=== PATIENT | female | born 1945 | race Asian ===

== ENCOUNTER 2020-05-22 17:13 | Inpatient (IN) | payer MEDICARE, MEDICAID ==
[~2020-05-22] VITALS: Ht 154.9 cm; Wt 59.0 kg
[~2020-05-22 17:13] MED LIST: NKM; PRILOSEC20 MG PO; TYLENOL #31 TAB PO
[2020-05-22] MEDS ORDERED: cefTRIAXone 1 GM in NS 55 ML IV ONE (17:30)
[2020-05-22] MEDS ORDERED: dexAMETHasone 10mg/ml Inj IV ONE (17:30)
[2020-05-22] MEDS ORDERED: Azithromycin 500 MG in NS 275 ML IVPB ONE (17:30)
--- NOTE | 2020-05-22 17:37 | Emergency Room Report ---
History of Present Illness General Chief Complaint: Dyspnea/Respdistress Source: Patient Present Illness HPI 75-year-old Georgian female recently tested positive for COVID-19 yesterday presents with chief complaint of shortness of breath. According to EMS, pulse oxygen saturation was 80% on room air. She was discharged yesterday in stable condition. Initially complaint of abdominal pain without respiratory symptoms. History is limited secondary to patient's clinical status. The patient's symptoms were gradual onset, severity was moderate, duration since 3 days. Quality: Generally weak, short of breath Past medical history: Denies Past surgical history: Denies Smoking: Denies Alcohol use: Denies Drug use: Denies Review of systems: CONST: No fevers or chills, No night sweats PULMONARY: Positive productive cough, positive shortness of breath CARDIAC: No chest pain, No palpitations GI: No vomiting, No diarrhea , No melena_or_BRBPR : No dysuria, No hematuria, No discharge NEURO: No new_focal_weakness_or_numbness, No confusion, No vision changes 14 point Review of Systems is otherwise negative except per HPI Physical Exam: GENERAL: Awake_alert_ nontoxic, mild distress Spo2 88% on RA -abnormal EYES: Extraocular muscles are intact. Conjunctivae clear. Lids without swelling ENT: External nose and ear normal_in_appearance. Oropharynx clear. Head_atraumatic, dry_oral_mucosa NECK: No JVD. No meningismus. No thyromegaly. Supple. Trachea midline RESP: Increased respiratory effort. Tachypneic. Symmetric rise. No stridor. Coarse breath sounds bilaterally CARDIAC: Tachycardic and regular rhytm. No_significant pedal edema. ABDOMEN: Soft. Nondistended. Nontender_No_rebound_or_guarding. MSK: Normal muscle tone, without rigidity. Extremities without asymmetric deformity or swelling. SKIN: Warm and dry. No visible cyanosis or pallor NEUROLOGIC: Alert, oriented x3. Motor_and_sensation_grossly_intact. No truncal ataxia. Gait_normal Psych: Normal mood and affect, normal judgment and insight - COORDINATION OF CARE Case was discussed with: Patient , Patient's Physician Any labs and imaging that were ordered were interpreted as part of the medical decision making: Medical Decision Making/Plan: Differential includes pneumonia, bronchitis, CHF, pulmonary edema, pulmonary embolism, pleural effusion among others. Patient is hypoxic on arrival. She was placed on nonrebreather with resolution of her hypoxia. ABG is pending. Likely additional hypoxemia. Symptoms are not likely to be pulmonary embolism, patient no significant PE risk factors, and has more likely alternate cause of symptoms. Covid was positive yesterday. CXR shows multifocal pneumonia, likely COVID-19. Seems to be consistent with pneumonia, rather than CHF. Labs show troponin negative x1. Dimer is within normal limits. Doubt massive or submassive PE. EKG shows ectopy, however there minimal ST depressions in the lateral leads V4 through V6. No acute STEMI. Presentation not consistent with ischemia / ACS. Based on the patients PSI/PORT score, has high enough mortality risk that inpatient admission for IV antibiotics and clinical observation is most appropriate. Patient given Ceftriaxone / Azithromycin and Decadron. I spoke with Dr. Sousa, and reviewed the patients presentation, workup, results, and treatment. They will admit the patient for further care and evaluation, and assume care of the patient at this time. - CRITICAL CARE TIME - I spent 60minutes of critical care time. This time excludes any separately billable procedures. Organ systems at risk include: Pulmonary / respiratory Treatments/Evaluations: Emergent and rapid respiratory assessment and management with continuous monitoring. Advanced airway equipment at the ready, while the patient's respiratory symptoms were stabilized. Given the patients presentation with pneumonia with hypoxic respiratory failure, there existed the potential for imminent deterioration in the patient's condition due to respiratory compromise. Organ systems at risk for failure without immediate intervention include pulmonary / respiratory. This time was spent reviewing the patients records, reviewing vital signs, reassessing the patients clinical status, discussing the case and care with staff and consultants, and performing high-complexity medical decision making. I considered the possibility of Bipap vs intubation , but at this time the patient is protecting their airway and maintaining their saturation on supplemental oxygen so will defer intubation at this time, although they will be closely monitored for any further deterioration. Allergies: Coded Allergies: No Known Allergies (Unverified , 04/02/12) COVID-19 Screening Contact w/high risk pt: No Experienced COVID-19 symptoms?: No COVID-19 Testing performed CAFETERIA CASHIER: No Patient History Now: No Physical Exam Vital Signs Date Time Temp Pulse Resp B/P (MAP) Pulse Ox O2 Delivery O2 Flow Rate FiO2 05/22/20 17:20 99.0 78 18 136/67 (90) 88 Room Air Sp02 EP Interpretation: reviewed, abnormal Medical Decision Making Diagnostic Impression: Primary Impression: COVID-19 Additional Impressions: Hypoxia Pneumonia Abnormal EKG Thrombocytopenia EKG Diagnostic Results Troponin ordered: Yes When was troponin ordered?: May 22, 2020 JASSON Funez 12-lead EKG (interpreted by me) Time: 190 Indication: Rhythm analysis Tracing visualized and Interpreted by me. Rhythm: Normal sinus rhythm Rate: 65 bpm QTc: 455 Morphology: No_significant_ST_elevations_or_depressions, No STEMI Impression: Ectopy. ST depressions in the lateral leads versus artifact Chest X-Ray Diagnostic Results Chest X-Ray Diagnostic Results : JASSON Funez Chest X-Ray: Views: [ 1 ] view(s) Indication: Cough Findings: Normal heart size. Mediastinum normal. Impression: Multiple groundglass opacity. Multifocal pneumonia The X-ray(s) were independently viewed and interpreted contemporaneously Electronically signed by Regina calero DO Reevaluation Time: 19:34 Last Vital Signs Date Time Temp Pulse Resp B/P (MAP) Pulse Ox O2 Delivery O2 Flow Rate FiO2 05/22/20 17:20 99.0 78 18 136/67 (90) 88 Room Air Status: improved Disposition: ADMITTED INPATIENT Admit Decision Time: 17:36 Condition: Stable Regina Doll D.O. May 22, 2020 17:36
[2020-05-22 18:22] LABS: BASOPHILS % (AUTO) 0.6 % (0.0-2.0); HEMATOCRIT 37.7 % (37.0-47.0); HEMOGLOBIN 13.7 G/DL (12.0-16.0); LYMPHOCYTES % (AUTO) 14.3 % (20.0-45.0); MEAN CORPUSCULAR VOLUME 90 FL (80-99); MONOCYTES % (AUTO) 6.5 % (1.0-10.0); NEUTROPHILS % (AUTO) 78.7 % (45.0-75.0); PLATELET COUNT 136 K/UL (150-450); RED BLOOD COUNT 4.18 M/UL (4.20-5.40); WHITE BLOOD COUNT 8.1 K/UL (4.8-10.8)
[2020-05-22 18:26] LABS: INR 0.9 (0.9-1.1)
--- NOTE | 2020-05-22 18:30 | Diagnostic Imaging Report ---
EXAM: XR Chest, 1 View CLINICAL HISTORY: COUGH TECHNIQUE: Frontal view of the chest. COMPARISON: No relevant prior studies available. Findings/impression: Diffuse bilateral airspace consolidations are identified, correlate for multifocal pneumonia including viral etiologies such as Covid 19 infection given the current climate. Unfolding of the thoracic aortic arch. The heart is normal in size. No pleural effusions or clinically significant pneumothorax. Degenerative osteophytes are noted in the thoracic spine.
--- NOTE | 2020-05-22 18:30 | NUR ---
ED Nurse Note:pt. came from home with SOB, she is covid positive, pt. is A/ox4, ambulatory, placed on monitor worker and isolation, blood and cultures sent to labs, given IV meds and fluids
[2020-05-22 18:35] LABS: ANION GAP 8 mmol/L (5-15); BLOOD UREA NITROGEN 13 mg/dL (7-18); CALCIUM 8.5 MG/DL (8.5-10.1); CARBON DIOXIDE 25 MMOL/L (21-32); CHLORIDE 106 MMOL/L (98-107); CREATININE 0.7 MG/DL (0.55-1.30); POTASSIUM 3.5 MMOL/L (3.5-5.1); SODIUM 139 MMOL/L (136-145)
[2020-05-22 18:49] LABS: ALANINE AMINOTRANSFERASE 44 U/L (12-78); ALBUMIN 3.5 G/DL (3.4-5.0); ALBUMIN/GLOBULIN RATIO 0.9 (1.0-2.7); ALKALINE PHOSPHATASE 55 U/L (46-116); ASPARTATE AMINO TRANSFERASE 57 U/L (15-37); BILIRUBIN,TOTAL 0.4 MG/DL (0.2-1.0); CREATINE KINASE 250 U/L (26-308); FERRITIN 1014 NG/ML (8-388); LACTATE DEHYDROGENASE 324 U/L (81-234); PHOSPHORUS 2.3 MG/DL (2.5-4.9)
--- NOTE | 2020-05-22 19:11 | NUR ---
ED Nurse Note: Report received from GENEVIEVE HERNANDEZ
[2020-05-22 19:25] VITALS: BP 136/67
[2020-05-22 19:39] LABS: APPEARANCE,URINE CLEAR; BILIRUBIN, URINE NEGATIVE (NEGATIVE); COLOR,URINE PALE YELLOW; GLUCOSE, URINE (UA) NEGATIVE (NEGATIVE); KETONES,URINE NEGATIVE (NEGATIVE); LEUKOCYTE ESTERASE ,URINE NEGATIVE (NEGATIVE); NITRITE,URINE NEGATIVE (NEGATIVE); PH,URINE 7 (4.5-8.0); PROTEIN,URINE NEGATIVE (NEGATIVE); UROBILINOGEN,URINE NORMAL MG/DL (0.0-1.0)
--- NOTE | 2020-05-22 20:00 | NUR ---
ED Nurse Note: Pt tested for covid + from previous visit 05/21/20. ERMD aware.
--- NOTE | 2020-05-22 20:50 | NUR ---
ED Nurse Note: Patient awake and alert on bed. Assisted to use bedside commode. No c/o SOB/ as of the moment
[2020-05-22 22:10] VITALS: BP 131/84
[2020-05-23] VITALS (8 sets, daily range): BP systolic 106–138; BP diastolic 53–80
--- NOTE | 2020-05-23 00:15 | NUR ---
ED Nurse Note: Pt asleep on bed. Needs attended. VSS as documented
--- NOTE | 2020-05-23 05:52 | NUR ---
ED Nurse Note: Pt awake on bed, no s/sx of SOB/ noted Admit labs sent
--- NOTE | 2020-05-23 07:10 | NUR ---
HAND-OFF: Report given to BECKY HERNANDEZ.
--- NOTE | 2020-05-23 07:11 | NUR ---
ED Nurse Note: Received report from Michele HERNANDEZ. Pt AAOx4, verbally responsive. On 4L nc, tolerating well. [place] provided for comfort. Denies CP/ SOB. Will cont to monitor.
--- NOTE | 2020-05-23 10:00 | NUR ---
ED Nurse Note: Ivonne Andrade NP at bedside.
--- NOTE | 2020-05-23 10:48 | History and Physical ---
History of Present Illness General Date patient seen: May 23, 2020 Time patient seen: 09:30 Reason for Hospitalization: Dyspnea/Respdistress COVID Present Illness HPI 75 years old female with unknown PMH, presented to emergency department with shortness of breath. Patient was tested positive for COVID-19 day prior to presentation. According to paramedics pulse oximetry was 80% on room air. Patient's hospitalized in this hospital with COVID pneumonia as well. Patient reported gradual onset of symptoms for the last 3 days. Currently she complained of h shortness of breath and headache. Patient mainly Japanese speaking, and difficult to obtain information. Patient initially was placed on nonrebreather mask. ABG was stable. Patient weaned down to oxygen 4 L via nasal cannula. Influenza screen test was negative. Chest X-ray revealed diffuse bilateral airspace consolidation likely multifocal pneumonia. Rapid COVID-19 was positive the day before. LDH 324 , CRP 3.6. ferritin 1014. Troponin negative. D-dimer stable. EKG revealed ectopy with minimal ST depression in lateral leads V4 through V6 , no acute STEMI. Stable chemistry. No leukocytosis, stable HH, PLT count 136. In ED patient received antibiotic and steroid , and currently waiting for a bed. Allergies: Coded Allergies: No Known Allergies (Unverified , 04/02/12) COVID-19 Screening Contact w/high risk pt: No Experienced COVID-19 symptoms?: No Coronavirus symptoms experienc: Shortness of Breath Medication History Scheduled Acetaminophen/Codeine 300MG/30MG* (Tylenol #3*), 1 TAB PO Q4H No Known Medications* (NKM - No Known Medications*), 0 ., (Reported) Omeprazole (Prilosec), 20 MG PO DAILY Patient History Healthcare decision maker Resuscitation status Full code Advanced Directive on File Review of Systems ROS Narrative unable to obtain, due to language barrier Physical Exam General Appearance: WD/WN, other - mild resp distress , Japanese speaking female, awake and alert, responsive Lines, tubes and drains: peripheral HEENT: normocephalic, atraumatic, anicteric, mucous membranes moist, other - O2 via NC Neck: non-tender, supple Respiratory/Chest: chest wall non-tender, no accessory muscle use, other - few isolated rhonchi, decreased air intake Cardiovascular/Chest: normal peripheral pulses, normal rate Abdomen: normal bowel sounds, non tender, soft Extremities: normal range of motion, non-tender, normal inspection, no calf tenderness, no edema Skin Exam: normal pigmentation, warm/dry, no diaphoresis 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: 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 normal, no motor/sensory deficits, alert, oriented x 3, responsive Musculoskeletal: normal muscle bulk Last 24 Hour Vital Signs Date Time Temp Pulse Resp B/P (MAP) Pulse Ox O2 Delivery O2 Flow Rate FiO2 05/23/20 07:11 98.7 61 19 129/54 96 Nasal Cannula 4.0 05/23/20 05:57 99.0 60 20 133/80 96 Nasal Cannula 4.0 05/23/20 01:06 99.0 62 20 121/76 98 Nasal Cannula 4.0 05/22/20 22:10 99.0 80 20 131/84 97 Nasal Cannula 4.0 05/22/20 19:25 99.0 72 18 136/67 98 Nasal Cannula 4.0 05/22/20 19:24 72 18 Room Air 05/22/20 17:20 99.0 78 18 136/67 (90) 88 Room Air Laboratory Tests Test 05/22/20 17:30 05/22/20 18:00 05/22/20 19:00 Arterial Blood pH 7.443 (7.350-7.450) Arterial Blood Partial Pressure CO2 30.9 mmHg (35.0-45.0) L Arterial Blood Partial Pressure O2 114.2 mmHg (75.0-100.0) H Arterial Blood HCO3 20.7 mmol/L (22.0-26.0) L Arterial Blood Oxygen Saturation 97.6 % (95-100) Arterial Blood Base Excess -2.4 (-2-2) L Darinel Test Positive White Blood Count 8.1 K/UL (4.8-10.8) Red Blood Count 4.18 M/UL (4.20-5.40) L Hemoglobin 13.7 G/DL (12.0-16.0) Hematocrit 37.7 % (37.0-47.0) Mean Corpuscular Volume 90 FL (80-99) Mean Corpuscular Hemoglobin 32.7 PG (27.0-31.0) H Mean Corpuscular Hemoglobin Concent 36.3 G/DL (32.0-36.0) H Red Cell Distribution Width 12.0 % (11.6-14.8) Platelet Count 136 K/UL (150-450) L Mean Platelet Volume 6.1 FL (6.5-10.1) L Neutrophils (%) (Auto) 78.7 % (45.0-75.0) H Lymphocytes (%) (Auto) 14.3 % (20.0-45.0) L Monocytes (%) (Auto) 6.5 % (1.0-10.0) Eosinophils (%) (Auto) 0.0 % (0.0-3.0) Basophils (%) (Auto) 0.6 % (0.0-2.0) Prothrombin Time 9.8 SEC (9.30-11.50) Prothromb Time International Ratio 0.9 (0.9-1.1) Activated Partial Thromboplast Time 29 SEC (23-33) D-Dimer 0.48 mg/L FEU (0.00-0.49) Sodium Level 139 MMOL/L (136-145) Potassium Level 3.5 MMOL/L (3.5-5.1) Chloride Level 106 MMOL/L (98-107) Carbon Dioxide Level 25 MMOL/L (21-32) Anion Gap 8 mmol/L (5-15) Blood Urea Nitrogen 13 mg/dL (7-18) Creatinine 0.7 MG/DL (0.55-1.30) Estimat Glomerular Filtration Rate > 60 mL/min (>60) Glucose Level 140 MG/DL (74-106) H Lactic Acid Level 1.30 mmol/L (0.4-2.0) Calcium Level 8.5 MG/DL (8.5-10.1) Phosphorus Level 2.3 MG/DL (2.5-4.9) L Magnesium Level 1.9 MG/DL (1.8-2.4) Ferritin 1014 NG/ML (8-388) H Total Bilirubin 0.4 MG/DL (0.2-1.0) Aspartate Amino Transf (AST/SGOT) 57 U/L (15-37) H Alanine Aminotransferase (ALT/SGPT) 44 U/L (12-78) Alkaline Phosphatase 55 U/L (46-116) Lactate Dehydrogenase 324 U/L (81-234) H Total Creatine Kinase 250 U/L (26-308) Troponin I 0.011 ng/mL (0.000-0.056) C-Reactive Protein, Quantitative 3.6 mg/dL (0.00-0.90) H Pro-B-Type Natriuretic Peptide 342 pg/mL (0-125) H Total Protein 7.3 G/DL (6.4-8.2) Albumin 3.5 G/DL (3.4-5.0) Globulin 3.8 g/dL Albumin/Globulin Ratio 0.9 (1.0-2.7) L Lipase 227 U/L (73-393) Urine Color Pale yellow Urine Appearance Clear Urine pH 7 (4.5-8.0) Urine Specific [place] 1.005 (1.005-1.035) Urine Protein Negative (NEGATIVE) Urine Glucose (UA) Negative (NEGATIVE) Urine Ketones Negative (NEGATIVE) Urine Blood Negative (NEGATIVE) Urine Nitrite Negative (NEGATIVE) Urine Bilirubin Negative (NEGATIVE) Urine Urobilinogen Normal MG/DL (0.0-1.0) Urine Leukocyte Esterase Negative (NEGATIVE) Microbiology Date/Time Source Procedure Growth Status 05/22/20 18:00 Nasal Nares - Final Complete 05/22/20 18:00 Nasal Nares - Final Complete Height (Feet): 5 Height (Inches): 3.00 Weight (Pounds): 130 Assessment/Plan Assessment/Plan: ASSESSMENT Acute hypoxemic resp failure due to COVID PNA COVID 19 PNA Thrombocytopenia Abnormal ECG PLAN OF CARE tele O2 titrate to keep sat > 92% Albuterol MDI start Decadron Remdesivvir per ID ( only he can order), consult pending- Dr Muñoz- called empiric abx , plan a short course, further recs a sepr ID a/c with Lovenox PPX, doubt PE, D dimer stable fup with CXR fup with inflammatory markers monitor PLT counts cardio eval -Dr Doss re abnormal ECG, troponin stable supportive care case discussed and evaluated by supervising physician Ivonne Andrade NP May 23, 2020 10:48
[2020-05-23] MEDS: Enoxaparin 40mg Inj SUBQ SCH (11:56)
--- NOTE | 2020-05-23 12:51 | NUR ---
ED Nurse Note: Lunch tray provided. Aspiration precaution is observed. Safety and comfort provided. Call light within reach.
--- NOTE | 2020-05-23 14:21 | Cardiac Electrophysiology PN ---
Subjective Subjective [id number] Objective Last 24 Hour Vital Signs Date Time Temp Pulse Resp B/P (MAP) Pulse Ox O2 Delivery O2 Flow Rate FiO2 05/23/20 07:11 98.7 61 19 129/54 96 Nasal Cannula 4.0 05/23/20 05:57 99.0 60 20 133/80 96 Nasal Cannula 4.0 05/23/20 01:06 99.0 62 20 121/76 98 Nasal Cannula 4.0 05/22/20 22:10 99.0 80 20 131/84 97 Nasal Cannula 4.0 05/22/20 19:25 99.0 72 18 136/67 98 Nasal Cannula 4.0 05/22/20 19:24 72 18 Room Air 05/22/20 17:20 99.0 78 18 136/67 (90) 88 Room Air Laboratory Tests Test 05/22/20 17:30 05/22/20 18:00 05/22/20 19:00 Arterial Blood pH 7.443 (7.350-7.450) Arterial Blood Partial Pressure CO2 30.9 mmHg (35.0-45.0) L Arterial Blood Partial Pressure O2 114.2 mmHg (75.0-100.0) H Arterial Blood HCO3 20.7 mmol/L (22.0-26.0) L Arterial Blood Oxygen Saturation 97.6 % (95-100) Arterial Blood Base Excess -2.4 (-2-2) L Darinel Test Positive White Blood Count 8.1 K/UL (4.8-10.8) Red Blood Count 4.18 M/UL (4.20-5.40) L Hemoglobin 13.7 G/DL (12.0-16.0) Hematocrit 37.7 % (37.0-47.0) Mean Corpuscular Volume 90 FL (80-99) Mean Corpuscular Hemoglobin 32.7 PG (27.0-31.0) H Mean Corpuscular Hemoglobin Concent 36.3 G/DL (32.0-36.0) H Red Cell Distribution Width 12.0 % (11.6-14.8) Platelet Count 136 K/UL (150-450) L Mean Platelet Volume 6.1 FL (6.5-10.1) L Neutrophils (%) (Auto) 78.7 % (45.0-75.0) H Lymphocytes (%) (Auto) 14.3 % (20.0-45.0) L Monocytes (%) (Auto) 6.5 % (1.0-10.0) Eosinophils (%) (Auto) 0.0 % (0.0-3.0) Basophils (%) (Auto) 0.6 % (0.0-2.0) Prothrombin Time 9.8 SEC (9.30-11.50) Prothromb Time International Ratio 0.9 (0.9-1.1) Activated Partial Thromboplast Time 29 SEC (23-33) D-Dimer 0.48 mg/L FEU (0.00-0.49) Sodium Level 139 MMOL/L (136-145) Potassium Level 3.5 MMOL/L (3.5-5.1) Chloride Level 106 MMOL/L (98-107) Carbon Dioxide Level 25 MMOL/L (21-32) Anion Gap 8 mmol/L (5-15) Blood Urea Nitrogen 13 mg/dL (7-18) Creatinine 0.7 MG/DL (0.55-1.30) Estimat Glomerular Filtration Rate > 60 mL/min (>60) Glucose Level 140 MG/DL (74-106) H Lactic Acid Level 1.30 mmol/L (0.4-2.0) Calcium Level 8.5 MG/DL (8.5-10.1) Phosphorus Level 2.3 MG/DL (2.5-4.9) L Magnesium Level 1.9 MG/DL (1.8-2.4) Ferritin 1014 NG/ML (8-388) H Total Bilirubin 0.4 MG/DL (0.2-1.0) Aspartate Amino Transf (AST/SGOT) 57 U/L (15-37) H Alanine Aminotransferase (ALT/SGPT) 44 U/L (12-78) Alkaline Phosphatase 55 U/L (46-116) Lactate Dehydrogenase 324 U/L (81-234) H Total Creatine Kinase 250 U/L (26-308) Troponin I 0.011 ng/mL (0.000-0.056) C-Reactive Protein, Quantitative 3.6 mg/dL (0.00-0.90) H Pro-B-Type Natriuretic Peptide 342 pg/mL (0-125) H Total Protein 7.3 G/DL (6.4-8.2) Albumin 3.5 G/DL (3.4-5.0) Globulin 3.8 g/dL Albumin/Globulin Ratio 0.9 (1.0-2.7) L Lipase 227 U/L (73-393) Urine Color Pale yellow Urine Appearance Clear Urine pH 7 (4.5-8.0) Urine Specific [place] 1.005 (1.005-1.035) Urine Protein Negative (NEGATIVE) Urine Glucose (UA) Negative (NEGATIVE) Urine Ketones Negative (NEGATIVE) Urine Blood Negative (NEGATIVE) Urine Nitrite Negative (NEGATIVE) Urine Bilirubin Negative (NEGATIVE) Urine Urobilinogen Normal MG/DL (0.0-1.0) Urine Leukocyte Esterase Negative (NEGATIVE) Microbiology Date/Time Source Procedure Growth Status 05/22/20 18:00 Nasal Nares - Final Complete 05/22/20 18:00 Nasal Nares - Final Complete Jordi Albarado MD May 23, 2020 14:21
--- NOTE | 2020-05-23 14:45 | NUR ---
ED Nurse Note: 2decho at bedside.
--- NOTE | 2020-05-23 15:15 | Consultation ---
DATE OF CONSULTATION: 05/23/2020 CARDIOLOGY CONSULTATION CONSULTING PHYSICIAN: Jordi Albarado MD REFERRING PHYSICIAN: Beka Mcdaniels MD REASON FOR CONSULTATION: Abnormal electrocardiogram and shortness of breath. HISTORY OF PRESENT ILLNESS: Patient is a 75-year-old lady with unknown past medical history, who was brought to the emergency for increasing shortness of breath. Patient was tested positive for COVID-19 prior to presentation. Oxygen saturation was 80% on room air according to paramedics. Apparently, patient's was also hospitalized with COVID pneumonia. Patient is mainly Georgian speaking. Her EKG was abnormal suggestive of lateral ST depression in the leads V4 through V6, but no ST elevation. Patient also was bradycardiac with heart rate in the 50s. REVIEW OF SYSTEMS: Negative. PAST MEDICAL HISTORY: As mentioned above. FAMILY HISTORY: Noncontributory. SOCIAL HISTORY: Lives at home with the who recently had COVID. PHYSICAL EXAMINATION: VITAL SIGNS: Show blood pressure 129/54, pulse is 52, respirations 18. HEAD AND NECK: Shows no JVD. LUNGS: Coarse rhonchi. CARDIOVASCULAR: Shows regular S1 and S2 with no gallop. Bradycardic. ABDOMEN: Soft. EXTREMITIES: No pitting edema. LABORATORY AND DIAGNOSTIC DATA: Labs show no white count of 8.1, hemoglobin 13.7, hematocrit 37.7, platelet count 136. Sodium 139, potassium 3.5, BUN of 30, creatinine 0.7, glucose of 140. Her first troponin is negative. ASSESSMENT AND PLAN: 1. Shortness of breath due to COVID pneumonia. We will completely rule out LA protocol. Repeat the EKG in view of inferolateral ST depression and get an echocardiogram for further evaluation. Her BNP was only 342. 2. COVID pneumonia, on dexamethasone, ceftriaxone, and azithromycin. Thank you very much for allowing me to participate in the care of this patient. Please do not hesitate to contact me for any questions regarding my evaluation. Jordi Albarado M.D. DR: SISI JOB#: [id number] CC:
--- NOTE | 2020-05-23 16:45 | NUR ---
ED Nurse Note: report given to Radha HERNANDEZ of telemetry unit.
--- NOTE | 2020-05-23 17:17 | NUR ---
TRANSFER TO FLOOR: Patient transferred to Telemetry via symone, accompanied b y 2 RNs. Pt AAOx4, verbally responsive. On 4L nc tolerating well. IV oline on right AC 20g patent and intact. No skin issues. Ambulatory. All belongings sent with the patient.
--- NOTE | 2020-05-23 17:42 | Infectious Diseases Prog Note ---
Assessment/Plan Assessment/Plan Full consult dictated: A) 1) covid-19 infection with pna, ? CAP 2) hypoxia 3) pmh noted P) 1) ceftriaxone, azithromycin 2) dexamethasone and remdesivir 3) monitor hypoxia 4) thank you Subjective Allergies: Coded Allergies: No Known Allergies (Unverified , 04/02/12) Objective Last 24 Hour Vital Signs Date Time Temp Pulse Resp B/P (MAP) Pulse Ox O2 Delivery O2 Flow Rate FiO2 05/23/20 17:17 98.7 68 19 122/76 98 Nasal Cannula 4.0 05/23/20 16:23 98.7 71 18 106/56 100 Nasal Cannula 4.0 05/23/20 14:14 98.7 68 19 128/74 100 Nasal Cannula 4.0 05/23/20 12:15 98.7 72 16 124/53 99 Nasal Cannula 4.0 05/23/20 10:05 98.7 74 16 138/67 98 Nasal Cannula 4.0 05/23/20 07:11 98.7 61 19 129/54 96 Nasal Cannula 4.0 05/23/20 05:57 99.0 60 20 133/80 96 Nasal Cannula 4.0 05/23/20 01:06 99.0 62 20 121/76 98 Nasal Cannula 4.0 05/22/20 22:10 99.0 80 20 131/84 97 Nasal Cannula 4.0 05/22/20 19:25 99.0 72 18 136/67 98 Nasal Cannula 4.0 05/22/20 19:24 72 18 Room Air Height (Feet): 5 Height (Inches): 3.00 Weight (Pounds): 130 Microbiology Date/Time Source Procedure Growth Status 05/22/20 18:00 Nasal Nares - Final Complete 05/22/20 18:00 Nasal Nares - Final Complete Laboratory Tests Test 05/22/20 17:30 05/22/20 18:00 05/22/20 19:00 Arterial Blood pH 7.443 (7.350-7.450) Arterial Blood Partial Pressure CO2 30.9 mmHg (35.0-45.0) L Arterial Blood Partial Pressure O2 114.2 mmHg (75.0-100.0) H Arterial Blood HCO3 20.7 mmol/L (22.0-26.0) L Arterial Blood Oxygen Saturation 97.6 % (95-100) Arterial Blood Base Excess -2.4 (-2-2) L Darinel Test Positive White Blood Count 8.1 K/UL (4.8-10.8) Red Blood Count 4.18 M/UL (4.20-5.40) L Hemoglobin 13.7 G/DL (12.0-16.0) Hematocrit 37.7 % (37.0-47.0) Mean Corpuscular Volume 90 FL (80-99) Mean Corpuscular Hemoglobin 32.7 PG (27.0-31.0) H Mean Corpuscular Hemoglobin Concent 36.3 G/DL (32.0-36.0) H Red Cell Distribution Width 12.0 % (11.6-14.8) Platelet Count 136 K/UL (150-450) L Mean Platelet Volume 6.1 FL (6.5-10.1) L Neutrophils (%) (Auto) 78.7 % (45.0-75.0) H Lymphocytes (%) (Auto) 14.3 % (20.0-45.0) L Monocytes (%) (Auto) 6.5 % (1.0-10.0) Eosinophils (%) (Auto) 0.0 % (0.0-3.0) Basophils (%) (Auto) 0.6 % (0.0-2.0) Prothrombin Time 9.8 SEC (9.30-11.50) Prothromb Time International Ratio 0.9 (0.9-1.1) Activated Partial Thromboplast Time 29 SEC (23-33) D-Dimer 0.48 mg/L FEU (0.00-0.49) Sodium Level 139 MMOL/L (136-145) Potassium Level 3.5 MMOL/L (3.5-5.1) Chloride Level 106 MMOL/L (98-107) Carbon Dioxide Level 25 MMOL/L (21-32) Anion Gap 8 mmol/L (5-15) Blood Urea Nitrogen 13 mg/dL (7-18) Creatinine 0.7 MG/DL (0.55-1.30) Estimat Glomerular Filtration Rate > 60 mL/min (>60) Glucose Level 140 MG/DL (74-106) H Lactic Acid Level 1.30 mmol/L (0.4-2.0) Calcium Level 8.5 MG/DL (8.5-10.1) Phosphorus Level 2.3 MG/DL (2.5-4.9) L Magnesium Level 1.9 MG/DL (1.8-2.4) Ferritin 1014 NG/ML (8-388) H Total Bilirubin 0.4 MG/DL (0.2-1.0) Aspartate Amino Transf (AST/SGOT) 57 U/L (15-37) H Alanine Aminotransferase (ALT/SGPT) 44 U/L (12-78) Alkaline Phosphatase 55 U/L (46-116) Lactate Dehydrogenase 324 U/L (81-234) H Total Creatine Kinase 250 U/L (26-308) Troponin I 0.011 ng/mL (0.000-0.056) C-Reactive Protein, Quantitative 3.6 mg/dL (0.00-0.90) H Pro-B-Type Natriuretic Peptide 342 pg/mL (0-125) H Total Protein 7.3 G/DL (6.4-8.2) Albumin 3.5 G/DL (3.4-5.0) Globulin 3.8 g/dL Albumin/Globulin Ratio 0.9 (1.0-2.7) L Lipase 227 U/L (73-393) Urine Color Pale yellow Urine Appearance Clear Urine pH 7 (4.5-8.0) Urine Specific [place] 1.005 (1.005-1.035) Urine Protein Negative (NEGATIVE) Urine Glucose (UA) Negative (NEGATIVE) Urine Ketones Negative (NEGATIVE) Urine Blood Negative (NEGATIVE) Urine Nitrite Negative (NEGATIVE) Urine Bilirubin Negative (NEGATIVE) Urine Urobilinogen Normal MG/DL (0.0-1.0) Urine Leukocyte Esterase Negative (NEGATIVE) Current Medications Medications (Trade) Dose Ordered Sig/Elieser Route PRN Reason Start Time Stop Time Status Last Admin Dose Admin Acetaminophen (Tylenol) 650 mg Q4H PRN ORAL Temp >100.5 05/23/20 10:30 06/22/20 10:29 Albuterol Sulfate (Proventil MDI) 2 puff Q4H PRN INH Shortness of Breath 05/23/20 10:30 08/21/20 10:29 Azithromycin 500 mg/Sodium Chloride 275 ml @ 275 mls/hr Q24H IV 05/23/20 17:00 05/28/20 16:59 Ceftriaxone Sodium 1 gm/ Sodium Chloride 55 ml @ 110 mls/hr Q24H IVPB 05/23/20 17:00 05/30/20 16:59 Dexamethasone Sodium Phosphate (Decadron 4mg/ml vial) 6 mg DAILY IVP 05/23/20 10:30 06/01/20 09:01 05/23/20 10:54 Dextrose (Dextrose 50%) 25 ml Q30M PRN IV Hypoglycemia 05/23/20 10:30 08/21/20 10:29 Dextrose (Dextrose 50%) 50 ml Q30M PRN IV Hypoglycemia 05/23/20 10:30 08/21/20 10:29 Docusate Sodium (Colace) 100 mg EVERY 12 HOURS ORAL 05/23/20 21:00 06/22/20 20:59 Enoxaparin Sodium (Lovenox) 40 mg Q24H SUBQ 05/23/20 12:00 08/21/20 11:59 05/23/20 11:56 Famotidine (Pepcid) 40 mg DAILY ORAL 05/24/20 09:00 08/22/20 08:59 Afshan Muñoz MD May 23, 2020 17:42
--- NOTE | 2020-05-23 18:00 | NUR ---
NURSE NOTES: Received pt via gurjossy from ER transport team. Pt is A/O x 3 and Turkmen speaking only. Went through inventory and counted money that pt had in wallet. Pt is on 10L with a simple face mask with the saturation of 90%. No SOB or acute distress noted. No pain noted. Bed in lowest position with side rails x 2 and locked. Educated regarding call light usage when needed. Will continue plan of care.
[2020-05-23] MEDS: cefTRIAXone 1 GM in NS 55 ML IVPB SCH (18:52)
[2020-05-23] MEDS: Azithromycin 500 MG in NS 275 ML IV SCH (18:53)
--- NOTE | 2020-05-23 19:17 | NUR ---
NURSE NOTES: Received patient from DAVID Garcia. Patient awake, alert, and oriented. Able to communicate needs. On 10L simple mask, saturating at 92-93%, encouraged to perform deep breathing exercises. IV site on RAC#20, running iv atbx at this time. No complaints of pain or discomfort, not in acute distress. Bed in lowest position, brakes engaged and bed alarm on. Bed rails raised x2. Belongings within reach. Call light placed within reach. Will continue to monitor.
--- NOTE | 2020-05-23 19:17 | NUR ---
NURSE HAND-OFF REPORT: Important Events on Shift: New Admit COVID + Patient Status: Stable Diet: Regular Pending Orders: Pending Results/Labs: Pending MD notification: Latest Vital Signs: Temperature 98.7 , Pulse 68 , B/P 122 /76 , Respiratory Rate 19 , O2 SAT 98 , Nasal Cannula, O2 Flow Rate 4.0 . Vital Sign Comment: EKG Rhythm: Sinus Rhythm Rhythm change?: MD Notified?: - MD Response: Latest Bustamante Fall Score: Fall Risk: Safety Measures: Call light , Bed Alarm , Side Rails , Bed position . Fall Precautions: Report given to Janny.
--- NOTE | 2020-05-23 19:45 | Consultation ---
DATE OF CONSULTATION: 05/23/2020 INFECTIOUS DISEASE CONSULTATION CONSULTING PHYSICIAN: Afshan Muñoz MD. ATTENDING PHYSICIAN: Elvis Sousa MD. REFERRING PHYSICIAN: Elvis Sousa MD. REASON FOR CONSULTATION: COVID-19 infection, hypoxia, pneumonia. CHIEF COMPLAINT: The patient's chief complaint coming in the hospital is COVID-19 infection, pneumonia, and hypoxia. HISTORY OF PRESENT ILLNESS: This is a 75-year-old female who comes to [facility] as she tested positive outside the hospital for COVID infection. The patient was hypoxic, now is requiring 4 L. Her saturation on admission was 88%. The patient has pneumonia on chest x-ray. Infectious Disease consultation is requested. The patient was started on dexamethasone and remdesivir. Discussed with pharmacy. The patient is also on Rocephin and azithromycin for possible community-acquired pneumonia. The patient is in COVID isolation. REVIEW OF SYSTEMS: CONSTITUTIONAL: The patient has no fever or chills. CARDIAC: No chest pain. PULMONARY: She has shortness of breath and hypoxia. She has a cough. GASTROINTESTINAL: No nausea, vomiting, or diarrhea. GENITOURINARY: No dysuria or frequency. SKIN: No rash. PAST MEDICAL HISTORY: Past medical history is negative. No diabetes or hypertension mentioned. No history of heart disease or cancer. She does have thrombocytopenia. ALLERGIES: She has no known drug allergies. No antibiotic allergies. SOCIAL HISTORY: Negative for smoking, alcohol, or drug abuse. FAMILY HISTORY: Noncontributory. MEDICATIONS: Upon reviewing MAR, she is on following medications. She is on famotidine, docusate, azithromycin, Rocephin, dexamethasone, remdesivir, and p.r.n. medications. Outside medications noted and reconciliated. PHYSICAL EXAMINATION: VITAL SIGNS: Temperature is 98.7, pulse rate 68, respiratory rate 19, blood pressure 122/76. Saturation 98% on 4 liters. GENERAL: Alert, responsive, in no distress. She has some shortness of breath. HEAD AND NECK: Oral exam, no thrush. Eye exam, no icterus. Normocephalic. Neck is supple. No JVD. HEART: Regular. No gallop or murmur. LUNGS: Few bilateral rhonchi and rales. ABDOMEN: Soft. Positive bowel sounds. Nontender. SKIN: No rash. MUSCULOSKELETAL: No effusions. Legs are without cellulitis. PERIPHERAL VASCULAR: No cyanosis. GENITOURINARY: No Santiago. LINE SITES: Without phlebitis. NEUROLOGIC: Intact. Nonfocal. Seems alert and oriented. LABORATORY DATA: White count 8.1, hemoglobin 13.7. Creatinine 0.7. CRP 3.6. UA, negative. IMAGING STUDIES: Chest x-ray shows diffuse airspace consolidations bilaterally. It is noted and reviewed. Outside COVID testing was positive by molecular testing, but it was positive. Influenza testing here at [facility] was negative. ASSESSMENT AND PLAN: 1. The patient has COVID-19 infection with pneumonia and hypoxia. The patient could have community-acquired pneumonia. At this time, we will continue dexamethasone and remdesivir for COVID treatment. We will also continue Rocephin and azithromycin for community-acquired pneumonia treatment. Monitor hypoxia, laboratories, and chest x-ray. Continue COVID isolation. 2. No other significant past medical history. 3. Rule out NH per Cardiology. 4. No known allergies. 5. Social history is negative. 6. Family history is noncontributory. 7. MAR is noted. 8. Case was discussed with RN. 9. Continue treatment per primary consultants. 10. Orders were noted and entered. Afshan Muñoz M.D. DR: SANJAY JOB#: [id number] CC:
[2020-05-23] MEDS ORDERED: Loading Dose:Remdesivir 200mg/NS 210ml IV SCH ×2 (20:00)
--- NOTE | 2020-05-23 21:24 | NUR ---
NURSE NOTES: Colace fell on the floor. Medication wasted on pyxis.
[2020-05-23] MEDS: Docusate 100mg cap ORAL SCH (21:25)
[2020-05-24] VITALS: BP 136/71
--- NOTE | 2020-05-24 02:28 | NUR ---
NURSE NOTES: Pt desaturating on 10L simple face mask. Called RT; patient now on 15L nonrebreather mask; saturating at 94%
[2020-05-24 04:00] VITALS: BP 138/68
[2020-05-24 04:40] LABS: BASOPHILS % (AUTO) 0.4 % (0.0-2.0); HEMATOCRIT 35.5 % (37.0-47.0); HEMOGLOBIN 12.8 G/DL (12.0-16.0); LYMPHOCYTES % (AUTO) 13.2 % (20.0-45.0); MEAN CORPUSCULAR VOLUME 91 FL (80-99); MONOCYTES % (AUTO) 8.3 % (1.0-10.0); NEUTROPHILS % (AUTO) 78.1 % (45.0-75.0); PLATELET COUNT 169 K/UL (150-450); RED CELL DISTRIBUTION WIDTH 11.7 % (11.6-14.8); WHITE BLOOD COUNT 8.5 K/UL (4.8-10.8)
[2020-05-24 05:24] LABS: ALANINE AMINOTRANSFERASE 49 U/L (12-78); ALBUMIN 2.8 G/DL (3.4-5.0); ALBUMIN/GLOBULIN RATIO 0.7 (1.0-2.7); ALKALINE PHOSPHATASE 51 U/L (46-116); ANION GAP 5 mmol/L (5-15); ASPARTATE AMINO TRANSFERASE 60 U/L (15-37); BILIRUBIN,TOTAL 0.3 MG/DL (0.2-1.0); BLOOD UREA NITROGEN 13 mg/dL (7-18); CALCIUM 8.2 MG/DL (8.5-10.1); CARBON DIOXIDE 28 MMOL/L (21-32); CHLORIDE 104 MMOL/L (98-107); CHOLESTEROL 142 MG/DL (< 200); CREATININE 0.6 MG/DL (0.55-1.30); HDL CHOLESTEROL 54 MG/DL (40-60); POTASSIUM 3.8 MMOL/L (3.5-5.1); SODIUM 137 MMOL/L (136-145); TRIGLYCERIDES 113 MG/DL (30-150)
--- NOTE | 2020-05-24 07:15 | NUR ---
NURSE HAND-OFF REPORT: Important Events on Shift:[Patient on 15L nonrebreather, saturating 97-99%.] Patient Status: [Full code] Diet: [Regular] Pending Orders: [] Pending Results/Labs:[] Pending MD notification:[] Latest Vital Signs: Temperature 98.5 , Pulse 59 , B/P 138 /68 , Respiratory Rate 17 , O2 SAT 99 , Nasal Cannula, O2 Flow Rate 10.0 . Vital Sign Comment: [] EKG Rhythm: Sinus Rhythm Rhythm change?: N MD Notified?: - MD Response: Latest Bustamante Fall Score: 30 Fall Risk: Medium Risk Safety Measures: Call light Within Reach, Bed Alarm Zone 1, Side Rails Side Rails x2, Bed position Low and Locked. Fall Precautions: Yellow Socks Yellow Gown Door Sign Patient Fall Education Report given to [DAVID Sears].
--- NOTE | 2020-05-24 07:32 | NUR ---
NURSE NOTES: Received patient from DAVID Burns. Pt is stable and AOx4. On 15 LPM NRB saturating 98% spo2, unlabored and even breathing, encouraged to perform deep breathing exercises. no s/s or complaint of distress at this time. Pt complaining of dryness and pain at chest because of oxygen. Attempted to titrate O2, Pt unable to tolerate lower setting of O2. O2 remains on 15LPM NRB. Contacted [employer] liliam regarding medication. IV site on RAC 20. bed low and locked, call light in reach and bed alarm on, side rails x2. Belongings within reach. Set up breakfast on bedside table, Pt eating independently.
[2020-05-24 08:00] VITALS: BP 134/60
[2020-05-24] MEDS: Docusate 100mg cap ORAL SCH ×2 (09:06→21:01)
[2020-05-24] MEDS: guaiFENesin /DM 10ml syrup ORAL PRN ×2 (09:06→17:17)
--- NOTE | 2020-05-24 09:55 | NUR ---
NURSE NOTES: Contacted IJEOMA Andrade regarding Pt pain. pt has head pain. Pt moaning and complaining of pain. Requesting orders at this time, awaiting call back. Addendum: 05/24/20 at 1059 by Renu Brooks RN RN awaiting call back, pt is stable but still complaiing of pain, requesting to see POST ANESTHESIA NURSE/MD regarding pain Addendum: 05/24/20 at 1119 by Renu Brooks RN RN order acknowledged and carried out
[2020-05-24] MEDS ORDERED: Tubing IV Secondary IV ONE (10:24)
[2020-05-24] MEDS: Enoxaparin 40mg Inj SUBQ SCH (11:36)
[2020-05-24 12:00] VITALS: BP 135/60
--- NOTE | 2020-05-24 12:07 | Cardiac Electrophysiology PN ---
Assessment/Plan Assessment/Plan 1. Shortness of breath due to COVID pneumonia. Ruled out for PA EKG in view of inferolateral ST depression Echocardiogram EF 65% Her BNP was only 342. 2. Sinus nnamdi off any TAVARES affecting agent. Likely due to Covid 3. COVID pneumonia, on dexamethasone, ceftriaxone, and azithromycin. On 15 liter NRB FM Subjective Subjective On 15 liter NRB FM. In sinus nnamdi in 50s in Covid isolation Objective Last 24 Hour Vital Signs Date Time Temp Pulse Resp B/P (MAP) Pulse Ox O2 Delivery O2 Flow Rate FiO2 05/24/20 09:00 Non-Rebreather 15.0 05/24/20 08:00 98.1 62 22 134/60 (84) 97 05/24/20 08:00 63 05/24/20 04:00 60 05/24/20 04:00 98.5 59 17 138/68 (91) 99 05/24/20 00:00 98.3 60 18 136/71 (92) 94 05/24/20 00:00 58 05/23/20 21:00 Simple Mask 10.0 05/23/20 20:00 54 05/23/20 20:00 97.8 61 22 113/61 (78) 93 05/23/20 18:53 Simple Mask 10.0 05/23/20 17:17 98.7 68 19 122/76 98 Nasal Cannula 4.0 05/23/20 16:23 98.7 71 18 106/56 100 Nasal Cannula 4.0 05/23/20 14:14 98.7 68 19 128/74 100 Nasal Cannula 4.0 05/23/20 12:15 98.7 72 16 124/53 99 Nasal Cannula 4.0 Laboratory Tests Test 05/24/20 04:00 05/24/20 04:56 White Blood Count 8.5 K/UL (4.8-10.8) Red Blood Count 3.90 M/UL (4.20-5.40) L Hemoglobin 12.8 G/DL (12.0-16.0) Hematocrit 35.5 % (37.0-47.0) L Mean Corpuscular Volume 91 FL (80-99) Mean Corpuscular Hemoglobin 32.9 PG (27.0-31.0) H Mean Corpuscular Hemoglobin Concent 36.2 G/DL (32.0-36.0) H Red Cell Distribution Width 11.7 % (11.6-14.8) Platelet Count 169 K/UL (150-450) Mean Platelet Volume 6.5 FL (6.5-10.1) Neutrophils (%) (Auto) 78.1 % (45.0-75.0) H Lymphocytes (%) (Auto) 13.2 % (20.0-45.0) L Monocytes (%) (Auto) 8.3 % (1.0-10.0) Eosinophils (%) (Auto) 0.0 % (0.0-3.0) Basophils (%) (Auto) 0.4 % (0.0-2.0) Sodium Level 137 MMOL/L (136-145) Potassium Level 3.8 MMOL/L (3.5-5.1) Chloride Level 104 MMOL/L (98-107) Carbon Dioxide Level 28 MMOL/L (21-32) Anion Gap 5 mmol/L (5-15) Blood Urea Nitrogen 13 mg/dL (7-18) Creatinine 0.6 MG/DL (0.55-1.30) Estimat Glomerular Filtration Rate > 60 mL/min (>60) Glucose Level 112 MG/DL (74-106) H Calcium Level 8.2 MG/DL (8.5-10.1) L Total Bilirubin 0.3 MG/DL (0.2-1.0) Direct Bilirubin < 0.1 MG/DL (0.0-0.3) Aspartate Amino Transf (AST/SGOT) 60 U/L (15-37) H Alanine Aminotransferase (ALT/SGPT) 49 U/L (12-78) Alkaline Phosphatase 51 U/L (46-116) Troponin I 0.010 ng/mL (0.000-0.056) C-Reactive Protein, Quantitative 5.1 mg/dL (0.00-0.90) H Total Protein 6.7 G/DL (6.4-8.2) Albumin 2.8 G/DL (3.4-5.0) L Globulin 3.9 g/dL Albumin/Globulin Ratio 0.7 (1.0-2.7) L Triglycerides Level 113 MG/DL (30-150) Cholesterol Level 142 MG/DL (< 200) LDL Cholesterol 69 mg/dL (<100) HDL Cholesterol 54 MG/DL (40-60) Cholesterol/HDL Ratio 2.6 (3.3-4.4) L Thyroid Stimulating Hormone (TSH) 0.641 uiU/mL (0.358-3.740) Free Thyroxine Pending Microbiology Date/Time Source Procedure Growth Status 05/22/20 19:00 Straight Cath Urine Culture - Preliminary NO GROWTH Resulted 05/22/20 18:00 Nasal Nares - Final Complete 05/22/20 18:00 Nasal Nares - Final Complete 05/22/20 18:00 Blood Blood Culture - Preliminary NO GROWTH AFTER 24 HOURS Resulted 05/22/20 17:50 Blood Blood Culture - Preliminary NO GROWTH AFTER 24 HOURS Resulted Objective HEAD AND NECK: Shows no JVD. LUNGS: Coarse rhonchi. CARDIOVASCULAR: Shows regular S1 and S2 with no gallop. Bradycardic. ABDOMEN: Soft. EXTREMITIES: No pitting edema. Jordi Albarado MD May 24, 2020 12:07
--- NOTE | 2020-05-24 15:32 | NUR ---
CASE MANAGEMENT:REVIEW 75 YR OLD FEMALE FROM HOME TO ER CC: SOB 88% ON RA SI: COVID PNEUMONIA 99.0 78 18 106/56 88% ON RA GLUCOSE+140 IS: PLACED ON 4L/NC 1L NS BOLUS IV AZITHROMYCIN IV ROCEPHIN URINE CX BLOOD CX CXR : TO TELEMETRY UNIT DCP: FROM HOME
[2020-05-24 16:00] VITALS: BP 129/57
[2020-05-24] MEDS: cefTRIAXone 1 GM in NS 55 ML IVPB SCH (16:26)
--- NOTE | 2020-05-24 16:49 | Pulmonology Progress Note ---
Subjective Allergies: Coded Allergies: No Known Allergies (Unverified , 04/02/12) Subjective on tele on 100% NRM complains of dry cough and points to chest remains afebrile, no leukocytosis earlier headache, resolved with Tylenol Objective Last 24 Hour Vital Signs Date Time Temp Pulse Resp B/P (MAP) Pulse Ox O2 Delivery O2 Flow Rate FiO2 05/24/20 16:00 98.1 62 22 129/57 (81) 97 05/24/20 12:00 65 05/24/20 12:00 97.5 58 20 135/60 (85) 97 05/24/20 11:59 98.1 05/24/20 09:00 Non-Rebreather 15.0 05/24/20 08:00 98.1 62 22 134/60 (84) 97 05/24/20 08:00 63 05/24/20 04:00 60 05/24/20 04:00 98.5 59 17 138/68 (91) 99 05/24/20 00:00 98.3 60 18 136/71 (92) 94 05/24/20 00:00 58 05/23/20 21:00 Simple Mask 10.0 05/23/20 20:00 54 05/23/20 20:00 97.8 61 22 113/61 (78) 93 05/23/20 18:53 Simple Mask 10.0 05/23/20 17:17 98.7 68 19 122/76 98 Nasal Cannula 4.0 Objective General Appearance: WD/WN, other - mild resp distress , Swedish speaking female, awake and alert, responsive Lines, tubes and drains: peripheral HEENT: normocephalic, atraumatic, anicteric, mucous membranes moist, O2 via NRM Neck: non-tender, supple Respiratory/Chest: chest wall non-tender, no accessory muscle use, other - few isolated rhonchi, decreased air intake Cardiovascular/Chest: normal peripheral pulses, normal rate Abdomen: normal bowel sounds, non tender, soft Extremities: normal range of motion, non-tender, normal inspection, no calf tenderness, no edema Skin Exam: normal pigmentation, warm/dry, no diaphoresis 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, no motor/sensory deficits, alert, oriented x 3, responsive Musculoskeletal: normal muscle bulk Microbiology Date/Time Source Procedure Growth Status 05/22/20 19:00 Straight Cath Urine Culture - Preliminary NO GROWTH Resulted 05/22/20 18:00 Nasal Nares - Final Complete 05/22/20 18:00 Nasal Nares - Final Complete 05/22/20 18:00 Blood Blood Culture - Preliminary NO GROWTH AFTER 24 HOURS Resulted 05/22/20 17:50 Blood Blood Culture - Preliminary NO GROWTH AFTER 24 HOURS Resulted Laboratory Tests 05/24/20 04:00: White Blood Count 8.5, Red Blood Count 3.90L, Hemoglobin 12.8, Hematocrit 35.5L, Mean Corpuscular Volume 91, Mean Corpuscular Hemoglobin 32.9H, Mean Corpuscular Hemoglobin Concent 36.2H, Red Cell Distribution Width 11.7, Platelet Count 169, Mean Platelet Volume 6.5, Neutrophils (%) (Auto) 78.1H, Lymphocytes (%) (Auto) 13.2L, Monocytes (%) (Auto) 8.3, Eosinophils (%) (Auto) 0.0, Basophils (%) (Auto) 0.4 05/24/20 04:56: Sodium Level 137, Potassium Level 3.8, Chloride Level 104, Carbon Dioxide Level 28, Anion Gap 5, Blood Urea Nitrogen 13, Creatinine 0.6, Estimat Glomerular Filtration Rate > 60, Glucose Level 112H, Calcium Level 8.2L, Total Bilirubin 0.3, Direct Bilirubin < 0.1, Aspartate Amino Transf (AST/SGOT) 60H, Alanine Aminotransferase (ALT/SGPT) 49, Alkaline Phosphatase 51, Troponin I 0.010, C- Reactive Protein, Quantitative 5.1H, Total Protein 6.7, Albumin 2.8L, Globulin 3.9, Albumin/Globulin Ratio 0.7L, Triglycerides Level 113, Cholesterol Level 142, LDL Cholesterol 69, HDL Cholesterol 54, Cholesterol/HDL Ratio 2.6L, Thyroid Stimulating Hormone (TSH) 0.641, Free Thyroxine [Pending] Current Medications Medications (Trade) Dose Ordered Sig/Elieser Route PRN Reason Start Time Stop Time Status Last Admin Dose Admin Acetaminophen (Tylenol) 650 mg Q4H PRN ORAL Temp >100.5 05/23/20 10:30 06/22/20 10:29 Acetaminophen (Tylenol) 650 mg Q4H PRN ORAL pain 05/24/20 11:30 06/23/20 11:29 05/24/20 11:30 Albuterol Sulfate (Proventil MDI) 2 puff Q4H PRN INH Shortness of Breath 05/23/20 10:30 08/21/20 10:29 Azithromycin 500 mg/Sodium Chloride 275 ml @ 275 mls/hr Q24H IV 05/23/20 17:00 05/28/20 16:59 05/23/20 18:53 Ceftriaxone Sodium 1 gm/ Sodium Chloride 55 ml @ 110 mls/hr Q24H IVPB 05/23/20 17:00 05/30/20 16:59 05/24/20 16:26 Dexamethasone Sodium Phosphate (Decadron 4mg/ml vial) 6 mg DAILY IVP 05/23/20 10:30 06/01/20 09:01 05/24/20 09:05 Dextrose (Dextrose 50%) 25 ml Q30M PRN IV Hypoglycemia 05/23/20 10:30 08/21/20 10:29 Dextrose (Dextrose 50%) 50 ml Q30M PRN IV Hypoglycemia 05/23/20 10:30 08/21/20 10:29 Docusate Sodium (Colace) 100 mg EVERY 12 HOURS ORAL 05/23/20 21:00 06/22/20 20:59 05/24/20 09:06 Enoxaparin Sodium (Lovenox) 40 mg Q24H SUBQ 05/23/20 12:00 08/21/20 11:59 05/24/20 11:36 Famotidine (Pepcid) 40 mg DAILY ORAL 05/24/20 09:00 08/22/20 08:59 05/24/20 09:05 Guaifenesin/ Dextromethorphan (Robitussin DM Syrup) 10 ml Q4H PRN ORAL For Cough 05/24/20 08:00 08/22/20 07:59 05/24/20 09:06 Remdesivir 100 mg/ Sodium Chloride 250 ml @ 250 mls/hr Q24H IV 05/24/20 20:00 05/27/20 20:59 Assessment/Plan Assessment/Plan ASSESSMENT Acute hypoxemic resp failure due to COVID PNA COVID 19 PNA Thrombocytopenia-resolved Abnormal ECG Headache Pulmonary HTN PLAN OF CARE tele O2 titrate to keep sat > 92% Albuterol MDI prn on Decadron and Remdesivivr Day 2 ( monitor LFT and renal paramerts, AST 60) encourage prone positiion ID eval appreciated empiric abx , BCX 05/22 NGTD UCX 05/22 NGT influenza screen NGT a/c with Lovenox PPX, doubt PE, D dimer stable fup with CXR fup with inflammatory markers , CRP 5.1 today a/tussive prn Tylenol prn for RIOJAS monitor PLT counts-normalized cardio eval -appreciated ECHO with pEF 65%, no WMA, mild to moderate MR, moderate pulmonary hypertension supportive care case discussed and evaluated by supervising physician Ivonne Andrade NP May 24, 2020 16:49
[2020-05-24] MEDS: Azithromycin 500 MG in NS 275 ML IV SCH (17:18)
--- NOTE | 2020-05-24 18:17 | NUR ---
NURSE HAND-OFF REPORT: Important Events on Shift: complaining of dryness and pain in chest// headache, neck and muscle ache// tylenol and cough medicine PRN // soft stool x 2 Patient Status: fc, stable Diet: regular diet Pending Orders: Pending Results/Labs: Pending MD notification: Latest Vital Signs: Temperature 98.1 , Pulse 66 , B/P 129 /57 , Respiratory Rate 22 , O2 SAT 97 , Nasal Cannula, O2 Flow Rate 15.0 . Vital Sign Comment: EKG Rhythm: Sinus Rhythm Rhythm change?: N MD Notified?: - MD Response: Latest Bustamante Fall Score: 30 Fall Risk: Medium Risk Safety Measures: Call light Within Reach, Bed Alarm Zone 1, Side Rails Side Rails x2, Bed position Low and Locked. Fall Precautions: Yellow Socks Yellow Gown Door Sign Patient Fall Education Report to be given. Addendum: 05/24/20 at 1923 by Reun Brooks RN RN Plan of care and report endorsed to DAVID Amin. Pt is stable.
--- NOTE | 2020-05-24 19:10 | NUR ---
NURSE NOTES: RECEIVED REPORT FORM DAVID ALAMO. PT IN BED, AWAKE, ALERT/ORIENTED X4, ABLE TO MAKE NEEDS KNOWN. CONTINUE O2 VIA NON-REBREATHER AT 15L/MIN SATING AT 97%. 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 NO C/O PAIN AT THIS TIME. BED IN LOW POSITION & LOCKED. SIDE RAILS UP X2. CALL LIGHT WITH IN REACH. BED ALARM ON. CONTINUE PLAN OF CARE.
[2020-05-24 20:00] VITALS: BP 146/70
[2020-05-24] MEDS: Maintenance Dose:Remdesivir 100mg/NS 230ml x 4 Doses IV SCH ×2 (21:01)
[2020-05-25] VITALS: BP 142/65
[2020-05-25 04:00] VITALS: BP 145/70
--- NOTE | 2020-05-25 07:19 | NUR ---
NURSE HAND-OFF REPORT: Important Events on Shift:[N/A] Patient Status: [STABLE] Diet: [REG] Pending Orders: [] Pending Results/Labs:[] Pending MD notification:[] Latest Vital Signs: Temperature 98.9 , Pulse 57 , B/P 145 /70 , Respiratory Rate 22 , O2 SAT 93 , Nasal Cannula, O2 Flow Rate 15.0 . Vital Sign Comment: [] EKG Rhythm: Sinus Bradycardia Rhythm change?: N MD Notified?: N - MD Response: Latest Bustamante Fall Score: 30 Fall Risk: Medium Risk Safety Measures: Call light Within Reach, Bed Alarm Zone 1, Side Rails Side Rails x2, Bed position Low and Locked. Fall Precautions: Yellow Socks Yellow Gown Door Sign Patient Fall Education Report given to [DAVID SWEET].
--- NOTE | 2020-05-25 07:25 | NUR ---
NURSE NOTES: Received patient from DAVID Amin. Pt is stable and AOx4. On 15 LPM NRB saturating 97% spo2, unlabored and even breathing, encouraged to perform deep breathing exercises. no s/s or complaint of distress at this time. Pt complaining of dryness and pain at chest because of oxygen. IV site on RAC 20. bed low and locked, call light in reach and bed alarm on, side rails x2. Belongings within reach.
[2020-05-25 07:40] LABS: BASOPHILS % (AUTO) 0.3 % (0.0-2.0); HEMATOCRIT 39.7 % (37.0-47.0); HEMOGLOBIN 13.8 G/DL (12.0-16.0); LYMPHOCYTES % (AUTO) 15.2 % (20.0-45.0); MEAN CORPUSCULAR VOLUME 94 FL (80-99); MONOCYTES % (AUTO) 7.4 % (1.0-10.0); NEUTROPHILS % (AUTO) 77.2 % (45.0-75.0); PLATELET COUNT 213 K/UL (150-450); RED BLOOD COUNT 4.24 M/UL (4.20-5.40); RED CELL DISTRIBUTION WIDTH 12.4 % (11.6-14.8); WHITE BLOOD COUNT 9.9 K/UL (4.8-10.8)
[2020-05-25] MEDS: guaiFENesin /DM 10ml syrup ORAL PRN ×3 (07:54→23:59)
[2020-05-25] MEDS: Docusate 100mg cap ORAL SCH ×2 (07:57→20:49)
[2020-05-25 08:00] VITALS: BP 140/64
[2020-05-25 08:26] LABS: ALANINE AMINOTRANSFERASE 73 U/L (12-78); ALBUMIN 2.6 G/DL (3.4-5.0); ALBUMIN/GLOBULIN RATIO 0.6 (1.0-2.7); ALKALINE PHOSPHATASE 74 U/L (46-116); ANION GAP 5 mmol/L (5-15); ASPARTATE AMINO TRANSFERASE 69 U/L (15-37); BILIRUBIN,DIRECT 0.2 MG/DL (0.0-0.3); BILIRUBIN,TOTAL 0.5 MG/DL (0.2-1.0); BLOOD UREA NITROGEN 18 mg/dL (7-18); CALCIUM 8.2 MG/DL (8.5-10.1); CARBON DIOXIDE 29 MMOL/L (21-32); CHLORIDE 104 MMOL/L (98-107); CREATININE 0.6 MG/DL (0.55-1.30); POTASSIUM 3.8 MMOL/L (3.5-5.1); SODIUM 138 MMOL/L (136-145)
--- NOTE | 2020-05-25 10:45 | NUR ---
NURSE NOTES: Pt was spo2 85*-88%, called RT to see Pt and notified IJEOMA ricketts. Ordered ABG and CXR, order acknowledged and carried out. Pt now on 92*-94% spo2, even respirations, 20RR. Addendum: 05/25/20 at 1134 by Renu Brooks RN RN When sleeping, Pt 89-90% spo2, unlavbored and even respirations, 19RR . IJEOMA Ricketts aware. pt is stable.
--- NOTE | 2020-05-25 10:51 | NUR ---
CASE MANAGEMENT:REVIEW 05/25/20 SI: COVID PNEUMONIA 96.7 61 19 140/64 96% ON 15L SIMPLE MASK IS: IV REMDESIVIR Q24 (/) IV DECADRON QD IV AZITHROMYCIN Q24 IV ROCEPHIN Q24 LOVENOX SQ Q24 : TELEMETRY STATUS DCP: FROM HOME
--- NOTE | 2020-05-25 11:08 | Pulmonology Progress Note ---
Subjective Allergies: Coded Allergies: No Known Allergies (Unverified , 04/02/12) Subjective on tele on 100% NRM at times desaturated below 90% complains of dry cough remains afebrile, no leukocytosis Objective Last 24 Hour Vital Signs Date Time Temp Pulse Resp B/P (MAP) Pulse Ox O2 Delivery O2 Flow Rate FiO2 05/25/20 09:00 Simple Mask 15.0 05/25/20 08:25 96.7 05/25/20 08:00 96.7 60 19 140/64 (89) 96 05/25/20 08:00 61 05/25/20 04:00 53 05/25/20 04:00 98.9 57 22 145/70 (95) 93 05/25/20 00:16 98.5 05/25/20 00:00 98.9 58 22 142/65 (90) 96 05/25/20 00:00 58 05/24/20 21:00 Simple Mask 15.0 05/24/20 20:00 57 05/24/20 20:00 98.5 60 22 146/70 (95) 94 05/24/20 17:52 98.1 05/24/20 16:00 98.1 62 22 129/57 (81) 97 05/24/20 16:00 66 05/24/20 12:00 65 05/24/20 12:00 97.5 58 20 135/60 (85) 97 05/24/20 11:59 98.1 Intake and Output 05/24/20 05/25/20 19:00 07:00 Intake Total 800 ml 250 ml Balance 800 ml 250 ml Intake Oral 800 ml 250 ml # Voids 3 2 # Bowel Movements 2 Objective General Appearance: WD/WN, other - mild resp distress , Spanish speaking female, awake and alert, responsive Lines, tubes and drains: peripheral HEENT: normocephalic, atraumatic, anicteric, mucous membranes moist, O2 via NRM Neck: non-tender, supple Respiratory/Chest: chest wall non-tender, no accessory muscle use, few isolated rhonchi, decreased air intake Cardiovascular/Chest: normal peripheral pulses, normal rate Abdomen: normal bowel sounds, non tender, soft Extremities: normal range of motion, non-tender, normal inspection, no calf tenderness, no edema Skin Exam: normal pigmentation, warm/dry, no diaphoresis 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, no motor/sensory deficits, alert, oriented x 3, responsive Musculoskeletal: normal muscle bulk Microbiology Date/Time Source Procedure Growth Status 05/22/20 19:00 Straight Cath Urine Culture - Preliminary NO GROWTH Resulted 05/22/20 18:00 Nasal Nares - Final Complete 05/22/20 18:00 Nasal Nares - Final Complete 05/22/20 18:00 Blood Blood Culture - Preliminary NO GROWTH AFTER 48 HOURS Resulted 05/22/20 17:50 Blood Blood Culture - Preliminary NO GROWTH AFTER 48 HOURS Resulted Laboratory Tests 05/25/20 05:50: White Blood Count 9.9, Red Blood Count 4.24, Hemoglobin 13.8, Hematocrit 39.7, Mean Corpuscular Volume 94, Mean Corpuscular Hemoglobin 32.5H, Mean Corpuscular Hemoglobin Concent 34.7, Red Cell Distribution Width 12.4, Platelet Count 213, Mean Platelet Volume 7.1, Neutrophils (%) (Auto) 77.2H, Lymphocytes (%) (Auto) 15.2L, Monocytes (%) (Auto) 7.4, Eosinophils (%) (Auto) 0.0, Basophils (%) (Auto) 0.3, Sodium Level 138, Potassium Level 3.8, Chloride Level 104, Carbon Dioxide Level 29, Anion Gap 5, Blood Urea Nitrogen 18, Creatinine 0.6, Estimat Glomerular Filtration Rate > 60, Glucose Level 90, Calcium Level 8.2L, Total Bilirubin 0.5, Direct Bilirubin 0.2, Aspartate Amino Transf (AST/SGOT) 69H, Alanine Aminotransferase (ALT/SGPT) 73, Alkaline Phosphatase 74, C-Reactive Protein, Quantitative 6.2H, Total Protein 6.6, Albumin 2.6L, Globulin 4.0, Albumin/Globulin Ratio 0.6L 05/25/20 10:43: Arterial Blood pH 7.457H, Arterial Blood Partial Pressure CO2 36.5, Arterial Blood Partial Pressure O2 58.5L, Arterial Blood HCO3 25.2, Arterial Blood Oxygen Saturation 92.0L, Arterial Blood Base Excess 1.6, Darinel Test Positive Current Medications Medications (Trade) Dose Ordered Sig/Elieser Route PRN Reason Start Time Stop Time Status Last Admin Dose Admin Acetaminophen (Tylenol) 650 mg Q4H PRN ORAL Temp >100.5 05/23/20 10:30 06/22/20 10:29 Acetaminophen (Tylenol) 650 mg Q4H PRN ORAL pain 05/24/20 11:30 06/23/20 11:29 05/25/20 07:55 Albuterol Sulfate (Proventil MDI) 2 puff Q4H PRN INH Shortness of Breath 05/23/20 10:30 08/21/20 10:29 Azithromycin 500 mg/Sodium Chloride 275 ml @ 275 mls/hr Q24H IV 05/23/20 17:00 05/28/20 16:59 05/24/20 17:18 Ceftriaxone Sodium 1 gm/ Sodium Chloride 55 ml @ 110 mls/hr Q24H IVPB 05/23/20 17:00 05/30/20 16:59 05/24/20 16:26 Dexamethasone Sodium Phosphate (Decadron 4mg/ml vial) 6 mg DAILY IVP 05/23/20 10:30 06/01/20 09:01 05/25/20 07:57 Dextrose (Dextrose 50%) 25 ml Q30M PRN IV Hypoglycemia 05/23/20 10:30 08/21/20 10:29 Dextrose (Dextrose 50%) 50 ml Q30M PRN IV Hypoglycemia 05/23/20 10:30 08/21/20 10:29 Docusate Sodium (Colace) 100 mg EVERY 12 HOURS ORAL 05/23/20 21:00 06/22/20 20:59 05/24/20 21:01 Enoxaparin Sodium (Lovenox) 40 mg Q24H SUBQ 05/23/20 12:00 08/21/20 11:59 05/24/20 11:36 Famotidine (Pepcid) 40 mg DAILY ORAL 05/24/20 09:00 08/22/20 08:59 05/25/20 07:57 Guaifenesin/ Dextromethorphan (Robitussin DM Syrup) 10 ml Q4H PRN ORAL For Cough 05/24/20 08:00 08/22/20 07:59 05/25/20 07:54 Remdesivir 100 mg/ Sodium Chloride 250 ml @ 250 mls/hr Q24H IV 05/24/20 20:00 05/27/20 20:59 05/24/20 21:01 Assessment/Plan Assessment/Plan ASSESSMENT Acute hypoxemic resp failure due to COVID PNA COVID 19 PNA Thrombocytopenia-resolved Abnormal ECG Headache Pulmonary HTN PLAN OF CARE tele O2 titrate to keep sat > 92% Albuterol MDI prn on Decadron and Remdesivivr Day 3 ( monitor LFT and renal paramerts, AST 60) encourage prone position O2 sat drops below 90% intermittently ABG ordered - stable on NRM CXR today ID follows empiric abx , BCX 05/22 NGTD UCX 05/22 NGT influenza screen NGT a/c with Lovenox PPX, doubt PE, D dimer stable fup with CXR fup with inflammatory markers , CRP 6.2 today a/tussive prn Tylenol prn for RIOJAS monitor PLT counts-normalized cardio eval -appreciated ECHO with pEF 65%, no WMA, mild to moderate MR, moderate pulmonary hypertension supportive care case discussed and evaluated by supervising physician Ivonne Andrade NP May 25, 2020 11:08
[2020-05-25 12:00] VITALS: BP 145/59
--- NOTE | 2020-05-25 12:27 | NUR ---
RADIOLOGY DEPT., CHEST X-RAY DONE.-P.DYE
[2020-05-25] MEDS: Enoxaparin 40mg Inj SUBQ SCH (12:31)
--- NOTE | 2020-05-25 14:06 | Diagnostic Imaging Report ---
Indication: Shortness of breath Technique: One view of the chest Comparison: 05/22/2020 Findings: Interim worsening of bilateral infiltrates, with consolidation now seen throughout the right lung, and increasing consolidation on the left primarily in the perihilar region. The heart is borderline enlarged. There is suggestion of small bilateral pleural effusions, not evident previously. Impression: Worsening bilateral infiltrates, right greater than left.
--- NOTE | 2020-05-25 14:55 | NUR ---
NURSE NOTES: Pt on 15L NRB 90% unlabored, even breathing. SOB on E. Pt educated to deep breathe exercise and reposition high fowlers. SpO2 92% at this time now.
--- NOTE | 2020-05-25 15:06 | Cardiac Electrophysiology PN ---
Assessment/Plan Assessment/Plan 1. Shortness of breath due to COVID pneumonia. Ruled out for CT EKG in view of inferolateral ST depression Echo EF 65% Her BNP was only 342. 2. Sinus nnamdi off any TAVARES affecting agent. Likely due to Covid 3. COVID pneumonia, on dexamethasone, ceftriaxone, and azithromycin. On 15 liter NRB FM Subjective Subjective On 15 liter NRB FM. In sinus nnamdi in 50s in Covid isolation. On Abx Objective Last 24 Hour Vital Signs Date Time Temp Pulse Resp B/P (MAP) Pulse Ox O2 Delivery O2 Flow Rate FiO2 05/25/20 12:00 98.1 70 21 145/59 (87) 96 05/25/20 12:00 68 05/25/20 09:00 Simple Mask 15.0 05/25/20 08:25 96.7 05/25/20 08:00 96.7 60 19 140/64 (89) 96 05/25/20 08:00 61 05/25/20 04:00 53 05/25/20 04:00 98.9 57 22 145/70 (95) 93 05/25/20 00:16 98.5 05/25/20 00:00 98.9 58 22 142/65 (90) 96 05/25/20 00:00 58 05/24/20 21:00 Simple Mask 15.0 05/24/20 20:00 57 05/24/20 20:00 98.5 60 22 146/70 (95) 94 05/24/20 17:52 98.1 05/24/20 16:00 98.1 62 22 129/57 (81) 97 05/24/20 16:00 66 Intake and Output 05/24/20 05/25/20 18:59 06:59 Intake Total 800 ml 250 ml Balance 800 ml 250 ml Intake Oral 800 ml 250 ml # Voids 3 2 # Bowel Movements 2 Laboratory Tests Test 05/25/20 05:50 05/25/20 10:43 White Blood Count 9.9 K/UL (4.8-10.8) Red Blood Count 4.24 M/UL (4.20-5.40) Hemoglobin 13.8 G/DL (12.0-16.0) Hematocrit 39.7 % (37.0-47.0) Mean Corpuscular Volume 94 FL (80-99) Mean Corpuscular Hemoglobin 32.5 PG (27.0-31.0) H Mean Corpuscular Hemoglobin Concent 34.7 G/DL (32.0-36.0) Red Cell Distribution Width 12.4 % (11.6-14.8) Platelet Count 213 K/UL (150-450) Mean Platelet Volume 7.1 FL (6.5-10.1) Neutrophils (%) (Auto) 77.2 % (45.0-75.0) H Lymphocytes (%) (Auto) 15.2 % (20.0-45.0) L Monocytes (%) (Auto) 7.4 % (1.0-10.0) Eosinophils (%) (Auto) 0.0 % (0.0-3.0) Basophils (%) (Auto) 0.3 % (0.0-2.0) Sodium Level 138 MMOL/L (136-145) Potassium Level 3.8 MMOL/L (3.5-5.1) Chloride Level 104 MMOL/L (98-107) Carbon Dioxide Level 29 MMOL/L (21-32) Anion Gap 5 mmol/L (5-15) Blood Urea Nitrogen 18 mg/dL (7-18) Creatinine 0.6 MG/DL (0.55-1.30) Estimat Glomerular Filtration Rate > 60 mL/min (>60) Glucose Level 90 MG/DL (74-106) Calcium Level 8.2 MG/DL (8.5-10.1) L Total Bilirubin 0.5 MG/DL (0.2-1.0) Direct Bilirubin 0.2 MG/DL (0.0-0.3) Aspartate Amino Transf (AST/SGOT) 69 U/L (15-37) H Alanine Aminotransferase (ALT/SGPT) 73 U/L (12-78) Alkaline Phosphatase 74 U/L (46-116) C-Reactive Protein, Quantitative 6.2 mg/dL (0.00-0.90) H Total Protein 6.6 G/DL (6.4-8.2) Albumin 2.6 G/DL (3.4-5.0) L Globulin 4.0 g/dL Albumin/Globulin Ratio 0.6 (1.0-2.7) L Arterial Blood pH 7.457 (7.350-7.450) Arterial Blood Partial Pressure CO2 36.5 mmHg (35.0-45.0) Arterial Blood Partial Pressure O2 58.5 mmHg (75.0-100.0) L Arterial Blood HCO3 25.2 mmol/L (22.0-26.0) Arterial Blood Oxygen Saturation 92.0 % (95-100) L Arterial Blood Base Excess 1.6 (-2-2) Darinel Test Positive Microbiology Date/Time Source Procedure Growth Status 05/22/20 19:00 Straight Cath Urine Culture - Preliminary NO GROWTH Resulted 05/22/20 18:00 Nasal Nares - Final Complete 05/22/20 18:00 Nasal Nares - Final Complete 05/22/20 18:00 Blood Blood Culture - Preliminary NO GROWTH AFTER 48 HOURS Resulted 05/22/20 17:50 Blood Blood Culture - Preliminary NO GROWTH AFTER 48 HOURS Resulted Objective HEAD AND NECK: No JVD. LUNGS: Coarse rhonchi. CARDIOVASCULAR: Regular S1 and S2 with no gallop. Bradycardic. ABDOMEN: Soft. EXTREMITIES: No pitting edema. Jordi Albarado MD May 25, 2020 15:06
[2020-05-25 16:00] VITALS: BP 150/85
[2020-05-25] MEDS: cefTRIAXone 1 GM in NS 55 ML IVPB SCH (16:32)
[2020-05-25] MEDS: Azithromycin 500 MG in NS 275 ML IV SCH (17:25)
--- NOTE | 2020-05-25 17:30 | NUR ---
NURSE NOTES: Pt is doing better vs previously. On 15 LPM NRB, Pt unlabored and even breathing, 19RR, saturating 94-97%. pt educated to sit high fowlers and practice deep breathing. pt is in bed comfortable, no pain at this time, no coughing. pt family delivered meal this afternoon, ate 50%, refusing dinner at this time.
--- NOTE | 2020-05-25 18:01 | NUR ---
NURSE HAND-OFF REPORT: Important Events on Shift: episode of desaturation this morning 87-90%, complaining of body ache and chest dryness/pain, md/psychiatric np aware// stat abg and cxr done Patient Status: fc, stable Diet: regular, Pt family brought ubereats today Pending Orders: Pending Results/Labs: Pending MD notification: Latest Vital Signs: Temperature 97.9 , Pulse 60 , B/P 150 /85 , Respiratory Rate 19 , O2 SAT 96 , Nasal Cannula, O2 Flow Rate 15.0 . Vital Sign Comment: EKG Rhythm: Sinus Rhythm Rhythm change?: N MD Notified?: N - MD Response: Latest Bustamante Fall Score: 30 Fall Risk: Medium Risk Safety Measures: Call light Within Reach, Bed Alarm Zone 1, Side Rails Side Rails x2, Bed position Low and Locked. Fall Precautions: Yellow Socks Yellow Gown Door Sign Patient Fall Education Report to be given. Addendum: 05/25/20 at 1908 by Renu Brooks RN RN Plan of care and report update endorsed to DAVID Amin. Pt is stable.
--- NOTE | 2020-05-25 19:20 | NUR ---
NURSE NOTES: RECEIVED REPORT FORM DAVID ALAMO. PT IN BED, AWAKE, ALERT/ORIENTED X4, ABLE TO MAKE NEEDS KNOWN. CONTINUE O2 VIA NON-REBREATHER AT 15L/MIN SATING AT 93%. MEDICAL DIR IN PLACE. NO C/O PAIN AT THIS TIME. BED IN LOW POSITION & LOCKED. SIDE RAILS UP X2. CALL LIGHT WITH IN REACH. BED ALARM ON. CONTINUE PLAN OF CARE.
--- NOTE | 2020-05-25 19:29 | Infectious Diseases Prog Note ---
Assessment/Plan Assessment/Plan ASSESSMENT AND PLAN: 1. covid-19 infection with pna, hypoxia, ? CAP - dexamethasone and remdesivir - ceftriaxone and azithromycin - monitor hypoxia and labs and chest x-ray - on NR 2. No other significant past medical history. 3. Rule out ME per Cardiology. 4. No known allergies. 5. Social history is negative. 6. Family history is noncontributory. 7. MAR is noted. 8. Case was discussed with RN. 9. Continue treatment per primary consultants. 10. Orders were noted and entered. Subjective Constitutional: Reports: other - sob, no NR; Denies: fever HEENT: Reports: congestion Respiratory: Reports: shortness of breath Cardiovascular: Denies: chest pain Gastrointestinal/Abdominal: Denies: nausea, vomiting, diarrhea Genitourinary: Denies: dysuria, hematuria Neurologic: Denies: headache Psychiatric: Denies: depression Skin: Denies: rash Hematologic: Denies: bleeding Musculoskeletal: Denies: pain Allergies: Coded Allergies: No Known Allergies (Unverified , 04/02/12) Objective Last 24 Hour Vital Signs Date Time Temp Pulse Resp B/P (MAP) Pulse Ox O2 Delivery O2 Flow Rate FiO2 05/25/20 17:02 97.9 05/25/20 16:00 60 05/25/20 16:00 97.9 66 19 150/85 (106) 96 05/25/20 12:00 98.1 70 21 145/59 (87) 96 05/25/20 12:00 68 05/25/20 09:00 Simple Mask 15.0 05/25/20 08:25 96.7 05/25/20 08:00 96.7 60 19 140/64 (89) 96 05/25/20 08:00 61 05/25/20 04:00 53 05/25/20 04:00 98.9 57 22 145/70 (95) 93 05/25/20 00:16 98.5 05/25/20 00:00 98.9 58 22 142/65 (90) 96 05/25/20 00:00 58 05/24/20 21:00 Simple Mask 15.0 05/24/20 20:00 57 05/24/20 20:00 98.5 60 22 146/70 (95) 94 Height (Feet): 5 Height (Inches): 1.00 Weight (Pounds): 130 General Appearance: other - sob, no NR HEENT: normocephalic, atraumatic, anicteric Respiratory/Chest: crackles/rales, rhonchi - bilaterally Cardiovascular: normal rate, regular rhythm, no gallop/murmur Abdomen: normal bowel sounds, soft, non tender, no organomegaly, non distended Genitourinary: other - no salas Extremities: no cyanosis Skin: no rash 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 The heart is borderline enlarged. There is suggestion of small bilateral pleural effusions, not evident previously. Impression: Worsening bilateral infiltrates, right greater than left. Microbiology Date/Time Source Procedure Growth Status 05/22/20 19:00 Straight Cath Urine Culture - Preliminary NO GROWTH Resulted 05/22/20 18:00 Nasal Nares - Final Complete 05/22/20 18:00 Nasal Nares - Final Complete 05/22/20 18:00 Blood Blood Culture - Preliminary NO GROWTH AFTER 48 HOURS Resulted Laboratory Tests Test 05/25/20 05:50 05/25/20 10:43 White Blood Count 9.9 K/UL (4.8-10.8) Red Blood Count 4.24 M/UL (4.20-5.40) Hemoglobin 13.8 G/DL (12.0-16.0) Hematocrit 39.7 % (37.0-47.0) Mean Corpuscular Volume 94 FL (80-99) Mean Corpuscular Hemoglobin 32.5 PG (27.0-31.0) H Mean Corpuscular Hemoglobin Concent 34.7 G/DL (32.0-36.0) Red Cell Distribution Width 12.4 % (11.6-14.8) Platelet Count 213 K/UL (150-450) Mean Platelet Volume 7.1 FL (6.5-10.1) Neutrophils (%) (Auto) 77.2 % (45.0-75.0) H Lymphocytes (%) (Auto) 15.2 % (20.0-45.0) L Monocytes (%) (Auto) 7.4 % (1.0-10.0) Eosinophils (%) (Auto) 0.0 % (0.0-3.0) Basophils (%) (Auto) 0.3 % (0.0-2.0) Sodium Level 138 MMOL/L (136-145) Potassium Level 3.8 MMOL/L (3.5-5.1) Chloride Level 104 MMOL/L (98-107) Carbon Dioxide Level 29 MMOL/L (21-32) Anion Gap 5 mmol/L (5-15) Blood Urea Nitrogen 18 mg/dL (7-18) Creatinine 0.6 MG/DL (0.55-1.30) Estimat Glomerular Filtration Rate > 60 mL/min (>60) Glucose Level 90 MG/DL (74-106) Calcium Level 8.2 MG/DL (8.5-10.1) L Total Bilirubin 0.5 MG/DL (0.2-1.0) Direct Bilirubin 0.2 MG/DL (0.0-0.3) Aspartate Amino Transf (AST/SGOT) 69 U/L (15-37) H Alanine Aminotransferase (ALT/SGPT) 73 U/L (12-78) Alkaline Phosphatase 74 U/L (46-116) C-Reactive Protein, Quantitative 6.2 mg/dL (0.00-0.90) H Total Protein 6.6 G/DL (6.4-8.2) Albumin 2.6 G/DL (3.4-5.0) L Globulin 4.0 g/dL Albumin/Globulin Ratio 0.6 (1.0-2.7) L Arterial Blood pH 7.457 (7.350-7.450) Arterial Blood Partial Pressure CO2 36.5 mmHg (35.0-45.0) Arterial Blood Partial Pressure O2 58.5 mmHg (75.0-100.0) L Arterial Blood HCO3 25.2 mmol/L (22.0-26.0) Arterial Blood Oxygen Saturation 92.0 % (95-100) L Arterial Blood Base Excess 1.6 (-2-2) Darinel Test Positive Current Medications Medications (Trade) Dose Ordered Sig/Elieser Route PRN Reason Start Time Stop Time Status Last Admin Dose Admin Acetaminophen (Tylenol) 650 mg Q4H PRN ORAL Temp >100.5 05/23/20 10:30 06/22/20 10:29 Acetaminophen (Tylenol) 650 mg Q4H PRN ORAL pain 05/24/20 11:30 06/23/20 11:29 05/25/20 16:32 Albuterol Sulfate (Proventil MDI) 2 puff Q4H PRN INH Shortness of Breath 05/23/20 10:30 08/21/20 10:29 Azithromycin 500 mg/Sodium Chloride 275 ml @ 275 mls/hr Q24H IV 05/23/20 17:00 05/28/20 16:59 05/25/20 17:25 Ceftriaxone Sodium 1 gm/ Sodium Chloride 55 ml @ 110 mls/hr Q24H IVPB 05/23/20 17:00 05/30/20 16:59 05/25/20 16:32 Dexamethasone Sodium Phosphate (Decadron 4mg/ml vial) 6 mg DAILY IVP 05/23/20 10:30 06/01/20 09:01 05/25/20 07:57 Dextrose (Dextrose 50%) 25 ml Q30M PRN IV Hypoglycemia 05/23/20 10:30 08/21/20 10:29 Dextrose (Dextrose 50%) 50 ml Q30M PRN IV Hypoglycemia 05/23/20 10:30 08/21/20 10:29 Docusate Sodium (Colace) 100 mg EVERY 12 HOURS ORAL 05/23/20 21:00 06/22/20 20:59 05/24/20 21:01 Enoxaparin Sodium (Lovenox) 40 mg Q24H SUBQ 05/23/20 12:00 08/21/20 11:59 05/25/20 12:31 Famotidine (Pepcid) 40 mg DAILY ORAL 05/24/20 09:00 08/22/20 08:59 05/25/20 07:57 Guaifenesin/ Dextromethorphan (Robitussin DM Syrup) 10 ml Q4H PRN ORAL For Cough 05/24/20 08:00 08/22/20 07:59 05/25/20 16:32 Remdesivir 100 mg/ Sodium Chloride 250 ml @ 250 mls/hr Q24H IV 05/24/20 20:00 05/27/20 20:59 05/24/20 21:01 Afshan Muñoz MD May 25, 2020 19:29
[2020-05-25 20:00] VITALS: BP 135/75
[2020-05-25] MEDS: Maintenance Dose:Remdesivir 100mg/NS 230ml x 4 Doses IV SCH ×2 (20:49)
[2020-05-26] VITALS: BP 142/70
[2020-05-26 04:00] VITALS: BP 147/70
[2020-05-26 06:14] LABS: BASOPHILS % (AUTO) 0.2 % (0.0-2.0); HEMATOCRIT 41.5 % (37.0-47.0); HEMOGLOBIN 14.1 G/DL (12.0-16.0); LYMPHOCYTES % (AUTO) 9.7 % (20.0-45.0); MEAN CORPUSCULAR VOLUME 97 FL (80-99); MONOCYTES % (AUTO) 5.2 % (1.0-10.0); NEUTROPHILS % (AUTO) 84.9 % (45.0-75.0); PLATELET COUNT 253 K/UL (150-450); RED BLOOD COUNT 4.27 M/UL (4.20-5.40); RED CELL DISTRIBUTION WIDTH 12.1 % (11.6-14.8); WHITE BLOOD COUNT 15.3 K/UL (4.8-10.8)
[2020-05-26 06:52] LABS: ALANINE AMINOTRANSFERASE 51 U/L (12-78); ALBUMIN 2.7 G/DL (3.4-5.0); ALBUMIN/GLOBULIN RATIO 0.7 (1.0-2.7); ALKALINE PHOSPHATASE 77 U/L (46-116); ANION GAP 7 mmol/L (5-15); ASPARTATE AMINO TRANSFERASE 46 U/L (15-37); BILIRUBIN,DIRECT 0.3 MG/DL (0.0-0.3); BILIRUBIN,TOTAL 0.5 MG/DL (0.2-1.0); BLOOD UREA NITROGEN 18 mg/dL (7-18); CALCIUM 8.2 MG/DL (8.5-10.1); CARBON DIOXIDE 28 MMOL/L (21-32); CHLORIDE 105 MMOL/L (98-107); CREATININE 0.6 MG/DL (0.55-1.30); POTASSIUM 3.5 MMOL/L (3.5-5.1); SODIUM 140 MMOL/L (136-145)
--- NOTE | 2020-05-26 07:23 | NUR ---
NURSE HAND-OFF REPORT: Important Events on Shift:[n/a] Patient Status: [stable full code] Diet: [reg] Pending Orders: [] Pending Results/Labs:[] Pending MD notification:[] Latest Vital Signs: Temperature 97.9 , Pulse 62 , B/P 147 /70 , Respiratory Rate 22 , O2 SAT 93 , Nasal Cannula, O2 Flow Rate 15.0 . Vital Sign Comment: [] EKG Rhythm: Sinus Rhythm Rhythm change?: Y MD Notified?: N - MD Response: Latest Bustamante Fall Score: 30 Fall Risk: Medium Risk Safety Measures: Call light Within Reach, Bed Alarm Zone 1, Side Rails Side Rails x2, Bed position Low and Locked. Fall Precautions: Yellow Socks Yellow Gown Door Sign Patient Fall Education Report given to [DAVID THOMPSON].
--- NOTE | 2020-05-26 07:30 | NUR ---
NURSE NOTES: Received patient in bed. Awake, A/O x3. On nonrebreather. Patient denies pain. Side rails up x2, bed low and locked, call light within reach with return demonstration.
[2020-05-26 08:00] VITALS: BP 146/70
[2020-05-26] MEDS: guaiFENesin /DM 10ml syrup ORAL PRN ×4 (08:05→20:11)
[2020-05-26] MEDS: Docusate 100mg cap ORAL SCH ×2 (08:05→20:11)
--- NOTE | 2020-05-26 08:57 | NUR ---
NURSE NOTES: ABG order obtained from Raymond RAPHAEL.
[2020-05-26] MEDS: Albuterol 90mcg Inhaler 8gm INH PRN ×3 (09:29→17:54)
--- NOTE | 2020-05-26 09:59 | Pulmonology Progress Note ---
Subjective Constitutional: Reports: other - sob, no NR; Denies: fever Gastrointestinal/Abdominal: Denies: nausea, vomiting, diarrhea Psychiatric: Denies: depression Skin: Denies: rash Musculoskeletal: Denies: pain Allergies: Coded Allergies: No Known Allergies (Unverified , 04/02/12) Subjective on tele on 100% NRM at times desaturated below 90% anxious remains afebrile, leukocytosis today Objective Last 24 Hour Vital Signs Date Time Temp Pulse Resp B/P (MAP) Pulse Ox O2 Delivery O2 Flow Rate FiO2 05/26/20 09:00 Non-Rebreather 15.0 05/26/20 08:00 97.9 24 146/70 (95) 90 05/26/20 04:00 97.9 22 147/70 (95) 93 05/26/20 04:00 62 05/26/20 00:00 98.0 22 142/70 (94) 94 05/26/20 00:00 49 05/25/20 21:00 Simple Mask 15.0 05/25/20 20:00 98.3 22 135/75 (95) 93 05/25/20 20:00 58 05/25/20 17:02 97.9 05/25/20 16:00 60 05/25/20 16:00 97.9 66 19 150/85 (106) 96 05/25/20 12:00 98.1 70 21 145/59 (87) 96 05/25/20 12:00 68 Intake and Output 05/25/20 05/26/20 19:00 07:00 Intake Total 1000 ml 450 ml Balance 1000 ml 450 ml Intake Oral 1000 ml 450 ml # Voids 3 2 # Bowel Movements 1 Objective General Appearance: WD/WN, mild resp distress , Urdu speaking female, awake and alert, responsive Lines, tubes and drains: peripheral HEENT: normocephalic, atraumatic, anicteric, mucous membranes moist, O2 via NRM Neck: non-tender, supple Respiratory/Chest: chest wall non-tender, no accessory muscle use, few isolated rhonchi, decreased air intake Cardiovascular/Chest: normal peripheral pulses, normal rate Abdomen: normal bowel sounds, non tender, soft Extremities: normal range of motion, non-tender, normal inspection, no calf tenderness, no edema Skin Exam: normal pigmentation, warm/dry, no diaphoresis 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, no motor/sensory deficits, alert, oriented x 3, responsive Musculoskeletal: normal muscle bulk Laboratory Tests 05/25/20 10:43: Arterial Blood pH 7.457H, Arterial Blood Partial Pressure CO2 36.5, Arterial Blood Partial Pressure O2 58.5L, Arterial Blood HCO3 25.2, Arterial Blood Oxygen Saturation 92.0L, Arterial Blood Base Excess 1.6, Darinel Test Positive 05/26/20 04:30: White Blood Count 15.3#H, Red Blood Count 4.27, Hemoglobin 14.1, Hematocrit 41.5, Mean Corpuscular Volume 97, Mean Corpuscular Hemoglobin 33.1H, Mean Corpuscular Hemoglobin Concent 34.0, Red Cell Distribution Width 12.1, Platelet Count 253, Mean Platelet Volume 5.7L, Neutrophils (%) (Auto) 84.9H, Lymphocytes (%) (Auto) 9.7L, Monocytes (%) (Auto) 5.2, Eosinophils (%) (Auto) 0.0, Basophils (%) (Auto) 0.2, Sodium Level 140, Potassium Level 3.5, Chloride Level 105, Carbon Dioxide Level 28, Anion Gap 7, Blood Urea Nitrogen 18, Creatinine 0.6, Estimat Glomerular Filtration Rate > 60, Glucose Level 105, Calcium Level 8.2L, Total Bilirubin 0.5, Direct Bilirubin 0.3, Aspartate Amino Transf (AST/SGOT) 46H , Alanine Aminotransferase (ALT/SGPT) 51, Alkaline Phosphatase 77, C-Reactive Pr otein, Quantitative 6.5H, Total Protein 6.7, Albumin 2.7L, Globulin 4.0, Albumin/Globulin Ratio 0.7L 05/26/20 08:57: Arterial Blood pH 7.498H, Arterial Blood Partial Pressure CO2 31.4L, Arterial Blood Partial Pressure O2 50.2L, Arterial Blood HCO3 23.8, Arterial Blood Oxygen Saturation 87.5*L, Arterial Blood Base Excess 1.5, Darinel Test Positive Current Medications Medications (Trade) Dose Ordered Sig/Elieser Route PRN Reason Start Time Stop Time Status Last Admin Dose Admin Acetaminophen (Tylenol) 650 mg Q4H PRN ORAL Temp >100.5 05/23/20 10:30 06/22/20 10:29 Acetaminophen (Tylenol) 650 mg Q4H PRN ORAL pain 05/24/20 11:30 06/23/20 11:29 05/26/20 08:05 Albuterol Sulfate (Proventil MDI) 2 puff Q4H PRN INH Shortness of Breath 05/23/20 10:30 08/21/20 10:29 05/26/20 09:29 Azithromycin 500 mg/Sodium Chloride 275 ml @ 275 mls/hr Q24H IV 05/23/20 17:00 05/28/20 16:59 05/25/20 17:25 Ceftriaxone Sodium 1 gm/ Sodium Chloride 55 ml @ 110 mls/hr Q24H IVPB 05/23/20 17:00 05/30/20 16:59 05/25/20 16:32 Dexamethasone Sodium Phosphate (Decadron 4mg/ml vial) 6 mg DAILY IVP 05/23/20 10:30 06/01/20 09:01 05/26/20 08:04 Dextrose (Dextrose 50%) 25 ml Q30M PRN IV Hypoglycemia 05/23/20 10:30 08/21/20 10:29 Dextrose (Dextrose 50%) 50 ml Q30M PRN IV Hypoglycemia 05/23/20 10:30 08/21/20 10:29 Docusate Sodium (Colace) 100 mg EVERY 12 HOURS ORAL 05/23/20 21:00 06/22/20 20:59 05/26/20 08:05 Enoxaparin Sodium (Lovenox) 40 mg Q24H SUBQ 05/23/20 12:00 08/21/20 11:59 05/25/20 12:31 Famotidine (Pepcid) 40 mg DAILY ORAL 05/24/20 09:00 08/22/20 08:59 05/26/20 08:04 Guaifenesin/ Dextromethorphan (Robitussin DM Syrup) 10 ml Q4H PRN ORAL For Cough 05/24/20 08:00 08/22/20 07:59 05/26/20 08:05 Remdesivir 100 mg/ Sodium Chloride 250 ml @ 250 mls/hr Q24H IV 05/24/20 20:00 05/27/20 20:59 05/25/20 20:49 Assessment/Plan Assessment/Plan ASSESSMENT Acute hypoxemic resp failure due to COVID PNA COVID 19 PNA Thrombocytopenia-resolved Abnormal ECG Headache Pulmonary HTN PLAN OF CARE tele O2 titrate to keep sat > 92% Albuterol MDI prn on Decadron and Remdesivivr Day 4 ( monitor LFT and renal paramerts, ) encourage prone position O2 sat drops below 90% intermittently ABG on NRM with hypoxia will add HFO2 - no further HFO2 at the hospital, monitor closely low threshold for intubation CXR 05/25 worsening BL infiltrates abx as per ID BCX 05/22 NGTD UCX 05/22 NGT influenza screen NGT a/c with Lovenox PPX, doubt PE, D dimer stable fup with inflammatory markers , CRP 6.5 today a/tussive prn monitor PLT counts-normalized cardio eval -appreciated ECHO with pEF 65%, no WMA, mild to moderate MR, moderate pulmonary hypertension supportive care case discussed and evaluated by supervising physician Ivonne Andrade NP May 26, 2020 09:59
--- NOTE | 2020-05-26 10:22 | NUR ---
NURSE NOTES: RN spoke to RT Adi for HFO2 NC new order, no HFO2 available at this time d/t all are in use.
--- NOTE | 2020-05-26 10:50 | NUR ---
CASE MANAGEMENT:REVIEW 05/26/20 SI: COVID PNEUMONIA 97.9 24 146/70 90% ON 15L SIMPLE MASK WBC+15.3 PH+7.49 PCO2-31.4 PO2-50.2 O2 SAT-87.5 IS: IV REMDESIVIR Q24 (/) IV DECADRON QD IV AZITHROMYCIN Q24 IV ROCEPHIN Q24 LOVENOX SQ Q24 : TELEMETRY STATUS DCP: FROM HOME
[2020-05-26] MEDS: Enoxaparin 40mg Inj SUBQ SCH (11:20)
[2020-05-26 12:00] VITALS: BP 144/76
[2020-05-26 16:00] VITALS: BP 142/64
[2020-05-26] MEDS: cefTRIAXone 1 GM in NS 55 ML IVPB SCH (16:30)
[2020-05-26] MEDS: Azithromycin 500 MG in NS 275 ML IV SCH (17:24)
--- NOTE | 2020-05-26 19:10 | NUR ---
NURSE HAND-OFF REPORT: Important Events on Shift:[ABG, proventil] Patient Status: [FULL CODE/stable] Diet: [regular] Pending Orders: [] Pending Results/Labs:[] Pending MD notification:[] Latest Vital Signs: Temperature 97.8 , Pulse 64 , B/P 142 /64 , Respiratory Rate 24 , O2 SAT 91 , Nasal Cannula, O2 Flow Rate 15.0 . Vital Sign Comment: [] EKG Rhythm: Sinus Rhythm Rhythm change?: N MD Notified?: N - MD Response: Latest Bustamante Fall Score: 30 Fall Risk: Medium Risk Safety Measures: Call light Within Reach, Bed Alarm Zone 1, Side Rails Side Rails x2, Bed position Low and Locked. Fall Precautions: Yellow Socks Yellow Gown Door Sign Patient Fall Education Report given to [Todd HERNANDEZ].
--- NOTE | 2020-05-26 19:27 | NUR ---
NURSE NOTES: Received patient from DAVID Marcelo. Pt is stable and AOx4. On 15 LPM NRB saturating 95% spo2, unlabored and even breathing. Called RT to set up high flow O2 for Pt, HEPA filter on. Pt assisted to bedside commode at this time, urine x1 Pt assisted back to bed, SOB on E noted, 91%spo2. no s/s or complaint of distress at this time. IV site on RAC 20 running azithromycin, asymptomatic and intact. bed low and locked, call light in reach and bed alarm on, side rails x2. Belongings within reach. Addendum: 05/26/20 at 2020 by Renu Brooks RN RN azithromycin not completed running, secondary was clamped. zaithromycin running, remdesivir to be run after
--- NOTE | 2020-05-26 19:47 | Cardiac Electrophysiology PN ---
Assessment/Plan Assessment/Plan 1. Shortness of breath due to COVID pneumonia. Ruled out for MO EKG in view of inferolateral ST depression Echo EF 65% Her BNP was only 342. 2. Sinus nnamdi off any TAVARES affecting agent. Likely due to Covid 3. COVID pneumonia, on dexamethasone, ceftriaxone, and azithromycin. On 15 liter NRB FM but needs high flow oxygen Subjective Subjective On 15 liter NRB FM. Being transferred for high flow oxygen. In sinus nnamdi in 50s in Covid isolation. On Abx Objective Last 24 Hour Vital Signs Date Time Temp Pulse Resp B/P (MAP) Pulse Ox O2 Delivery O2 Flow Rate FiO2 05/26/20 16:00 64 05/26/20 16:00 97.8 24 142/64 (90) 91 05/26/20 12:00 59 05/26/20 12:00 97.5 22 144/76 (98) 92 05/26/20 09:00 Non-Rebreather 15.0 05/26/20 08:00 97.9 24 146/70 (95) 90 05/26/20 08:00 66 05/26/20 04:00 97.9 22 147/70 (95) 93 05/26/20 04:00 62 05/26/20 00:00 98.0 22 142/70 (94) 94 05/26/20 00:00 49 05/25/20 21:00 Simple Mask 15.0 05/25/20 20:00 98.3 22 135/75 (95) 93 05/25/20 20:00 58 Intake and Output 05/25/20 05/26/20 19:00 07:00 Intake Total 1000 ml 450 ml Balance 1000 ml 450 ml Intake Oral 1000 ml 450 ml # Voids 3 2 # Bowel Movements 1 Laboratory Tests Test 05/26/20 04:30 05/26/20 08:57 White Blood Count 15.3 K/UL (4.8-10.8) #H Red Blood Count 4.27 M/UL (4.20-5.40) Hemoglobin 14.1 G/DL (12.0-16.0) Hematocrit 41.5 % (37.0-47.0) Mean Corpuscular Volume 97 FL (80-99) Mean Corpuscular Hemoglobin 33.1 PG (27.0-31.0) H Mean Corpuscular Hemoglobin Concent 34.0 G/DL (32.0-36.0) Red Cell Distribution Width 12.1 % (11.6-14.8) Platelet Count 253 K/UL (150-450) Mean Platelet Volume 5.7 FL (6.5-10.1) L Neutrophils (%) (Auto) 84.9 % (45.0-75.0) H Lymphocytes (%) (Auto) 9.7 % (20.0-45.0) L Monocytes (%) (Auto) 5.2 % (1.0-10.0) Eosinophils (%) (Auto) 0.0 % (0.0-3.0) Basophils (%) (Auto) 0.2 % (0.0-2.0) Sodium Level 140 MMOL/L (136-145) Potassium Level 3.5 MMOL/L (3.5-5.1) Chloride Level 105 MMOL/L (98-107) Carbon Dioxide Level 28 MMOL/L (21-32) Anion Gap 7 mmol/L (5-15) Blood Urea Nitrogen 18 mg/dL (7-18) Creatinine 0.6 MG/DL (0.55-1.30) Estimat Glomerular Filtration Rate > 60 mL/min (>60) Glucose Level 105 MG/DL (74-106) Calcium Level 8.2 MG/DL (8.5-10.1) L Total Bilirubin 0.5 MG/DL (0.2-1.0) Direct Bilirubin 0.3 MG/DL (0.0-0.3) Aspartate Amino Transf (AST/SGOT) 46 U/L (15-37) H Alanine Aminotransferase (ALT/SGPT) 51 U/L (12-78) Alkaline Phosphatase 77 U/L (46-116) C-Reactive Protein, Quantitative 6.5 mg/dL (0.00-0.90) H Total Protein 6.7 G/DL (6.4-8.2) Albumin 2.7 G/DL (3.4-5.0) L Globulin 4.0 g/dL Albumin/Globulin Ratio 0.7 (1.0-2.7) L Arterial Blood pH 7.498 (7.350-7.450) Arterial Blood Partial Pressure CO2 31.4 mmHg (35.0-45.0) L Arterial Blood Partial Pressure O2 50.2 mmHg (75.0-100.0) L Arterial Blood HCO3 23.8 mmol/L (22.0-26.0) Arterial Blood Oxygen Saturation 87.5 % (95-100) *L Arterial Blood Base Excess 1.5 (-2-2) Darinel Test Positive Objective HEAD AND NECK: No JVD. LUNGS: Coarse rhonchi. CARDIOVASCULAR: Regular S1 and S2 with no gallop. Bradycardic. ABDOMEN: Soft. EXTREMITIES: No pitting edema. Jordi Albarado MD May 26, 2020 19:47
[2020-05-26 20:00] VITALS: BP 147/69
[2020-05-26] MEDS: Maintenance Dose:Remdesivir 100mg/NS 230ml x 4 Doses IV SCH ×4 (20:00→20:14)
--- NOTE | 2020-05-26 20:25 | NUR ---
NURSE NOTES: Pt on high flow NC and NRB at this time 90% spo2, complaining she feels she cant breathe. RT is bedside. Contacted IJEOMA Andrade regarding Pt condition. awaiting page back. Addendum: 05/26/20 at 2049 by Renu Brooks RN RN 94% spo2 at this time Addendum: 05/26/20 at 2129 by Renu Brooks RN RN Raymond said "Ok" for Pt to be on NRB and high flow O2. Pt 95% spo2 at this time.
--- NOTE | 2020-05-26 22:42 | NUR ---
NURSE NOTES: Went in to check on Pt. Pt kept pointing to the ceiling and making an "X" motion with arms. Pt states she is in alot of body pain, tylenol given prior. Called Pt family, daughter Tanika for insight of this and to assess Pt baseline. per daughter, Pt has been doing this prior, saying to family she 'wants to '. Notified FOREIGN BROADCAST SPECIALIST liliam at this time for orders or interventions. Awaiting call back. Offered Pt hydration, reorientation, assurance, pt education provided. Pt nodding at this time. bed safety measures engaged. Pt call light in reach, verbalized understanding of use.
[2020-05-27] VITALS (23 sets, daily range): BP systolic 99–170; BP diastolic 46–92
[2020-05-27] MEDS ORDERED: LORazepam 0.5mg tab ORAL SCH (01:00)
[2020-05-27] MEDS: Albuterol 90mcg Inhaler 8gm INH PRN (01:09)
--- NOTE | 2020-05-27 02:15 | NUR ---
NURSE NOTES: Pt spo2 77-86%. called RT to adjust Pt O2.
[2020-05-27] MEDS: guaiFENesin /DM 10ml syrup ORAL PRN (04:35)
[2020-05-27 05:10] LABS: ALANINE AMINOTRANSFERASE 40 U/L (12-78); ALBUMIN 2.5 G/DL (3.4-5.0); ALBUMIN/GLOBULIN RATIO 0.6 (1.0-2.7); ALKALINE PHOSPHATASE 74 U/L (46-116); ASPARTATE AMINO TRANSFERASE 42 U/L (15-37); BILIRUBIN,DIRECT 0.2 MG/DL (0.0-0.3); BILIRUBIN,TOTAL 0.7 MG/DL (0.2-1.0); BLOOD UREA NITROGEN 20 mg/dL (7-18); CALCIUM 8.3 MG/DL (8.5-10.1); CARBON DIOXIDE 27 MMOL/L (21-32); CREATININE 0.6 MG/DL (0.55-1.30)
[2020-05-27 05:27] LABS: CHLORIDE 105 MMOL/L (98-107); POTASSIUM 3.6 MMOL/L (3.5-5.1); SODIUM 139 MMOL/L (136-145)
--- NOTE | 2020-05-27 06:02 | NUR ---
NURSE HAND-OFF REPORT: Important Events on Shift: desaturating mid 70s to mid 80s on and off-- PROJECT GEOPHYSICIST Raymond aware, awaiting call back// on high flow NC and NRB 15 LPM// Patient Status: fc, stable Diet: regula ridet Pending Orders: Pending Results/Labs: Pending MD notification: low o2 saturation episodes Latest Vital Signs: Temperature 96.6 , Pulse 73 , B/P 102 /55 , Respiratory Rate 18 , O2 SAT 95 , Nasal Cannula, O2 Flow Rate 55.0 . Vital Sign Comment: EKG Rhythm: Sinus Rhythm Rhythm change?: N MD Notified?: N - MD Response: Latest Bustamante Fall Score: 30 Fall Risk: Medium Risk Safety Measures: Call light Within Reach, Bed Alarm Zone 1, Side Rails Side Rails x2, Bed position Low and Locked. Fall Precautions: Yellow Socks Yellow Gown Door Sign Patient Fall Education Report to be given. Addendum: 05/27/20 at 0736 by Renu Brooks RN RN PT PLAN OF CARE ENDORSED TO DAVID JESUS. PT SPO2 MID 80S TO LOW 90S, FLUCTUATING. NOTIFIED IJEOMA PINEDA AWAITING CALL BACK.
[2020-05-27 07:12] LABS: HEMOGLOBIN 13.5 G/DL (12.0-16.0); MEAN CORPUSCULAR VOLUME 98 FL (80-99); PLATELET COUNT 261 K/UL (150-450); RED BLOOD COUNT 4.09 M/UL (4.20-5.40); RED CELL DISTRIBUTION WIDTH 11.9 % (11.6-14.8); WHITE BLOOD COUNT 16.6 K/UL (4.8-10.8)
--- NOTE | 2020-05-27 07:40 | NUR ---
NURSE NOTES: Notified Dr. Sousa for orders, left a voicemail regarding fluctuating spO2. Awaiting callback.
--- NOTE | 2020-05-27 08:02 | NUR ---
NURSE NOTES: Notified Ivonne Andrade regarding low spO2, awaiting callback.
[2020-05-27] MEDS: Docusate 100mg cap ORAL SCH ×2 (08:23→21:00)
--- NOTE | 2020-05-27 08:30 | NUR ---
NURSE NOTES: Ivonne Andrade came by in person and stated Bipap would not help and if further decline occurs, patient may need to be intubated. She is aware of respiratory status, ABGs, spO2 now 92-94%, respirations 22, alert and oriented to baseline. Will continue to actively monitor.
--- NOTE | 2020-05-27 10:25 | Diagnostic Imaging Report ---
EXAM: XR Chest, 1 View CLINICAL HISTORY: INFECT TECHNIQUE: Frontal view of the chest. COMPARISON: Chest rated a May 22, 2020. FINDINGS/IMPRESSION: Bilateral airspace consolidations, consistent with multifocal infiltrate. These are worsening when compared to just Renografin May 22, 2020. Follow-up chest radiograph recommended. Small bilateral pleural effusions, slightly worsening. No pneumothorax. Cardiomegaly. Calcified aorta.
--- NOTE | 2020-05-27 10:47 | Pulmonology Progress Note ---
Subjective Constitutional: Reports: other - sob, no NR; Denies: fever Gastrointestinal/Abdominal: Denies: nausea, vomiting, diarrhea Psychiatric: Denies: depression Skin: Denies: rash Musculoskeletal: Denies: pain Allergies: Coded Allergies: No Known Allergies (Unverified , 04/02/12) Subjective on tele on 100% NRM and high flow O2, sat 90-91 % while sleeping fels bellow 90 remains afebrile, but with leukocytosis CRP more than double over a day CXR 05/27 with worsening infiltrates Objective Last 24 Hour Vital Signs Date Time Temp Pulse Resp B/P (MAP) Pulse Ox O2 Delivery O2 Flow Rate FiO2 05/27/20 08:40 21 94 05/27/20 08:10 20 90 05/27/20 08:00 71 05/27/20 08:00 97.5 75 30 120/46 (70) 90 05/27/20 07:30 20 88 05/27/20 05:05 96.6 05/27/20 04:00 97.5 46 18 102/55 (71) 95 05/27/20 04:00 73 05/27/20 03:19 86 High Flow 55.0 99 05/27/20 01:40 67 18 135/54 94 05/27/20 01:10 67 18 135/54 94 05/27/20 00:00 59 05/27/20 00:00 96.6 67 18 135/54 (81) 94 05/26/20 23:11 92 High Flow 55.0 98 05/26/20 21:00 Non-Rebreather 15.0 05/26/20 20:10 97.8 05/26/20 20:00 98.1 65 20 147/69 (95) 91 05/26/20 20:00 60 05/26/20 20:00 91 High Flow 55.0 98 05/26/20 16:00 64 05/26/20 16:00 97.8 24 142/64 (90) 91 05/26/20 12:00 59 05/26/20 12:00 97.5 22 144/76 (98) 92 Intake and Output 05/26/20 05/27/20 19:00 07:00 Intake Total 400 ml 600 ml Balance 400 ml 600 ml Intake Oral 400 ml 600 ml # Voids 1 1 Objective General Appearance: WD/WN, mild resp distress , Croatian speaking female, awake and alert, responsive Lines, tubes and drains: peripheral HEENT: normocephalic, atraumatic, anicteric, mucous membranes moist, O2 via NRM + HFO2 Neck: non-tender, supple Respiratory/Chest: chest wall non-tender, no accessory muscle use, few isolated rhonchi, decreased air intake Cardiovascular/Chest: normal peripheral pulses, normal rate Abdomen: normal bowel sounds, non tender, soft Extremities: normal range of motion, non-tender, normal inspection, no calf tenderness, no edema Skin Exam: normal pigmentation, warm/dry, no diaphoresis Neurologic: line assigner II-XII grossly normal, no motor/sensory deficits, alert, oriented x 3, responsive Musculoskeletal: normal muscle bulk Laboratory Tests 05/27/20 04:00: Sodium Level 139, Potassium Level 3.6, Chloride Level 105, Carbon Dioxide Level 27, Blood Urea Nitrogen 20H, Creatinine 0.6, Estimat Glomerular Filtration Rate > 60, Glucose Level 116H, Calcium Level 8.3L, Total Bilirubin 0.7, Direct Bilirubin 0.2, Aspartate Amino Transf (AST/SGOT) 42H, Alanine Aminotransferase (ALT/SGPT) 40, Alkaline Phosphatase 74, C-Reactive Protein, Quantitative 16.2H, Total Protein 6.4, Albumin 2.5L, Globulin 3.9, Albumin/Globulin Ratio 0.6L 05/27/20 05:59: White Blood Count 16.6H, Red Blood Count 4.09L, Hemoglobin 13.5, Hematocrit 40.0, Mean Corpuscular Volume 98, Mean Corpuscular Hemoglobin 33.0H, Mean Corpuscular Hemoglobin Concent 33.7, Red Cell Distribution Width 11.9, Platelet Count 261, Mean Platelet Volume 6.1L, Neutrophils (%) (Auto) , Lymphocytes (%) (Auto) , Monocytes (%) (Auto) , Eosinophils (%) (Auto) , Basophils (%) (Auto) , Neutrophils % (Manual) [Pending], Lymphocytes % (Manual) [Pending], Platelet Estimate [Pending], Platelet Morphology [Pending] Current Medications Medications (Trade) Dose Ordered Sig/Elieser Route PRN Reason Start Time Stop Time Status Last Admin Dose Admin Acetaminophen (Tylenol) 650 mg Q4H PRN ORAL Temp >100.5 05/23/20 10:30 06/22/20 10:29 05/26/20 12:15 Acetaminophen (Tylenol) 650 mg Q4H PRN ORAL pain 05/24/20 11:30 06/23/20 11:29 05/27/20 04:35 Albuterol Sulfate (Proventil MDI) 2 puff Q4H PRN INH Shortness of Breath 05/23/20 10:30 08/21/20 10:29 05/27/20 01:09 Azithromycin 500 mg/Sodium Chloride 275 ml @ 275 mls/hr Q24H IV 05/23/20 17:00 05/28/20 16:59 05/26/20 17:24 Ceftriaxone Sodium 1 gm/ Sodium Chloride 55 ml @ 110 mls/hr Q24H IVPB 05/23/20 17:00 05/30/20 16:59 05/26/20 16:30 Dexamethasone Sodium Phosphate (Decadron 4mg/ml vial) 6 mg DAILY IVP 05/23/20 10:30 06/01/20 09:01 05/27/20 08:24 Dextrose (Dextrose 50%) 25 ml Q30M PRN IV Hypoglycemia 05/23/20 10:30 08/21/20 10:29 Dextrose (Dextrose 50%) 50 ml Q30M PRN IV Hypoglycemia 05/23/20 10:30 08/21/20 10:29 Docusate Sodium (Colace) 100 mg EVERY 12 HOURS ORAL 05/23/20 21:00 06/22/20 20:59 05/27/20 08:23 Enoxaparin Sodium (Lovenox) 40 mg Q24H SUBQ 05/23/20 12:00 08/21/20 11:59 05/26/20 11:20 Famotidine (Pepcid) 40 mg DAILY ORAL 05/24/20 09:00 08/22/20 08:59 05/27/20 08:23 Guaifenesin/ Dextromethorphan (Robitussin DM Syrup) 10 ml Q4H PRN ORAL For Cough 05/24/20 08:00 08/22/20 07:59 05/27/20 04:35 Remdesivir 100 mg/ Sodium Chloride 250 ml @ 250 mls/hr Q24H IV 05/24/20 20:00 05/27/20 20:59 05/26/20 20:00 Assessment/Plan Assessment/Plan ASSESSMENT Acute hypoxemic resp failure due to COVID PNA COVID 19 PNA Thrombocytopenia-resolved Abnormal ECG Headache Pulmonary HTN PLAN OF CARE tele O2 titrate to keep sat > 92% Albuterol MDI prn on Decadron and Remdesivivr Day 5 ( monitor LFT and renal paramerts, ) encourage prone position now on NRM and HFO2, sat 90-91%, at night felt below 90% monitor resp status closely low threshold for intubation CXR 05/27 worsening BL infiltrates CRP more than double over one day 6.5-> 16.2 fup with inflammatory markers a/tussive prn abx as per ID BCX 05/22 NGTD UCX 05/22 NGT influenza screen NGT a/c with Lovenox PPX, doubt PE, D dimer stable monitor PLT counts-normalized cardio eval -appreciated ECHO with pEF 65%, no WMA, mild to moderate MR, moderate pulmonary hypertension supportive care case discussed and evaluated by supervising physician Ivonne Andrade NP May 27, 2020 10:47 Beka Mcdaniels MD May 27, 2020 21:51
--- NOTE | 2020-05-27 11:57 | NUR ---
CASE MANAGEMENT:REVIEW 05/27/2020 SI: COVID PNEUMONIA T 97.5 HR 75 RR 30 B/P 120/46 SATS 90% ON 55L/HIGH FLOW FIO2 99 LABS: WBC 16.6 BUN 20 GLU 116 CA 8.3 AST 42 IS: IV REMDESIVIR Q24 (4/5) IV DECADRON QD IV AZITHROMYCIN Q24 IV ROCEPHIN Q24 LOVENOX SQ Q24 : TELEMETRY STATUS DCP: FROM HOME
[2020-05-27] MEDS: Enoxaparin 40mg Inj SUBQ SCH (12:56)
--- NOTE | 2020-05-27 13:25 | NUR ---
TRANSFER TO FLOOR: Patient transferred to ICU, [address], per Dr. Mcdaniels. Report given to DAVID Fortune. Belongings and medications given to DAVID Fortune. Family and or S/O informed of transfer.
--- NOTE | 2020-05-27 14:00 | NUR ---
NURSE NOTES: Received report from DAVID Luciano. The patient is on the bed but severely anxious, tachypnec, restless, and difficulty breathing. The patient is AOx4, mainly Kyrgyz speaking, and communication made by verbal communication. SR w/ HR of 80s on the cardiac nurse specialist. The patient is on HFNC 60L FiO2 100% in addition to 15L non-rebreather. The patient is on regular diet. No skin issue noted. The patient has R hand 22G and R AC 20G that got infiltrated. New IV inserted on R FA 20G that is intact and patent. Per DAVID Luciano, the patient got transferred to ICU for possible intubation. The patient's bed in the lowest position, call light in reach, and fall and aspiration precaution reinforced. PIV site intact and patent. Will follow up the lab and order. Will closely monitor the patient. Will continue plan of care.
--- NOTE | 2020-05-27 14:10 | NUR ---
NURSE NOTES: Dr. Mcdaniels at the bedside assessed the patient. Notified abnormal lab, ABG, and the patient's condition. Dr. Mcdaniels ordered intubation to be done. Dr. Mcdainels contacted ERMD (Dr. Vernon). Called ERMD for Dr. Mcdaniels's order of intubation. Will closely monitor the patient. Will continue plan of care.
[2020-05-27] MEDS ORDERED: Norepinephrine Premix 4mg/NS 250mL IV SCH (14:45)
--- NOTE | 2020-05-27 15:08 | Cardiac Electrophysiology PN ---
Assessment/Plan Assessment/Plan 1. Shortness of breath due to COVID pneumonia. Ruled out for NE EKG in view of inferolateral ST depression Echo EF 65% Her BNP was only 342.Transferred to ICU. Duy will need intubation 2. Sinus nnamdi off any TAVARES affecting agent. Likely due to Covid 3. COVID pneumonia, on dexamethasone, ceftriaxone, and azithromycin. On 15 liter NRB FMand high flow oxygen Subjective Subjective Transferred to ICU for high flow oxygen.May need intubATION In sinus nnamdi in 50s in Covid isolation. On Abx Objective Last 24 Hour Vital Signs Date Time Temp Pulse Resp B/P (MAP) Pulse Ox O2 Delivery O2 Flow Rate FiO2 05/27/20 12:00 97.6 78 22 122/46 (71) 92 05/27/20 12:00 71 05/27/20 09:00 Non-Rebreather 15.0 05/27/20 08:40 21 94 05/27/20 08:10 20 90 05/27/20 08:00 71 05/27/20 08:00 97.5 75 30 120/46 (70) 90 05/27/20 07:30 20 88 05/27/20 05:05 96.6 05/27/20 04:00 97.5 46 18 102/55 (71) 95 05/27/20 04:00 73 05/27/20 03:19 86 High Flow 55.0 99 05/27/20 01:40 67 18 135/54 94 05/27/20 01:10 67 18 135/54 94 05/27/20 00:00 59 05/27/20 00:00 96.6 67 18 135/54 (81) 94 05/26/20 23:11 92 High Flow 55.0 98 05/26/20 21:00 Non-Rebreather 15.0 05/26/20 20:10 97.8 05/26/20 20:00 98.1 65 20 147/69 (95) 91 05/26/20 20:00 60 05/26/20 20:00 91 High Flow 55.0 98 05/26/20 16:00 64 05/26/20 16:00 97.8 24 142/64 (90) 91 Intake and Output 05/26/20 05/27/20 19:00 07:00 Intake Total 400 ml 600 ml Balance 400 ml 600 ml Intake Oral 400 ml 600 ml # Voids 1 1 Laboratory Tests Test 05/27/20 04:00 05/27/20 05:59 05/27/20 12:36 Sodium Level 139 MMOL/L (136-145) Potassium Level 3.6 MMOL/L (3.5-5.1) Chloride Level 105 MMOL/L (98-107) Carbon Dioxide Level 27 MMOL/L (21-32) Blood Urea Nitrogen 20 mg/dL (7-18) H Creatinine 0.6 MG/DL (0.55-1.30) Estimat Glomerular Filtration Rate > 60 mL/min (>60) Glucose Level 116 MG/DL (74-106) H Calcium Level 8.3 MG/DL (8.5-10.1) L Total Bilirubin 0.7 MG/DL (0.2-1.0) Direct Bilirubin 0.2 MG/DL (0.0-0.3) Aspartate Amino Transf (AST/SGOT) 42 U/L (15-37) H Alanine Aminotransferase (ALT/SGPT) 40 U/L (12-78) Alkaline Phosphatase 74 U/L (46-116) C-Reactive Protein, Quantitative 16.2 mg/dL (0.00-0.90) H Total Protein 6.4 G/DL (6.4-8.2) Albumin 2.5 G/DL (3.4-5.0) L Globulin 3.9 g/dL Albumin/Globulin Ratio 0.6 (1.0-2.7) L White Blood Count 16.6 K/UL (4.8-10.8) H Red Blood Count 4.09 M/UL (4.20-5.40) L Hemoglobin 13.5 G/DL (12.0-16.0) Hematocrit 40.0 % (37.0-47.0) Mean Corpuscular Volume 98 FL (80-99) Mean Corpuscular Hemoglobin 33.0 PG (27.0-31.0) H Mean Corpuscular Hemoglobin Concent 33.7 G/DL (32.0-36.0) Red Cell Distribution Width 11.9 % (11.6-14.8) Platelet Count 261 K/UL (150-450) Mean Platelet Volume 6.1 FL (6.5-10.1) L Neutrophils (%) (Auto) % (45.0-75.0) Lymphocytes (%) (Auto) % (20.0-45.0) Monocytes (%) (Auto) % (1.0-10.0) Eosinophils (%) (Auto) % (0.0-3.0) Basophils (%) (Auto) % (0.0-2.0) Differential Total Cells Counted 100 Neutrophils % (Manual) 96 % (45-75) H Lymphocytes % (Manual) 3 % (20-45) L Monocytes % (Manual) 1 % (1-10) Eosinophils % (Manual) 0 % (0-3) Basophils % (Manual) 0 % (0-2) Band Neutrophils 0 % (0-8) Platelet Estimate Adequate Platelet Morphology Normal Red Blood Cell Morphology Normal Arterial Blood pH 7.466 (7.350-7.450) Arterial Blood Partial Pressure CO2 33.9 mmHg (35.0-45.0) L Arterial Blood Partial Pressure O2 50.5 mmHg (75.0-100.0) L Arterial Blood HCO3 23.9 mmol/L (22.0-26.0) Arterial Blood Oxygen Saturation 87.4 % (95-100) *L Arterial Blood Base Excess 0.7 (-2-2) Darinel Test Positive Objective HEAD AND NECK: No JVD.ON HIGH FLOW OXYGEN LUNGS: Coarse rhonchi. CARDIOVASCULAR: Regular S1 and S2 with no gallop. Bradycardic. ABDOMEN: Soft. EXTREMITIES: No pitting edema. Jordi Albarado MD May 27, 2020 15:08
--- NOTE | 2020-05-27 16:00 | NUR ---
NURSE NOTES: Intubation done by ERMD (Dr. Vernon) in a safe manner. Vent setting as follows: AC 20 TV 450 FiO2 100%, and PEEP 10. Intubation got delayed due to 2 CB @ telemetry floor. Will continue plan of care.
--- NOTE | 2020-05-27 16:00 | NUR ---
RESPIRATORY NOTE: PT BROUGHT IN TO ICU AND RECEIVED ON HIGH FLOW WITH LOW SATURATION OF MID 80'S. INTUBATION WAS ORDERED BY . PT WAS PLACED ON AC/VC 20, 450, 100%, +10. PT IS CURRENTLY SEDATED AND BILATERAL SOFT RESTRAINS ARE IN PLACE. ALARMS ARE ON AND AUDIBLE. WILL CONTINUE TO CLOSELY MONITOR.
--- NOTE | 2020-05-27 16:40 | NUR ---
NURSE NOTES: Dr. Mcdaniels ordered followings: CXR for ETT and OGT placement, OGT, Santiago, and bilateral soft wrist restraints. Will carry out the order as soon as possible. Will continue plan of care.
--- NOTE | 2020-05-27 17:21 | Infectious Diseases Prog Note ---
Assessment/Plan Assessment/Plan ASSESSMENT AND PLAN: 1. covid-19 infection with pna, hypoxia, ? CAP respiratory failure, on vent - dexamethasone and remdesivir - ceftriaxone and azithromycin - monitor labs and chest x-ray 2. No other significant past medical history. 3. Rule out [facility] per Cardiology. 4. No known allergies. 5. Social history is negative. 6. Family history is noncontributory. 7. MAR is noted. 8. Case was discussed with RN. 9. Continue treatment per primary consultants. 10. Orders were noted and entered. Subjective Constitutional: Reports: fatigue, other - on vent, in icu, no pressors; Denies: fever HEENT: Reports: congestion Respiratory: Reports: shortness of breath Cardiovascular: Denies: chest pain Gastrointestinal/Abdominal: Denies: nausea, diarrhea Genitourinary: Reports: other - + salas Neurologic: Denies: headache Psychiatric: Denies: depression Skin: Denies: rash Hematologic: Denies: bleeding Musculoskeletal: Denies: pain Allergies: Coded Allergies: No Known Allergies (Unverified , 04/02/12) Objective Last 24 Hour Vital Signs Date Time Temp Pulse Resp B/P (MAP) Pulse Ox O2 Delivery O2 Flow Rate FiO2 05/27/20 12:00 97.6 78 22 122/46 (71) 92 05/27/20 12:00 71 05/27/20 09:00 Non-Rebreather 15.0 05/27/20 08:40 21 94 05/27/20 08:10 20 90 05/27/20 08:00 71 05/27/20 08:00 97.5 75 30 120/46 (70) 90 05/27/20 07:30 20 88 05/27/20 05:05 96.6 05/27/20 04:00 97.5 46 18 102/55 (71) 95 05/27/20 04:00 73 05/27/20 03:19 86 High Flow 55.0 99 05/27/20 01:40 67 18 135/54 94 05/27/20 01:10 67 18 135/54 94 05/27/20 00:00 59 05/27/20 00:00 96.6 67 18 135/54 (81) 94 05/26/20 23:11 92 High Flow 55.0 98 05/26/20 21:00 Non-Rebreather 15.0 05/26/20 20:10 97.8 05/26/20 20:00 98.1 65 20 147/69 (95) 91 05/26/20 20:00 60 05/26/20 20:00 91 High Flow 55.0 98 Height (Feet): 5 Height (Inches): 1.00 Weight (Pounds): 130 General Appearance: no acute distress HEENT: normocephalic, atraumatic, no JVD, other - intubated Respiratory/Chest: crackles/rales, rhonchi - bilaterally Cardiovascular: normal rate, regular rhythm, no gallop/murmur Abdomen: normal bowel sounds, soft, non tender, no organomegaly, non distended Genitourinary: other - + salas Extremities: no cyanosis Skin: no rash Neurologic/Psychiatric: 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 The heart is borderline enlarged. There is suggestion of small bilateral pleural effusions, not evident previously. Impression: Worsening bilateral infiltrates, right greater than left. Chest x-ray - 05/27/20: FINDINGS/IMPRESSION: Bilateral airspace consolidations, consistent with multifocal infiltrate. These are worsening when compared to just Renografin May 22, 2020. Follow-up chest radiograph recommended. Small bilateral pleural effusions, slightly worsening. No pneumothorax. Cardiomegaly. Calcified aorta. Microbiology Date/Time Source Procedure Growth Status 05/22/20 19:00 Straight Cath Urine Culture - Final NO GROWTH AFTER 48 HOURS Complete 05/22/20 18:00 Nasal Nares - Final Complete 05/22/20 18:00 Nasal Nares - Final Complete 05/22/20 18:00 Blood Blood Culture - Preliminary NO GROWTH AFTER 4 DAYS Resulted Laboratory Tests Test 05/27/20 04:00 05/27/20 05:59 05/27/20 12:36 Sodium Level 139 MMOL/L (136-145) Potassium Level 3.6 MMOL/L (3.5-5.1) Chloride Level 105 MMOL/L (98-107) Carbon Dioxide Level 27 MMOL/L (21-32) Blood Urea Nitrogen 20 mg/dL (7-18) H Creatinine 0.6 MG/DL (0.55-1.30) Estimat Glomerular Filtration Rate > 60 mL/min (>60) Glucose Level 116 MG/DL (74-106) H Calcium Level 8.3 MG/DL (8.5-10.1) L Total Bilirubin 0.7 MG/DL (0.2-1.0) Direct Bilirubin 0.2 MG/DL (0.0-0.3) Aspartate Amino Transf (AST/SGOT) 42 U/L (15-37) H Alanine Aminotransferase (ALT/SGPT) 40 U/L (12-78) Alkaline Phosphatase 74 U/L (46-116) C-Reactive Protein, Quantitative 16.2 mg/dL (0.00-0.90) H Total Protein 6.4 G/DL (6.4-8.2) Albumin 2.5 G/DL (3.4-5.0) L Globulin 3.9 g/dL Albumin/Globulin Ratio 0.6 (1.0-2.7) L White Blood Count 16.6 K/UL (4.8-10.8) H Red Blood Count 4.09 M/UL (4.20-5.40) L Hemoglobin 13.5 G/DL (12.0-16.0) Hematocrit 40.0 % (37.0-47.0) Mean Corpuscular Volume 98 FL (80-99) Mean Corpuscular Hemoglobin 33.0 PG (27.0-31.0) H Mean Corpuscular Hemoglobin Concent 33.7 G/DL (32.0-36.0) Red Cell Distribution Width 11.9 % (11.6-14.8) Platelet Count 261 K/UL (150-450) Mean Platelet Volume 6.1 FL (6.5-10.1) L Neutrophils (%) (Auto) % (45.0-75.0) Lymphocytes (%) (Auto) % (20.0-45.0) Monocytes (%) (Auto) % (1.0-10.0) Eosinophils (%) (Auto) % (0.0-3.0) Basophils (%) (Auto) % (0.0-2.0) Differential Total Cells Counted 100 Neutrophils % (Manual) 96 % (45-75) H Lymphocytes % (Manual) 3 % (20-45) L Monocytes % (Manual) 1 % (1-10) Eosinophils % (Manual) 0 % (0-3) Basophils % (Manual) 0 % (0-2) Band Neutrophils 0 % (0-8) Platelet Estimate Adequate Platelet Morphology Normal Red Blood Cell Morphology Normal Arterial Blood pH 7.466 (7.350-7.450) Arterial Blood Partial Pressure CO2 33.9 mmHg (35.0-45.0) L Arterial Blood Partial Pressure O2 50.5 mmHg (75.0-100.0) L Arterial Blood HCO3 23.9 mmol/L (22.0-26.0) Arterial Blood Oxygen Saturation 87.4 % (95-100) *L Arterial Blood Base Excess 0.7 (-2-2) Darinel Test Positive Current Medications Medications (Trade) Dose Ordered Sig/Elieser Route PRN Reason Start Time Stop Time Status Last Admin Dose Admin Acetaminophen (Tylenol) 650 mg Q4H PRN ORAL Temp >100.5 05/23/20 10:30 06/22/20 10:29 05/26/20 12:15 Acetaminophen (Tylenol) 650 mg Q4H PRN ORAL pain 05/24/20 11:30 06/23/20 11:29 05/27/20 04:35 Albuterol Sulfate (Proventil MDI) 2 puff Q4H PRN INH Shortness of Breath 05/23/20 10:30 08/21/20 10:29 05/27/20 01:09 Azithromycin 500 mg/Sodium Chloride 275 ml @ 275 mls/hr Q24H IV 05/23/20 17:00 05/28/20 16:59 05/26/20 17:24 Ceftriaxone Sodium 1 gm/ Sodium Chloride 55 ml @ 110 mls/hr Q24H IVPB 05/23/20 17:00 05/30/20 16:59 05/26/20 16:30 Chlorhexidine Gluconate (Emma-Hex 2%) 1 applic QHS TOPIC 05/27/20 21:00 08/25/20 20:59 UNV Dexamethasone Sodium Phosphate (Decadron 4mg/ml vial) 6 mg DAILY IVP 05/23/20 10:30 06/01/20 09:01 05/27/20 08:24 Dextrose (Dextrose 50%) 25 ml Q30M PRN IV Hypoglycemia 05/23/20 10:30 08/21/20 10:29 Dextrose (Dextrose 50%) 50 ml Q30M PRN IV Hypoglycemia 05/23/20 10:30 08/21/20 10:29 Docusate Sodium (Colace) 100 mg EVERY 12 HOURS ORAL 05/23/20 21:00 06/22/20 20:59 05/27/20 08:23 Enoxaparin Sodium (Lovenox) 40 mg Q24H SUBQ 05/23/20 12:00 08/21/20 11:59 05/27/20 12:56 Famotidine (Pepcid) 40 mg DAILY ORAL 05/24/20 09:00 08/22/20 08:59 05/27/20 08:23 Guaifenesin/ Dextromethorphan (Robitussin DM Syrup) 10 ml Q4H PRN ORAL For Cough 05/24/20 08:00 08/22/20 07:59 05/27/20 04:35 Norepinephrine Bitartrate 250 ml @ 0 mls/hr Q24H IV 05/27/20 14:45 05/30/20 14:40 Remdesivir 100 mg/ Sodium Chloride 250 ml @ 250 mls/hr Q24H IV 05/24/20 20:00 05/27/20 20:59 05/26/20 20:00 Afshan Muñoz MD May 27, 2020 17:21
[2020-05-27] MEDS: cefTRIAXone 1 GM in NS 55 ML IVPB SCH (17:27)
--- NOTE | 2020-05-27 17:30 | NUR ---
NURSE NOTES: Bed bath given to the patient. The patient tolerated well. Will closely monitor the patient. Will continue plan of care.
[2020-05-27] MEDS: Azithromycin 500 MG in NS 275 ML IV SCH (17:31)
--- NOTE | 2020-05-27 17:56 | Diagnostic Imaging Report ---
EXAM: XR Chest, 1 View CLINICAL HISTORY: Follow-up bilateral airspace consolidation TECHNIQUE: Frontal view of the chest. COMPARISON: Chest x-ray 05/27/2020 at 9:50 AM. FINDINGS: Lungs: Patchy and confluent opacities throughout both lungs, not significantly changed compared to the radiograph performed same day at 9: 50 AM. Pleural space: Unremarkable. No pneumothorax. Heart: Unremarkable. No cardiomegaly. Mediastinum: Unremarkable. Bones/joints: Unremarkable. Tubes, lines and devices: Interval intubation with the ET tube in good position, overlying the trachea and terminating below the level of the clavicular heads and approximately 5 cm above the sho. An enteric tube courses below the level of the diaphragm and extends beyond the [id number], with the side-port overlying the expected region of the stomach. IMPRESSION: 1. No significant interval change in patchy and confluent opacities throughout both lungs compared to the previous exam performed earlier today. 2. Interval intubation and placement of an enteric tube, as above.
--- NOTE | 2020-05-27 18:00 | NUR ---
NURSE NOTES: Medications administered per order. The patient tolerated well. Will closely monitor the patient. Will continue plan of care.
--- NOTE | 2020-05-27 19:00 | NUR ---
NURSE NOTES: Per sabiha Salas to use OGT based on CXR result. Will continue plan of care.
--- NOTE | 2020-05-27 19:12 | NUR ---
NURSE NOTES: Received patient from Devika HERNANDEZ. Will continue plan of care. Patient is newly intubated, wide awake, moving in bed, kicking and swinging legs, trying to pull on lines and tubes. Very restless and agitated. Received orders of Fentanyl to reach RASS score -2 and 1mg versed IVP q2h PRN. Will carry out. ACID CORRECTION HAND restraints on; ROM and skin assessed.
--- NOTE | 2020-05-27 19:30 | NUR ---
NURSE HAND-OFF REPORT: Important Events on Shift: s/p intubation, OGT, Santiago, Bilateral soft wrist restraints Patient Status: Stable, Full code Diet: Regular diet but NPO now s/p intubation Pending Orders: N Pending Results/Labs: N Pending MD notification: N Latest Vital Signs: Temperature 99.2 , Pulse 85 , B/P 137 /68 , Respiratory Rate 24 , O2 SAT 96 , Mechanical Ventilator, O2 Flow Rate 60.0 . Vital Sign Comment: Stable EKG Rhythm: Sinus Rhythm Rhythm change?: N MD Notified?: N - MD Response: Latest Bustamante Fall Score: 30 Fall Risk: Medium Risk Safety Measures: Call light Within Reach, Bed Alarm Zone 1, Side Rails Side Rails x2, Bed position Low and Locked. Fall Precautions: Yellow Socks Yellow Gown Door Sign Patient Fall Education Report given to DAVID Atkins. The patient is stable at this time. Endorsed plan of care.
[2020-05-27] MEDS: Midazolam 2mg/2ml Inj IVP PRN (19:44)
[2020-05-27] MEDS: fentaNYL 2500mcg/NS 250ml 250 ML IV SCH (20:09)
[2020-05-27] MEDS: Maintenance Dose:Remdesivir 100mg/NS 230ml x 4 Doses IV SCH ×2 (20:09)
--- NOTE | 2020-05-27 20:15 | NUR ---
NURSE NOTES: Patient is extremely agitated and restless; kicking and swinging and seen trying to grab onto the ETT. Fentanyl started @ 10mcgs and will titrate to reach a RASS score of -2.
[2020-05-27] MEDS: Dyna-Hex 2% Top Sol 2oz TOPIC SCH (21:00)
--- NOTE | 2020-05-27 21:00 | NUR ---
NURSE NOTES: New 20g IV inserted in the right wrist and in the left forearm.
--- NOTE | 2020-05-27 22:00 | NUR ---
NURSE NOTES: Fentanyl continues to run and being titrated up, RASS -2 has not been reached and will increase rate per protocol.
[2020-05-28] VITALS (56 sets, daily range): BP systolic 81–125; BP diastolic 49–80
--- NOTE | 2020-05-28 | NUR ---
NURSE NOTES: Daughter Tanika called and asked for updates; explained to her she is not on the face sheet and no information can be given. Called transferred to admitting dept. and face sheet updated- printed and placed into chart
--- NOTE | 2020-05-28 02:00 | NUR ---
NURSE NOTES: Patient is sedated; RASS -2 lightly sedated; awakens and is calm and able to respond by voice and touch. Fentanyl running at 120mcgs
[2020-05-28 05:09] LABS: BLOOD UREA NITROGEN 23 mg/dL (7-18); CALCIUM 8.3 MG/DL (8.5-10.1); CARBON DIOXIDE 28 MMOL/L (21-32); CREATININE 0.6 MG/DL (0.55-1.30); POTASSIUM 4.1 MMOL/L (3.5-5.1); SODIUM 139 MMOL/L (136-145)
[2020-05-28 05:18] LABS: HEMATOCRIT 37.3 % (37.0-47.0); HEMOGLOBIN 12.7 G/DL (12.0-16.0); MEAN CORPUSCULAR VOLUME 97 FL (80-99); PLATELET COUNT 234 K/UL (150-450); RED BLOOD COUNT 3.84 M/UL (4.20-5.40); RED CELL DISTRIBUTION WIDTH 12.2 % (11.6-14.8); WHITE BLOOD COUNT 16.3 K/UL (4.8-10.8)
[2020-05-28 06:04] LABS: CHLORIDE 107 MMOL/L (98-107)
--- NOTE | 2020-05-28 06:30 | NUR ---
NURSE NOTES: BP slowly decreasing, awaiting ERMD for central line placement.
--- NOTE | 2020-05-28 07:29 | NUR ---
NURSE HAND-OFF REPORT: Latest Vital Signs: Temperature 100.4 , Pulse 69 , B/P 91 /54 , Respiratory Rate 20 , O2 SAT 93 , Mechanical Ventilator, O2 Flow Rate . Vital Sign Comment: Levophed started @ 2mcgs for hypotensive EKG Rhythm: Sinus Rhythm Rhythm change?: N MD Notified?: N - MD Response: Latest Bustamante Fall Score: 50 Fall Risk: High Risk Safety Measures: Call light Within Reach, Bed Alarm Zone 1, Side Rails Side Rails x2, Bed position Low and Locked. Fall Precautions: Yellow Socks Yellow Gown Door Sign Patient Fall Education Report given to .
--- NOTE | 2020-05-28 07:30 | NUR ---
NURSE NOTES: Received pt from DAVID Junior. Pt intubated and sedated. Tolerating vent setting. FiO2 100%. SpO2 91-92%. Pt slightly restless and looks uncomfortable. fentanyl increased for comfort. Blood pressure low. levophed initiated at 2mcg/min on peripheral IV. Central IV kit at bedside for ER doc to place when possible. Will follow up. Pt NPO. OGT in place and verified with auscultation. Santiago in place. Dark yellow urine noted. Pt warm to touch. Temp 99.2 at this time. Bed in low position with bed alarm on and call light in reach at this time. oral care and repositioning done at this time. Restraint in place for impulsive behavior.
--- NOTE | 2020-05-28 08:30 | NUR ---
RD ASSESSMENT & RECOMMENDATIONS SEE CARE ACTIVITY FOR COMPLETE ASSESSMENT DAILY ESTIMATED NEEDS: Needs based on Critical care, 56kg 22-28 kcals/kg 3326-1227 total kcals 1.2-2 g protein/kg 67-112 g total protein 25-30 mL/kg 7757-9966 total fluid mLs NUTRITION DIAGNOSIS: Swallowing difficulty R/T respiratory failure as evidenced by pt orally intubated on 05/27, w/ OGT in place, NPO at this time. CURRENT TF:NPO PO DIET RECOMMENDATIONS: PARQUET FLOOR LAYER eval post extubation ENTERAL NUTRITION RECOMMENDATIONS: Vital AF 1.2 @ 50ml/hr x 24 hrs to provide 1200ml, 1440kcal, 90g prot, 973ml free water * As medically appropriate, initiate Vital AF 1.2 @ 20ml/hr x 6hrs * Advance 10ml q 4-6 hrs as tolerated to goal * HOB over 30 degrees/ 180ml q 8 hrs --------- WITHOUT HEMODYNAMIC STABILITY, rec trophic feeding of Vital AF 1.2 @ 10ml/hr if able to keep HOB >30 degrees ADDITIONAL RECOMMENDATIONS: * Calibrated bedscale wt * Monitor hemodynamic stability: NE @ 2mcg * Monitor BGs closely w/ TF + Decadron, need for NISS * Monitor lytes, replete as needed (low phos)
[2020-05-28] MEDS: Piperacillin/Tazobactam 3.375 GM in NS 110 ML IVPB SCH ×4 (08:37→15:32)
[2020-05-28] MEDS: Docusate 100mg cap ORAL SCH ×2 (08:38→20:45)
--- NOTE | 2020-05-28 09:46 | NUR ---
NURSE NOTES: RT titrate FiO2 to 70%. Pt tolerating with SpO2 96-97%. Will cont to monitor.
[2020-05-28] MEDS: Enoxaparin 40mg Inj SUBQ SCH ×2 (11:46→20:45)
--- NOTE | 2020-05-28 12:00 | NUR ---
NURSE NOTES: Pt continues to tolerate ventilator setting. SpO2 improved after fentanyl increased to 200mcg/hr. pt RASS -2. Pt cooperative and easily aroused. Restraints remain in place for safety. Pt still has slight temp. Will continue to monitor.
--- NOTE | 2020-05-28 12:09 | Pulmonolgy Critical Care Note ---
Ivonne Andrade MARKET RESEARCH ANALYST 05/28/20 1209: Critical Care - Asmt/Plan Assessment/Plan: ASSESSMENT Acute hypoxemic resp failure due to COVID PNA, requiring intubation 05/27 COVID 19 PNA Thrombocytopenia-resolved Abnormal ECG Headache Pulmonary HTN PLAN OF CARE ICU isolation Date of sx onset: fe days prior to rpesentation to EF on 05/23 Positive test: OSF 05/22 1 days prior to admission O2 -> intubated 05/27 HFA s/p REM x 5 days ( 05/23-05/27 ) Dex Day# 6 ( 05/23 - ) D dimer initial 0,48 - 19. 61 (05/27) DVT PPX: Lovenox Venous Duplex BLE Trend CRP 3.6 -> 19.7 Abx per ID recs prone position as tolerated vent support, pulm toilet fup with ABG and CXR, titrate settings as needed monitor volumes and renal function fup with consultants recs FC Discuss GOC monitor PLT counts-normalized cardio eval -appreciated ECHO with pEF 65%, no WMA, mild to moderate MR, moderate pulmonary hypertension case discussed and evaluated by supervising physician Critical Care - Objective Last 24 Hour Vital Signs Date Time Temp Pulse Resp B/P (MAP) Pulse Ox O2 Delivery O2 Flow Rate FiO2 05/28/20 08:45 72 20 115/63 (80) 90 05/28/20 08:30 64 20 104/53 (70) 96 05/28/20 08:15 64 20 100/53 (69) 96 05/28/20 08:00 63 05/28/20 08:00 99.3 67 20 102/53 (69) 95 05/28/20 07:45 66 20 100/56 (71) 94 05/28/20 07:37 65 20 80 05/28/20 07:30 68 19 98/52 (67) 91 05/28/20 07:15 91/54 05/28/20 07:15 69 20 91/54 (66) 93 05/28/20 07:08 68 20 83/52 (62) 93 05/28/20 07:00 71 20 83/51 (62) 93 05/28/20 06:55 89 26 100 05/28/20 06:54 20 86/51 Mechanical Ventilator 100 05/28/20 06:30 72 21 92/55 (67) 94 05/28/20 06:27 73 20 92/58 (69) 96 05/28/20 06:21 73 20 81/54 (63) 95 05/28/20 06:00 73 20 84/54 (64) 91 05/28/20 05:54 20 84/54 Mechanical Ventilator 100 05/28/20 05:30 74 20 82/51 (61) 96 05/28/20 05:00 78 20 93/56 (68) 96 05/28/20 04:54 20 94/61 Mechanical Ventilator 100 05/28/20 04:45 80 20 94/61 (72) 95 05/28/20 04:32 100.4 05/28/20 04:30 86 20 106/62 (77) 89 05/28/20 04:15 93 20 113/63 (80) 89 05/28/20 04:00 97.6 85 21 105/58 (74) 90 05/28/20 04:00 74 05/28/20 03:54 21 105/58 Mechanical Ventilator 100 05/28/20 03:30 88 22 116/64 (81) 89 05/28/20 03:00 87 23 121/65 (83) 87 05/28/20 02:54 21 121/65 Mechanical Ventilator 100 05/28/20 02:00 90 24 112/64 (80) 90 05/28/20 01:54 25 107/58 Mechanical Ventilator 100 05/28/20 01:45 91 26 125/80 (95) 94 05/28/20 01:30 83 22 107/58 (74) 87 05/28/20 01:15 82 23 109/56 (73) 88 05/28/20 01:00 83 23 107/59 (75) 90 05/28/20 00:54 23 109/58 Mechanical Ventilator 100 05/28/20 00:45 84 22 109/58 (75) 92 05/28/20 00:30 83 24 110/57 (74) 88 05/28/20 00:15 83 22 108/60 (76) 88 05/28/20 00:04 81 05/28/20 00:00 Mechanical Ventilator 05/28/20 00:00 99.8 82 23 104/61 (75) 87 05/27/20 23:54 23 105/59 Mechanical Ventilator 100 05/27/20 23:30 82 24 108/59 (75) 88 05/27/20 23:15 87 25 109/60 (76) 88 05/27/20 23:00 89 24 114/62 (79) 88 05/27/20 22:54 24 105/58 Mechanical Ventilator 100 05/27/20 22:45 79 21 105/58 (74) 89 05/27/20 22:39 22 105/58 Mechanical Ventilator 100 05/27/20 22:30 80 22 105/58 (74) 90 05/27/20 22:24 22 114/62 Mechanical Ventilator 100 05/27/20 22:15 79 23 114/62 (79) 89 05/27/20 22:09 22 100/56 Mechanical Ventilator 100 05/27/20 22:00 77 21 100/56 (71) 91 05/27/20 21:54 21 96/56 Mechanical Ventilator 100 05/27/20 21:39 21 96/56 Mechanical Ventilator 100 05/27/20 21:24 22 96/56 Mechanical Ventilator 100 05/27/20 21:09 23 105/59 Mechanical Ventilator 100 05/27/20 21:00 85 24 105/59 (74) 89 05/27/20 20:54 26 111/65 Mechanical Ventilator 100 05/27/20 20:45 86 25 111/65 (80) 90 05/27/20 20:39 25 111/65 Mechanical Ventilator 100 05/27/20 20:34 93 25 107/64 (78) 91 05/27/20 20:30 95 25 99/65 (76) 93 05/27/20 20:24 27 114/71 Mechanical Ventilator 100 05/27/20 20:15 105 27 114/71 (85) 98 05/27/20 20:09 24 137/68 Mechanical Ventilator 100 05/27/20 20:00 Mechanical Ventilator 05/27/20 20:00 99.7 103 23 137/68 (91) 92 05/27/20 19:50 85 27 100 05/27/20 19:45 85 05/27/20 19:00 85 24 113/63 (80) 96 05/27/20 18:00 87 27 119/92 (101) 94 05/27/20 17:00 86 25 141/78 (99) 95 05/27/20 17:00 Mechanical Ventilator 05/27/20 16:00 89 20 88 Mechanical Ventilator 100 05/27/20 16:00 89 20 100 05/27/20 16:00 99.2 85 30 142/74 (96) 88 05/27/20 15:05 82 05/27/20 15:00 83 35 149/79 (102) 88 05/27/20 14:45 144/68 05/27/20 14:00 98.0 82 28 170/67 (101) 85 05/27/20 14:00 High Flow O2 60.0 05/27/20 13:26 75 05/27/20 12:45 90 High Flow 60.0 100 05/27/20 12:00 97.6 78 22 122/46 (71) 92 05/27/20 12:00 71 Status: sedated Condition: critical HEENT: atraumatic, normocephalic Neck: other - OP with ET in palce intact Lungs: clear - but diminished Heart: HR/BP unstable Abdomen: soft, non-tender, active bowel sounds Extremities: no C/C/E Critical Care - Subjective ROS Limited/Unobtainable: Yes Intubation Day: intubated 05/27 Interval Events: intubated 05/27, due to progressive hypoxemia on NRM with HFO2 sedated on low dose Levophed ABG noted fever early am, currently resolved leukocytosis Condition: critical IV Access: peripheral EKG Rhythm: Sinus Rhythm FI02: 80 Vent Support Breath Rate: 20 Vent Support Mode: AC Vent Tidal Volume: 450 Sputum Amount: Scant PEEP: 10.0 PIP: 35 Drips: 2 mcg/min, Fentanyl 120 mcg/hr I&O: Intake and Output 05/27/20 05/28/20 19:00 07:00 Intake Total 222.50 ml Output Total 450 ml 420 ml Balance -450 ml -197.50 ml IV Total 222.50 ml Output Urine Total 450 ml 420 ml CXR: 05/27 No significant interval change in patchy and confluent opacities throughout both lungs compared to the previous exam performed earlier today. Interval intubation and placement of an enteric tube, as above. ET-Tube: 7.0 ET Position: 22 Beka Mcdaniels MD 05/28/20 2018: Ivonne Andrade NP May 28, 2020 12:09 Beka Mcdaniels MD May 28, 2020 20:18
--- NOTE | 2020-05-28 13:00 | NUR ---
NURSE NOTES: Dr Mcdaniels rounded on the pt. He reported that he is aware of the ABG result. Update given. No verbal orders received.
--- NOTE | 2020-05-28 13:26 | NUR ---
CASE MANAGEMENT:REVIEW 05/28/2020 SI: COVID PNEUMONIA T 99.3 HR 67 RR 20 B/P 102/53 SATS 95% ON MECH VENT FIO2 80 LABS: WBC 16.3 BUN 23 GLU 110 CA 8.3 CRP 19.7 ABGs PO2 55.6 O2 SAT 88.3 IS: IV REMDESIVIR Q24 (09/28) IV DECADRON QD (11/03) IV AZITHROMYCIN Q24 IV ROCEPHIN Q24 LOVENOX SQ Q24 FENTANYL IV PER PARAMETERS LEVOPHED IV PER PARAMETERS : ICU STATUS DCP: FROM HOME
[2020-05-28] MEDS: fentaNYL 2500mcg/NS 250ml 250 ML IV SCH (13:49)
--- NOTE | 2020-05-28 15:00 | NUR ---
NURSE NOTES: Dr Corona rounded on the pt. He reported that the pt does not need the central line at this time.
--- NOTE | 2020-05-28 16:00 | NUR ---
NURSE NOTES: VS stable. Pt tolerating vent setting. vent now on 80% FiO2. Pt tolerating. Fentanyl remains at 200mcg/hr. Levophed off. Pt BP stable.
--- NOTE | 2020-05-28 16:18 | Consultation ---
History of Present Illness General Date patient seen: May 28, 2020 Reason for Hospitalization: Dyspnea/Respdistress Present Illness HPI 75 year old female COIVD + pneumonia currently in ICU intubated on support had acute hypotensive episode today placed on pressors. surgery called to evaluate and assist with care. possible central venous catheter insertion. patient seen, chart reviewed, patient examined. meds noted. patient awake and responsive on vent support with ett in place. Allergies: Coded Allergies: No Known Allergies (Unverified , 04/02/12) COVID-19 Screening Contact w/high risk pt: Yes Experienced COVID-19 symptoms?: Yes Coronavirus symptoms experienc: Fever (T>100.4F or >38C), Shortness of Breath, Cough Medication History Scheduled Acetaminophen/Codeine 300MG/30MG* (Tylenol #3*), 1 TAB PO Q4H No Known Medications* (NKM - No Known Medications*), 0 ., (Reported) Omeprazole (Prilosec), 20 MG PO DAILY Patient History Limited by: medical condition History Provided By: Medical Record, PMD Healthcare decision maker Resuscitation status Advanced Directive on File Past Medical/Surgical History Past Medical/Surgical History: (1) Thrombocytopenia (2) Pneumonia (3) Hypoxia (4) COVID-19 (5) Abnormal EKG Review of Systems Review of Symptoms General ROS: no weight loss or fever Psychological ROS: no depression or mood changes, no memory loss Ophthalmic ROS: no visual changes or eye irritation ENT ROS: no nasal congestion, hearing loss, dizziness Allergy and Immunology ROS: no allergic symptoms or urticaria Hematological and Lymphatic ROS: no swollen glands, unusual bleeding or bruising Endocrine ROS: no polyuria, polydipsia, weight changes, temperature intolerance Respiratory ROS: no cough, shortness of breath, or wheezing Cardiovascular ROS: no chest pain or dyspnea on exertion Gastrointestinal ROS: denies abdominal pain, bright red blood in stool. Musculoskeletal ROS: no myalgias or arthralgias Neurological ROS: no TIA or stroke symptoms Dermatological ROS: no new or changing skin lesions, rashes or pruritis limited on vent Physical Exam Physical Exam General appearance: alert, cooperative, no distress, appears stated age Head: Normocephalic, without obvious abnormality, atraumatic Eyes: conjunctivae/corneas clear. PERRL, EOM's intact. Fundi benign Throat: Lips, mucosa, and tongue normal. Teeth and gums normal Neck: supple, symmetrical, trachea midline, no adenopathy, thyroid: not enlarged, symmetric, no tenderness/mass/nodules, no carotid bruit and no JVD Lungs: dec to auscultation bilaterally, ett okay, on vent Heart: regular rate and rhythm, S1, S2 normal, no murmur, click, rub or gallop Abdomen: soft, non-tender. Bowel sounds normal. No masses, no organomegaly Extremities: extremities normal, atraumatic, no cyanosis or edema Pulses: 2+ and symmetric Skin: Skin color, texture, turgor normal. No rashes or lesions Neurologic: Grossly normal Last 24 Hour Vital Signs Date Time Temp Pulse Resp B/P (MAP) Pulse Ox O2 Delivery O2 Flow Rate FiO2 05/28/20 15:30 68 20 117/60 (79) 98 05/28/20 15:00 65 20 120/59 (79) 98 05/28/20 14:30 68 20 113/62 (79) 98 05/28/20 14:00 65 20 108/58 (75) 98 05/28/20 13:49 20 104/60 Mechanical Ventilator 80 05/28/20 13:30 74 20 104/60 (75) 98 05/28/20 13:00 84 28 97/49 (65) 92 05/28/20 12:30 65 20 108/56 (73) 97 05/28/20 12:00 64 05/28/20 12:00 65 20 101/55 (70) 97 05/28/20 11:30 62 20 110/61 (77) 99 05/28/20 11:00 65 20 112/58 (76) 97 05/28/20 10:30 70 20 113/57 (75) 92 05/28/20 10:00 65 20 108/55 (72) 96 05/28/20 09:30 85 20 107/57 (74) 96 05/28/20 09:00 66 20 103/58 (73) 95 05/28/20 08:45 72 20 115/63 (80) 90 05/28/20 08:30 64 20 104/53 (70) 96 05/28/20 08:15 64 20 100/53 (69) 96 05/28/20 08:00 63 05/28/20 08:00 99.3 67 20 102/53 (69) 95 05/28/20 07:45 66 20 100/56 (71) 94 05/28/20 07:37 65 20 80 05/28/20 07:30 68 19 98/52 (67) 91 05/28/20 07:15 91/54 05/28/20 07:15 69 20 91/54 (66) 93 05/28/20 07:08 68 20 83/52 (62) 93 05/28/20 07:00 71 20 83/51 (62) 93 05/28/20 06:55 89 26 100 05/28/20 06:54 20 86/51 Mechanical Ventilator 100 05/28/20 06:30 72 21 92/55 (67) 94 05/28/20 06:27 73 20 92/58 (69) 96 05/28/20 06:21 73 20 81/54 (63) 95 05/28/20 06:00 73 20 84/54 (64) 91 05/28/20 05:54 20 84/54 Mechanical Ventilator 100 05/28/20 05:30 74 20 82/51 (61) 96 05/28/20 05:00 78 20 93/56 (68) 96 05/28/20 04:54 20 94/61 Mechanical Ventilator 100 05/28/20 04:45 80 20 94/61 (72) 95 05/28/20 04:32 100.4 05/28/20 04:30 86 20 106/62 (77) 89 05/28/20 04:15 93 20 113/63 (80) 89 05/28/20 04:00 97.6 85 21 105/58 (74) 90 05/28/20 04:00 74 05/28/20 03:54 21 105/58 Mechanical Ventilator 100 05/28/20 03:30 88 22 116/64 (81) 89 05/28/20 03:00 87 23 121/65 (83) 87 05/28/20 02:54 21 121/65 Mechanical Ventilator 100 05/28/20 02:00 90 24 112/64 (80) 90 05/28/20 01:54 25 107/58 Mechanical Ventilator 100 05/28/20 01:45 91 26 125/80 (95) 94 05/28/20 01:30 83 22 107/58 (74) 87 05/28/20 01:15 82 23 109/56 (73) 88 05/28/20 01:00 83 23 107/59 (75) 90 05/28/20 00:54 23 109/58 Mechanical Ventilator 100 05/28/20 00:45 84 22 109/58 (75) 92 05/28/20 00:30 83 24 110/57 (74) 88 05/28/20 00:15 83 22 108/60 (76) 88 05/28/20 00:04 81 05/28/20 00:00 Mechanical Ventilator 05/28/20 00:00 99.8 82 23 104/61 (75) 87 05/27/20 23:54 23 105/59 Mechanical Ventilator 100 05/27/20 23:30 82 24 108/59 (75) 88 05/27/20 23:15 87 25 109/60 (76) 88 05/27/20 23:00 89 24 114/62 (79) 88 05/27/20 22:54 24 105/58 Mechanical Ventilator 100 05/27/20 22:45 79 21 105/58 (74) 89 05/27/20 22:39 22 105/58 Mechanical Ventilator 100 05/27/20 22:30 80 22 105/58 (74) 90 05/27/20 22:24 22 114/62 Mechanical Ventilator 100 05/27/20 22:15 79 23 114/62 (79) 89 05/27/20 22:09 22 100/56 Mechanical Ventilator 100 05/27/20 22:00 77 21 100/56 (71) 91 05/27/20 21:54 21 96/56 Mechanical Ventilator 100 05/27/20 21:39 21 96/56 Mechanical Ventilator 100 05/27/20 21:24 22 96/56 Mechanical Ventilator 100 05/27/20 21:09 23 105/59 Mechanical Ventilator 100 05/27/20 21:00 85 24 105/59 (74) 89 05/27/20 20:54 26 111/65 Mechanical Ventilator 100 05/27/20 20:45 86 25 111/65 (80) 90 05/27/20 20:39 25 111/65 Mechanical Ventilator 100 05/27/20 20:34 93 25 107/64 (78) 91 05/27/20 20:30 95 25 99/65 (76) 93 05/27/20 20:24 27 114/71 Mechanical Ventilator 100 05/27/20 20:15 105 27 114/71 (85) 98 05/27/20 20:09 24 137/68 Mechanical Ventilator 100 05/27/20 20:00 Mechanical Ventilator 05/27/20 20:00 99.7 103 23 137/68 (91) 92 05/27/20 19:50 85 27 100 05/27/20 19:45 85 05/27/20 19:00 85 24 113/63 (80) 96 05/27/20 18:00 87 27 119/92 (101) 94 05/27/20 17:00 86 25 141/78 (99) 95 05/27/20 17:00 Mechanical Ventilator Intake and Output 05/27/20 05/28/20 19:00 07:00 Intake Total 222.50 ml Output Total 450 ml 420 ml Balance -450 ml -197.50 ml IV Total 222.50 ml Output Urine Total 450 ml 420 ml Laboratory Tests Test 05/27/20 23:00 05/28/20 04:00 05/28/20 10:30 Erythrocyte Sedimentation Rate 60 MM/HR (0-30) H D-Dimer 19.61 mg/L FEU (0.00-0.49) H Ferritin 947 NG/ML (8-388) H C-Reactive Protein, Quantitative 22.7 mg/dL (0.00-0.90) H 19.7 mg/dL (0.00-0.90) H Interleukin 6 (IL-6) Pending White Blood Count 16.3 K/UL (4.8-10.8) H Red Blood Count 3.84 M/UL (4.20-5.40) L Hemoglobin 12.7 G/DL (12.0-16.0) Hematocrit 37.3 % (37.0-47.0) Mean Corpuscular Volume 97 FL (80-99) Mean Corpuscular Hemoglobin 33.0 PG (27.0-31.0) H Mean Corpuscular Hemoglobin Concent 34.0 G/DL (32.0-36.0) Red Cell Distribution Width 12.2 % (11.6-14.8) Platelet Count 234 K/UL (150-450) Mean Platelet Volume 5.8 FL (6.5-10.1) L Neutrophils (%) (Auto) % (45.0-75.0) Lymphocytes (%) (Auto) % (20.0-45.0) Monocytes (%) (Auto) % (1.0-10.0) Eosinophils (%) (Auto) % (0.0-3.0) Basophils (%) (Auto) % (0.0-2.0) Differential Total Cells Counted 100 Neutrophils % (Manual) 91 % (45-75) H Lymphocytes % (Manual) 3 % (20-45) L Monocytes % (Manual) 5 % (1-10) Eosinophils % (Manual) 0 % (0-3) Basophils % (Manual) 0 % (0-2) Band Neutrophils 1 % (0-8) Platelet Estimate Adequate Platelet Morphology Normal Red Blood Cell Morphology Normal Sodium Level 139 MMOL/L (136-145) Potassium Level 4.1 MMOL/L (3.5-5.1) Chloride Level 107 MMOL/L (98-107) Carbon Dioxide Level 28 MMOL/L (21-32) Blood Urea Nitrogen 23 mg/dL (7-18) H Creatinine 0.6 MG/DL (0.55-1.30) Estimat Glomerular Filtration Rate > 60 mL/min (>60) Glucose Level 110 MG/DL (74-106) H Calcium Level 8.3 MG/DL (8.5-10.1) L Arterial Blood pH 7.378 (7.350-7.450) Arterial Blood Partial Pressure CO2 42.5 mmHg (35.0-45.0) Arterial Blood Partial Pressure O2 55.6 mmHg (75.0-100.0) L Arterial Blood HCO3 24.5 mmol/L (22.0-26.0) Arterial Blood Oxygen Saturation 88.3 % (95-100) *L Arterial Blood Base Excess -0.8 (-2-2) Darinel Test Positive Height (Feet): 5 Height (Inches): 1.00 Weight (Pounds): 130 Medications Current Medications Medications (Trade) Dose Ordered Sig/Elieser Route PRN Reason Start Time Stop Time Status Last Admin Dose Admin Acetaminophen (Tylenol) 650 mg Q4H PRN ORAL Temp >100.5 05/23/20 10:30 06/22/20 10:29 05/28/20 04:02 Acetaminophen (Tylenol) 650 mg Q4H PRN ORAL pain 05/24/20 11:30 06/23/20 11:29 05/27/20 04:35 Albuterol Sulfate (Proventil MDI) 2 puff Q4H PRN INH Shortness of Breath 05/23/20 10:30 08/21/20 10:29 05/27/20 01:09 Chlorhexidine Gluconate (Emma-Hex 2%) 1 applic QHS TOPIC 05/27/20 21:00 08/25/20 20:59 Dexamethasone Sodium Phosphate (Decadron 4mg/ml vial) 6 mg DAILY IVP 05/23/20 10:30 06/01/20 09:01 05/28/20 08:36 Dextrose (Dextrose 50%) 25 ml Q30M PRN IV Hypoglycemia 05/23/20 10:30 08/21/20 10:29 Dextrose (Dextrose 50%) 50 ml Q30M PRN IV Hypoglycemia 05/23/20 10:30 08/21/20 10:29 Docusate Sodium (Colace) 100 mg EVERY 12 HOURS ORAL 05/23/20 21:00 06/22/20 20:59 05/28/20 08:38 Enoxaparin Sodium (Lovenox) 40 mg Q24H SUBQ 05/23/20 12:00 08/21/20 11:59 05/28/20 11:46 Famotidine (Pepcid) 40 mg DAILY ORAL 05/24/20 09:00 08/22/20 08:59 05/28/20 08:38 Fentanyl Citrate 250 ml @ 1 mls/hr Q24H IV 05/27/20 19:45 05/29/20 19:44 05/28/20 13:49 Guaifenesin/ Dextromethorphan (Robitussin DM Syrup) 10 ml Q4H PRN ORAL For Cough 05/24/20 08:00 08/22/20 07:59 05/27/20 04:35 Midazolam HCl (Versed 2mg/2ml vial) 1 mg EVERY 2 HOURS PRN IVP Agitation 05/27/20 19:15 06/03/20 19:14 05/27/20 19:44 Norepinephrine Bitartrate 8 mg/ Dextrose 508 ml @ 0 mls/hr Q24H IV 05/28/20 07:00 05/31/20 06:59 05/28/20 07:15 Piperacillin Sod/ Tazobactam Sod 3.375 gm/Sodium Chloride 110 ml @ 27.5 mls/hr Q8H IVPB 05/28/20 00:00 06/04/20 00:00 05/28/20 15:32 Assessment/Plan Problem List: (1) Thrombocytopenia ICD Codes: D69.6 - Thrombocytopenia, unspecified SNOMED: 176735369 (2) Pneumonia ICD Codes: J18.9 - Pneumonia, unspecified organism SNOMED: 822696614 (3) Hypoxia Assessment & Plan: 75F covid + hypoxic intubated on vent support acute hypotensive episode placed on pressors on peripheral line eval for central line done. patient weaning off pressors and only on 1mcg of levo currently bp improved sedation noted awake and alert now responsive on vent support but improving hold on central catheter placement cont for now low dose and wean off levo fluids noted trend labs if worsening will plan to place central catheter emilee thank you will follow with recs ICD Codes: R09.02 - Hypoxemia SNOMED: 484710959 (4) Abnormal EKG ICD Codes: R94.31 - Abnormal electrocardiogram [ECG] [EKG] SNOMED: 367357701 (5) COVID-19 Assessment & Plan: ++ pulm and ID input appreciated ICD Codes: U07.1 - COVID-19 SNOMED: 257866128 Favio Corona May 28, 2020 16:17
--- NOTE | 2020-05-28 18:00 | NUR ---
NURSE NOTES: Dr Albarado rounded on the pt. Update given. He reported that if the HR remains low, the pt can be placed on dopamine drip. Order read back, verified, and placed.
--- NOTE | 2020-05-28 19:34 | NUR ---
HAND-OFF: Report given to DAVID Junior.
--- NOTE | 2020-05-28 19:35 | NUR ---
NURSE NOTES: Received patient from DAVID Caputo. Will continue plan of care.
--- NOTE | 2020-05-28 20:00 | NUR ---
NURSE NOTES: Patient is sedated RASS-, easily awakens to voice and touch. Intubated; ETT 7.5 @ 22cm to the right side lipline to vent with settings of AC:20, TV:450, FiO2:80%, PEEP:10, O2sat:97%. OGT in place for medication administration but NPO status. Santiago catheter intact and draining. IV sites: right forearm 20g running Fentanyl @ 200mcgs, right wrist 20g TKO, and left forearm 20g saline locked. WIRELINE FIELD OPERATOR restraints on, ROM and skin assessed. Bed low, locked and alarm is on. Will continue plan of care.
--- NOTE | 2020-05-28 20:01 | Cardiac Electrophysiology PN ---
Assessment/Plan Assessment/Plan 1. COVID pneumonia. Ruled out for [place] EKG in view of inferolateral ST depression Echo EF 65% Her BNP was only 342.Transferred to ICU and is now intubated on 80% Fio2 On dexamethasone, ceftriaxone, and azithromycin. 2. Sinus nnamdi off any TAVARES affecting agent. Likely due to Covid 3. S/ P septic shock. 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 Now intubated on 80% Fio2 and Peep of 10. Lowest HR was 54 Off Levo since 2 pm today in Covid isolation. On Abx Objective Last 24 Hour Vital Signs Date Time Temp Pulse Resp B/P (MAP) Pulse Ox O2 Delivery O2 Flow Rate FiO2 05/28/20 19:51 101.6 05/28/20 19:30 56 20 101/54 (70) 97 05/28/20 19:00 59 20 104/56 (72) 95 05/28/20 18:30 100.5 57 20 106/56 (73) 97 05/28/20 18:00 57 20 112/74 (87) 98 05/28/20 17:30 59 20 105/58 (74) 97 05/28/20 17:00 60 20 106/57 (73) 97 05/28/20 16:30 63 20 105/57 (73) 91 05/28/20 16:00 67 05/28/20 16:00 64 20 112/74 (87) 90 05/28/20 16:00 Mechanical Ventilator 05/28/20 16:00 99.3 05/28/20 15:30 68 20 117/60 (79) 98 05/28/20 15:00 65 20 120/59 (79) 98 05/28/20 14:30 68 20 113/62 (79) 98 05/28/20 14:00 65 20 108/58 (75) 98 05/28/20 13:49 20 104/60 Mechanical Ventilator 80 05/28/20 13:30 74 20 104/60 (75) 98 05/28/20 13:14 62 20 80 05/28/20 13:00 84 28 97/49 (65) 92 05/28/20 12:30 65 20 108/56 (73) 97 05/28/20 12:00 64 05/28/20 12:00 65 20 101/55 (70) 97 05/28/20 12:00 Mechanical Ventilator 05/28/20 11:30 62 20 110/61 (77) 99 05/28/20 11:00 65 20 112/58 (76) 97 05/28/20 10:30 70 20 113/57 (75) 92 05/28/20 10:00 65 20 108/55 (72) 96 05/28/20 09:30 85 20 107/57 (74) 96 05/28/20 09:00 66 20 103/58 (73) 95 05/28/20 08:45 72 20 115/63 (80) 90 05/28/20 08:30 64 20 104/53 (70) 96 05/28/20 08:15 64 20 100/53 (69) 96 05/28/20 08:00 63 05/28/20 08:00 99.3 67 20 102/53 (69) 95 05/28/20 08:00 Mechanical Ventilator 05/28/20 07:45 66 20 100/56 (71) 94 05/28/20 07:37 65 20 80 05/28/20 07:30 68 19 98/52 (67) 91 05/28/20 07:15 91/54 05/28/20 07:15 69 20 91/54 (66) 93 05/28/20 07:08 68 20 83/52 (62) 93 05/28/20 07:00 71 20 83/51 (62) 93 05/28/20 06:55 89 26 100 05/28/20 06:54 20 86/51 Mechanical Ventilator 100 05/28/20 06:30 72 21 92/55 (67) 94 05/28/20 06:27 73 20 92/58 (69) 96 05/28/20 06:21 73 20 81/54 (63) 95 05/28/20 06:00 73 20 84/54 (64) 91 05/28/20 05:54 20 84/54 Mechanical Ventilator 100 05/28/20 05:30 74 20 82/51 (61) 96 05/28/20 05:00 78 20 93/56 (68) 96 05/28/20 04:54 20 94/61 Mechanical Ventilator 100 05/28/20 04:45 80 20 94/61 (72) 95 05/28/20 04:32 100.4 05/28/20 04:30 86 20 106/62 (77) 89 05/28/20 04:15 93 20 113/63 (80) 89 05/28/20 04:00 97.6 85 21 105/58 (74) 90 05/28/20 04:00 74 05/28/20 03:54 21 105/58 Mechanical Ventilator 100 05/28/20 03:30 88 22 116/64 (81) 89 05/28/20 03:00 87 23 121/65 (83) 87 05/28/20 02:54 21 121/65 Mechanical Ventilator 100 05/28/20 02:00 90 24 112/64 (80) 90 05/28/20 01:54 25 107/58 Mechanical Ventilator 100 05/28/20 01:45 91 26 125/80 (95) 94 05/28/20 01:30 83 22 107/58 (74) 87 05/28/20 01:15 82 23 109/56 (73) 88 05/28/20 01:00 83 23 107/59 (75) 90 05/28/20 00:54 23 109/58 Mechanical Ventilator 100 05/28/20 00:45 84 22 109/58 (75) 92 05/28/20 00:30 83 24 110/57 (74) 88 05/28/20 00:15 83 22 108/60 (76) 88 05/28/20 00:04 81 05/28/20 00:00 Mechanical Ventilator 05/28/20 00:00 99.8 82 23 104/61 (75) 87 05/27/20 23:54 23 105/59 Mechanical Ventilator 100 05/27/20 23:30 82 24 108/59 (75) 88 05/27/20 23:15 87 25 109/60 (76) 88 05/27/20 23:00 89 24 114/62 (79) 88 05/27/20 22:54 24 105/58 Mechanical Ventilator 100 05/27/20 22:45 79 21 105/58 (74) 89 05/27/20 22:39 22 105/58 Mechanical Ventilator 100 05/27/20 22:30 80 22 105/58 (74) 90 05/27/20 22:24 22 114/62 Mechanical Ventilator 100 05/27/20 22:15 79 23 114/62 (79) 89 05/27/20 22:09 22 100/56 Mechanical Ventilator 100 05/27/20 22:00 77 21 100/56 (71) 91 05/27/20 21:54 21 96/56 Mechanical Ventilator 100 05/27/20 21:39 21 96/56 Mechanical Ventilator 100 05/27/20 21:24 22 96/56 Mechanical Ventilator 100 05/27/20 21:09 23 105/59 Mechanical Ventilator 100 05/27/20 21:00 85 24 105/59 (74) 89 05/27/20 20:54 26 111/65 Mechanical Ventilator 100 05/27/20 20:45 86 25 111/65 (80) 90 05/27/20 20:39 25 111/65 Mechanical Ventilator 100 05/27/20 20:34 93 25 107/64 (78) 91 05/27/20 20:30 95 25 99/65 (76) 93 05/27/20 20:24 27 114/71 Mechanical Ventilator 100 05/27/20 20:15 105 27 114/71 (85) 98 05/27/20 20:09 24 137/68 Mechanical Ventilator 100 05/27/20 20:00 Mechanical Ventilator 05/27/20 20:00 99.7 103 23 137/68 (91) 92 Intake and Output 05/27/20 05/28/20 19:00 07:00 Intake Total 222.50 ml Output Total 450 ml 420 ml Balance -450 ml -197.50 ml IV Total 222.50 ml Output Urine Total 450 ml 420 ml Laboratory Tests Test 05/27/20 23:00 05/28/20 04:00 05/28/20 10:30 Erythrocyte Sedimentation Rate 60 MM/HR (0-30) H D-Dimer 19.61 mg/L FEU (0.00-0.49) H Ferritin 947 NG/ML (8-388) H C-Reactive Protein, Quantitative 22.7 mg/dL (0.00-0.90) H 19.7 mg/dL (0.00-0.90) H Interleukin 6 (IL-6) Pending White Blood Count 16.3 K/UL (4.8-10.8) H Red Blood Count 3.84 M/UL (4.20-5.40) L Hemoglobin 12.7 G/DL (12.0-16.0) Hematocrit 37.3 % (37.0-47.0) Mean Corpuscular Volume 97 FL (80-99) Mean Corpuscular Hemoglobin 33.0 PG (27.0-31.0) H Mean Corpuscular Hemoglobin Concent 34.0 G/DL (32.0-36.0) Red Cell Distribution Width 12.2 % (11.6-14.8) Platelet Count 234 K/UL (150-450) Mean Platelet Volume 5.8 FL (6.5-10.1) L Neutrophils (%) (Auto) % (45.0-75.0) Lymphocytes (%) (Auto) % (20.0-45.0) Monocytes (%) (Auto) % (1.0-10.0) Eosinophils (%) (Auto) % (0.0-3.0) Basophils (%) (Auto) % (0.0-2.0) Differential Total Cells Counted 100 Neutrophils % (Manual) 91 % (45-75) H Lymphocytes % (Manual) 3 % (20-45) L Monocytes % (Manual) 5 % (1-10) Eosinophils % (Manual) 0 % (0-3) Basophils % (Manual) 0 % (0-2) Band Neutrophils 1 % (0-8) Platelet Estimate Adequate Platelet Morphology Normal Red Blood Cell Morphology Normal Sodium Level 139 MMOL/L (136-145) Potassium Level 4.1 MMOL/L (3.5-5.1) Chloride Level 107 MMOL/L (98-107) Carbon Dioxide Level 28 MMOL/L (21-32) Blood Urea Nitrogen 23 mg/dL (7-18) H Creatinine 0.6 MG/DL (0.55-1.30) Estimat Glomerular Filtration Rate > 60 mL/min (>60) Glucose Level 110 MG/DL (74-106) H Calcium Level 8.3 MG/DL (8.5-10.1) L Arterial Blood pH 7.378 (7.350-7.450) Arterial Blood Partial Pressure CO2 42.5 mmHg (35.0-45.0) Arterial Blood Partial Pressure O2 55.6 mmHg (75.0-100.0) L Arterial Blood HCO3 24.5 mmol/L (22.0-26.0) Arterial Blood Oxygen Saturation 88.3 % (95-100) *L Arterial Blood Base Excess -0.8 (-2-2) Darinel Test Positive Objective HEAD AND NECK: No JVD.Orally intubated LUNGS: Coarse rhonchi. CARDIOVASCULAR: Regular S1 and S2 with no gallop. Bradycardic. ABDOMEN: Soft. EXTREMITIES: No pitting edema. Jordi Albarado MD May 28, 2020 20:01
[2020-05-28] MEDS ORDERED: DOPamine 400mg/250ml 250 ML IV PRN (20:45)
[2020-05-28] MEDS: Dyna-Hex 2% Top Sol 2oz TOPIC SCH (20:45)
--- NOTE | 2020-05-28 22:00 | NUR ---
NURSE NOTES: BP:106/57, HR:53, O2sat:98%. Remains at RASS -2 lightly sedated.
[2020-05-29] VITALS (50 sets, daily range): BP systolic 94–127; BP diastolic 46–63
[2020-05-29] MEDS: Piperacillin/Tazobactam 3.375 GM in NS 110 ML IVPB SCH ×3 (00:49→17:01)
[2020-05-29] MEDS: fentaNYL 2500mcg/NS 250ml 250 ML IV SCH ×3 (00:50→19:45)
--- NOTE | 2020-05-29 02:00 | NUR ---
NURSE NOTES: Bed bath given, linens changed, turned and repositioned.
--- NOTE | 2020-05-29 04:20 | NUR ---
NURSE NOTES: 650mg tylenol given via OGT for elevated temp.
--- NOTE | 2020-05-29 06:00 | NUR ---
NURSE NOTES: No changes in condition. Levophed remains held and Fentanyl continues at 200mcgs reaching a RASS score of -2. Patient awakens and opens eyes to light, voice and touch momentarily.
[2020-05-29 07:04] LABS: HEMATOCRIT 37.5 % (37.0-47.0); HEMOGLOBIN 12.5 G/DL (12.0-16.0); MEAN CORPUSCULAR VOLUME 98 FL (80-99); PLATELET COUNT 229 K/UL (150-450); RED CELL DISTRIBUTION WIDTH 12.5 % (11.6-14.8); WHITE BLOOD COUNT 16.2 K/UL (4.8-10.8)
[2020-05-29 07:31] LABS: ANION GAP 8 mmol/L (5-15); BLOOD UREA NITROGEN 36 mg/dL (7-18); CALCIUM 8.4 MG/DL (8.5-10.1); CARBON DIOXIDE 27 MMOL/L (21-32); CHLORIDE 109 MMOL/L (98-107); CREATININE 0.8 MG/DL (0.55-1.30); POTASSIUM 4.4 MMOL/L (3.5-5.1); SODIUM 143 MMOL/L (136-145)
--- NOTE | 2020-05-29 07:32 | NUR ---
NURSE HAND-OFF REPORT: Latest Vital Signs: Temperature 100.5 , Pulse 58 , B/P 111 /59 , Respiratory Rate 20 , O2 SAT 98 , Mechanical Ventilator, O2 Flow Rate . Vital Sign Comment: Stable off levophed EKG Rhythm: Sinus Rhythm Rhythm change?: N MD Notified?: N - MD Response: Latest Bustamante Fall Score: 50 Fall Risk: High Risk Safety Measures: Call light Within Reach, Bed Alarm Zone 1, Side Rails Side Rails x2, Bed position Low and Locked. Fall Precautions: Yellow Socks Yellow Gown Door Sign Patient Fall Education Report given to .
--- NOTE | 2020-05-29 07:40 | NUR ---
NURSE NOTES: LATE ENTRY: RECEIVED REPORT FROM ANEUDY. DAVID. SR ON MONITOR. PT IN BED. SEDATED, RASS -2. OPENS EYES TO NAME. LELE 3MM. NO RESPIRATORY DISTRESS NOTED. ET-TUBE 7.5VENT SETTINGS AC 28, VT 550, FI02 100%, PEEP 10. SATING 100%.NPO, OGT CLAMPED. ABDOMEN NON TENDER, ACTIVE BOWEL SOUNDS. PT ENGLAND, DRAINING YELLOW URINE. PT HOT TO TOUCH. FEBRILE 101.6 AX. IV ACCESS RFA AND LFA 20G, RT WRIST 20G. RUNNING FENTANYL AT 200MCG/HR. BILATERAL SOFT WRIST RESTRAINTS IN PLACE. ROM AND CIRCULATION CHECK COMPLETE. SIDE RAILSX2. BED ALARM ON, LOCKED AND IN LOWEST POSITION. WILL CONTINUE TO MONITOR PT.
[2020-05-29] MEDS: Docusate 100mg cap ORAL SCH ×2 (08:31→20:09)
[2020-05-29] MEDS: Enoxaparin 40mg Inj SUBQ SCH ×2 (08:31→17:04)
--- NOTE | 2020-05-29 10:07 | Diagnostic Imaging Report ---
EXAM: XR Chest, 1 View CLINICAL HISTORY: INFECT TECHNIQUE: Frontal view of the chest. COMPARISON: Chest radiograph May 27, 2020. FINDINGS/IMPRESSION: Enteric feeding tube terminates in the stomach. Endotracheal tube terminates 6.2 cm above the sho. EKG leads overlie the patient. Small pleural effusions, unchanged mild vascular condition, mildly improving. Superimposed patchy opacities, consistent with infiltrate. These are slightly improved when compared to previous study from May 27, 2020. Continue just ready to follow up recommended. Cardiomegaly. Calcified aorta.
--- NOTE | 2020-05-29 10:18 | Pulmonolgy Critical Care Note ---
Ivonne Andrade [employer] COMMISSIONING TECHNICIAN 05/29/20 1018: Critical Care - Asmt/Plan Assessment/Plan: ASSESSMENT Acute hypoxemic resp failure due to COVID PNA, requiring intubation 05/27 COVID 19 PNA Thrombocytopenia-resolved Abnormal ECG Headache Pulmonary HTN PLAN OF CARE ICU isolation Date of sx onset: few days prior to presentation to ED on 05/23 Positive test: OSF 05/22 - 1 days prior to admission O2 -> intubated 05/27 HFA if unable to do HHN via line s/p REM x 5 days ( 05/23-05/27 ) Dex Day# 7 ( 05/23 - ) D dimer initial 0,48 - 19. 61 (05/27) DVT PPX: Lovenox Venous Duplex BLE Trend CRP 3.6 -> 19.7 Abx per ID recs prone position as tolerated vent support, pulm toilet fup with ABG and CXR, titrate settings as needed titrate FiO2 to keep sat > 92% monitor volumes and renal function fup with consultants recs FC Discuss GOC monitor PLT counts-normalized cardio eval -appreciated ECHO with pEF 65%, no WMA, mild to moderate MR, moderate pulmonary hypertension case discussed and evaluated by supervising physician Critical Care - Objective Last 24 Hour Vital Signs Date Time Temp Pulse Resp B/P (MAP) Pulse Ox O2 Delivery O2 Flow Rate FiO2 05/29/20 09:56 22 106/53 Mechanical Ventilator 05/29/20 07:00 20 111/59 Mechanical Ventilator 80 05/29/20 07:00 58 20 111/59 (76) 98 05/29/20 06:00 20 94/53 Mechanical Ventilator 80 05/29/20 06:00 60 20 94/53 (67) 98 05/29/20 05:45 100.5 05/29/20 05:00 100.6 64 20 104/55 (71) 98 05/29/20 05:00 20 104/55 Mechanical Ventilator 80 05/29/20 04:30 73 05/29/20 04:00 101.0 63 20 101/54 (70) 97 05/29/20 04:00 20 102/54 Mechanical Ventilator 80 05/29/20 04:00 Mechanical Ventilator 05/29/20 03:00 20 100/53 Mechanical Ventilator 80 05/29/20 03:00 62 20 101/50 (67) 98 05/29/20 02:00 67 20 103/58 (73) 96 05/29/20 02:00 20 100/54 Mechanical Ventilator 80 05/29/20 01:40 63 20 80 05/29/20 01:00 86 18 120/63 (82) 91 05/29/20 01:00 20 113/56 Mechanical Ventilator 80 05/29/20 00:50 20 109/59 Mechanical Ventilator 80 05/29/20 00:00 Mechanical Ventilator 05/29/20 00:00 20 106/57 Mechanical Ventilator 80 05/29/20 00:00 100.3 55 20 108/55 (72) 97 05/28/20 23:37 55 05/28/20 23:00 20 107/56 Mechanical Ventilator 80 05/28/20 23:00 55 20 108/56 (73) 97 05/28/20 22:00 20 106/55 Mechanical Ventilator 80 05/28/20 22:00 54 20 106/57 (73) 98 05/28/20 21:00 57 20 107/54 (71) 97 05/28/20 21:00 20 103/54 Mechanical Ventilator 80 05/28/20 20:00 100.6 53 20 99/54 (69) 97 05/28/20 20:00 Mechanical Ventilator 05/28/20 20:00 20 99/55 Mechanical Ventilator 80 05/28/20 19:51 101.6 05/28/20 19:30 56 20 101/54 (70) 97 05/28/20 19:26 55 05/28/20 19:25 55 20 80 05/28/20 19:00 59 20 104/56 (72) 95 05/28/20 19:00 99/55 05/28/20 19:00 20 99/55 Mechanical Ventilator 80 05/28/20 18:30 100.5 57 20 106/56 (73) 97 05/28/20 18:00 57 20 112/74 (87) 98 05/28/20 18:00 110/57 05/28/20 18:00 20 106/57 Mechanical Ventilator 80 05/28/20 17:30 59 20 105/58 (74) 97 05/28/20 17:00 60 20 106/57 (73) 97 05/28/20 17:00 106/57 05/28/20 17:00 20 107/54 Mechanical Ventilator 80 05/28/20 16:30 63 20 105/57 (73) 91 05/28/20 16:00 67 05/28/20 16:00 64 20 112/74 (87) 90 05/28/20 16:00 107/54 05/28/20 16:00 20 120/59 Mechanical Ventilator 80 05/28/20 16:00 Mechanical Ventilator 05/28/20 16:00 99.3 05/28/20 15:30 68 20 117/60 (79) 98 05/28/20 15:00 120/59 05/28/20 15:00 20 108/58 Mechanical Ventilator 80 05/28/20 15:00 65 20 120/59 (79) 98 05/28/20 14:30 68 20 113/62 (79) 98 05/28/20 14:00 108/58 05/28/20 14:00 20 108/58 Mechanical Ventilator 80 05/28/20 14:00 65 20 108/58 (75) 98 05/28/20 13:49 20 104/60 Mechanical Ventilator 80 05/28/20 13:40 20 111/59 Mechanical Ventilator 80 05/28/20 13:30 74 20 104/60 (75) 98 05/28/20 13:14 62 20 80 05/28/20 13:00 101/57 05/28/20 13:00 20 101/57 Mechanical Ventilator 80 05/28/20 13:00 84 28 97/49 (65) 92 05/28/20 12:30 65 20 108/56 (73) 97 05/28/20 12:00 64 05/28/20 12:00 65 20 101/55 (70) 97 05/28/20 12:00 101/55 05/28/20 12:00 20 104/58 Mechanical Ventilator 80 05/28/20 12:00 Mechanical Ventilator 05/28/20 11:30 62 20 110/61 (77) 99 05/28/20 11:00 112/58 05/28/20 11:00 20 112/58 Mechanical Ventilator 80 05/28/20 11:00 65 20 112/58 (76) 97 05/28/20 10:30 70 20 113/57 (75) 92 Objective: HEENT: atraumatic, normocephalic Neck: OP with ET in place , intact; feeding tube in place Lungs: clear but diminished Heart: HR/BP stable Abdomen: soft, non-tender, active bowel sounds Extremities: no C/C/E Micro: Microbiology Date/Time Source Procedure Growth Status 05/28/20 12:00 Sputum Gram Stain - Final Resulted 05/28/20 12:00 Sputum Sputum Culture Pending Resulted Critical Care - Subjective ROS Limited/Unobtainable: Yes Interval Events: off Levo intubated ABG stable this am on current settings sedated febrile, leukocytosis Condition: critical IV Access: peripheral EKG Rhythm: Sinus Rhythm FI02: 80 Vent Support Breath Rate: 20 Vent Support Mode: AC Vent Tidal Volume: 450 Sputum Amount: Small PEEP: 10.0 PIP: 35 Drips: Fentanyl gtt 200 mcg/hr I&O: Intake and Output 05/28/20 05/29/20 19:00 07:00 Intake Total 482.065 ml 350.00 ml Output Total 410 ml 480 ml Balance 72.065 ml -130.00 ml IV Total 482.065 ml 350.00 ml Output Urine Total 410 ml 480 ml CXR: CXR 05/29 -Small pleural effusions, unchanged mild vascular condition, mildly improving. Superimposed patchy opacities, consistent with infiltrate. These are slightly improved when compared to previous study from May 27, 2020. ET-Tube: 7.0 ET Position: 22 Beka Mcdaniels MD 05/29/202054: Ivonne Andrade NP May 29, 2020 10:18 Beka Mcdaniels MD May 29, 2020 20:55
--- NOTE | 2020-05-29 10:30 | NUR ---
NURSE NOTES: PT GIVEN COOL WIPE DOWN. ORAL CARE AND SUCTION PROVIDED. HOB 30. RESTRAINTS IN PLACE. PASSIVE ROM PROVIDED. REMAIN NECESSARY PT REACHES FOR TUBING.
--- NOTE | 2020-05-29 11:50 | Surgery Progress Note ---
Surgery Progress Note Subjective Additional Comments on vent off pressors now awake, responsive no n/v Objective Last 24 Hour Vital Signs Date Time Temp Pulse Resp B/P (MAP) Pulse Ox O2 Delivery O2 Flow Rate FiO2 05/29/20 11:12 100.0 05/29/20 10:45 60 20 104/52 (69) 96 05/29/20 10:30 61 17 105/53 (70) 96 05/29/20 10:15 63 20 103/55 (71) 96 05/29/20 10:00 64 20 103/56 (72) 96 05/29/20 09:56 22 106/53 Mechanical Ventilator 05/29/20 09:45 68 20 106/53 (70) 94 05/29/20 09:30 69 20 107/58 (74) 93 05/29/20 09:15 69 20 111/57 (75) 92 05/29/20 09:00 74 19 117/53 (74) 94 05/29/20 08:45 71 20 122/57 (78) 93 05/29/20 08:30 60 20 102/46 (64) 98 05/29/20 08:15 61 20 104/55 (71) 98 05/29/20 08:00 61 05/29/20 08:00 Mechanical Ventilator 05/29/20 08:00 101.8 61 20 101/54 (70) 98 05/29/20 07:00 20 111/59 Mechanical Ventilator 80 05/29/20 07:00 58 20 111/59 (76) 98 05/29/20 06:00 20 94/53 Mechanical Ventilator 80 05/29/20 06:00 60 20 94/53 (67) 98 05/29/20 05:45 100.5 05/29/20 05:00 100.6 64 20 104/55 (71) 98 05/29/20 05:00 20 104/55 Mechanical Ventilator 80 05/29/20 04:30 73 05/29/20 04:00 101.0 63 20 101/54 (70) 97 05/29/20 04:00 20 102/54 Mechanical Ventilator 80 05/29/20 04:00 Mechanical Ventilator 05/29/20 03:00 20 100/53 Mechanical Ventilator 80 05/29/20 03:00 62 20 101/50 (67) 98 05/29/20 02:00 67 20 103/58 (73) 96 05/29/20 02:00 20 100/54 Mechanical Ventilator 80 05/29/20 01:40 63 20 80 05/29/20 01:00 86 18 120/63 (82) 91 05/29/20 01:00 20 113/56 Mechanical Ventilator 80 05/29/20 00:50 20 109/59 Mechanical Ventilator 80 05/29/20 00:00 Mechanical Ventilator 05/29/20 00:00 20 106/57 Mechanical Ventilator 80 05/29/20 00:00 100.3 55 20 108/55 (72) 97 05/28/20 23:37 55 05/28/20 23:00 20 107/56 Mechanical Ventilator 80 05/28/20 23:00 55 20 108/56 (73) 97 05/28/20 22:00 20 106/55 Mechanical Ventilator 80 05/28/20 22:00 54 20 106/57 (73) 98 05/28/20 21:00 57 20 107/54 (71) 97 05/28/20 21:00 20 103/54 Mechanical Ventilator 80 05/28/20 20:00 100.6 53 20 99/54 (69) 97 05/28/20 20:00 Mechanical Ventilator 05/28/20 20:00 20 99/55 Mechanical Ventilator 80 05/28/20 19:51 101.6 05/28/20 19:30 56 20 101/54 (70) 97 05/28/20 19:26 55 05/28/20 19:25 55 20 80 05/28/20 19:00 59 20 104/56 (72) 95 05/28/20 19:00 99/55 05/28/20 19:00 20 99/55 Mechanical Ventilator 80 05/28/20 18:30 100.5 57 20 106/56 (73) 97 05/28/20 18:00 57 20 112/74 (87) 98 05/28/20 18:00 110/57 05/28/20 18:00 20 106/57 Mechanical Ventilator 80 05/28/20 17:30 59 20 105/58 (74) 97 05/28/20 17:00 60 20 106/57 (73) 97 05/28/20 17:00 106/57 05/28/20 17:00 20 107/54 Mechanical Ventilator 80 05/28/20 16:30 63 20 105/57 (73) 91 05/28/20 16:00 67 05/28/20 16:00 64 20 112/74 (87) 90 05/28/20 16:00 107/54 05/28/20 16:00 20 120/59 Mechanical Ventilator 80 05/28/20 16:00 Mechanical Ventilator 05/28/20 16:00 99.3 05/28/20 15:30 68 20 117/60 (79) 98 05/28/20 15:00 120/59 05/28/20 15:00 20 108/58 Mechanical Ventilator 80 05/28/20 15:00 65 20 120/59 (79) 98 05/28/20 14:30 68 20 113/62 (79) 98 05/28/20 14:00 108/58 05/28/20 14:00 20 108/58 Mechanical Ventilator 80 05/28/20 14:00 65 20 108/58 (75) 98 05/28/20 13:49 20 104/60 Mechanical Ventilator 80 05/28/20 13:40 20 111/59 Mechanical Ventilator 80 05/28/20 13:30 74 20 104/60 (75) 98 05/28/20 13:14 62 20 80 05/28/20 13:00 101/57 05/28/20 13:00 20 101/57 Mechanical Ventilator 80 05/28/20 13:00 84 28 97/49 (65) 92 05/28/20 12:30 65 20 108/56 (73) 97 05/28/20 12:00 64 05/28/20 12:00 65 20 101/55 (70) 97 05/28/20 12:00 101/55 05/28/20 12:00 20 104/58 Mechanical Ventilator 80 05/28/20 12:00 Mechanical Ventilator I&O Intake and Output 05/28/20 05/29/20 19:00 07:00 Intake Total 482.065 ml 350.00 ml Output Total 410 ml 480 ml Balance 72.065 ml -130.00 ml IV Total 482.065 ml 350.00 ml Output Urine Total 410 ml 480 ml Dressing: saturated Cardiovascular: RSR Respiratory: decreased breath sounds Abdomen: soft, non-tender, present bowel sounds Extremities: no edema, no tenderness, no cyanosis Laboratory Tests Test 05/29/20 05:00 1/3/21 08:29 White Blood Count 16.2 K/UL (4.8-10.8) H Red Blood Count 3.80 M/UL (4.20-5.40) L Hemoglobin 12.5 G/DL (12.0-16.0) Hematocrit 37.5 % (37.0-47.0) Mean Corpuscular Volume 98 FL (80-99) Mean Corpuscular Hemoglobin 32.9 PG (27.0-31.0) H Mean Corpuscular Hemoglobin Concent 33.4 G/DL (32.0-36.0) Red Cell Distribution Width 12.5 % (11.6-14.8) Platelet Count 229 K/UL (150-450) Mean Platelet Volume 6.7 FL (6.5-10.1) Neutrophils (%) (Auto) % (45.0-75.0) Lymphocytes (%) (Auto) % (20.0-45.0) Monocytes (%) (Auto) % (1.0-10.0) Eosinophils (%) (Auto) % (0.0-3.0) Basophils (%) (Auto) % (0.0-2.0) Differential Total Cells Counted 100 Neutrophils % (Manual) 86 % (45-75) H Lymphocytes % (Manual) 8 % (20-45) L Monocytes % (Manual) 6 % (1-10) Eosinophils % (Manual) 0 % (0-3) Basophils % (Manual) 0 % (0-2) Band Neutrophils 0 % (0-8) Platelet Estimate Adequate Platelet Morphology Normal Red Blood Cell Morphology Normal Sodium Level 143 MMOL/L (136-145) Potassium Level 4.4 MMOL/L (3.5-5.1) Chloride Level 109 MMOL/L (98-107) H Carbon Dioxide Level 27 MMOL/L (21-32) Anion Gap 8 mmol/L (5-15) Blood Urea Nitrogen 36 mg/dL (7-18) H Creatinine 0.8 MG/DL (0.55-1.30) Estimat Glomerular Filtration Rate > 60 mL/min (>60) Glucose Level 126 MG/DL (74-106) H Calcium Level 8.4 MG/DL (8.5-10.1) L Arterial Blood pH 7.392 (7.350-7.450) Arterial Blood Partial Pressure CO2 39.1 mmHg (35.0-45.0) Arterial Blood Partial Pressure O2 Pending Arterial Blood HCO3 23.2 mmol/L (22.0-26.0) Arterial Blood Oxygen Saturation 94.6 % (95-100) L Arterial Blood Base Excess -1.4 (-2-2) Darinel Test Positive Plan Problems: (1) Thrombocytopenia (2) Pneumonia (3) Hypoxia Assessment & Plan: 75F covid + hypoxic intubated on vent support acute hypotensive episode placed on pressors on peripheral line eval for central line done. patient weaning off pressors and only on 1mcg of levo currently bp improved sedation noted awake and alert now responsive on vent support but improving hold on central catheter placement cont for now low dose and wean off levo fluids noted trend labs if worsening will plan to place central catheter emilee thank you will follow with recs (4) Abnormal EKG (5) COVID-19 Assessment & Plan: ++ pulm and ID input appreciated Favio Corona May 29, 2020 11:50
--- NOTE | 2020-05-29 12:12 | NUR ---
NURSE NOTES: LATE ENTRY: PT IN BED. SR ON MONITOR. PT IN BED. SEDATED, RASS -2. OPENS EYES TO NAME. NO RESPIRATORY DISTRESS NOTED. ET-TUBE 7.5VENT SETTINGS AC 28, VT 550, FI02 100%, PEEP 10. SATING 100%. NPO. PT [place], DRAINING YELLOW URINE. PT HOT TO TOUCH. FEBRILE 102 AX. COOLING MEASURES IN PLACE. ICE PACKS, COLD WATER BATHE AND FLUSH. WILL APPLY COOLING BLANKET ONCE AVAILABLE. IV ACCESS RFA AND LFA 20G, RT WRIST 20G. RUNNING FENTANYL AT 200MCG/HR. BILATERAL SOFT WRIST RESTRAINTS IN PLACE. ROM AND CIRCULATION CHECK COMPLETE. SIDE RAILSX2. BED ALARM ON, LOCKED AND IN LOWEST POSITION. WILL CONTINUE TO IMPLEMENT PLAN OF CARE.
[2020-05-29] MEDS ORDERED: NS 275ml ONE (13:25)
--- NOTE | 2020-05-29 15:17 | NUR ---
NURSE NOTES: pt in bed. sedated. fentanyl at 200mcg/hr. febrile 100.3. oral care provided. pt repositioned. cleaned, joyce care, npo. will continue to monitor pt.
--- NOTE | 2020-05-29 16:00 | NUR ---
NURSE NOTES: LATE ENTRY: MD. JOLLEY HERE TO SEE PT. WAS INFORMED OF PEEP 10, FI02 60%. PT HAS OGT, NO FEEDING STARTED. RECEIVED ORDER FOR NUTRITION CONSULT AND ONCE FI02 DOWN TO 40%, START DECREASING PEEP.
--- NOTE | 2020-05-29 17:17 | NUR ---
NURSE NOTES: LEADS AND MONITOR CABLES CHANGED ON PT. MONITOR READING ASYSTOLE. PT AWAKENS TO NAME, NODS TO QUESTIONS. BP STABLE. WILL CONTINUE TO MONITOR CLOSELY.
--- NOTE | 2020-05-29 18:07 | Cardiac Electrophysiology PN ---
Assessment/Plan Assessment/Plan 1. COVID pneumonia. Ruled out for [place] EKG in view of inferolateral ST depression Echo EF 65% Her BNP was only 342. Intubated on 60% Fio2 and PEEP 10 On dexamethasone, ceftriaxone, and azithromycin. 2. Sinus nnamdi off any TAVARES affecting agent. Likely due to Covid 3. S/ P septic shock. 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 Lowest HR was 54 Off pressors in Covid isolation. On Abx. Had T 102 Objective Last 24 Hour Vital Signs Date Time Temp Pulse Resp B/P (MAP) Pulse Ox O2 Delivery O2 Flow Rate FiO2 05/29/20 17:30 60 20 118/59 (78) 97 05/29/20 17:00 61 20 124/56 (78) 96 05/29/20 16:30 64 20 113/57 (75) 95 05/29/20 16:00 55 05/29/20 16:00 63 20 108/53 (71) 85 05/29/20 15:30 62 20 117/55 (75) 96 05/29/20 15:00 64 20 118/56 (76) 94 05/29/20 14:00 60 20 107/56 (73) 98 05/29/20 13:45 60 20 104/54 (71) 97 05/29/20 13:30 61 20 108/55 (72) 97 05/29/20 13:19 62 20 60 05/29/20 13:15 66 17 108/54 (72) 95 05/29/20 13:00 102.0 67 19 116/59 (78) 95 05/29/20 12:30 64 20 114/53 (73) 96 05/29/20 12:00 64 20 106/53 (70) 96 05/29/20 12:00 Mechanical Ventilator 05/29/20 12:00 70 05/29/20 11:30 64 20 107/53 (71) 96 05/29/20 11:12 100.0 05/29/20 11:00 63 20 108/52 (70) 96 05/29/20 10:45 60 20 104/52 (69) 96 05/29/20 10:30 61 17 105/53 (70) 96 05/29/20 10:15 63 20 103/55 (71) 96 05/29/20 10:00 64 20 103/56 (72) 96 05/29/20 09:56 22 106/53 Mechanical Ventilator 05/29/20 09:45 68 20 106/53 (70) 94 05/29/20 09:30 69 20 107/58 (74) 93 05/29/20 09:15 69 20 111/57 (75) 92 05/29/20 09:00 74 19 117/53 (74) 94 05/29/20 08:45 71 20 122/57 (78) 93 05/29/20 08:30 60 20 102/46 (64) 98 05/29/20 08:21 60 20 60 05/29/20 08:15 61 20 104/55 (71) 98 05/29/20 08:00 61 05/29/20 08:00 Mechanical Ventilator 05/29/20 08:00 101.8 61 20 101/54 (70) 98 05/29/20 07:00 20 111/59 Mechanical Ventilator 80 05/29/20 07:00 58 20 111/59 (76) 98 05/29/20 06:00 20 94/53 Mechanical Ventilator 80 05/29/20 06:00 60 20 94/53 (67) 98 05/29/20 05:45 100.5 05/29/20 05:00 100.6 64 20 104/55 (71) 98 05/29/20 05:00 20 104/55 Mechanical Ventilator 80 05/29/20 04:30 73 05/29/20 04:00 101.0 63 20 101/54 (70) 97 05/29/20 04:00 20 102/54 Mechanical Ventilator 80 05/29/20 04:00 Mechanical Ventilator 05/29/20 03:00 20 100/53 Mechanical Ventilator 80 05/29/20 03:00 62 20 101/50 (67) 98 05/29/20 02:00 67 20 103/58 (73) 96 05/29/20 02:00 20 100/54 Mechanical Ventilator 80 05/29/20 01:40 63 20 80 05/29/20 01:00 86 18 120/63 (82) 91 05/29/20 01:00 20 113/56 Mechanical Ventilator 80 05/29/20 00:50 20 109/59 Mechanical Ventilator 80 05/29/20 00:00 Mechanical Ventilator 05/29/20 00:00 20 106/57 Mechanical Ventilator 80 05/29/20 00:00 100.3 55 20 108/55 (72) 97 05/28/20 23:37 55 05/28/20 23:00 20 107/56 Mechanical Ventilator 80 05/28/20 23:00 55 20 108/56 (73) 97 05/28/20 22:00 20 106/55 Mechanical Ventilator 80 05/28/20 22:00 54 20 106/57 (73) 98 05/28/20 21:00 57 20 107/54 (71) 97 05/28/20 21:00 20 103/54 Mechanical Ventilator 80 05/28/20 20:00 100.6 53 20 99/54 (69) 97 05/28/20 20:00 Mechanical Ventilator 05/28/20 20:00 20 99/55 Mechanical Ventilator 80 05/28/20 19:51 101.6 05/28/20 19:30 56 20 101/54 (70) 97 05/28/20 19:26 55 05/28/20 19:25 55 20 80 05/28/20 19:00 59 20 104/56 (72) 95 05/28/20 19:00 99/55 05/28/20 19:00 20 99/55 Mechanical Ventilator 80 05/28/20 18:30 100.5 57 20 106/56 (73) 97 Intake and Output 05/28/20 05/29/20 19:00 07:00 Intake Total 482.065 ml 350.00 ml Output Total 410 ml 480 ml Balance 72.065 ml -130.00 ml IV Total 482.065 ml 350.00 ml Output Urine Total 410 ml 480 ml Laboratory Tests Test 05/29/20 05:00 05/29/20 08:29 White Blood Count 16.2 K/UL (4.8-10.8) H Red Blood Count 3.80 M/UL (4.20-5.40) L Hemoglobin 12.5 G/DL (12.0-16.0) Hematocrit 37.5 % (37.0-47.0) Mean Corpuscular Volume 98 FL (80-99) Mean Corpuscular Hemoglobin 32.9 PG (27.0-31.0) H Mean Corpuscular Hemoglobin Concent 33.4 G/DL (32.0-36.0) Red Cell Distribution Width 12.5 % (11.6-14.8) Platelet Count 229 K/UL (150-450) Mean Platelet Volume 6.7 FL (6.5-10.1) Neutrophils (%) (Auto) % (45.0-75.0) Lymphocytes (%) (Auto) % (20.0-45.0) Monocytes (%) (Auto) % (1.0-10.0) Eosinophils (%) (Auto) % (0.0-3.0) Basophils (%) (Auto) % (0.0-2.0) Differential Total Cells Counted 100 Neutrophils % (Manual) 86 % (45-75) H Lymphocytes % (Manual) 8 % (20-45) L Monocytes % (Manual) 6 % (1-10) Eosinophils % (Manual) 0 % (0-3) Basophils % (Manual) 0 % (0-2) Band Neutrophils 0 % (0-8) Platelet Estimate Adequate Platelet Morphology Normal Red Blood Cell Morphology Normal Sodium Level 143 MMOL/L (136-145) Potassium Level 4.4 MMOL/L (3.5-5.1) Chloride Level 109 MMOL/L (98-107) H Carbon Dioxide Level 27 MMOL/L (21-32) Anion Gap 8 mmol/L (5-15) Blood Urea Nitrogen 36 mg/dL (7-18) H Creatinine 0.8 MG/DL (0.55-1.30) Estimat Glomerular Filtration Rate > 60 mL/min (>60) Glucose Level 126 MG/DL (74-106) H Calcium Level 8.4 MG/DL (8.5-10.1) L Arterial Blood pH 7.392 (7.350-7.450) Arterial Blood Partial Pressure CO2 39.1 mmHg (35.0-45.0) Arterial Blood Partial Pressure O2 Pending Arterial Blood HCO3 23.2 mmol/L (22.0-26.0) Arterial Blood Oxygen Saturation 94.6 % (95-100) L Arterial Blood Base Excess -1.4 (-2-2) Darinel Test Positive Microbiology Date/Time Source Procedure Growth Status 05/28/20 12:00 Sputum Gram Stain - Final Resulted 05/28/20 12:00 Sputum Sputum Culture Pending Resulted Objective HEAD AND NECK: No JVD.Orally intubated LUNGS: Coarse rhonchi. CARDIOVASCULAR: Regular S1 and S2 with no gallop. Bradycardic. ABDOMEN: Soft. EXTREMITIES: No pitting edema. Jordi Albarado MD May 29, 2020 18:07
--- NOTE | 2020-05-29 19:30 | NUR ---
NURSE NOTES: Patient is sedated RASS-, easily awakens to voice and touch. Intubated; ETT 7.5 @ 22cm to the right side lipline to vent with settings of AC:20, TV:450, FiO2:80%, PEEP:10, O2sat:97%. OGT in place for medication administration but NPO status. Santiago catheter intact and draining. IV sites: right forearm 20g running Fentanyl @ 100mcgs, right wrist 20g TKO, and left forearm 20g saline locked. 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 Bed low, locked and alarm is on. Will continue plan of care.
--- NOTE | 2020-05-29 19:40 | NUR ---
NURSE HAND-OFF REPORT: Latest Vital Signs: Temperature 99.9 , Pulse 90 , B/P 116 /58 , Respiratory Rate 0 , O2 SAT 99 , Mechanical Ventilator, O2 Flow Rate . Vital Sign Comment: EKG Rhythm: Sinus Rhythm Rhythm change?: N MD Notified?: N - MD Response: Latest Bustamante Fall Score: 50 Fall Risk: High Risk Safety Measures: Call light Within Reach, Bed Alarm Zone 1, Side Rails Side Rails x2, Bed position Low and Locked. Fall Precautions: Yellow Socks Yellow Gown Door Sign Patient Fall Education Report given to MARLENY Frances
--- NOTE | 2020-05-29 20:00 | NUR ---
NURSE NOTES: Patient repositioned, remains sedated with RASS of -2. CHG bath givem, Santiago care performed. Vitals remains stable. FiO2 being tapered down as able.
[2020-05-29] MEDS: Midazolam 2mg/2ml Inj IVP PRN (20:09)
[2020-05-29] MEDS: Dyna-Hex 2% Top Sol 2oz TOPIC SCH (20:10)
--- NOTE | 2020-05-29 22:07 | Infectious Diseases Prog Note ---
Assessment/Plan Assessment/Plan ASSESSMENT AND PLAN: 1. covid-19 infection with pna, hypoxia, ? CAP, fevers, sepsis, leukocytosis respiratory failure, on vent - dexamethasone and remdesivir - vancomycin and zosyn - monitor labs and chest x-ray - f/u on cultures 2. No other significant past medical history. 3. Rule out UT per Cardiology. 4. No known allergies. 5. Social history is negative. 6. Family history is noncontributory. 7. MAR is noted. 8. Case was discussed with RN. 9. Continue treatment per primary consultants. 10. Orders were noted and entered. Subjective Constitutional: Reports: fever HEENT: Reports: congestion Respiratory: Reports: shortness of breath Cardiovascular: Denies: chest pain Gastrointestinal/Abdominal: Denies: nausea, vomiting, diarrhea Genitourinary: Reports: other - + salas Neurologic: Reports: other - on vent Psychiatric: Reports: other - NA Skin: Denies: rash Hematologic: Denies: bleeding Musculoskeletal: Denies: pain Allergies: Coded Allergies: No Known Allergies (Unverified , 04/02/12) Objective Last 24 Hour Vital Signs Date Time Temp Pulse Resp B/P (MAP) Pulse Ox O2 Delivery O2 Flow Rate FiO2 05/29/20 21:00 58 20 116/60 (78) 95 05/29/20 20:30 72 19 118/61 (80) 95 05/29/20 20:00 65 05/29/20 20:00 99.7 60 20 119/56 (77) 96 05/29/20 20:00 Mechanical Ventilator 05/29/20 19:45 116 20 114/55 (74) 96 05/29/20 19:30 67 20 123/59 (80) 96 05/29/20 19:00 90 0 116/58 (77) 99 05/29/20 18:56 79 20 60 05/29/20 18:45 65 1 110/53 (72) 98 05/29/20 18:30 100 4 116/56 (76) 97 05/29/20 18:15 69 8 112/54 (73) 98 05/29/20 18:00 99.9 118/52 (74) 96 05/29/20 17:45 99.0 05/29/20 17:30 60 20 118/59 (78) 97 05/29/20 17:01 20 124/56 Mechanical Ventilator 05/29/20 17:00 61 20 124/56 (78) 96 05/29/20 16:30 64 20 113/57 (75) 95 05/29/20 16:00 55 05/29/20 16:00 Mechanical Ventilator 05/29/20 16:00 20 108/53 Mechanical Ventilator 05/29/20 16:00 63 20 108/53 (71) 85 05/29/20 15:30 62 20 117/55 (75) 96 05/29/20 15:00 20 118/56 Mechanical Ventilator 05/29/20 15:00 64 20 118/56 (76) 94 05/29/20 14:56 20 108/53 Mechanical Ventilator 05/29/20 14:00 60 20 107/56 (73) 98 05/29/20 13:56 19 116/59 Mechanical Ventilator 05/29/20 13:45 60 20 104/54 (71) 97 05/29/20 13:30 61 20 108/55 (72) 97 05/29/20 13:19 62 20 60 05/29/20 13:15 66 17 108/54 (72) 95 05/29/20 13:00 102.0 67 19 116/59 (78) 95 05/29/20 12:56 20 114/53 Mechanical Ventilator 05/29/20 12:30 64 20 114/53 (73) 96 05/29/20 12:00 64 20 106/53 (70) 96 05/29/20 12:00 Mechanical Ventilator 05/29/20 12:00 70 05/29/20 11:56 20 104/55 Mechanical Ventilator 05/29/20 11:30 64 20 107/53 (71) 96 05/29/20 11:12 100.0 05/29/20 11:00 63 20 108/52 (70) 96 05/29/20 10:56 20 104/52 Mechanical Ventilator 05/29/20 10:45 60 20 104/52 (69) 96 05/29/20 10:30 61 17 105/53 (70) 96 05/29/20 10:15 63 20 103/55 (71) 96 05/29/20 10:00 64 20 103/56 (72) 96 05/29/20 09:56 22 106/53 Mechanical Ventilator 05/29/20 09:45 68 20 106/53 (70) 94 05/29/20 09:30 69 20 107/58 (74) 93 05/29/20 09:15 69 20 111/57 (75) 92 05/29/20 09:00 20 117/53 Mechanical Ventilator 05/29/20 09:00 74 19 117/53 (74) 94 05/29/20 08:45 71 20 122/57 (78) 93 05/29/20 08:30 60 20 102/46 (64) 98 05/29/20 08:21 60 20 60 05/29/20 08:15 61 20 104/55 (71) 98 05/29/20 08:00 61 05/29/20 08:00 Mechanical Ventilator 05/29/20 08:00 20 101/54 Mechanical Ventilator 05/29/20 08:00 101.8 61 20 101/54 (70) 98 05/29/20 07:00 20 111/59 Mechanical Ventilator 80 05/29/20 07:00 58 20 111/59 (76) 98 05/29/20 06:00 20 94/53 Mechanical Ventilator 80 05/29/20 06:00 60 20 94/53 (67) 98 05/29/20 05:45 100.5 05/29/20 05:00 100.6 64 20 104/55 (71) 98 05/29/20 05:00 20 104/55 Mechanical Ventilator 80 05/29/20 04:30 73 05/29/20 04:00 101.0 63 20 101/54 (70) 97 05/29/20 04:00 20 102/54 Mechanical Ventilator 80 05/29/20 04:00 Mechanical Ventilator 05/29/20 03:00 20 100/53 Mechanical Ventilator 80 05/29/20 03:00 62 20 101/50 (67) 98 05/29/20 02:00 67 20 103/58 (73) 96 05/29/20 02:00 20 100/54 Mechanical Ventilator 80 05/29/20 01:40 63 20 80 05/29/20 01:00 86 18 120/63 (82) 91 05/29/20 01:00 20 113/56 Mechanical Ventilator 80 05/29/20 00:50 20 109/59 Mechanical Ventilator 80 05/29/20 00:00 Mechanical Ventilator 05/29/20 00:00 20 106/57 Mechanical Ventilator 80 05/29/20 00:00 100.3 55 20 108/55 (72) 97 05/28/20 23:37 55 05/28/20 23:00 20 107/56 Mechanical Ventilator 80 05/28/20 23:00 55 20 108/56 (73) 97 05/28/20 22:00 20 106/55 Mechanical Ventilator 80 05/28/20 22:00 54 20 106/57 (73) 98 Height (Feet): 5 Height (Inches): 1.00 Weight (Pounds): 130 General Appearance: other - on vent, no pressors HEENT: other - oral - intubated Respiratory/Chest: crackles/rales, rhonchi - bilaterally Cardiovascular: normal rate, regular rhythm, no gallop/murmur Abdomen: normal bowel sounds, soft, non tender, no organomegaly, non distended Genitourinary: other - + salas - urine clear Extremities: no cyanosis Skin: no rash Neurologic/Psychiatric: other - alert, on vent Lymphatic: no neck adenopathy Musculoskeletal: no effusion Chest x-ray - 05/25/20 - Procedure: XRAY Chest 1v Indication: Shortness of breath Technique: One view of the chest Comparison: 05/22/2020 Findings: Interim worsening of bilateral infiltrates, with consolidation now seen throughout the right lung, and increasing consolidation on the left primarily in the perihilar region. The heart is borderline enlarged. There is suggestion of small bilateral pleural effusions, not evident previously. Impression: Worsening bilateral infiltrates, right greater than left. Chest x-ray - 05/27/20: FINDINGS/IMPRESSION: Bilateral airspace consolidations, consistent with multifocal infiltrate. These are worsening when compared to just [employer] May 22, 2020. Follow-up chest radiograph recommended. Small bilateral pleural effusions, slightly worsening. No pneumothorax. Cardiomegaly. Calcified aorta. chest x-ray - 05/29/20 - FINDINGS/IMPRESSION: Enteric feeding tube terminates in the stomach. Endotracheal tube terminates 6.2 cm above the sho. EKG leads overlie the patient. Small pleural effusions, unchanged mild vascular condition, mildly improving. Superimposed patchy opacities, consistent with infiltrate. These are slightly improved when compared to previous study from May 27, 2020. Continue just ready to follow up recommended. Cardiomegaly. Calcified aorta. Microbiology Date/Time Source Procedure Growth Status 05/28/20 12:00 Sputum Gram Stain - Final Resulted 05/28/20 12:00 Sputum Sputum Culture Pending Resulted Laboratory Tests Test 05/29/20 05:00 05/29/20 08:29 White Blood Count 16.2 K/UL (4.8-10.8) H Red Blood Count 3.80 M/UL (4.20-5.40) L Hemoglobin 12.5 G/DL (12.0-16.0) Hematocrit 37.5 % (37.0-47.0) Mean Corpuscular Volume 98 FL (80-99) Mean Corpuscular Hemoglobin 32.9 PG (27.0-31.0) H Mean Corpuscular Hemoglobin Concent 33.4 G/DL (32.0-36.0) Red Cell Distribution Width 12.5 % (11.6-14.8) Platelet Count 229 K/UL (150-450) Mean Platelet Volume 6.7 FL (6.5-10.1) Neutrophils (%) (Auto) % (45.0-75.0) Lymphocytes (%) (Auto) % (20.0-45.0) Monocytes (%) (Auto) % (1.0-10.0) Eosinophils (%) (Auto) % (0.0-3.0) Basophils (%) (Auto) % (0.0-2.0) Differential Total Cells Counted 100 Neutrophils % (Manual) 86 % (45-75) H Lymphocytes % (Manual) 8 % (20-45) L Monocytes % (Manual) 6 % (1-10) Eosinophils % (Manual) 0 % (0-3) Basophils % (Manual) 0 % (0-2) Band Neutrophils 0 % (0-8) Platelet Estimate Adequate Platelet Morphology Normal Red Blood Cell Morphology Normal Sodium Level 143 MMOL/L (136-145) Potassium Level 4.4 MMOL/L (3.5-5.1) Chloride Level 109 MMOL/L (98-107) H Carbon Dioxide Level 27 MMOL/L (21-32) Anion Gap 8 mmol/L (5-15) Blood Urea Nitrogen 36 mg/dL (7-18) H Creatinine 0.8 MG/DL (0.55-1.30) Estimat Glomerular Filtration Rate > 60 mL/min (>60) Glucose Level 126 MG/DL (74-106) H Calcium Level 8.4 MG/DL (8.5-10.1) L Arterial Blood pH 7.392 (7.350-7.450) Arterial Blood Partial Pressure CO2 39.1 mmHg (35.0-45.0) Arterial Blood Partial Pressure O2 Pending Arterial Blood HCO3 23.2 mmol/L (22.0-26.0) Arterial Blood Oxygen Saturation 94.6 % (95-100) L Arterial Blood Base Excess -1.4 (-2-2) Darinel Test Positive Current Medications Medications (Trade) Dose Ordered Sig/Elieser Route PRN Reason Start Time Stop Time Status Last Admin Dose Admin Acetaminophen (Tylenol) 650 mg Q4H PRN ORAL Temp >100.5 05/23/20 10:30 06/22/20 10:29 05/29/20 17:15 Acetaminophen (Tylenol) 650 mg Q4H PRN ORAL pain 05/24/20 11:30 06/23/20 11:29 05/27/20 04:35 Albuterol Sulfate (Proventil MDI) 2 puff Q4H PRN INH Shortness of Breath 05/23/20 10:30 08/21/20 10:29 05/27/20 01:09 Chlorhexidine Gluconate (Emma-Hex 2%) 1 applic QHS TOPIC 05/27/20 21:00 08/25/20 20:59 05/29/20 20:10 Dexamethasone Sodium Phosphate (Decadron 4mg/ml vial) 6 mg DAILY IVP 05/23/20 10:30 06/01/20 09:01 05/29/20 08:31 Dextrose (Dextrose 50%) 25 ml Q30M PRN IV Hypoglycemia 05/23/20 10:30 08/21/20 10:29 Dextrose (Dextrose 50%) 50 ml Q30M PRN IV Hypoglycemia 05/23/20 10:30 08/21/20 10:29 Docusate Sodium (Colace) 100 mg EVERY 12 HOURS ORAL 05/23/20 21:00 06/22/20 20:59 05/29/20 20:09 Dopamine HCl/ Dextrose 250 ml @ 2.211 mls/ hr Q24H PRN IV BRADYCARDIA 05/28/20 20:45 05/31/20 20:43 Enoxaparin Sodium (Lovenox) 40 mg BID SUBQ 05/28/20 20:30 08/21/20 11:59 05/29/20 17:04 Famotidine (Pepcid) 40 mg DAILY ORAL 05/24/20 09:00 08/22/20 08:59 05/29/20 08:30 Fentanyl Citrate 250 ml @ 1 mls/hr Q24H IV 05/27/20 19:45 05/30/20 03:59 05/29/20 09:56 Fentanyl Citrate 250 ml @ 1 mls/hr Q24H IV 05/30/20 04:00 06/01/20 03:59 Guaifenesin/ Dextromethorphan (Robitussin DM Syrup) 10 ml Q4H PRN ORAL For Cough 05/24/20 08:00 08/22/20 07:59 05/27/20 04:35 Midazolam HCl (Versed 2mg/2ml vial) 1 mg EVERY 2 HOURS PRN IVP Agitation 05/27/20 19:15 06/03/20 19:14 05/29/20 20:09 Norepinephrine Bitartrate 8 mg/ Dextrose 508 ml @ 0 mls/hr Q24H IV 05/28/20 07:00 05/31/20 06:59 05/28/20 07:15 Piperacillin Sod/ Tazobactam Sod 3.375 gm/Sodium Chloride 110 ml @ 27.5 mls/hr Q8H IVPB 05/28/20 00:00 06/04/20 00:00 05/29/20 17:01 Afshan Muñoz MD May 29, 2020 22:06
--- NOTE | 2020-05-29 22:46 | NUR ---
NURSE NOTES: Urinalysis collected and sent to lab. Blood cultures X 2 collected and sent to lab. Patient remains stable at this time, remains sedated at rass -2 and. Blood pressures within normotensive ranges
[2020-05-29 23:13] LABS: APPEARANCE,URINE CLEAR; BILIRUBIN, URINE NEGATIVE (NEGATIVE); GLUCOSE, URINE (UA) NEGATIVE (NEGATIVE); KETONES,URINE 2+ (NEGATIVE); LEUKOCYTE ESTERASE ,URINE NEGATIVE (NEGATIVE); NITRITE,URINE NEGATIVE (NEGATIVE); PH,URINE 5 (4.5-8.0); PROTEIN,URINE 2+ (NEGATIVE); UROBILINOGEN,URINE NORMAL MG/DL (0.0-1.0)
[2020-05-29 23:18] LABS: COLOR,URINE YELLOW
[2020-05-30] VITALS (47 sets, daily range): BP systolic 114–164; BP diastolic 56–92
[2020-05-30] MEDS ORDERED: Vancomycin 500mg/D5W 100ml IVPB ONE ×2
[2020-05-30] MEDS: Vancomycin 1gm in D5W 275ml IVPB ONE ×2
--- NOTE | 2020-05-30 | NUR ---
NURSE NOTES: Patient assessed, patient remains lightly sedated and maintains RASS of -2. Patient able to follow commands. Patient repositioned and oral care performed. NAD at this time. Will continue to monitor.
--- NOTE | 2020-05-30 02:00 | NUR ---
NURSE NOTES: FiO2 tapered down earlier to 50% FiO2. Patient seems to tolerate well. Patient is calm and collective at this time. NAD noted. Vitals have remained stable other than the low grade fevers. Repositioned patient and provided cooling packs.
[2020-05-30] MEDS ORDERED: fentaNYL 2500mcg/NS 250ml 250 ML IV SCH (04:00)
--- NOTE | 2020-05-30 04:00 | NUR ---
NURSE NOTES: Cooling bath given. Santiago care performed. Oral care and suctioned patient performed, AM labs drawn. Tapered down FiO2 to 40% and decreased peep to 8 as per ordered. Patient seems to tolerate well. Fentanyl gtt right now at 50mcg. Patient follows commands well to the best of her ability.
--- NOTE | 2020-05-30 06:00 | NUR ---
NURSE NOTES: Oral care performed. Patient sleeping but awakens easily when aroused. NAD at this time. VSS. Will continue to monitor.
[2020-05-30 07:01] LABS: HEMATOCRIT 35.9 % (37.0-47.0); HEMOGLOBIN 12.3 G/DL (12.0-16.0); MEAN CORPUSCULAR VOLUME 97 FL (80-99); PLATELET COUNT 179 K/UL (150-450); RED BLOOD COUNT 3.69 M/UL (4.20-5.40); RED CELL DISTRIBUTION WIDTH 12.5 % (11.6-14.8); WHITE BLOOD COUNT 16.4 K/UL (4.8-10.8)
--- NOTE | 2020-05-30 07:14 | NUR ---
HAND-OFF: Report given to Alvina HERNANDEZ.
--- NOTE | 2020-05-30 07:15 | NUR ---
NURSE NOTES: Pt received from Arturo HERNANDEZ. Pt is sedated, opens eyes when called by name for approx 5 sec, RASS noted -2, bilat pupils equal and round 3mm with brisk rxn to light; pt is unable to follow simple commands at this time; withdraws to light pain stimuli; gag reflex intact. Pt is SR to teletypesetter monitor with 2+ radial and dorsalis pedis pulses. 1+ pitting edema noted to hands. cap refill less than 2 sec. Pt is orally intubated with a 7.5 ETT noted 22 cm at the lip with the following: AC 20 TV 450 FiO2 40 % Peep 8. (will f/u with Dr Mcdaniels concerning ABGs and possibly weaning PEEP - spO2 98%). lung mario noted diminished upon auscultation. OGT noted clmped - pt is NPO (will f/u with nutrition recommendation). Abdomen is round and soft w/ active bowel sounds to all quadrants. F/C noted draining yellow, clear urine. Skin is intact. Pt has a RW, LFA, and RFA 20g IVs running fentanyl gtt at 50 mcg/hr. Bed in lowest position, alarm on, side rails up x 2, call light within reach. Will continue to monitor.
[2020-05-30 07:57] LABS: ALANINE AMINOTRANSFERASE 23 U/L (12-78); ALBUMIN/GLOBULIN RATIO 0.5 (1.0-2.7); ALKALINE PHOSPHATASE 62 U/L (46-116); ANION GAP 6 mmol/L (5-15); ASPARTATE AMINO TRANSFERASE 32 U/L (15-37); BILIRUBIN,TOTAL 0.6 MG/DL (0.2-1.0); BLOOD UREA NITROGEN 38 mg/dL (7-18); CALCIUM 8.1 MG/DL (8.5-10.1); CARBON DIOXIDE 25 MMOL/L (21-32); CHLORIDE 112 MMOL/L (98-107); CREATININE 0.7 MG/DL (0.55-1.30); POTASSIUM 4.2 MMOL/L (3.5-5.1); SODIUM 143 MMOL/L (136-145)
--- NOTE | 2020-05-30 08:00 | NUR ---
Pt repositioned. PO care provided. Pt seen by Ivonne Andrade NP.
[2020-05-30] MEDS: Piperacillin/Tazobactam 3.375 GM in NS 110 ML IVPB SCH ×4 (08:57→16:23)
[2020-05-30] MEDS ORDERED: Enoxaparin 80mg Inj SUBQ SCH (09:00)
--- NOTE | 2020-05-30 09:00 | NUR ---
NURSE NOTES: Pt seen by Dr Mcdaniels. Order obtained to titrate peep by 1 cm H20 increments (to goal of peep 5) as tolerated to maintain spO2 above 90 %. nAita RT notified. ABG ordered for tomorrow at 0600.
[2020-05-30] MEDS: Docusate 100mg/10ml Liq GT SCH ×2 (09:12→21:07)
--- NOTE | 2020-05-30 09:35 | NUR ---
RD ASSESSMENT & RECOMMENDATIONS SEE CARE ACTIVITY FOR COMPLETE ASSESSMENT DAILY ESTIMATED NEEDS: Needs based on Critical care, 56kg 22-28 kcals/kg 5870-0317 total kcals 1.2-2 g protein/kg 67-112 g total protein 25-30 mL/kg 8148-6050 total fluid mLs NUTRITION DIAGNOSIS: Swallowing difficulty R/T respiratory failure as evidenced by pt orally intubated on 05/27, OGT feeds ordered. CURRENT TF:Vital AF 1.2 @ 50ml/hr x 24 hrs ordered PO DIET RECOMMENDATIONS: FINISH REMOVER eval post extubation ENTERAL NUTRITION RECOMMENDATIONS: Vital AF 1.2 @ 50ml/hr x 24 hrs to provide 1200ml, 1440kcal, 90g prot, 973ml free water * Initiate Vital AF 1.2 @ 20ml/hr x 6hrs * Advance 10ml q 4-6 hrs as tolerated to goal * HOB over 30 degrees/ H2o flush 180ml q 8 hrs ADDITIONAL RECOMMENDATIONS: * Calibrated bedscale wt * Monitor hemodyanmic stability: now off NE * Rec NISS w/ TF while on Decadron: elev FBGs * Monitor lytes, replete as needed (low phos 05/22, rec updated level) .
--- NOTE | 2020-05-30 10:00 | NUR ---
NURSE NOTES: Pt repositioned. No distress noted. Peep down to 6 cm H20 at this time. SpO2 remains above 90 %.
--- NOTE | 2020-05-30 11:06 | Pulmonolgy Critical Care Note ---
Ivonne Andrade OLAP DEVELOPER 05/30/20 1106: Critical Care - Asmt/Plan Assessment/Plan: ASSESSMENT Acute hypoxemic resp failure due to COVID PNA, requiring intubation 05/27 COVID 19 PNA Thrombocytopenia-resolved Abnormal ECG Headache Pulmonary HTN PLAN OF CARE ICU isolation Date of sx onset: few days prior to presentation to ED on 05/23 Positive test: OSF 05/22 - 1 days prior to admission O2 -> intubated 05/27 HFA if unable to do HHN via line s/p REM x 5 days ( 05/23-05/27 ) Dex Day# 8 ( 05/23 - ) D dimer initial 0.48 - > 19.61-> 7.23 DVT PPX: Lovenox Venous Duplex BLE Trend CRP 3.6 -> 19.7 Abx per ID recs prone position as tolerated vent support, pulm toilet fup with ABG and CXR, titrate FiO2 and PEEP to keep sat > 92% monitor volumes and renal function fup with consultants recs FC Discuss GOC monitor PLT counts-normalized cardio eval -appreciated ECHO with pEF 65%, no WMA, mild to moderate MR, moderate pulmonary hypertension case discussed and evaluated by supervising physician Critical Care - Objective Last 24 Hour Vital Signs Date Time Temp Pulse Resp B/P (MAP) Pulse Ox O2 Delivery O2 Flow Rate FiO2 05/30/20 10:00 40 05/30/20 09:00 40 05/30/20 08:00 62 05/30/20 08:00 40 05/30/20 07:11 20 116/59 Mechanical Ventilator 40 05/30/20 07:00 63 20 124/65 (84) 93 05/30/20 06:30 68 20 123/60 (81) 93 05/30/20 06:11 20 110/59 Mechanical Ventilator 40 05/30/20 06:00 71 20 129/60 (83) 92 05/30/20 05:30 78 20 132/62 (85) 96 05/30/20 05:11 20 115/60 Mechanical Ventilator 40 05/30/20 05:00 81 13 132/62 (85) 98 05/30/20 04:39 100.0 05/30/20 04:11 20 119/61 Mechanical Ventilator 40 05/30/20 04:00 100.7 65 13 134/62 (86) 98 05/30/20 04:00 73 05/30/20 04:00 Mechanical Ventilator 05/30/20 04:00 40 05/30/20 03:30 63 20 128/61 (83) 93 05/30/20 03:11 20 126/69 Mechanical Ventilator 50 05/30/20 03:00 60 17 129/68 (88) 93 05/30/20 02:30 63 20 120/61 (80) 92 05/30/20 02:11 20 116/60 Mechanical Ventilator 100 05/30/20 02:00 66 21 132/62 (85) 93 05/30/20 01:30 65 20 135/60 (85) 94 05/30/20 01:11 20 136/85 Mechanical Ventilator 50 05/30/20 01:00 68 19 138/60 (86) 100 05/30/20 00:54 77 20 60 05/30/20 00:54 20 103/69 Mechanical Ventilator 50 05/30/20 00:30 66 23 164/67 (99) 95 05/30/20 00:11 20 123/69 Mechanical Ventilator 50 05/30/20 00:00 59 05/30/20 00:00 50 05/30/20 00:00 99.9 54 19 119/60 (79) 94 05/30/20 00:00 Mechanical Ventilator 05/29/20 23:30 55 21 116/59 (78) 94 05/29/20 23:11 22 115/74 Mechanical Ventilator 55 05/29/20 23:00 59 20 124/59 (80) 93 05/29/20 22:30 64 23 122/60 (80) 94 05/29/20 22:11 20 115/67 Mechanical Ventilator 50 05/29/20 22:00 61 20 127/62 (83) 93 05/29/20 21:30 63 17 118/55 (76) 96 05/29/20 21:00 58 20 116/60 (78) 95 05/29/20 20:30 72 19 118/61 (80) 95 05/29/20 20:00 60 05/29/20 20:00 65 05/29/20 20:00 99.7 60 20 119/56 (77) 96 05/29/20 20:00 Mechanical Ventilator 05/29/20 19:45 116 20 114/55 (74) 96 05/29/20 19:30 67 20 123/59 (80) 96 05/29/20 19:00 90 0 116/58 (77) 99 05/29/20 18:56 79 20 60 05/29/20 18:45 65 1 110/53 (72) 98 05/29/20 18:30 100 4 116/56 (76) 97 05/29/20 18:15 69 8 112/54 (73) 98 05/29/20 18:00 99.9 118/52 (74) 96 05/29/20 17:45 99.0 05/29/20 17:30 60 20 118/59 (78) 97 05/29/20 17:01 20 124/56 Mechanical Ventilator 05/29/20 17:00 61 20 124/56 (78) 96 05/29/20 16:30 64 20 113/57 (75) 95 05/29/20 16:00 55 05/29/20 16:00 Mechanical Ventilator 05/29/20 16:00 20 108/53 Mechanical Ventilator 05/29/20 16:00 63 20 108/53 (71) 85 05/29/20 15:30 62 20 117/55 (75) 96 05/29/20 15:00 20 118/56 Mechanical Ventilator 05/29/20 15:00 64 20 118/56 (76) 94 05/29/20 14:56 20 108/53 Mechanical Ventilator 05/29/20 14:00 60 20 107/56 (73) 98 05/29/20 13:56 19 116/59 Mechanical Ventilator 05/29/20 13:45 60 20 104/54 (71) 97 05/29/20 13:30 61 20 108/55 (72) 97 05/29/20 13:19 62 20 60 05/29/20 13:15 66 17 108/54 (72) 95 05/29/20 13:00 102.0 67 19 116/59 (78) 95 05/29/20 12:56 20 114/53 Mechanical Ventilator 05/29/20 12:30 64 20 114/53 (73) 96 05/29/20 12:00 64 20 106/53 (70) 96 05/29/20 12:00 Mechanical Ventilator 05/29/20 12:00 70 05/29/20 11:56 20 104/55 Mechanical Ventilator 05/29/20 11:30 64 20 107/53 (71) 96 05/29/20 11:12 100.0 05/29/20 11:00 63 20 108/52 (70) 96 Objective: General: intubated, sedated on vent AC 450-40-20 PEEP 6 HEENT: atraumatic, normocephalic, in Neck: OP with ET in place , intact; feeding tube in place Lungs: clear but diminished Heart: HR/BP stable Abdomen: soft, non-tender, active bowel sounds Extremities: no C/C/E Micro: Microbiology Date/Time Source Procedure Growth Status 05/28/20 12:00 Sputum Gram Stain - Final Complete 05/28/20 12:00 Sputum Sputum Culture - Final NORMAL UPPER RESPIRATORY ISELA PRESENT Complete Critical Care - Subjective ROS Limited/Unobtainable: Yes Interval Events: persistent leukocytosis, low grade fevers able to wean down to PEEP and FiO2 40% ABG and CXR pending sedated fentanyl gtt down to 50 mcg/hr Condition: critical IV Access: peripheral EKG Rhythm: Sinus Rhythm FI02: 40 Vent Support Breath Rate: 20 Vent Support Mode: AC Vent Tidal Volume: 450 Sputum Amount: Small PEEP: 6.0 PIP: 36 Drips: Fentanyl grr 50 mcg/hr I&O: Intake and Output 05/29/20 05/30/20 19:00 07:00 Intake Total 392.5 ml 817.5 ml Output Total 440 ml 475 ml Balance -47.5 ml 342.5 ml Free Water 300 ml IV Total 332.5 ml 517.5 ml Other 60 ml Output Urine Total 440 ml 475 ml CXR: CXR 05/29 - Superimposed patchy opacities, consistent with infiltrate. ET-Tube: 7.5 ET Position: 21 Beka Mcdaniels MD 05/30/20 2304: Ivonne Andrade NP May 30, 2020 11:06 Beka Mcdaniels MD May 30, 2020 23:04
--- NOTE | 2020-05-30 11:29 | Diagnostic Imaging Report ---
Indication: Shortness of breath Technique: One view of the chest Comparison: 05/29/2020 Findings: Stable satisfactory orogastric and endotracheal tube positions. Bilateral infiltrates are unchanged. Impression: Unchanged, over one day, findings as above.
--- NOTE | 2020-05-30 11:43 | Surgery Progress Note ---
Surgery Progress Note Subjective Additional Comments ill appearing on vent support labs noted no n/v nutrition Objective Last 24 Hour Vital Signs Date Time Temp Pulse Resp B/P (MAP) Pulse Ox O2 Delivery O2 Flow Rate FiO2 05/30/20 11:00 72 15 138/65 (89) 90 05/30/20 11:00 40 05/30/20 10:30 66 5 123/60 (81) 90 05/30/20 10:00 40 05/30/20 10:00 62 17 124/57 (79) 94 05/30/20 09:30 66 20 134/68 (90) 97 05/30/20 09:00 40 05/30/20 09:00 73 4 132/63 (86) 96 05/30/20 08:30 0 127/65 (85) 95 05/30/20 08:00 62 05/30/20 08:00 40 05/30/20 08:00 99.4 93 5 127/65 (85) 94 05/30/20 07:30 68 4 131/65 (87) 94 05/30/20 07:11 20 116/59 Mechanical Ventilator 40 05/30/20 07:00 63 20 124/65 (84) 93 05/30/20 06:30 68 20 123/60 (81) 93 05/30/20 06:11 20 110/59 Mechanical Ventilator 40 05/30/20 06:00 71 20 129/60 (83) 92 05/30/20 05:30 78 20 132/62 (85) 96 05/30/20 05:11 20 115/60 Mechanical Ventilator 40 05/30/20 05:00 81 13 132/62 (85) 98 05/30/20 04:39 100.0 05/30/20 04:11 20 119/61 Mechanical Ventilator 40 05/30/20 04:00 100.7 65 13 134/62 (86) 98 05/30/20 04:00 73 05/30/20 04:00 Mechanical Ventilator 05/30/20 04:00 40 05/30/20 03:30 63 20 128/61 (83) 93 05/30/20 03:11 20 126/69 Mechanical Ventilator 50 05/30/20 03:00 60 17 129/68 (88) 93 05/30/20 02:30 63 20 120/61 (80) 92 05/30/20 02:11 20 116/60 Mechanical Ventilator 100 05/30/20 02:00 66 21 132/62 (85) 93 05/30/20 01:30 65 20 135/60 (85) 94 05/30/20 01:11 20 136/85 Mechanical Ventilator 50 05/30/20 01:00 68 19 138/60 (86) 100 05/30/20 00:54 77 20 60 05/30/20 00:54 20 103/69 Mechanical Ventilator 50 05/30/20 00:30 66 23 164/67 (99) 95 05/30/20 00:11 20 123/69 Mechanical Ventilator 50 05/30/20 00:00 59 05/30/20 00:00 50 05/30/20 00:00 99.9 54 19 119/60 (79) 94 05/30/20 00:00 Mechanical Ventilator 05/29/20 23:30 55 21 116/59 (78) 94 05/29/20 23:11 22 115/74 Mechanical Ventilator 55 05/29/20 23:00 59 20 124/59 (80) 93 05/29/20 22:30 64 23 122/60 (80) 94 05/29/20 22:11 20 115/67 Mechanical Ventilator 50 05/29/20 22:00 61 20 127/62 (83) 93 05/29/20 21:30 63 17 118/55 (76) 96 05/29/20 21:00 58 20 116/60 (78) 95 05/29/20 20:30 72 19 118/61 (80) 95 05/29/20 20:00 60 05/29/20 20:00 65 05/29/20 20:00 99.7 60 20 119/56 (77) 96 05/29/20 20:00 Mechanical Ventilator 05/29/20 19:45 116 20 114/55 (74) 96 05/29/20 19:30 67 20 123/59 (80) 96 05/29/20 19:00 90 0 116/58 (77) 99 05/29/20 18:56 79 20 60 05/29/20 18:45 65 1 110/53 (72) 98 05/29/20 18:30 100 4 116/56 (76) 97 05/29/20 18:15 69 8 112/54 (73) 98 05/29/20 18:00 99.9 118/52 (74) 96 05/29/20 17:45 99.0 05/29/20 17:30 60 20 118/59 (78) 97 05/29/20 17:01 20 124/56 Mechanical Ventilator 05/29/20 17:00 61 20 124/56 (78) 96 05/29/20 16:30 64 20 113/57 (75) 95 05/29/20 16:00 55 05/29/20 16:00 Mechanical Ventilator 05/29/20 16:00 20 108/53 Mechanical Ventilator 05/29/20 16:00 63 20 108/53 (71) 85 05/29/20 15:30 62 20 117/55 (75) 96 05/29/20 15:00 20 118/56 Mechanical Ventilator 05/29/20 15:00 64 20 118/56 (76) 94 05/29/20 14:56 20 108/53 Mechanical Ventilator 05/29/20 14:00 60 20 107/56 (73) 98 05/29/20 13:56 19 116/59 Mechanical Ventilator 05/29/20 13:45 60 20 104/54 (71) 97 05/29/20 13:30 61 20 108/55 (72) 97 05/29/20 13:19 62 20 60 05/29/20 13:15 66 17 108/54 (72) 95 05/29/20 13:00 102.0 67 19 116/59 (78) 95 05/29/20 12:56 20 114/53 Mechanical Ventilator 05/29/20 12:30 64 20 114/53 (73) 96 05/29/20 12:00 64 20 106/53 (70) 96 05/29/20 12:00 Mechanical Ventilator 05/29/20 12:00 70 05/29/20 11:56 20 104/55 Mechanical Ventilator I&O Intake and Output 05/29/20 05/30/20 19:00 07:00 Intake Total 392.5 ml 817.5 ml Output Total 440 ml 475 ml Balance -47.5 ml 342.5 ml Free Water 300 ml IV Total 332.5 ml 517.5 ml Other 60 ml Output Urine Total 440 ml 475 ml Dressing: saturated Cardiovascular: RSR Respiratory: decreased breath sounds Abdomen: soft, present bowel sounds Extremities: no tenderness, no cyanosis Laboratory Tests Test 05/29/20 22:30 05/30/20 06:06 Urine Color Yellow Urine Appearance Clear Urine pH 5 (4.5-8.0) Urine Specific [place] 1.020 (1.005-1.035) Urine Protein 2+ (NEGATIVE) H Urine Glucose (UA) Negative (NEGATIVE) Urine Ketones 2+ (NEGATIVE) H Urine Blood 2+ (NEGATIVE) H Urine Nitrite Negative (NEGATIVE) Urine Bilirubin Negative (NEGATIVE) Urine Urobilinogen Normal MG/DL (0.0-1.0) Urine Leukocyte Esterase Negative (NEGATIVE) Urine RBC 5-10 /HPF (0 - 2) H Urine WBC 0-2 /HPF (0 - 2) Urine Squamous Epithelial Cells Few /LPF (NONE/OCC) Urine Bacteria Few /HPF (NONE) White Blood Count 16.4 K/UL (4.8-10.8) H Red Blood Count 3.69 M/UL (4.20-5.40) L Hemoglobin 12.3 G/DL (12.0-16.0) Hematocrit 35.9 % (37.0-47.0) L Mean Corpuscular Volume 97 FL (80-99) Mean Corpuscular Hemoglobin 33.2 PG (27.0-31.0) H Mean Corpuscular Hemoglobin Concent 34.1 G/DL (32.0-36.0) Red Cell Distribution Width 12.5 % (11.6-14.8) Platelet Count 179 K/UL (150-450) Mean Platelet Volume 6.8 FL (6.5-10.1) Neutrophils (%) (Auto) % (45.0-75.0) Lymphocytes (%) (Auto) % (20.0-45.0) Monocytes (%) (Auto) % (1.0-10.0) Eosinophils (%) (Auto) % (0.0-3.0) Basophils (%) (Auto) % (0.0-2.0) Differential Total Cells Counted 100 Neutrophils % (Manual) 86 % (45-75) H Lymphocytes % (Manual) 11 % (20-45) L Monocytes % (Manual) 3 % (1-10) Eosinophils % (Manual) 0 % (0-3) Basophils % (Manual) 0 % (0-2) Band Neutrophils 0 % (0-8) Platelet Estimate Adequate Platelet Morphology Normal Red Blood Cell Morphology Normal D-Dimer 7.23 mg/L FEU (0.00-0.49) H Sodium Level 143 MMOL/L (136-145) Potassium Level 4.2 MMOL/L (3.5-5.1) Chloride Level 112 MMOL/L (98-107) H Carbon Dioxide Level 25 MMOL/L (21-32) Anion Gap 6 mmol/L (5-15) Blood Urea Nitrogen 38 mg/dL (7-18) H Creatinine 0.7 MG/DL (0.55-1.30) Estimat Glomerular Filtration Rate > 60 mL/min (>60) Glucose Level 160 MG/DL (74-106) H Calcium Level 8.1 MG/DL (8.5-10.1) L Total Bilirubin 0.6 MG/DL (0.2-1.0) Aspartate Amino Transf (AST/SGOT) 32 U/L (15-37) Alanine Aminotransferase (ALT/SGPT) 23 U/L (12-78) Alkaline Phosphatase 62 U/L (46-116) C-Reactive Protein, Quantitative Pending Total Protein 5.9 G/DL (6.4-8.2) L Albumin 2.0 G/DL (3.4-5.0) L Globulin 3.9 g/dL Albumin/Globulin Ratio 0.5 (1.0-2.7) L Plan Problems: (1) Thrombocytopenia (2) Pneumonia (3) Hypoxia Assessment & Plan: 75F covid + hypoxic intubated on vent support acute hypotensive episode placed on pressors on peripheral line eval for central line done. patient weaning off pressors and only on 1mcg of levo currently bp improved sedation noted awake and alert now responsive on vent support but improving hold on central catheter placement cont for now low dose and wean off levo fluids noted trend labs if worsening will plan to place central catheter emilee thank you will follow with recs . DAILY ESTIMATED NEEDS: Needs based on Critical care, 56kg 22-28 kcals/kg 3071-2763 total kcals 1.2-2 g protein/kg 67-112 g total protein 25-30 mL/kg 7854-7471 total fluid mLs NUTRITION DIAGNOSIS: Swallowing difficulty R/T respiratory failure as evidenced by pt orally intubated on 05/27, OGT feeds ordered. 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
--- NOTE | 2020-05-30 12:00 | NUR ---
NURSE NOTES: Pt repositioned. PO care provided. Order to swab pt for rapid-covid test acknowledged. Will swab and send sample down to lab shortly.
--- NOTE | 2020-05-30 12:47 | NUR ---
RADIOLOGY DEPT., CHEST X-RAY DONE.-P.DYE
--- NOTE | 2020-05-30 14:00 | NUR ---
NURSE NOTES: Pt repositioned. No distress noted.
--- NOTE | 2020-05-30 14:28 | NUR ---
NURSE NOTES: Pt seen by Dr Albarado.
--- NOTE | 2020-05-30 15:09 | NUR ---
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 WBC 16.4 AC 20, TV 450, PEEP 6.0, FiO2 40% O2 sat 94% cxray bilateral infiltrates unchanged IS: Vancomycin IV Lovenox SQ BID Norepinephrine IV protocol Zosyn IV TID Dexamthasone IVP QD ICU Status
--- NOTE | 2020-05-30 15:59 | Cardiac Electrophysiology PN ---
Assessment/Plan Assessment/Plan 1. COVID pneumonia. Ruled out for MS EKG in view of inferolateral ST depression Echo EF 65% Her BNP was only 342. Intubated on 40% Fio2 and PEEP 5 On dexamethasone, ceftriaxone, and azithromycin. SBT trial tomorrow 2. Sinus nnamdi off any TAVARES affecting agent. Likely due to Covid 3. S/P septic shock. 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 Lowest HR was 54 Off pressors in Covid isolation. On Abx. Had T 102 yesterday Objective Last 24 Hour Vital Signs Date Time Temp Pulse Resp B/P (MAP) Pulse Ox O2 Delivery O2 Flow Rate FiO2 05/30/20 15:00 67 20 137/63 (87) 92 05/30/20 14:30 91 21 154/70 (98) 100 05/30/20 14:11 20 133/60 Mechanical Ventilator 40 05/30/20 14:00 76 19 133/60 (84) 91 05/30/20 13:30 71 20 126/58 (80) 92 05/30/20 13:11 20 130/56 Mechanical Ventilator 40 05/30/20 13:00 68 18 130/56 (80) 90 05/30/20 12:30 68 17 133/57 (82) 90 05/30/20 12:11 20 133/57 Mechanical Ventilator 40 05/30/20 12:00 Mechanical Ventilator 05/30/20 12:00 71 05/30/20 12:00 99.0 67 20 129/56 (80) 91 05/30/20 11:30 68 20 132/60 (84) 94 05/30/20 11:11 20 132/60 Mechanical Ventilator 40 05/30/20 11:00 72 15 138/65 (89) 90 05/30/20 11:00 40 05/30/20 10:30 66 20 123/60 (81) 90 05/30/20 10:11 20 123/60 Mechanical Ventilator 40 05/30/20 10:00 40 05/30/20 10:00 62 17 124/57 (79) 94 05/30/20 09:30 66 20 134/68 (90) 97 05/30/20 09:11 20 134/68 Mechanical Ventilator 40 05/30/20 09:00 40 05/30/20 09:00 73 4 132/63 (86) 96 05/30/20 08:30 0 127/65 (85) 95 05/30/20 08:11 20 127/65 Mechanical Ventilator 40 05/30/20 08:00 62 05/30/20 08:00 40 05/30/20 08:00 99.4 93 5 127/65 (85) 94 05/30/20 08:00 Mechanical Ventilator 05/30/20 07:30 68 4 131/65 (87) 94 05/30/20 07:11 20 116/59 Mechanical Ventilator 40 05/30/20 07:00 63 20 124/65 (84) 93 05/30/20 06:30 68 20 123/60 (81) 93 05/30/20 06:11 20 110/59 Mechanical Ventilator 40 05/30/20 06:00 71 20 129/60 (83) 92 05/30/20 05:30 78 20 132/62 (85) 96 05/30/20 05:11 20 115/60 Mechanical Ventilator 40 05/30/20 05:00 81 13 132/62 (85) 98 05/30/20 04:39 100.0 05/30/20 04:11 20 119/61 Mechanical Ventilator 40 05/30/20 04:00 100.7 65 13 134/62 (86) 98 05/30/20 04:00 73 05/30/20 04:00 Mechanical Ventilator 05/30/20 04:00 40 05/30/20 03:30 63 20 128/61 (83) 93 05/30/20 03:11 20 126/69 Mechanical Ventilator 50 05/30/20 03:00 60 17 129/68 (88) 93 05/30/20 02:30 63 20 120/61 (80) 92 05/30/20 02:11 20 116/60 Mechanical Ventilator 100 05/30/20 02:00 66 21 132/62 (85) 93 05/30/20 01:30 65 20 135/60 (85) 94 05/30/20 01:11 20 136/85 Mechanical Ventilator 50 05/30/20 01:00 68 19 138/60 (86) 100 05/30/20 00:54 77 20 60 05/30/20 00:54 20 103/69 Mechanical Ventilator 50 05/30/20 00:30 66 23 164/67 (99) 95 05/30/20 00:11 20 123/69 Mechanical Ventilator 50 05/30/20 00:00 59 05/30/20 00:00 50 05/30/20 00:00 99.9 54 19 119/60 (79) 94 05/30/20 00:00 Mechanical Ventilator 05/29/20 23:30 55 21 116/59 (78) 94 05/29/20 23:11 22 115/74 Mechanical Ventilator 55 05/29/20 23:00 59 20 124/59 (80) 93 05/29/20 22:30 64 23 122/60 (80) 94 05/29/20 22:11 20 115/67 Mechanical Ventilator 50 05/29/20 22:00 61 20 127/62 (83) 93 05/29/20 21:30 63 17 118/55 (76) 96 05/29/20 21:00 58 20 116/60 (78) 95 05/29/20 20:30 72 19 118/61 (80) 95 05/29/20 20:00 60 05/29/20 20:00 65 05/29/20 20:00 99.7 60 20 119/56 (77) 96 05/29/20 20:00 Mechanical Ventilator 05/29/20 19:45 116 20 114/55 (74) 96 05/29/20 19:30 67 20 123/59 (80) 96 05/29/20 19:00 90 0 116/58 (77) 99 05/29/20 18:56 79 20 60 05/29/20 18:45 65 1 110/53 (72) 98 05/29/20 18:30 100 4 116/56 (76) 97 05/29/20 18:15 69 8 112/54 (73) 98 05/29/20 18:00 99.9 118/52 (74) 96 05/29/20 17:45 99.0 05/29/20 17:30 60 20 118/59 (78) 97 05/29/20 17:01 20 124/56 Mechanical Ventilator 05/29/20 17:00 61 20 124/56 (78) 96 05/29/20 16:30 64 20 113/57 (75) 95 05/29/20 16:00 55 05/29/20 16:00 Mechanical Ventilator 05/29/20 16:00 20 108/53 Mechanical Ventilator 05/29/20 16:00 63 20 108/53 (71) 85 Intake and Output 05/29/20 05/30/20 19:00 07:00 Intake Total 392.5 ml 817.5 ml Output Total 440 ml 475 ml Balance -47.5 ml 342.5 ml Free Water 300 ml IV Total 332.5 ml 517.5 ml Other 60 ml Output Urine Total 440 ml 475 ml Laboratory Tests Test 05/29/20 22:30 05/30/20 06:06 Urine Color Yellow Urine Appearance Clear Urine pH 5 (4.5-8.0) Urine Specific [place] 1.020 (1.005-1.035) Urine Protein 2+ (NEGATIVE) H Urine Glucose (UA) Negative (NEGATIVE) Urine Ketones 2+ (NEGATIVE) H Urine Blood 2+ (NEGATIVE) H Urine Nitrite Negative (NEGATIVE) Urine Bilirubin Negative (NEGATIVE) Urine Urobilinogen Normal MG/DL (0.0-1.0) Urine Leukocyte Esterase Negative (NEGATIVE) Urine RBC 5-10 /HPF (0 - 2) H Urine WBC 0-2 /HPF (0 - 2) Urine Squamous Epithelial Cells Few /LPF (NONE/OCC) Urine Bacteria Few /HPF (NONE) White Blood Count 16.4 K/UL (4.8-10.8) H Red Blood Count 3.69 M/UL (4.20-5.40) L Hemoglobin 12.3 G/DL (12.0-16.0) Hematocrit 35.9 % (37.0-47.0) L Mean Corpuscular Volume 97 FL (80-99) Mean Corpuscular Hemoglobin 33.2 PG (27.0-31.0) H Mean Corpuscular Hemoglobin Concent 34.1 G/DL (32.0-36.0) Red Cell Distribution Width 12.5 % (11.6-14.8) Platelet Count 179 K/UL (150-450) Mean Platelet Volume 6.8 FL (6.5-10.1) Neutrophils (%) (Auto) % (45.0-75.0) Lymphocytes (%) (Auto) % (20.0-45.0) Monocytes (%) (Auto) % (1.0-10.0) Eosinophils (%) (Auto) % (0.0-3.0) Basophils (%) (Auto) % (0.0-2.0) Differential Total Cells Counted 100 Neutrophils % (Manual) 86 % (45-75) H Lymphocytes % (Manual) 11 % (20-45) L Monocytes % (Manual) 3 % (1-10) Eosinophils % (Manual) 0 % (0-3) Basophils % (Manual) 0 % (0-2) Band Neutrophils 0 % (0-8) Platelet Estimate Adequate Platelet Morphology Normal Red Blood Cell Morphology Normal D-Dimer 7.23 mg/L FEU (0.00-0.49) H Sodium Level 143 MMOL/L (136-145) Potassium Level 4.2 MMOL/L (3.5-5.1) Chloride Level 112 MMOL/L (98-107) H Carbon Dioxide Level 25 MMOL/L (21-32) Anion Gap 6 mmol/L (5-15) Blood Urea Nitrogen 38 mg/dL (7-18) H Creatinine 0.7 MG/DL (0.55-1.30) Estimat Glomerular Filtration Rate > 60 mL/min (>60) Glucose Level 160 MG/DL (74-106) H Calcium Level 8.1 MG/DL (8.5-10.1) L Total Bilirubin 0.6 MG/DL (0.2-1.0) Aspartate Amino Transf (AST/SGOT) 32 U/L (15-37) Alanine Aminotransferase (ALT/SGPT) 23 U/L (12-78) Alkaline Phosphatase 62 U/L (46-116) C-Reactive Protein, Quantitative Pending Total Protein 5.9 G/DL (6.4-8.2) L Albumin 2.0 G/DL (3.4-5.0) L Globulin 3.9 g/dL Albumin/Globulin Ratio 0.5 (1.0-2.7) L Microbiology Date/Time Source Procedure Growth Status 05/30/20 12:00 Nasopharynx SARS-CoV-2 RdRp Gene Assay - Final Complete 05/28/20 12:00 Sputum Gram Stain - Final Complete 05/28/20 12:00 Sputum Sputum Culture - Final NORMAL UPPER RESPIRATORY ISELA PRESENT Complete Objective HEAD AND NECK: No JVD.Orally intubated LUNGS: Coarse rhonchi. CARDIOVASCULAR: Regular S1 and S2 with no gallop. Bradycardic. ABDOMEN: Soft. EXTREMITIES: No pitting edema. Jordi Albarado MD May 30, 2020 15:58
--- NOTE | 2020-05-30 16:00 | NUR ---
NURSE NOTES: Pt repositioned. PO care provided. Afebrile with ice packs on.
--- NOTE | 2020-05-30 18:00 | NUR ---
NURSE NOTES: Pt repositioned. No distress noted.
--- NOTE | 2020-05-30 19:17 | NUR ---
NURSE HAND-OFF REPORT: Latest Vital Signs: Temperature 98.6 , Pulse 67 , B/P 136 /66 , Respiratory Rate 29 , O2 SAT 87 , Mechanical Ventilator, FiO2 40 % . Vital Sign Comment: stable EKG Rhythm: Sinus Rhythm Rhythm change?: N MD Notified?: N - MD Response: n/a Latest B[place]ante Fall Score: 50 Fall Risk: High Risk Safety Measures: Call light Within Reach, Bed Alarm Zone 1, Side Rails Side Rails x2, Bed position Low and Locked. Fall Precautions: Yellow Socks Yellow Gown Door Sign Patient Fall Education Report given to DAVID Calzada. Endorsed pt for weaning trial tomorrow am.
--- NOTE | 2020-05-30 20:00 | NUR ---
NURSE NOTES: received report from alvina cabrales orally intubated -vent o2 sat 90& on fent drip at 5mcg -2RASS ON SCOTT SOFT RESTRAINT NAN COMPLAINT REPOSITION AND SUCTION CONT MONITOR PT
[2020-05-30] MEDS: Enoxaparin 40mg Inj SUBQ SCH (21:08)
[2020-05-30] MEDS: Dyna-Hex 2% Top Sol 2oz TOPIC SCH (21:09)
[2020-05-30] MEDS ORDERED: Vancomycin 750mg/NS 275ml IVPB SCH ×2 (22:00)
[2020-05-31] VITALS (35 sets, daily range): BP systolic 111–162; BP diastolic 55–80
--- NOTE | 2020-05-31 | NUR ---
NURSE NOTES: dopa drip at 7 mcg/hr
[2020-05-31] MEDS: Piperacillin/Tazobactam 3.375 GM in NS 110 ML IVPB SCH ×4 (00:09→23:28)
--- NOTE | 2020-05-31 04:00 | NUR ---
NURSE NOTES: complete bed bath
[2020-05-31 06:29] LABS: HEMATOCRIT 36.1 % (37.0-47.0); HEMOGLOBIN 12.1 G/DL (12.0-16.0); MEAN CORPUSCULAR VOLUME 98 FL (80-99); PLATELET COUNT 124 K/UL (150-450); RED BLOOD COUNT 3.69 M/UL (4.20-5.40); RED CELL DISTRIBUTION WIDTH 12.3 % (11.6-14.8); WHITE BLOOD COUNT 14.9 K/UL (4.8-10.8)
[2020-05-31 07:19] LABS: ANION GAP 6 mmol/L (5-15); BLOOD UREA NITROGEN 30 mg/dL (7-18); CALCIUM 8.2 MG/DL (8.5-10.1); CARBON DIOXIDE 28 MMOL/L (21-32); CHLORIDE 113 MMOL/L (98-107); CREATININE 0.6 MG/DL (0.55-1.30); POTASSIUM 3.8 MMOL/L (3.5-5.1); SODIUM 147 MMOL/L (136-145)
--- NOTE | 2020-05-31 07:41 | NUR ---
NURSE HAND-OFF REPORT: Latest Vital Signs: Temperature 99.2 , Pulse 64 , B/P 127 /65 , Respiratory Rate 17 , O2 SAT 90 , Mechanical Ventilator, O2 Flow Rate . Vital Sign Comment: EKG Rhythm: Sinus Rhythm Rhythm change?: N MD Notified?: N - MD Response: Latest [place] Fall Score: 50 Fall Risk: High Risk Safety Measures: Call light Within Reach, Bed Alarm Zone 1, Side Rails Side Rails x2, Bed position Low and Locked. Fall Precautions: Yellow Socks Yellow Gown Door Sign Patient Fall Education Report given to tex [email or web address]
--- NOTE | 2020-05-31 07:42 | NUR ---
NURSE NOTES: Received bedside report from DAVID Martin. Pt on sedation but opens eyes spontaneously, eye tracking noted. HR 70-80s, SR on the pvc monitor. Pt's repirations even and unlabored, intubated, ETT 7.5 at 22cm lip line with the following vent settings: A/C rate 20, T/V 450, Peep 5, FiO2 40%, O2 sat 88-92%. Pt has OGT with Vital AF 1.2 running at 50cc/hr, no residual noted. Pt has salas catheter, draining well, clear yellow urine noted. Skin intact. Pt has 3 peripheral IVs noted in chart, no signs of complications or bleeding noted. Fentanyl running at 50mcg/hr via right FA, no signs of complications noted from site. Pt has bilateral soft wrist restraints, no signs of injury noted from extremities. HOB at 30 degrees. Bed rails up, bed locked and in lowest position. Safety precautions maintained. Will continue to monitor.
--- NOTE | 2020-05-31 09:00 | NUR ---
NURSE NOTES: Tube feeding placement checked, tip of tube in proper placement, no residual noted. Scheduled lovenox not given due to pt's platelets 124, MD aware. Other scheduled medications given per MD order, pt tolerated well. Will continue to monitor.
--- NOTE | 2020-05-31 09:10 | Diagnostic Imaging Report ---
Indication: Shortness of breath Technique: One view of the chest Comparison: none Findings: Stable satisfactory positions of endotracheal and orogastric tubes. Bilateral infiltrates appear slightly increased on the right, stable on the left. The heart size is normal. Impression: Slightly increased infiltrates on the right. Stable infiltrates on the left.
--- NOTE | 2020-05-31 09:11 | Diagnostic Imaging Report ---
Indication: Post nasogastric tube Technique: Supine view of the abdomen Comparison: none Findings: There is a nasogastric tube in place, tip projected at the level of the gastric antrum. Bowel gas pattern is unremarkable. Bilateral pulmonary parenchymal infiltrates are noted at the visualized lung bases. Impression: Satisfactory nasogastric tube placement.
--- NOTE | 2020-05-31 09:20 | Pulmonolgy Critical Care Note ---
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 05/31/20 0920: Critical Care - Asmt/Plan Assessment/Plan: ASSESSMENT Acute hypoxemic resp failure due to COVID PNA, requiring intubation 05/27 COVID 19 PNA Thrombocytopenia-resolved Abnormal ECG Headache Pulmonary HTN PLAN OF CARE ICU isolation Date of sx onset: few days prior to presentation to ED on 05/23 Positive test: OSF 05/22 - 1 days prior to admission O2 -> intubated 05/27 HFA if unable to do HHN via line s/p REM x 5 days ( 05/23-05/27 ) Dex Day# 9 ( 05/23 - ) D dimer initial 0.48 - > 19.61-> 7.23 DVT PPX: Lovenox Venous Duplex BLE Trend CRP 3.6 -> 19.7-> 76.4 Abx per ID recs prone position as tolerated vent support, pulm toilet fup with ABG and CXR, titrate FiO2 and PEEP to keep sat > 92% monitor volumes and renal function fup with consultants recs FC Discuss GOC monitor PLT counts-normalized cardio eval -appreciated ECHO with pEF 65%, no WMA, mild to moderate MR, moderate pulmonary hypertension case discussed and evaluated by supervising physician Critical Care - Objective Last 24 Hour Vital Signs Date Time Temp Pulse Resp B/P (MAP) Pulse Ox O2 Delivery O2 Flow Rate FiO2 05/31/20 07:11 17 127/65 Mechanical Ventilator 40 05/31/20 07:00 64 15 125/63 (83) 90 05/31/20 06:11 16 125/60 Mechanical Ventilator 40 05/31/20 06:00 66 14 124/59 (80) 91 05/31/20 05:30 65 20 127/61 (83) 90 05/31/20 05:11 17 126/61 Mechanical Ventilator 40 05/31/20 05:00 69 15 124/61 (82) 90 05/31/20 04:30 70 16 126/61 (82) 93 05/31/20 04:11 19 126/61 Mechanical Ventilator 40 05/31/20 04:00 40 05/31/20 04:00 99.2 68 19 129/69 (89) 90 05/31/20 04:00 Mechanical Ventilator 05/31/20 04:00 84 05/31/20 03:30 73 19 125/61 (82) 90 05/31/20 03:14 69 20 40 05/31/20 03:11 19 121/65 Mechanical Ventilator 40 05/31/20 03:00 62 15 111/55 (73) 87 05/31/20 02:30 68 18 116/56 (76) 86 05/31/20 02:11 19 131/64 Mechanical Ventilator 40 05/31/20 02:00 71 20 122/61 (81) 86 05/31/20 01:30 71 19 131/64 (86) 90 05/31/20 01:11 19 130/62 Mechanical Ventilator 40 05/31/20 01:00 66 16 130/62 (84) 89 05/31/20 00:30 78 20 140/67 (91) 88 05/31/20 00:11 20 140/67 Mechanical Ventilator 40 05/31/20 00:00 40 05/31/20 00:00 78 05/31/20 00:00 Mechanical Ventilator 05/31/20 00:00 99.0 65 10 126/60 (82) 89 05/30/20 23:30 64 19 123/61 (81) 89 05/30/20 23:16 80 22 40 05/30/20 23:11 10 126/60 40 05/30/20 23:00 76 3 115/56 (75) 85 05/30/20 22:30 86 2 114/58 (76) 86 05/30/20 22:11 10 114/47 Mechanical Ventilator 40 05/30/20 22:00 71 5 123/61 (81) 89 05/30/20 21:41 16 123/61 Mechanical Ventilator 40 05/30/20 21:41 10 127/67 Mechanical Ventilator 40 05/30/20 21:30 67 7 127/67 (87) 90 05/30/20 21:11 10 127/67 Mechanical Ventilator 40 05/30/20 21:00 76 4 118/58 (78) 91 05/30/20 20:30 75 6 116/60 (78) 91 05/30/20 20:11 10 115/60 40 05/30/20 20:11 6 116/60 Mechanical Ventilator 40 05/30/20 20:00 98.4 81 1 120/62 (81) 91 05/30/20 20:00 67 05/30/20 20:00 40 05/30/20 20:00 Mechanical Ventilator 05/30/20 19:30 67 18 126/61 (82) 89 05/30/20 19:11 29 136/66 Mechanical Ventilator 40 05/30/20 19:07 67 25 40 05/30/20 19:00 65 19 136/66 (89) 87 05/30/20 18:30 78 20 134/69 (90) 91 05/30/20 18:11 23 153/92 Mechanical Ventilator 40 05/30/20 18:00 105 23 153/92 (112) 86 05/30/20 17:30 66 17 142/68 (92) 95 05/30/20 17:11 20 139/68 Mechanical Ventilator 40 05/30/20 17:00 60 13 139/68 (91) 90 05/30/20 16:30 69 20 140/68 (92) 94 05/30/20 16:11 20 139/70 Mechanical Ventilator 40 05/30/20 16:00 Mechanical Ventilator 05/30/20 16:00 98.6 64 10 139/70 (93) 91 05/30/20 16:00 67 05/30/20 16:00 40 05/30/20 15:30 70 18 137/70 (92) 91 05/30/20 15:11 20 137/63 Mechanical Ventilator 40 05/30/20 15:00 67 20 137/63 (87) 92 05/30/20 14:30 91 21 154/70 (98) 100 05/30/20 14:11 20 133/60 Mechanical Ventilator 40 05/30/20 14:00 76 19 133/60 (84) 91 05/30/20 13:30 71 20 126/58 (80) 92 05/30/20 13:11 20 130/56 Mechanical Ventilator 40 05/30/20 13:00 68 18 130/56 (80) 90 05/30/20 12:43 67 20 40 05/30/20 12:30 68 17 133/57 (82) 90 05/30/20 12:11 20 133/57 Mechanical Ventilator 40 05/30/20 12:00 Mechanical Ventilator 05/30/20 12:00 71 05/30/20 12:00 99.0 67 20 129/56 (80) 91 05/30/20 11:30 68 20 132/60 (84) 94 05/30/20 11:11 20 132/60 Mechanical Ventilator 40 05/30/20 11:00 72 15 138/65 (89) 90 05/30/20 11:00 76 23 40 05/30/20 11:00 40 05/30/20 10:30 66 20 123/60 (81) 90 05/30/20 10:11 20 123/60 Mechanical Ventilator 40 05/30/20 10:00 62 20 40 05/30/20 10:00 40 05/30/20 10:00 62 17 124/57 (79) 94 05/30/20 09:30 66 20 134/68 (90) 97 Objective: General: intubated, sedated on vent AC 450-40-20 PEEP 5 HEENT: atraumatic, normocephalic, in Neck: OP with ET in place , intact; feeding tube in place Lungs: clear but diminished Heart: HR/BP stable Abdomen: soft, non-tender, active bowel sounds Extremities: no C/C/E Micro: Microbiology Date/Time Source Procedure Growth Status 05/30/20 12:00 Nasopharynx SARS-CoV-2 RdRp Gene Assay - Final Complete 05/29/20 22:30 Blood Blood Culture - Preliminary NO GROWTH AFTER 24 HOURS Resulted 05/29/20 22:15 Blood Blood Culture - Preliminary NO GROWTH AFTER 24 HOURS Resulted 05/28/20 12:00 Sputum Gram Stain - Final Complete 05/28/20 12:00 Sputum Sputum Culture - Final NORMAL UPPER RESPIRATORY ISELA PRESENT Complete Critical Care - Subjective ROS Limited/Unobtainable: Yes Interval Events: intubated no resp distress sedated, but down titrated down Condition: critical IV Access: peripheral EKG Rhythm: Sinus Rhythm FI02: 40 Vent Support Breath Rate: 20 Vent Support Mode: AC Vent Tidal Volume: 450 Sputum Amount: Small PEEP: 5.0 PIP: 30 Tube Feeding Amount: 50 I&O: Intake and Output 05/30/20 05/31/20 19:00 07:00 Intake Total 665.0 ml 1050.833 ml Output Total 1160 ml 1105 ml Balance -495.0 ml -54.167 ml Free Water 50 ml 70 ml IV Total 225.0 ml 380.833 ml Tube Feeding 390 ml 600 ml Output Urine Total 1160 ml 1105 ml # Bowel Movements 1 CXR: CXR 05/31 Slightly increased infiltrates on the right. Stable infiltrates on the left. ET-Tube: 7.5 ET Position: 22 Beka Mcdaniels MD 05/31/20 1215: Critical Care - Asmt/Plan Time Spent (Minutes): 40 Critical Care - Subjective Condition: critical Ivonne Andrade NP May 31, 2020 09:20 Beka Mcdaniels MD May 31, 2020 12:15
[2020-05-31] MEDS: Docusate 100mg/10ml Liq GT SCH ×2 (09:40→20:38)
[2020-05-31] MEDS: Enoxaparin 40mg Inj SUBQ SCH ×2 (09:41→20:38)
--- NOTE | 2020-05-31 09:45 | NUR ---
RESPIRATORY NOTE: Walked into PT's room with the intention to wean per carton waxing machine operator orders to place PT on SBT as long as she was on PEEP +5 and maintaining an SpO2 OF 90%. Found PT desaturating with an SpO2 of 83% on 40% FiO2. FiO2 was increased to 50% and PT is now maintaining an SpO2 of 90%. Pt is agitated at this time. Will try to titrate FiO2 to do SBT later today, Will continue to monitor.
--- NOTE | 2020-05-31 10:15 | NUR ---
NURSE NOTES: Informed by RT that pt's FiO2 increased to 50% due to pt's O2 sat was 83-85%. Pt's current O2 sat 90%. Safety precautions maintained. Will continue to monitor.
--- NOTE | 2020-05-31 11:41 | Cardiac Electrophysiology PN ---
Assessment/Plan Assessment/Plan 1. COVID pneumonia. Ruled out for DE EKG in view of inferolateral ST depression Echo EF 65% Her BNP was only 342. Intubated on 40% Fio2 and PEEP 5 On dexamethasone, ceftriaxone, and azithromycin. SBT trial today 2. Sinus nnamdi off any TAVARES affecting agent. Likely due to Covid 3. S/P septic shock. 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 Off pressors in Covid isolation. On Abx. On Fentanyl drip Objective Last 24 Hour Vital Signs Date Time Temp Pulse Resp B/P (MAP) Pulse Ox O2 Delivery O2 Flow Rate FiO2 05/31/20 11:10 73 22 50 05/31/20 11:00 80 26 136/73 (94) 87 05/31/20 10:41 21 136/73 Mechanical Ventilator 50 05/31/20 10:30 69 26 130/61 (84) 90 05/31/20 10:26 23 130/61 Mechanical Ventilator 50 05/31/20 10:11 23 127/65 Mechanical Ventilator 40 05/31/20 10:00 82 23 127/65 (85) 94 05/31/20 09:45 82 26 50 05/31/20 09:30 75 22 162/69 (100) 85 05/31/20 09:11 22 124/61 Mechanical Ventilator 40 05/31/20 09:00 72 22 124/61 (82) 85 05/31/20 08:30 77 22 120/60 (80) 90 05/31/20 08:11 22 141/65 Mechanical Ventilator 40 05/31/20 08:00 Mechanical Ventilator 05/31/20 08:00 40 05/31/20 08:00 80 19 141/65 (90) 91 05/31/20 08:00 80 05/31/20 07:30 74 18 157/77 (103) 90 05/31/20 07:14 71 20 40 05/31/20 07:11 17 127/65 Mechanical Ventilator 40 05/31/20 07:00 64 15 125/63 (83) 90 05/31/20 06:11 16 125/60 Mechanical Ventilator 40 05/31/20 06:00 66 14 124/59 (80) 91 05/31/20 05:30 65 20 127/61 (83) 90 05/31/20 05:11 17 126/61 Mechanical Ventilator 40 05/31/20 05:00 69 15 124/61 (82) 90 05/31/20 04:30 70 16 126/61 (82) 93 05/31/20 04:11 19 126/61 Mechanical Ventilator 40 05/31/20 04:00 40 05/31/20 04:00 99.2 68 19 129/69 (89) 90 05/31/20 04:00 Mechanical Ventilator 05/31/20 04:00 84 05/31/20 03:30 73 19 125/61 (82) 90 05/31/20 03:14 69 20 40 05/31/20 03:11 19 121/65 Mechanical Ventilator 40 05/31/20 03:00 62 15 111/55 (73) 87 05/31/20 02:30 68 18 116/56 (76) 86 05/31/20 02:11 19 131/64 Mechanical Ventilator 40 05/31/20 02:00 71 20 122/61 (81) 86 05/31/20 01:30 71 19 131/64 (86) 90 05/31/20 01:11 19 130/62 Mechanical Ventilator 40 05/31/20 01:00 66 16 130/62 (84) 89 05/31/20 00:30 78 20 140/67 (91) 88 05/31/20 00:11 20 140/67 Mechanical Ventilator 40 05/31/20 00:00 40 05/31/20 00:00 78 05/31/20 00:00 Mechanical Ventilator 05/31/20 00:00 99.0 65 10 126/60 (82) 89 05/30/20 23:30 64 19 123/61 (81) 89 05/30/20 23:16 80 22 40 05/30/20 23:11 10 126/60 40 05/30/20 23:00 76 3 115/56 (75) 85 05/30/20 22:30 86 2 114/58 (76) 86 05/30/20 22:11 10 114/47 Mechanical Ventilator 40 05/30/20 22:00 71 5 123/61 (81) 89 05/30/20 21:41 16 123/61 Mechanical Ventilator 40 05/30/20 21:41 10 127/67 Mechanical Ventilator 40 05/30/20 21:30 67 7 127/67 (87) 90 05/30/20 21:11 10 127/67 Mechanical Ventilator 40 05/30/20 21:00 76 4 118/58 (78) 91 05/30/20 20:30 75 6 116/60 (78) 91 05/30/20 20:11 10 115/60 40 05/30/20 20:11 6 116/60 Mechanical Ventilator 40 05/30/20 20:00 98.4 81 1 120/62 (81) 91 05/30/20 20:00 67 05/30/20 20:00 40 05/30/20 20:00 Mechanical Ventilator 05/30/20 19:30 67 18 126/61 (82) 89 05/30/20 19:11 29 136/66 Mechanical Ventilator 40 05/30/20 19:07 67 25 40 05/30/20 19:00 65 19 136/66 (89) 87 05/30/20 18:30 78 20 134/69 (90) 91 05/30/20 18:11 23 153/92 Mechanical Ventilator 40 05/30/20 18:00 105 23 153/92 (112) 86 05/30/20 17:30 66 17 142/68 (92) 95 05/30/20 17:11 20 139/68 Mechanical Ventilator 40 05/30/20 17:00 60 13 139/68 (91) 90 05/30/20 16:30 69 20 140/68 (92) 94 05/30/20 16:11 20 139/70 Mechanical Ventilator 40 05/30/20 16:00 Mechanical Ventilator 05/30/20 16:00 98.6 64 10 139/70 (93) 91 05/30/20 16:00 67 05/30/20 16:00 40 05/30/20 15:30 70 18 137/70 (92) 91 05/30/20 15:11 20 137/63 Mechanical Ventilator 40 05/30/20 15:00 67 20 137/63 (87) 92 05/30/20 14:30 91 21 154/70 (98) 100 05/30/20 14:11 20 133/60 Mechanical Ventilator 40 05/30/20 14:00 76 19 133/60 (84) 91 05/30/20 13:30 71 20 126/58 (80) 92 05/30/20 13:11 20 130/56 Mechanical Ventilator 40 05/30/20 13:00 68 18 130/56 (80) 90 05/30/20 12:43 67 20 40 05/30/20 12:30 68 17 133/57 (82) 90 05/30/20 12:11 20 133/57 Mechanical Ventilator 40 05/30/20 12:00 Mechanical Ventilator 05/30/20 12:00 71 05/30/20 12:00 99.0 67 20 129/56 (80) 91 Intake and Output 05/30/20 05/31/20 19:00 07:00 Intake Total 665.0 ml 1050.833 ml Output Total 1160 ml 1105 ml Balance -495.0 ml -54.167 ml Free Water 50 ml 70 ml IV Total 225.0 ml 380.833 ml Tube Feeding 390 ml 600 ml Output Urine Total 1160 ml 1105 ml # Bowel Movements 1 Laboratory Tests Test 05/31/20 04:30 White Blood Count 14.9 K/UL (4.8-10.8) H Red Blood Count 3.69 M/UL (4.20-5.40) L Hemoglobin 12.1 G/DL (12.0-16.0) Hematocrit 36.1 % (37.0-47.0) L Mean Corpuscular Volume 98 FL (80-99) Mean Corpuscular Hemoglobin 32.7 PG (27.0-31.0) H Mean Corpuscular Hemoglobin Concent 33.5 G/DL (32.0-36.0) Red Cell Distribution Width 12.3 % (11.6-14.8) Platelet Count 124 K/UL (150-450) L Mean Platelet Volume 7.0 FL (6.5-10.1) Neutrophils (%) (Auto) % (45.0-75.0) Lymphocytes (%) (Auto) % (20.0-45.0) Monocytes (%) (Auto) % (1.0-10.0) Eosinophils (%) (Auto) % (0.0-3.0) Basophils (%) (Auto) % (0.0-2.0) Differential Total Cells Counted 100 Neutrophils % (Manual) 91 % (45-75) H Lymphocytes % (Manual) 6 % (20-45) L Monocytes % (Manual) 3 % (1-10) Eosinophils % (Manual) 0 % (0-3) Basophils % (Manual) 0 % (0-2) Band Neutrophils 0 % (0-8) Platelet Estimate Decreased L Platelet Morphology Normal Macrocytosis 1+ Sodium Level 147 MMOL/L (136-145) H Potassium Level 3.8 MMOL/L (3.5-5.1) Chloride Level 113 MMOL/L (98-107) H Carbon Dioxide Level 28 MMOL/L (21-32) Anion Gap 6 mmol/L (5-15) Blood Urea Nitrogen 30 mg/dL (7-18) H Creatinine 0.6 MG/DL (0.55-1.30) Estimat Glomerular Filtration Rate > 60 mL/min (>60) Glucose Level 232 MG/DL (74-106) H Calcium Level 8.2 MG/DL (8.5-10.1) L Interleukin 6 (IL-6) Pending Microbiology Date/Time Source Procedure Growth Status 05/30/20 12:00 Nasopharynx SARS-CoV-2 RdRp Gene Assay - Final Complete 05/29/20 22:30 Blood Blood Culture - Preliminary NO GROWTH AFTER 24 HOURS Resulted 05/29/20 22:15 Blood Blood Culture - Preliminary NO GROWTH AFTER 24 HOURS Resulted 05/28/20 12:00 Sputum Gram Stain - Final Complete 05/28/20 12:00 Sputum Sputum Culture - Final NORMAL UPPER RESPIRATORY ISELA PRESENT Complete Objective HEAD AND NECK: No JVD. Orally intubated LUNGS: Coarse rhonchi. CARDIOVASCULAR: Regular S1 and S2 with no gallop. Bradycardic. ABDOMEN: Soft. EXTREMITIES: No pitting edema. Jordi Albarado MD May 31, 2020 11:41
--- NOTE | 2020-05-31 12:05 | NUR ---
NURSE NOTES: MD Mcdaniels at bedside. Gave current ABG results to MD Mcdaniels, received order to titrate FiO2 to keep pt's O2 sat above 92%. RT made aware. Pt's FiO2 increased by RT to 70%, pt's current O2 sat now is 95%. Will continue to monitor pt.
--- NOTE | 2020-05-31 12:30 | NUR ---
RESEARCH ENGINEER NOTE Pt is currently intubated. SW spoke w/ pt's son, Otf Dickson [phone] and obtained information. PT resides w/ her at [address] [facility], [place] [address]. Otf Dickson is the only child living in [facility]. Per Otf, other siblings are residing in [facility]. Pt is ambulatory w/o DME and independent w/ ADLs and IADLs. Pt does not have a caregiver. Pt does not have hx of substance abuse/mental illness. Pt does not have AD/POA. Pt confirmed he is the primary contact center agent. He will discuss w/ his father/pt's when it comes to decision making. Other emergency contact: Tanika Snell (granddaughter) [phone]
--- NOTE | 2020-05-31 12:45 | NUR ---
RADIOLOGY DEPT., CHEST AND ABDOMEN (N-GT POSITION) X-RAYS COMPLETED.-P.DYE
--- NOTE | 2020-05-31 13:24 | NUR ---
Civil DrafterRenal Dialysis Technician SI: Respiratory Failure, COVID PNA, ETT/Vent dependent T-100.1 (Ax), HR 71, RR 23, BP 116/59. WBC 14 AC 20, TV 450, PEEP 6.0, FiO2 40% O2 sat 92% Slightly increased infiltrates on the right. Stable infiltrates on the left IS: Vancomycin IV Dopamine IV Lovenox SQ BID Norepinephrine IV protocol Zosyn IV TID Dexamthasone IVP QD ICU Status
--- NOTE | 2020-05-31 13:51 | Diagnostic Imaging Report ---
Indication: Bilateral lower extremity edema. Shortness of breath Technique: Grayscale and duplex images of the bilateral lower extremity veins Comparison: none Findings: Bilaterally, grayscale and duplex images demonstrate no evidence of intraluminal thrombus. Normal phasic Doppler waveforms, demonstrating normal augmentation response and no evidence of valvular insufficiency. Greater saphenous vein(s) and tibial veins are patent. Normal compressibility. Impression: Negative for evidence of lower extremity deep venous thrombosis bilaterally
--- NOTE | 2020-05-31 14:45 | NUR ---
NURSE NOTES: Pt's VSS, no signs of distress noted. Chest rise and fall visibly noted, Safety precautions maintained. Will continue to monitor.
--- NOTE | 2020-05-31 15:03 | Infectious Diseases Prog Note ---
Assessment/Plan Assessment/Plan ASSESSMENT AND PLAN: 1. covid-19 infection with pna, hypoxia, ? CAP, fevers, sepsis, leukocytosis respiratory failure, on vent - dexamethasone and remdesivir - zosyn, discontinue vancomycin - monitor labs and chest x-ray - f/u on cultures 2. No other significant past medical history. 3. Rule out [place] per Cardiology. 4. No known allergies. 5. Social history is negative. 6. Family history is noncontributory. 7. MAR is noted. 8. Case was discussed with RN. 9. Continue treatment per primary consultants. 10. Orders were noted and entered. Subjective Constitutional: Reports: fever, other - on vent, no pressors HEENT: Reports: congestion Respiratory: Reports: shortness of breath Cardiovascular: Reports: other - no pressors Gastrointestinal/Abdominal: Denies: nausea, vomiting, diarrhea Genitourinary: Reports: other - + salas Neurologic: Reports: weakness, other - Alert, on vent Psychiatric: Reports: other - NA Skin: Denies: rash Hematologic: Denies: bleeding Musculoskeletal: Denies: pain Allergies: Coded Allergies: No Known Allergies (Unverified , 04/02/12) Objective Last 24 Hour Vital Signs Date Time Temp Pulse Resp B/P (MAP) Pulse Ox O2 Delivery O2 Flow Rate FiO2 05/31/20 14:48 21 144/73 Mechanical Ventilator 70 05/31/20 14:00 80 19 132/72 (92) 99 05/31/20 13:00 73 19 138/72 (94) 98 05/31/20 12:30 78 18 142/77 (98) 99 05/31/20 12:05 70 05/31/20 12:00 Mechanical Ventilator 05/31/20 12:00 100.1 73 23 146/73 (97) 92 05/31/20 12:00 71 05/31/20 12:00 40 05/31/20 11:10 73 22 50 05/31/20 11:00 80 26 136/73 (94) 87 05/31/20 10:41 21 136/73 Mechanical Ventilator 50 05/31/20 10:30 69 26 130/61 (84) 90 05/31/20 10:26 23 130/61 Mechanical Ventilator 50 05/31/20 10:15 50 05/31/20 10:11 23 127/65 Mechanical Ventilator 40 05/31/20 10:00 82 23 127/65 (85) 94 05/31/20 09:45 82 26 50 05/31/20 09:30 75 22 162/69 (100) 85 05/31/20 09:11 22 124/61 Mechanical Ventilator 40 05/31/20 09:00 72 22 124/61 (82) 85 05/31/20 08:30 77 22 120/60 (80) 90 05/31/20 08:11 22 141/65 Mechanical Ventilator 40 05/31/20 08:00 Mechanical Ventilator 05/31/20 08:00 40 05/31/20 08:00 80 19 141/65 (90) 91 05/31/20 08:00 100.0 05/31/20 08:00 80 05/31/20 07:30 74 18 157/77 (103) 90 05/31/20 07:14 71 20 40 05/31/20 07:11 17 127/65 Mechanical Ventilator 40 05/31/20 07:00 64 15 125/63 (83) 90 05/31/20 06:11 16 125/60 Mechanical Ventilator 40 05/31/20 06:00 66 14 124/59 (80) 91 05/31/20 05:30 65 20 127/61 (83) 90 05/31/20 05:11 17 126/61 Mechanical Ventilator 40 05/31/20 05:00 69 15 124/61 (82) 90 05/31/20 04:30 70 16 126/61 (82) 93 05/31/20 04:11 19 126/61 Mechanical Ventilator 40 05/31/20 04:00 40 05/31/20 04:00 99.2 68 19 129/69 (89) 90 05/31/20 04:00 Mechanical Ventilator 05/31/20 04:00 84 05/31/20 03:30 73 19 125/61 (82) 90 05/31/20 03:14 69 20 40 05/31/20 03:11 19 121/65 Mechanical Ventilator 40 05/31/20 03:00 62 15 111/55 (73) 87 05/31/20 02:30 68 18 116/56 (76) 86 05/31/20 02:11 19 131/64 Mechanical Ventilator 40 05/31/20 02:00 71 20 122/61 (81) 86 05/31/20 01:30 71 19 131/64 (86) 90 05/31/20 01:11 19 130/62 Mechanical Ventilator 40 05/31/20 01:00 66 16 130/62 (84) 89 05/31/20 00:30 78 20 140/67 (91) 88 05/31/20 00:11 20 140/67 Mechanical Ventilator 40 05/31/20 00:00 40 05/31/20 00:00 78 05/31/20 00:00 Mechanical Ventilator 05/31/20 00:00 99.0 65 10 126/60 (82) 89 05/30/20 23:30 64 19 123/61 (81) 89 05/30/20 23:16 80 22 40 05/30/20 23:11 10 126/60 40 05/30/20 23:00 76 3 115/56 (75) 85 05/30/20 22:30 86 2 114/58 (76) 86 05/30/20 22:11 10 114/47 Mechanical Ventilator 40 05/30/20 22:00 71 5 123/61 (81) 89 05/30/20 21:41 16 123/61 Mechanical Ventilator 40 05/30/20 21:41 10 127/67 Mechanical Ventilator 40 05/30/20 21:30 67 7 127/67 (87) 90 05/30/20 21:11 10 127/67 Mechanical Ventilator 40 05/30/20 21:00 76 4 118/58 (78) 91 05/30/20 20:30 75 6 116/60 (78) 91 05/30/20 20:11 10 115/60 40 05/30/20 20:11 6 116/60 Mechanical Ventilator 40 05/30/20 20:00 98.4 81 1 120/62 (81) 91 05/30/20 20:00 67 05/30/20 20:00 40 05/30/20 20:00 Mechanical Ventilator 05/30/20 19:30 67 18 126/61 (82) 89 05/30/20 19:11 29 136/66 Mechanical Ventilator 40 05/30/20 19:07 67 25 40 05/30/20 19:00 65 19 136/66 (89) 87 05/30/20 18:30 78 20 134/69 (90) 91 05/30/20 18:11 23 153/92 Mechanical Ventilator 40 05/30/20 18:00 105 23 153/92 (112) 86 05/30/20 17:30 66 17 142/68 (92) 95 05/30/20 17:11 20 139/68 Mechanical Ventilator 40 05/30/20 17:00 60 13 139/68 (91) 90 05/30/20 16:30 69 20 140/68 (92) 94 05/30/20 16:11 20 139/70 Mechanical Ventilator 40 05/30/20 16:00 Mechanical Ventilator 05/30/20 16:00 98.6 64 10 139/70 (93) 91 05/30/20 16:00 67 05/30/20 16:00 40 05/30/20 15:30 70 18 137/70 (92) 91 05/30/20 15:11 20 137/63 Mechanical Ventilator 40 05/30/20 15:00 67 20 137/63 (87) 92 Height (Feet): 5 Height (Inches): 1.00 Weight (Pounds): 130 General Appearance: other - on vent, no pressors HEENT: normocephalic, atraumatic, anicteric, other - oral - intubated Respiratory/Chest: crackles/rales, rhonchi - bilaterally Cardiovascular: normal rate, regular rhythm, no gallop/murmur, no JVD Abdomen: normal bowel sounds, soft, non tender, no organomegaly, non distended Genitourinary: other - + salas Extremities: no cyanosis Skin: no rash 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 The heart is borderline enlarged. There is suggestion of small bilateral pleural effusions, not evident previously. Impression: Worsening bilateral infiltrates, right greater than left. Chest x-ray - 05/27/20: FINDINGS/IMPRESSION: Bilateral airspace consolidations, consistent with multifocal infiltrate. These are worsening when compared to just [employer] May 22, 2020. Follow-up chest radiograph recommended. Small bilateral pleural effusions, slightly worsening. No pneumothorax. Cardiomegaly. Calcified aorta. chest x-ray - 05/29/20 - FINDINGS/IMPRESSION: Enteric feeding tube terminates in the stomach. Endotracheal tube terminates 6.2 cm above the sho. EKG leads overlie the patient. Small pleural effusions, unchanged mild vascular condition, mildly improving. Superimposed patchy opacities, consistent with infiltrate. These are slightly improved when compared to previous study from May 27, 2020. Continue just ready to follow up recommended. Cardiomegaly. Calcified aorta. Chest x-ray - 05/31/20 - Procedure: XRAY Chest 1v Indication: Shortness of breath Technique: One view of the chest Comparison: none Findings: Stable satisfactory positions of endotracheal and orogastric tubes. Bilateral infiltrates appear slightly increased on the right, stable on the left. The heart size is normal. Impression: Slightly increased infiltrates on the right. Stable infiltrates on the left. Microbiology Date/Time Source Procedure Growth Status 05/30/20 12:00 Nasopharynx SARS-CoV-2 RdRp Gene Assay - Final Complete 05/29/20 22:30 Blood Blood Culture - Preliminary NO GROWTH AFTER 24 HOURS Resulted 05/29/20 22:15 Blood Blood Culture - Preliminary NO GROWTH AFTER 24 HOURS Resulted Laboratory Tests Test 05/31/20 04:30 05/31/20 11:35 05/31/20 14:45 White Blood Count 14.9 K/UL (4.8-10.8) H Red Blood Count 3.69 M/UL (4.20-5.40) L Hemoglobin 12.1 G/DL (12.0-16.0) Hematocrit 36.1 % (37.0-47.0) L Mean Corpuscular Volume 98 FL (80-99) Mean Corpuscular Hemoglobin 32.7 PG (27.0-31.0) H Mean Corpuscular Hemoglobin Concent 33.5 G/DL (32.0-36.0) Red Cell Distribution Width 12.3 % (11.6-14.8) Platelet Count 124 K/UL (150-450) L Mean Platelet Volume 7.0 FL (6.5-10.1) Neutrophils (%) (Auto) % (45.0-75.0) Lymphocytes (%) (Auto) % (20.0-45.0) Monocytes (%) (Auto) % (1.0-10.0) Eosinophils (%) (Auto) % (0.0-3.0) Basophils (%) (Auto) % (0.0-2.0) Differential Total Cells Counted 100 Neutrophils % (Manual) 91 % (45-75) H Lymphocytes % (Manual) 6 % (20-45) L Monocytes % (Manual) 3 % (1-10) Eosinophils % (Manual) 0 % (0-3) Basophils % (Manual) 0 % (0-2) Band Neutrophils 0 % (0-8) Platelet Estimate Decreased L Platelet Morphology Normal Macrocytosis 1+ Sodium Level 147 MMOL/L (136-145) H Potassium Level 3.8 MMOL/L (3.5-5.1) Chloride Level 113 MMOL/L (98-107) H Carbon Dioxide Level 28 MMOL/L (21-32) Anion Gap 6 mmol/L (5-15) Blood Urea Nitrogen 30 mg/dL (7-18) H Creatinine 0.6 MG/DL (0.55-1.30) Estimat Glomerular Filtration Rate > 60 mL/min (>60) Glucose Level 232 MG/DL (74-106) H Calcium Level 8.2 MG/DL (8.5-10.1) L Interleukin 6 (IL-6) Pending Arterial Blood pH 7.443 (7.350-7.450) 7.433 (7.350-7.450) Arterial Blood Partial Pressure CO2 46.3 mmHg (35.0-45.0) H 42.6 mmHg (35.0-45.0) Arterial Blood Partial Pressure O2 43.4 mmHg (75.0-100.0) 69.3 mmHg (75.0-100.0) L Arterial Blood HCO3 31.0 mmol/L (22.0-26.0) H 27.8 mmol/L (22.0-26.0) H Arterial Blood Oxygen Saturation 82.5 % (95-100) *L 94.1 % (95-100) L Arterial Blood Base Excess 6.0 (-2-2) H 3.2 (-2-2) H Darinel Test Positive Positive Current Medications Medications (Trade) Dose Ordered Sig/Elieser Route PRN Reason Start Time Stop Time Status Last Admin Dose Admin Acetaminophen (Tylenol) 650 mg Q4H PRN ORAL Temp >100.5 12/28/20 10:30 06/22/20 10:29 05/30/20 04:09 Acetaminophen (Tylenol) 650 mg Q4H PRN ORAL pain 05/24/20 11:30 06/23/20 11:29 05/27/20 04:35 Albuterol Sulfate (Proventil MDI) 2 puff Q4H PRN INH Shortness of Breath 05/23/20 10:30 08/21/20 10:29 05/27/20 01:09 Chlorhexidine Gluconate (Emma-Hex 2%) 1 applic QHS TOPIC 05/27/20 21:00 08/25/20 20:59 05/30/20 21:09 Dexamethasone Sodium Phosphate (Decadron 4mg/ml vial) 6 mg DAILY IVP 05/23/20 10:30 06/01/20 09:01 05/31/20 09:41 Dextrose (Dextrose 50%) 25 ml Q30M PRN IV Hypoglycemia 05/23/20 10:30 08/21/20 10:29 Dextrose (Dextrose 50%) 50 ml Q30M PRN IV Hypoglycemia 05/23/20 10:30 08/21/20 10:29 Docusate Sodium (Colace) 100 mg EVERY 12 HOURS GT 05/30/20 09:00 06/22/20 20:59 05/31/20 09:40 Dopamine HCl/ Dextrose 250 ml @ 2.211 mls/ hr Q24H PRN IV BRADYCARDIA 05/28/20 20:45 05/31/20 20:43 Enoxaparin Sodium (Lovenox) 40 mg Q12HR SUBQ 05/30/20 21:00 08/28/20 20:59 05/30/20 21:08 Famotidine (Pepcid) 40 mg DAILY ORAL 05/24/20 09:00 08/22/20 08:59 05/31/20 09:41 Fentanyl Citrate 1000 mcg/Sodium Chloride 100 ml @ 0 mls/hr Q24H PRN IV SEDATION 05/30/20 21:30 06/01/20 21:29 05/31/20 14:48 Guaifenesin/ Dextromethorphan (Robitussin DM Syrup) 10 ml Q4H PRN ORAL For Cough 05/24/20 08:00 08/22/20 07:59 05/27/20 04:35 Midazolam HCl (Versed 2mg/2ml vial) 1 mg EVERY 2 HOURS PRN IVP Agitation 05/27/20 19:15 06/03/20 19:14 05/29/20 20:09 Piperacillin Sod/ Tazobactam Sod 3.375 gm/Sodium Chloride 110 ml @ 27.5 mls/hr Q8H IVPB 05/28/20 00:00 06/04/20 00:00 05/31/20 09:40 Vancomycin HCl (Vanco pharmacy to dose) 1 ea DAILY PRN MISC Per rx protocol 05/29/20 22:15 06/28/20 22:14 Vancomycin HCl 750 mg/Sodium Chloride 275 ml @ 183.333 mls/hr Q24H IVPB 05/30/20 22:00 06/04/20 21:59 05/30/20 21:38 Afshan Muñoz MD May 31, 2020 15:03
--- NOTE | 2020-05-31 15:15 | Surgery Progress Note ---
Surgery Progress Note Subjective Additional Comments awake alert no n/v on ett vent support weaning labs noted Objective Last 24 Hour Vital Signs Date Time Temp Pulse Resp B/P (MAP) Pulse Ox O2 Delivery O2 Flow Rate FiO2 05/31/20 14:48 21 144/73 Mechanical Ventilator 70 05/31/20 14:00 80 19 132/72 (92) 99 05/31/20 13:00 73 19 138/72 (94) 98 05/31/20 12:30 78 18 142/77 (98) 99 05/31/20 12:05 70 05/31/20 12:00 Mechanical Ventilator 05/31/20 12:00 100.1 73 23 146/73 (97) 92 05/31/20 12:00 71 05/31/20 12:00 40 05/31/20 11:10 73 22 50 05/31/20 11:00 80 26 136/73 (94) 87 05/31/20 10:41 21 136/73 Mechanical Ventilator 50 05/31/20 10:30 69 26 130/61 (84) 90 05/31/20 10:26 23 130/61 Mechanical Ventilator 50 05/31/20 10:15 50 05/31/20 10:11 23 127/65 Mechanical Ventilator 40 05/31/20 10:00 82 23 127/65 (85) 94 05/31/20 09:45 82 26 50 05/31/20 09:30 75 22 162/69 (100) 85 05/31/20 09:11 22 124/61 Mechanical Ventilator 40 05/31/20 09:00 72 22 124/61 (82) 85 05/31/20 08:30 77 22 120/60 (80) 90 05/31/20 08:11 22 141/65 Mechanical Ventilator 40 05/31/20 08:00 Mechanical Ventilator 05/31/20 08:00 40 05/31/20 08:00 80 19 141/65 (90) 91 05/31/20 08:00 100.0 05/31/20 08:00 80 05/31/20 07:30 74 18 157/77 (103) 90 05/31/20 07:14 71 20 40 05/31/20 07:11 17 127/65 Mechanical Ventilator 40 05/31/20 07:00 64 15 125/63 (83) 90 05/31/20 06:11 16 125/60 Mechanical Ventilator 40 05/31/20 06:00 66 14 124/59 (80) 91 05/31/20 05:30 65 20 127/61 (83) 90 05/31/20 05:11 17 126/61 Mechanical Ventilator 40 05/31/20 05:00 69 15 124/61 (82) 90 05/31/20 04:30 70 16 126/61 (82) 93 05/31/20 04:11 19 126/61 Mechanical Ventilator 40 05/31/20 04:00 40 05/31/20 04:00 99.2 68 19 129/69 (89) 90 05/31/20 04:00 Mechanical Ventilator 05/31/20 04:00 84 05/31/20 03:30 73 19 125/61 (82) 90 05/31/20 03:14 69 20 40 05/31/20 03:11 19 121/65 Mechanical Ventilator 40 05/31/20 03:00 62 15 111/55 (73) 87 05/31/20 02:30 68 18 116/56 (76) 86 05/31/20 02:11 19 131/64 Mechanical Ventilator 40 05/31/20 02:00 71 20 122/61 (81) 86 05/31/20 01:30 71 19 131/64 (86) 90 05/31/20 01:11 19 130/62 Mechanical Ventilator 40 05/31/20 01:00 66 16 130/62 (84) 89 05/31/20 00:30 78 20 140/67 (91) 88 05/31/20 00:11 20 140/67 Mechanical Ventilator 40 05/31/20 00:00 40 05/31/20 00:00 78 05/31/20 00:00 Mechanical Ventilator 05/31/20 00:00 99.0 65 10 126/60 (82) 89 05/30/20 23:30 64 19 123/61 (81) 89 05/30/20 23:16 80 22 40 05/30/20 23:11 10 126/60 40 05/30/20 23:00 76 3 115/56 (75) 85 05/30/20 22:30 86 2 114/58 (76) 86 05/30/20 22:11 10 114/47 Mechanical Ventilator 40 05/30/20 22:00 71 5 123/61 (81) 89 05/30/20 21:41 16 123/61 Mechanical Ventilator 40 05/30/20 21:41 10 127/67 Mechanical Ventilator 40 05/30/20 21:30 67 7 127/67 (87) 90 05/30/20 21:11 10 127/67 Mechanical Ventilator 40 05/30/20 21:00 76 4 118/58 (78) 91 05/30/20 20:30 75 6 116/60 (78) 91 05/30/20 20:11 10 115/60 40 05/30/20 20:11 6 116/60 Mechanical Ventilator 40 05/30/20 20:00 98.4 81 1 120/62 (81) 91 05/30/20 20:00 67 05/30/20 20:00 40 05/30/20 20:00 Mechanical Ventilator 05/30/20 19:30 67 18 126/61 (82) 89 05/30/20 19:11 29 136/66 Mechanical Ventilator 40 05/30/20 19:07 67 25 40 05/30/20 19:00 65 19 136/66 (89) 87 05/30/20 18:30 78 20 134/69 (90) 91 05/30/20 18:11 23 153/92 Mechanical Ventilator 40 05/30/20 18:00 105 23 153/92 (112) 86 05/30/20 17:30 66 17 142/68 (92) 95 05/30/20 17:11 20 139/68 Mechanical Ventilator 40 05/30/20 17:00 60 13 139/68 (91) 90 05/30/20 16:30 69 20 140/68 (92) 94 05/30/20 16:11 20 139/70 Mechanical Ventilator 40 05/30/20 16:00 Mechanical Ventilator 05/30/20 16:00 98.6 64 10 139/70 (93) 91 05/30/20 16:00 67 05/30/20 16:00 40 05/30/20 15:30 70 18 137/70 (92) 91 I&O Intake and Output 05/30/20 05/31/20 19:00 07:00 Intake Total 665.0 ml 1050.833 ml Output Total 1160 ml 1105 ml Balance -495.0 ml -54.167 ml Free Water 50 ml 70 ml IV Total 225.0 ml 380.833 ml Tube Feeding 390 ml 600 ml Output Urine Total 1160 ml 1105 ml # Bowel Movements 1 Dressing: saturated Cardiovascular: RSR Respiratory: decreased breath sounds Abdomen: soft, non-tender, present bowel sounds, non-distended Extremities: no edema, no tenderness, no cyanosis, other Laboratory Tests Test 05/31/20 04:30 05/31/20 11:35 05/31/20 14:45 White Blood Count 14.9 K/UL (4.8-10.8) H Red Blood Count 3.69 M/UL (4.20-5.40) L Hemoglobin 12.1 G/DL (12.0-16.0) Hematocrit 36.1 % (37.0-47.0) L Mean Corpuscular Volume 98 FL (80-99) Mean Corpuscular Hemoglobin 32.7 PG (27.0-31.0) H Mean Corpuscular Hemoglobin Concent 33.5 G/DL (32.0-36.0) Red Cell Distribution Width 12.3 % (11.6-14.8) Platelet Count 124 K/UL (150-450) L Mean Platelet Volume 7.0 FL (6.5-10.1) Neutrophils (%) (Auto) % (45.0-75.0) Lymphocytes (%) (Auto) % (20.0-45.0) Monocytes (%) (Auto) % (1.0-10.0) Eosinophils (%) (Auto) % (0.0-3.0) Basophils (%) (Auto) % (0.0-2.0) Differential Total Cells Counted 100 Neutrophils % (Manual) 91 % (45-75) H Lymphocytes % (Manual) 6 % (20-45) L Monocytes % (Manual) 3 % (1-10) Eosinophils % (Manual) 0 % (0-3) Basophils % (Manual) 0 % (0-2) Band Neutrophils 0 % (0-8) Platelet Estimate Decreased L Platelet Morphology Normal Macrocytosis 1+ Sodium Level 147 MMOL/L (136-145) H Potassium Level 3.8 MMOL/L (3.5-5.1) Chloride Level 113 MMOL/L (98-107) H Carbon Dioxide Level 28 MMOL/L (21-32) Anion Gap 6 mmol/L (5-15) Blood Urea Nitrogen 30 mg/dL (7-18) H Creatinine 0.6 MG/DL (0.55-1.30) Estimat Glomerular Filtration Rate > 60 mL/min (>60) Glucose Level 232 MG/DL (74-106) H Calcium Level 8.2 MG/DL (8.5-10.1) L Interleukin 6 (IL-6) Pending Arterial Blood pH 7.443 (7.350-7.450) 7.433 (7.350-7.450) Arterial Blood Partial Pressure CO2 46.3 mmHg (35.0-45.0) H 42.6 mmHg (35.0-45.0) Arterial Blood Partial Pressure O2 43.4 mmHg (75.0-100.0) 69.3 mmHg (75.0-100.0) L Arterial Blood HCO3 31.0 mmol/L (22.0-26.0) H 27.8 mmol/L (22.0-26.0) H Arterial Blood Oxygen Saturation 82.5 % (95-100) *L 94.1 % (95-100) L Arterial Blood Base Excess 6.0 (-2-2) H 3.2 (-2-2) H Darinel Test Positive Positive Plan Problems: (1) Thrombocytopenia (2) Pneumonia (3) Hypoxia Assessment & Plan: 75F covid + hypoxic intubated on vent support acute hypotensive episode placed on pressors on peripheral line eval for central line done. patient weaning off pressors and only on 1mcg of levo currently bp improved sedation noted awake and alert now responsive on vent support but improving hold on central catheter placement cont for now low dose and wean off levo fluids noted trend labs if worsening will plan to place central catheter emilee thank you will follow with recs . DAILY ESTIMATED NEEDS: Needs based on Critical care, 56kg 22-28 kcals/kg 0158-7261 total kcals 1.2-2 g protein/kg 67-112 g total protein 25-30 mL/kg 8161-9692 total fluid mLs NUTRITION DIAGNOSIS: Swallowing difficulty R/T respiratory failure as evidenced by pt orally intubated on 05/27, OGT feeds ordered. CURRENT TF:Vital AF 1.2 @ 50ml/hr x 24 hrs ordered PO DIET RECOMMENDATIONS: [employer]OR [employer] eval post extubation ENTERAL NUTRITION RECOMMENDATIONS: Vital AF 1.2 @ 50ml/hr x 24 hrs to provide 1200ml, 1440kcal, 90g prot, 973ml free water * Initiate Vital AF 1.2 @ 20ml/hr x 6hrs * Advance 10ml q 4-6 hrs as tolerated to goal * HOB over 30 degrees/ H2o flush 180ml q 8 hrs ADDITIONAL RECOMMENDATIONS: * Calibrated bedscale wt * Monitor hemodyanmic stability: now off NE * Rec NISS w/ TF while on Decadron: elev FBGs * Monitor lytes, replete as needed (low phos 05/22, rec updated level) (4) Abnormal EKG (5) COVID-19 Assessment & Plan: ++ pulm and ID input appreciated Favio Corona May 31, 2020 15:14
--- NOTE | 2020-05-31 16:00 | NUR ---
NURSE NOTES: Pt's FiO2 decreased by RT to 60%, pt's current O2 sat now is 93%. Respirations even and unlabored. Pt's VSS, no signs of distress noted. Pt's temp 100.4, cooling measures provided. Will recheck temp.
--- NOTE | 2020-05-31 18:50 | NUR ---
NURSE NOTES: Pt's temp rechecked, 100.8, tylenol and cooling measures given, will recheck temp. FiO2 is now 50% per RT, pt's O2 sat between 93-95%, respirations even and unlabored. Pt's VSS, no signs of distress noted, will endorse pt to hourly shift RN.
--- NOTE | 2020-05-31 19:05 | NUR ---
NURSE HAND-OFF REPORT: Latest Vital Signs: Temperature 100.8 , Pulse 78 , B/P 140 /66 , Respiratory Rate 22 , O2 SAT 93 , Mechanical Ventilator, FiO2 50%. . Vital Sign Comment: EKG Rhythm: Sinus Rhythm Rhythm change?: N MD Notified?: N - MD Response: Latest Bustamante Fall Score: 50 Fall Risk: High Risk Safety Measures: Call light Within Reach, Bed Alarm Zone 1, Side Rails Side Rails x2, Bed position Low and Locked. Fall Precautions: Yellow Socks Yellow Gown Door Sign Patient Fall Education Report given to DAVID Martin for continuity of care. Pt stable. .
--- NOTE | 2020-05-31 20:07 | NUR ---
NURSE NOTES: received report from farida rn ft orally intubated -vent o2 sat 100 % suction with bloody sputum on dopa drip at 7mcg /min hd done no out put on casey soft restraint nan complaint cont monitor pt
[2020-05-31] MEDS: Dyna-Hex 2% Top Sol 2oz TOPIC SCH (20:38)
[2020-06-01] VITALS (44 sets, daily range): BP systolic 115–156; BP diastolic 50–80
--- NOTE | 2020-06-01 02:15 | Cardiology Report ---
APPROVED REPORT EKG Measurement Heart [id number] <Conclusion> Normal sinus rhythm Marked ST abnormality, possible lateral subendocardial injury vs artifact Abnormal ECG
--- NOTE | 2020-06-01 02:28 | Cardiology Report ---
APPROVED REPORT EKG Measurement Heart [id number] <Conclusion> Sinus bradycardia Nonspecific T wave abnormality Abnormal ECG
[2020-06-01 05:34] LABS: HEMATOCRIT 34.3 % (37.0-47.0); HEMOGLOBIN 11.7 G/DL (12.0-16.0); MEAN CORPUSCULAR VOLUME 98 FL (80-99); PLATELET COUNT 116 K/UL (150-450); RED BLOOD COUNT 3.52 M/UL (4.20-5.40); RED CELL DISTRIBUTION WIDTH 12.7 % (11.6-14.8); WHITE BLOOD COUNT 15.1 K/UL (4.8-10.8)
[2020-06-01 05:55] LABS: ALANINE AMINOTRANSFERASE 18 U/L (12-78); ALBUMIN/GLOBULIN RATIO 0.6 (1.0-2.7); ALKALINE PHOSPHATASE 67 U/L (46-116); ANION GAP 2 mmol/L (5-15); ASPARTATE AMINO TRANSFERASE 32 U/L (15-37); BILIRUBIN,TOTAL 0.7 MG/DL (0.2-1.0); BLOOD UREA NITROGEN 25 mg/dL (7-18); CARBON DIOXIDE 32 MMOL/L (21-32); CHLORIDE 113 MMOL/L (98-107); CREATININE 0.6 MG/DL (0.55-1.30); POTASSIUM 3.8 MMOL/L (3.5-5.1); SODIUM 147 MMOL/L (136-145)
--- NOTE | 2020-06-01 07:58 | NUR ---
NURSE NOTES: NURSE HAND-OFF REPORT: Latest Vital Signs: Temperature 99.0 , Pulse 67 , B/P 117 /63 , Respiratory Rate 20 , O2 SAT 94 , Mechanical Ventilator, O2 Flow Rate . Vital Sign Comment: EKG Rhythm: Sinus Rhythm Rhythm change?: N MD Notified?: N - MD Response: Latest Bustamante Fall Score: 50 Fall Risk: High Risk Safety Measures: Call light Within Reach, Bed Alarm Zone 1, Side Rails Side Rails x2, Bed position Low and Locked. Fall Precautions: Yellow Socks Yellow Gown Door Sign Patient Fall Education Report given jeramy cabrales using sbar using sbar .
--- NOTE | 2020-06-01 07:59 | NUR ---
NURSE NOTES: Report received from Gustavo Porras RN.Pt awake,eyes open but went back to sleep,noted no resp distress,orally intubated,ETT 7.5,lip line 22,AC20,TV550,Fio2 50%,Peep 5,no signs of pain or discomfort,SR on the monitor,with OGTF Vital AF1.2 at 50 ml/hr,in placed per auscultation,no residual noted,Santiago cath draining yellow urine,skin warm to touch with low grade fever 99.1AX.cold compress applied to forehead,PIV sites x3 LFA SL,RW,and RFA with Fentanyl drip [id number] /min infusing at 10 ml/hr,SR up x2 HOB elevated,bed lock in lowest position,will continue to monitor pt.
[2020-06-01] MEDS: Enoxaparin 40mg Inj SUBQ SCH ×2 (09:08→21:32)
[2020-06-01] MEDS: Docusate 100mg/10ml Liq GT SCH ×2 (09:08→21:31)
[2020-06-01] MEDS: Piperacillin/Tazobactam 3.375 GM in NS 110 ML IVPB SCH ×3 (09:12→23:42)
--- NOTE | 2020-06-01 10:00 | NUR ---
NURSE NOTES: Pt wakes up on and off,restless when awake,bilat wrist restraints in placed.
--- NOTE | 2020-06-01 11:00 | NUR ---
NURSE NOTES: PCR swab done by Angelique HERNANDEZ and sent to lab.
--- NOTE | 2020-06-01 11:49 | Pulmonolgy Critical Care Note ---
Critical Care - Asmt/Plan Assessment/Plan: ASSESSMENT Acute hypoxemic resp failure due to COVID PNA, requiring intubation 05/27 COVID 19 PNA Thrombocytopenia-resolved Abnormal ECG Headache Pulmonary HTN PLAN OF CARE ICU isolation Date of sx onset: few days prior to presentation to ED on 05/23 Positive test: OSF 05/22 - 1 days prior to admission , SARS COV-2 by PCR 05/30 NGT O2 -> intubated 05/27 , failed weaning 06/01 am HFA if unable to do HHN via line s/p REM x 5 days ( 05/23-05/27 ) Dex Day# 10 ( 05/23 - ) D dimer initial 0.48 - > 19.61-> 7.23 DVT PPX: Lovenox Venous Duplex BLE NGT Trend CRP 3.6 -> 19.7-> 76.4 -pending for this am Abx per ID recs BCX / NGTD, UCX / NGT prone position as tolerated vent support, pulm toilet fup with ABG and CXR, titrate FiO2 and PEEP to keep sat > 92% weaning protocol as tolerated failed this am monitor volumes and renal function fup with consultants recs FC Discuss GOC monitor PLT counts-now trendgin down again, consider decrease Lovenox to daily dose cardio eval -appreciated ECHO with pEF 65%, no WMA, mild to moderate MR, moderate pulmonary hypertension case discussed and evaluated by supervising physician Critical Care - Objective Last 24 Hour Vital Signs Date Time Temp Pulse Resp B/P (MAP) Pulse Ox O2 Delivery O2 Flow Rate FiO2 06/01/20 10:33 21 138/62 Mechanical Ventilator 06/01/20 10:00 73 19 134/62 (86) 89 06/01/20 09:33 20 134/66 Mechanical Ventilator 06/01/20 09:00 73 19 134/62 (86) 89 06/01/20 08:33 21 134/62 06/01/20 08:00 Mechanical Ventilator 06/01/20 08:00 65 06/01/20 08:00 99.1 73 19 136/61 (86) 95 06/01/20 07:57 75 22 45 45 06/01/20 07:33 19 136/61 Mechanical Ventilator 15.0 50 06/01/20 07:00 67 20 117/63 (81) 94 06/01/20 06:33 56 132/64 Mechanical Ventilator 50 06/01/20 06:00 63 20 115/57 (76) 92 06/01/20 05:42 60 06/01/20 05:33 17 124/56 Mechanical Ventilator 99 06/01/20 05:30 64 20 120/60 (80) 93 06/01/20 05:00 62 20 115/55 (75) 87 06/01/20 04:46 20 129/61 Mechanical Ventilator 60 06/01/20 04:33 20 123/60 Mechanical Ventilator 06/01/20 04:30 62 20 128/62 (84) 93 06/01/20 04:00 99.0 72 19 125/57 (79) 90 06/01/20 04:00 81 06/01/20 04:00 Mechanical Ventilator 06/01/20 04:00 60 06/01/20 03:38 68 28 50 06/01/20 03:33 16 125/62 Mechanical Ventilator 50 06/01/20 03:30 67 20 134/64 (87) 92 06/01/20 03:00 59 16 129/64 (85) 46 06/01/20 02:45 66 19 33 06/01/20 02:40 62 17 131/70 (90) 61 06/01/20 02:33 17 125/63 Mechanical Ventilator 60 06/01/20 02:30 70 9 126/63 (84) 58 06/01/20 02:20 70 8 125/63 (83) 49 06/01/20 02:18 21 136/72 Mechanical Ventilator 60 06/01/20 02:15 67 14 55 06/01/20 02:10 64 6 125/64 (84) 53 06/01/20 02:03 21 129/68 Mechanical Ventilator 60 06/01/20 02:00 66 17 135/64 (87) 95 06/01/20 01:50 66 19 136/72 (93) 94 06/01/20 01:48 24 145/78 Mechanical Ventilator 06/01/20 01:45 67 19 128/80 (96) 98 06/01/20 01:30 65 19 153/78 (103) 85 06/01/20 01:15 69 19 140/80 (100) 100 06/01/20 01:00 71 19 156/72 (100) 98 06/01/20 00:48 24 132/50 Mechanical Ventilator 60 06/01/20 00:45 65 18 124/64 (84) 100 06/01/20 00:30 63 19 137/67 (90) 100 06/01/20 00:15 65 19 156/80 (105) 100 06/01/20 00:00 60 06/01/20 00:00 67 06/01/20 00:00 100.0 62 19 139/66 (90) 100 06/01/20 00:00 Mechanical Ventilator 06/01/20 00:00 62 19 139/66 (90) 100 05/31/20 23:48 19 138/57 Mechanical Ventilator 60 05/31/20 23:18 65 22 50 05/31/20 23:00 71 19 121/59 (79) 98 05/31/20 22:48 20 127/66 Mechanical Ventilator 60 05/31/20 22:00 72 19 123/64 (83) 96 05/31/20 21:48 20 124/66 60 05/31/20 21:00 74 21 133/62 (85) 99 05/31/20 20:48 19 116/66 05/31/20 20:00 60 05/31/20 20:00 78 05/31/20 20:00 Mechanical Ventilator 05/31/20 20:00 100.5 72 20 111/64 (80) 98 05/31/20 19:48 15 125/67 Mechanical Ventilator 60 05/31/20 19:46 78 22 50 05/31/20 19:14 100.6 05/31/20 19:00 79 19 129/68 (88) 97 05/31/20 18:48 21 129/68 Mechanical Ventilator 50 05/31/20 18:00 75 20 136/62 (86) 95 05/31/20 17:48 22 136/62 Mechanical Ventilator 60 05/31/20 17:00 67 26 140/66 (90) 91 05/31/20 16:48 23 150/68 Mechanical Ventilator 60 05/31/20 16:00 60 05/31/20 16:00 100.4 76 20 146/73 (97) 99 05/31/20 16:00 Mechanical Ventilator 05/31/20 15:48 22 146/73 Mechanical Ventilator 60 05/31/20 15:23 79 05/31/20 15:18 72 27 50 05/31/20 15:00 80 19 157/80 (105) 100 05/31/20 14:48 21 144/73 Mechanical Ventilator 70 05/31/20 14:00 80 19 132/72 (92) 99 05/31/20 13:00 73 19 138/72 (94) 98 05/31/20 12:30 78 18 142/77 (98) 99 05/31/20 12:05 70 05/31/20 12:00 Mechanical Ventilator 05/31/20 12:00 73 20 70 05/31/20 12:00 100.1 73 23 146/73 (97) 92 05/31/20 12:00 71 05/31/20 12:00 40 Objective: General: intubated, sedated on vent AC 450-45-20 PEEP 5 HEENT: atraumatic, normocephalic, in Neck: OP with ET in place , intact; feeding tube in place Lungs: clear but diminished Heart: HR/BP stable Abdomen: soft, non-tender, active bowel sounds Extremities: no C/C/E Micro: Microbiology Date/Time Source Procedure Growth Status 05/30/20 12:00 Nasopharynx SARS-CoV-2 RdRp Gene Assay - Final Complete 05/29/20 22:30 Blood Blood Culture - Preliminary NO GROWTH AFTER 24 HOURS Resulted 05/29/20 22:15 Blood Blood Culture - Preliminary NO GROWTH AFTER 24 HOURS Resulted Critical Care - Subjective ROS Limited/Unobtainable: Yes Interval Events: failed weaning neishaiuer this am back on AC with FiO2 45%, PEEP5 persistent leucocytosis, low grade fevers COVID by PCR 05/30 NGT PLT trending down Condition: critical IV Access: peripheral EKG Rhythm: Sinus Rhythm Vent Support Breath Rate: 20 Vent Support Mode: AC Vent Tidal Volume: 450 Sputum Amount: Scant PEEP: 5.0 PIP: 30 Drips: Fentanyl gtt 100 mcg/hr Tube Feeding Amount: 50 I&O: Intake and Output 05/31/20 06/01/20 19:00 07:00 Intake Total 894.95 ml 895.00 ml Output Total 1100 ml 1305 ml Balance -205.05 ml -410.00 ml Free Water 50 ml 90 ml IV Total 244.95 ml 205.00 ml Tube Feeding 600 ml 600 ml Output Urine Total 1100 ml 1305 ml CXR: CXR 1/5 Slightly increased infiltrates on the right. Stable infiltrates on the left. ET-Tube: 7.5 ET Position: 22 Ivonne Andrade NP Jun 01, 2020 11:49
--- NOTE | 2020-06-01 12:00 | NUR ---
NURSE NOTES: Pt with fever T100.5,Tylenol 650 mg given per GT,will continue to monitor pt's temp.
--- NOTE | 2020-06-01 12:11 | Diagnostic Imaging Report ---
Indication: Shortness of breath Technique: One view of the chest Comparison: 05/31/2020 Findings: Bilateral right greater than left infiltrates are unchanged. The heart size is normal. There is a small right pleural effusion Impression: Unchanged, over one day, findings as above.
--- NOTE | 2020-06-01 12:30 | NUR ---
NURSE NOTES: Pt's temp down to 100.F,cold compress continuos to forehead and armpits.
--- NOTE | 2020-06-01 12:49 | Surgery Progress Note ---
Surgery Progress Note Subjective Additional Comments Patient seen and examined bedside. Ill-appearing on support intubated weaning vent as tolerated but difficult at times. Labs noted imaging reviewed. Objective Last 24 Hour Vital Signs Date Time Temp Pulse Resp B/P (MAP) Pulse Ox O2 Delivery O2 Flow Rate FiO2 06/01/20 12:33 19 131/61 Mechanical Ventilator 15.0 50 06/01/20 12:00 100.5 76 22 142/68 (92) 89 06/01/20 12:00 60 06/01/20 12:00 Mechanical Ventilator 06/01/20 11:33 20 132/62 Mechanical Ventilator 15.0 50 06/01/20 11:00 76 20 130/62 (84) 89 06/01/20 10:33 21 138/62 Mechanical Ventilator 06/01/20 10:00 73 19 134/62 (86) 89 06/01/20 09:33 20 134/66 Mechanical Ventilator 06/01/20 09:00 73 19 134/62 (86) 89 06/01/20 08:33 21 134/62 06/01/20 08:00 Mechanical Ventilator 06/01/20 08:00 65 06/01/20 08:00 99.1 73 19 136/61 (86) 95 06/01/20 07:57 75 22 45 45 06/01/20 07:33 19 136/61 Mechanical Ventilator 15.0 50 06/01/20 07:00 67 20 117/63 (81) 94 06/01/20 06:33 56 132/64 Mechanical Ventilator 50 06/01/20 06:00 63 20 115/57 (76) 92 06/01/20 05:42 60 06/01/20 05:33 17 124/56 Mechanical Ventilator 99 06/01/20 05:30 64 20 120/60 (80) 93 06/01/20 05:00 62 20 115/55 (75) 87 06/01/20 04:46 20 129/61 Mechanical Ventilator 60 06/01/20 04:33 20 123/60 Mechanical Ventilator 06/01/20 04:30 62 20 128/62 (84) 93 06/01/20 04:00 99.0 72 19 125/57 (79) 90 06/01/20 04:00 81 06/01/20 04:00 Mechanical Ventilator 06/01/20 04:00 60 06/01/20 03:38 68 28 50 06/01/20 03:33 16 125/62 Mechanical Ventilator 50 06/01/20 03:30 67 20 134/64 (87) 92 06/01/20 03:00 59 16 129/64 (85) 46 06/01/20 02:45 66 19 33 06/01/20 02:40 62 17 131/70 (90) 61 06/01/20 02:33 17 125/63 Mechanical Ventilator 60 06/01/20 02:30 70 9 126/63 (84) 58 06/01/20 02:20 70 8 125/63 (83) 49 06/01/20 02:18 21 136/72 Mechanical Ventilator 60 06/01/20 02:15 67 14 55 06/01/20 02:10 64 6 125/64 (84) 53 06/01/20 02:03 21 129/68 Mechanical Ventilator 60 06/01/20 02:00 66 17 135/64 (87) 95 06/01/20 01:50 66 19 136/72 (93) 94 06/01/20 01:48 24 145/78 Mechanical Ventilator 06/01/20 01:45 67 19 128/80 (96) 98 06/01/20 01:30 65 19 153/78 (103) 85 06/01/20 01:15 69 19 140/80 (100) 100 06/01/20 01:00 71 19 156/72 (100) 98 06/01/20 00:48 24 132/50 Mechanical Ventilator 60 06/01/20 00:45 65 18 124/64 (84) 100 06/01/20 00:30 63 19 137/67 (90) 100 06/01/20 00:15 65 19 156/80 (105) 100 06/01/20 00:00 60 06/01/20 00:00 67 06/01/20 00:00 100.0 62 19 139/66 (90) 100 06/01/20 00:00 Mechanical Ventilator 06/01/20 00:00 62 19 139/66 (90) 100 05/31/20 23:48 19 138/57 Mechanical Ventilator 60 05/31/20 23:18 65 22 50 05/31/20 23:00 71 19 121/59 (79) 98 05/31/20 22:48 20 127/66 Mechanical Ventilator 60 05/31/20 22:00 72 19 123/64 (83) 96 05/31/20 21:48 20 124/66 60 05/31/20 21:00 74 21 133/62 (85) 99 05/31/20 20:48 19 116/66 05/31/20 20:00 60 05/31/20 20:00 78 05/31/20 20:00 Mechanical Ventilator 05/31/20 20:00 100.5 72 20 111/64 (80) 98 05/31/20 19:48 15 125/67 Mechanical Ventilator 60 05/31/20 19:46 78 22 50 05/31/20 19:14 100.6 05/31/20 19:00 79 19 129/68 (88) 97 05/31/20 18:48 21 129/68 Mechanical Ventilator 50 05/31/20 18:00 75 20 136/62 (86) 95 05/31/20 17:48 22 136/62 Mechanical Ventilator 60 05/31/20 17:00 67 26 140/66 (90) 91 05/31/20 16:48 23 150/68 Mechanical Ventilator 60 05/31/20 16:00 60 05/31/20 16:00 100.4 76 20 146/73 (97) 99 05/31/20 16:00 Mechanical Ventilator 05/31/20 15:48 22 146/73 Mechanical Ventilator 60 05/31/20 15:23 79 05/31/20 15:18 72 27 50 05/31/20 15:00 80 19 157/80 (105) 100 05/31/20 14:48 21 144/73 Mechanical Ventilator 70 05/31/20 14:00 80 19 132/72 (92) 99 05/31/20 13:00 73 19 138/72 (94) 98 I&O Intake and Output 05/31/20 06/01/20 19:00 07:00 Intake Total 894.95 ml 895.00 ml Output Total 1100 ml 1305 ml Balance -205.05 ml -410.00 ml Free Water 50 ml 90 ml IV Total 244.95 ml 205.00 ml Tube Feeding 600 ml 600 ml Output Urine Total 1100 ml 1305 ml Dressing: saturated Cardiovascular: RSR, other Respiratory: decreased breath sounds, other Abdomen: soft, non-tender, present bowel sounds, non-distended Extremities: no edema, no tenderness, no cyanosis Laboratory Tests Test 05/31/20 14:45 06/01/20 02:40 06/01/20 09:20 Arterial Blood pH 7.433 (7.350-7.450) 7.467 (7.350-7.450) Arterial Blood Partial Pressure CO2 42.6 mmHg (35.0-45.0) 42.2 mmHg (35.0-45.0) Arterial Blood Partial Pressure O2 69.3 mmHg (75.0-100.0) L 46.6 mmHg (75.0-100.0) Arterial Blood HCO3 27.8 mmol/L (22.0-26.0) H 29.8 mmol/L (22.0-26.0) H Arterial Blood Oxygen Saturation 94.1 % (95-100) L 85.6 % (95-100) *L Arterial Blood Base Excess 3.2 (-2-2) H 5.5 (-2-2) H Darinel Test Positive Positive White Blood Count 15.1 K/UL (4.8-10.8) H Red Blood Count 3.52 M/UL (4.20-5.40) L Hemoglobin 11.7 G/DL (12.0-16.0) L Hematocrit 34.3 % (37.0-47.0) L Mean Corpuscular Volume 98 FL (80-99) Mean Corpuscular Hemoglobin 33.1 PG (27.0-31.0) H Mean Corpuscular Hemoglobin Concent 34.0 G/DL (32.0-36.0) Red Cell Distribution Width 12.7 % (11.6-14.8) Platelet Count 116 K/UL (150-450) L Mean Platelet Volume 11.0 FL (6.5-10.1) H Neutrophils (%) (Auto) % (45.0-75.0) Lymphocytes (%) (Auto) % (20.0-45.0) Monocytes (%) (Auto) % (1.0-10.0) Eosinophils (%) (Auto) % (0.0-3.0) Basophils (%) (Auto) % (0.0-2.0) Differential Total Cells Counted 100 Neutrophils % (Manual) 88 % (45-75) H Lymphocytes % (Manual) 10 % (20-45) L Monocytes % (Manual) 2 % (1-10) Eosinophils % (Manual) 0 % (0-3) Basophils % (Manual) 0 % (0-2) Band Neutrophils 0 % (0-8) Platelet Estimate Decreased L Platelet Morphology Normal Hypochromasia 1+ Macrocytosis 1+ Sodium Level 147 MMOL/L (136-145) H Potassium Level 3.8 MMOL/L (3.5-5.1) Chloride Level 113 MMOL/L (98-107) H Carbon Dioxide Level 32 MMOL/L (21-32) Anion Gap 2 mmol/L (5-15) L Blood Urea Nitrogen 25 mg/dL (7-18) H Creatinine 0.6 MG/DL (0.55-1.30) Estimat Glomerular Filtration Rate > 60 mL/min (>60) Glucose Level 219 MG/DL (74-106) H Calcium Level 8.0 MG/DL (8.5-10.1) L Total Bilirubin 0.7 MG/DL (0.2-1.0) Aspartate Amino Transf (AST/SGOT) 32 U/L (15-37) Alanine Aminotransferase (ALT/SGPT) 18 U/L (12-78) Alkaline Phosphatase 67 U/L (46-116) C-Reactive Protein, Quantitative Pending Total Protein 5.6 G/DL (6.4-8.2) L Albumin 2.0 G/DL (3.4-5.0) L Globulin 3.6 g/dL Albumin/Globulin Ratio 0.6 (1.0-2.7) L Plan Problems: (1) Thrombocytopenia (2) Pneumonia (3) Hypoxia Assessment & Plan: 75F covid + hypoxic intubated on vent support acute hypotensive episode placed on pressors on peripheral line eval for central line done. patient weaning off pressors and only on 1mcg of levo currently bp improved sedation noted awake and alert now responsive on vent support but improving hold on central catheter placement cont for now low dose and wean off levo fluids noted trend labs if worsening will plan to place central catheter emilee thank you will follow with recs . DAILY ESTIMATED NEEDS: Needs based on Critical care, 56kg 22-28 kcals/kg 4993-2120 total kcals 1.2-2 g protein/kg 67-112 g total protein 25-30 mL/kg 6302-5402 total fluid mLs NUTRITION DIAGNOSIS: Swallowing difficulty R/T respiratory failure as evidenced by pt orally intubated on 05/27, OGT feeds ordered. CURRENT TF:Vital AF 1.2 @ 50ml/hr x 24 hrs ordered PO DIET RECOMMENDATIONS: CRYPTOLOGIC TECHNICIAN eval post extubation ENTERAL NUTRITION RECOMMENDATIONS: Vital AF 1.2 @ 50ml/hr x 24 hrs to provide 1200ml, 1440kcal, 90g prot, 973ml free water * Initiate Vital AF 1.2 @ 20ml/hr x 6hrs * Advance 10ml q 4-6 hrs as tolerated to goal * HOB over 30 degrees/ H2o flush 180ml q 8 hrs ADDITIONAL RECOMMENDATIONS: * Calibrated bedscale wt * Monitor hemodyanmic stability: now off NE * Rec NISS w/ TF while on Decadron: elev FBGs * Monitor lytes, replete as needed (low phos 05/22, rec updated level) (4) Abnormal EKG (5) COVID-19 Assessment & Plan: ++ pulm and ID input appreciated Faivo Corona Jun 01, 2020 12:49
--- NOTE | 2020-06-01 13:00 | NUR ---
NURSE NOTES: Pt stable,wakes up on and off then asleep no resp distress presented.
--- NOTE | 2020-06-01 13:38 | NUR ---
RADIOLOGY DEPT., CHEST X-RAY DONE.-P.DYE
--- NOTE | 2020-06-01 15:10 | NUR ---
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
--- NOTE | 2020-06-01 16:09 | Cardiac Electrophysiology PN ---
Assessment/Plan Assessment/Plan 1. COVID pneumonia. Ruled out for [place] EKG in view of inferolateral ST depression Echo EF 65% Her BNP was only 342. Intubated on 50% Fio2 and PEEP 5 On dexamethasone, ceftriaxone, and azithromycin. SBT trial today 2. Sinus nnamdi off any TAVARES affecting agent. Likely due to Covid 3. S/P septic shock. 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 Off pressors in Covid isolation. On Abx. On Fentanyl drip. In SR Objective Last 24 Hour Vital Signs Date Time Temp Pulse Resp B/P (MAP) Pulse Ox O2 Delivery O2 Flow Rate FiO2 06/01/20 15:33 19 140/70 06/01/20 15:00 72 20 135/68 (90) 96 06/01/20 14:33 21 130/64 Mechanical Ventilator 06/01/20 14:00 70 20 130/64 (86) 92 06/01/20 13:37 72 23 60 06/01/20 13:33 22 130/70 Mechanical Ventilator 15.0 50 06/01/20 13:02 25 129/63 15.0 50 06/01/20 13:00 70 20 137/70 (92) 92 06/01/20 12:33 19 131/61 Mechanical Ventilator 15.0 50 06/01/20 12:33 100.0 06/01/20 12:00 70 06/01/20 12:00 100.5 76 22 142/68 (92) 89 06/01/20 12:00 60 06/01/20 12:00 Mechanical Ventilator 06/01/20 11:33 20 132/62 Mechanical Ventilator 15.0 50 06/01/20 11:00 76 20 130/62 (84) 89 06/01/20 10:33 21 138/62 Mechanical Ventilator 06/01/20 10:00 73 19 134/62 (86) 89 06/01/20 09:33 20 134/66 Mechanical Ventilator 06/01/20 09:00 73 19 134/62 (86) 89 06/01/20 08:33 21 134/62 06/01/20 08:00 Mechanical Ventilator 06/01/20 08:00 65 06/01/20 08:00 99.1 73 19 136/61 (86) 95 06/01/20 07:57 75 22 45 45 06/01/20 07:33 19 136/61 Mechanical Ventilator 15.0 50 06/01/20 07:00 67 20 117/63 (81) 94 06/01/20 06:33 56 132/64 Mechanical Ventilator 50 06/01/20 06:00 63 20 115/57 (76) 92 06/01/20 05:42 60 06/01/20 05:33 17 124/56 Mechanical Ventilator 99 06/01/20 05:30 64 20 120/60 (80) 93 06/01/20 05:00 62 20 115/55 (75) 87 06/01/20 04:46 20 129/61 Mechanical Ventilator 60 06/01/20 04:33 20 123/60 Mechanical Ventilator 06/01/20 04:30 62 20 128/62 (84) 93 06/01/20 04:00 99.0 72 19 125/57 (79) 90 06/01/20 04:00 81 06/01/20 04:00 Mechanical Ventilator 06/01/20 04:00 60 06/01/20 03:38 68 28 50 06/01/20 03:33 16 125/62 Mechanical Ventilator 50 06/01/20 03:30 67 20 134/64 (87) 92 06/01/20 03:00 59 16 129/64 (85) 46 06/01/20 02:45 66 19 33 06/01/20 02:40 62 17 131/70 (90) 61 06/01/20 02:33 17 125/63 Mechanical Ventilator 60 06/01/20 02:30 70 9 126/63 (84) 58 06/01/20 02:20 70 8 125/63 (83) 49 06/01/20 02:18 21 136/72 Mechanical Ventilator 60 06/01/20 02:15 67 14 55 06/01/20 02:10 64 6 125/64 (84) 53 06/01/20 02:03 21 129/68 Mechanical Ventilator 60 06/01/20 02:00 66 17 135/64 (87) 95 06/01/20 01:50 66 19 136/72 (93) 94 06/01/20 01:48 24 145/78 Mechanical Ventilator 06/01/20 01:45 67 19 128/80 (96) 98 06/01/20 01:30 65 19 153/78 (103) 85 06/01/20 01:15 69 19 140/80 (100) 100 06/01/20 01:00 71 19 156/72 (100) 98 06/01/20 00:48 24 132/50 Mechanical Ventilator 60 06/01/20 00:45 65 18 124/64 (84) 100 06/01/20 00:30 63 19 137/67 (90) 100 06/01/20 00:15 65 19 156/80 (105) 100 06/01/20 00:00 60 06/01/20 00:00 67 06/01/20 00:00 100.0 62 19 139/66 (90) 100 06/01/20 00:00 Mechanical Ventilator 06/01/20 00:00 62 19 139/66 (90) 100 05/31/20 23:48 19 138/57 Mechanical Ventilator 60 05/31/20 23:18 65 22 50 05/31/20 23:00 71 19 121/59 (79) 98 05/31/20 22:48 20 127/66 Mechanical Ventilator 60 05/31/20 22:00 72 19 123/64 (83) 96 05/31/20 21:48 20 124/66 60 05/31/20 21:00 74 21 133/62 (85) 99 05/31/20 20:48 19 116/66 05/31/20 20:00 60 05/31/20 20:00 78 05/31/20 20:00 Mechanical Ventilator 05/31/20 20:00 100.5 72 20 111/64 (80) 98 05/31/20 19:48 15 125/67 Mechanical Ventilator 60 05/31/20 19:46 78 22 50 05/31/20 19:14 100.6 05/31/20 19:00 79 19 129/68 (88) 97 05/31/20 18:48 21 129/68 Mechanical Ventilator 50 05/31/20 18:00 75 20 136/62 (86) 95 05/31/20 17:48 22 136/62 Mechanical Ventilator 60 05/31/20 17:00 67 26 140/66 (90) 91 05/31/20 16:48 23 150/68 Mechanical Ventilator 60 Intake and Output 05/31/20 06/01/20 19:00 07:00 Intake Total 894.95 ml 895.00 ml Output Total 1100 ml 1305 ml Balance -205.05 ml -410.00 ml Free Water 50 ml 90 ml IV Total 244.95 ml 205.00 ml Tube Feeding 600 ml 600 ml Output Urine Total 1100 ml 1305 ml Laboratory Tests Test 06/01/20 02:40 06/01/20 09:20 White Blood Count 15.1 K/UL (4.8-10.8) H Red Blood Count 3.52 M/UL (4.20-5.40) L Hemoglobin 11.7 G/DL (12.0-16.0) L Hematocrit 34.3 % (37.0-47.0) L Mean Corpuscular Volume 98 FL (80-99) Mean Corpuscular Hemoglobin 33.1 PG (27.0-31.0) H Mean Corpuscular Hemoglobin Concent 34.0 G/DL (32.0-36.0) Red Cell Distribution Width 12.7 % (11.6-14.8) Platelet Count 116 K/UL (150-450) L Mean Platelet Volume 11.0 FL (6.5-10.1) H Neutrophils (%) (Auto) % (45.0-75.0) Lymphocytes (%) (Auto) % (20.0-45.0) Monocytes (%) (Auto) % (1.0-10.0) Eosinophils (%) (Auto) % (0.0-3.0) Basophils (%) (Auto) % (0.0-2.0) Differential Total Cells Counted 100 Neutrophils % (Manual) 88 % (45-75) H Lymphocytes % (Manual) 10 % (20-45) L Monocytes % (Manual) 2 % (1-10) Eosinophils % (Manual) 0 % (0-3) Basophils % (Manual) 0 % (0-2) Band Neutrophils 0 % (0-8) Platelet Estimate Decreased L Platelet Morphology Normal Hypochromasia 1+ Macrocytosis 1+ Sodium Level 147 MMOL/L (136-145) H Potassium Level 3.8 MMOL/L (3.5-5.1) Chloride Level 113 MMOL/L (98-107) H Carbon Dioxide Level 32 MMOL/L (21-32) Anion Gap 2 mmol/L (5-15) L Blood Urea Nitrogen 25 mg/dL (7-18) H Creatinine 0.6 MG/DL (0.55-1.30) Estimat Glomerular Filtration Rate > 60 mL/min (>60) Glucose Level 219 MG/DL (74-106) H Calcium Level 8.0 MG/DL (8.5-10.1) L Total Bilirubin 0.7 MG/DL (0.2-1.0) Aspartate Amino Transf (AST/SGOT) 32 U/L (15-37) Alanine Aminotransferase (ALT/SGPT) 18 U/L (12-78) Alkaline Phosphatase 67 U/L (46-116) C-Reactive Protein, Quantitative Pending Total Protein 5.6 G/DL (6.4-8.2) L Albumin 2.0 G/DL (3.4-5.0) L Globulin 3.6 g/dL Albumin/Globulin Ratio 0.6 (1.0-2.7) L Arterial Blood pH 7.467 (7.350-7.450) Arterial Blood Partial Pressure CO2 42.2 mmHg (35.0-45.0) Arterial Blood Partial Pressure O2 46.6 mmHg (75.0-100.0) Arterial Blood HCO3 29.8 mmol/L (22.0-26.0) H Arterial Blood Oxygen Saturation 85.6 % (95-100) *L Arterial Blood Base Excess 5.5 (-2-2) H Darinel Test Positive Microbiology Date/Time Source Procedure Growth Status 05/30/20 12:00 Nasopharynx SARS-CoV-2 RdRp Gene Assay - Final Complete 05/29/20 22:30 Blood Blood Culture - Preliminary NO GROWTH AFTER 24 HOURS Resulted 05/29/20 22:15 Blood Blood Culture - Preliminary NO GROWTH AFTER 24 HOURS Resulted Objective HEAD AND NECK: No JVD. Orally intubated LUNGS: Coarse rhonchi. CARDIOVASCULAR: Regular S1 and S2 with no gallop. Bradycardic. ABDOMEN: Soft. EXTREMITIES: No pitting edema. Jordi Albarado MD Jun 01, 2020 16:09
--- NOTE | 2020-06-01 16:32 | NUR ---
NURSE NOTES: Pulled up and repositonedno further fever presented.
--- NOTE | 2020-06-01 19:20 | NUR ---
NURSE HAND-OFF REPORT: Important Events on Shift:pt with on and off fever Patient Status: stable Diet: Vital AF 1.2 at 50 ml/hr Pending Orders: Pending Results/Labs: Pending MD notification: Latest Vital Signs: Temperature 98.9 , Pulse 66 , B/P 116 /58 , Respiratory Rate 22 , O2 SAT 98 , Mechanical Ventilator, O2 Flow Rate 15.0 . Vital Sign Comment: EKG Rhythm: Sinus Rhythm Rhythm change?: N MD Notified?: N - MD Response: Latest [place] Fall Score: 50 Fall Risk: High Risk Safety Measures: Call light Within Reach, Bed Alarm Zone 1, Side Rails Side Rails x2, Bed position Low and Locked. Fall Precautions: Yellow Socks Yellow Gown Door Sign Patient Fall Education Report given to Donis HERNANDEZ.
--- NOTE | 2020-06-01 20:00 | NUR ---
NURSE NOTES: RECEIVED REPORT FROM LENCHO HERNANDEZ PT ORALLY INTUBATED -VENT O2 SAT 95% TOLERATING TUBE FEEDING WITH RESIDUAL 10-20 CCGOOD URINARY TUBE [id number] REPOSITION AND SUCTION
[2020-06-01] MEDS ORDERED: fentaNYL 100 mcg/2 mL IV SCH (21:30)
[2020-06-01] MEDS: Dyna-Hex 2% Top Sol 2oz TOPIC SCH (21:32)
[2020-06-02] VITALS (29 sets, daily range): BP systolic 89–154; BP diastolic 47–73
[2020-06-02] MEDS: fentaNYL 2500mcg/NS 250ml 250 ML IV SCH ×2 (03:27→19:59)
--- NOTE | 2020-06-02 04:00 | NUR ---
NURSE NOTES: COMPLETE BED BATH BACK CARE DONE
--- NOTE | 2020-06-02 06:00 | NUR ---
NURSE NOTES: PT ON -2 RASS FENT DRIP AT 150 MCG/ HR
[2020-06-02 07:00] LABS: HEMATOCRIT 35.4 % (37.0-47.0); HEMOGLOBIN 11.8 G/DL (12.0-16.0); MEAN CORPUSCULAR VOLUME 100 FL (80-99); PLATELET COUNT 95 K/UL (150-450); RED BLOOD COUNT 3.54 M/UL (4.20-5.40); RED CELL DISTRIBUTION WIDTH 12.4 % (11.6-14.8)
[2020-06-02 07:11] LABS: WHITE BLOOD COUNT 22.6 K/UL (4.8-10.8)
[2020-06-02 07:14] LABS: ALANINE AMINOTRANSFERASE 23 U/L (12-78); ALBUMIN/GLOBULIN RATIO 0.6 (1.0-2.7); ALKALINE PHOSPHATASE 88 U/L (46-116); ANION GAP 6 mmol/L (5-15); ASPARTATE AMINO TRANSFERASE 43 U/L (15-37); BILIRUBIN,TOTAL 0.8 MG/DL (0.2-1.0); BLOOD UREA NITROGEN 23 mg/dL (7-18); CALCIUM 8.4 MG/DL (8.5-10.1); CARBON DIOXIDE 31 MMOL/L (21-32); CHLORIDE 107 MMOL/L (98-107); CREATININE 0.6 MG/DL (0.55-1.30); POTASSIUM 3.7 MMOL/L (3.5-5.1); SODIUM 144 MMOL/L (136-145)
--- NOTE | 2020-06-02 07:46 | NUR ---
NURSE HAND-OFF REPORT: Latest Vital Signs: Temperature 99.8 , Pulse 92 , B/P 133 /63 , Respiratory Rate 20 , O2 SAT 93 , Mechanical Ventilator, O2 Flow Rate . Vital Sign Comment: EKG Rhythm: Sinus Rhythm Rhythm change?: N MD Notified?: N - MD Response: Latest [place] Fall Score: 50 Fall Risk: High Risk Safety Measures: Call light Within Reach, Bed Alarm Zone 1, Side Rails Side Rails x2, Bed position Low and Locked. Fall Precautions: Yellow Socks Yellow Gown Door Sign Patient Fall Education Report given to LOUIS HERNANDEZ USING SBAR
--- NOTE | 2020-06-02 07:50 | NUR ---
NURSE NOTES: Report received from Donis HERNANDEZ.Pt awake,,agitated,orally intubated,ETT7.5 Lip line 22,connected to vent,AC 20TV 450 Fio2 90%,Peep 5,pt desaturating to 80's,ABG drawn by RT Roxanne,pt on S-Tach HR 117,on Fentanyl drip 150 Mcg/min infusing at 15 ml/hr to RFA,skin hot to touch,,pt with fever T100.5, restless ,bilat wrist restraints in placed, SR up x2,HOB elevated ,bed in low position,will continue to monitor pt.
--- NOTE | 2020-06-02 08:30 | NUR ---
NURSE NOTES: Bed bath given,pulled up and repositioned,cold compress applied to forehead and bilat armpits,given Tylenol 650 mg per OGT,PLT low 95,will hold Lovenox.
[2020-06-02] MEDS: Docusate 100mg/10ml Liq GT SCH ×2 (08:41→20:31)
[2020-06-02] MEDS: Piperacillin/Tazobactam 3.375 GM in NS 110 ML IVPB SCH ×2 (08:41→17:48)
[2020-06-02] MEDS: Enoxaparin 40mg Inj SUBQ SCH ×2 (08:43→20:31)
--- NOTE | 2020-06-02 09:20 | NUR ---
RADIOLOGY DEPT., CHEST X-RAY DONE.-P.DYE
--- NOTE | 2020-06-02 10:30 | NUR ---
NURSE NOTES: Pt asleep,no further agitation and restlessness noted,appears comfortable,temp down to 99.8,will continue to monitor pt
--- NOTE | 2020-06-02 10:38 | NUR ---
RD ASSESSMENT & RECOMMENDATIONS SEE CARE ACTIVITY FOR COMPLETE ASSESSMENT DAILY ESTIMATED NEEDS: Needs based on Critical care, 56kg 22-28 kcals/kg 3707-3726 total kcals 1.2-2 g protein/kg 67-112 g total protein 25-30 mL/kg 4005-5487 total fluid mLs NUTRITION DIAGNOSIS: Swallowing difficulty R/T respiratory failure as evidenced by pt orally intubated on 05/27, on OGT feeds. CURRENT TF:Vital AF 1.2 @ 50ml/hr x 24 hrs ENTERAL NUTRITION RECOMMENDATIONS: Vital AF 1.2 @ 50ml/hr x 24 hrs to provide 1200ml, 1440kcal, 90g prot, 973ml free water * Maintain current TF as ordered: meets 100% est kcal/prot needs * HOB over 30 degrees/ H2o flush 180ml q 8 hrs ADDITIONAL RECOMMENDATIONS: * Calibrated bedscale wt * Monitor hemodynamic stability: now off NE * Monitor BGs, rec NISS- elev BGs -> check A1C * Monitor lytes, replete as needed (low phos 05/22, rec updated level)
--- NOTE | 2020-06-02 11:13 | Pulmonolgy Critical Care Note ---
Ivonne Andrade [employer] 06/02/20 1113: Critical Care - Asmt/Plan Assessment/Plan: ASSESSMENT Acute hypoxemic resp failure due to COVID PNA, requiring intubation 05/27 COVID 19 PNA Thrombocytopenia-resolved Abnormal ECG Headache Pulmonary HTN PLAN OF CARE ICU isolation Date of sx onset: few days prior to presentation to ED on 05/23 Positive test: OSF 05/22 - 1 days prior to admission , SARS COV-2 by PCR 05/30 NGT O2 -> intubated 05/27 , failed weaning 06/01 and 06/02 , titrate Fio2 as able and continue weaning in am as tolerated HFA if unable to do HHN via line s/p REM x 5 days ( 05/23-05/27 ) s/p DEX x 10 days D dimer initial 0.48 - > 19.61-> 7.23 DVT PPX: Lovenox Venous Duplex BLE NGT Trend CRP 3.6 -> 19.7-> 76.4 - 38.3 Abx per ID recs BCX 1/3 NGTD, UCX 1/2 NGT prone position as tolerated vent support, pulm toilet fup with ABG and CXR, titrate FiO2 and PEEP to keep sat > 92% weaning protocol as tolerated failed this am monitor volumes and renal function fup with consultants recs FC Discuss GOC monitor PLT counts-now trendgin down again, consider decrease Lovenox to daily dose cardio eval -appreciated ECHO with pEF 65%, no WMA, mild to moderate MR, moderate pulmonary hypertension case discussed and evaluated by supervising physician Critical Care - Objective Last 24 Hour Vital Signs Date Time Temp Pulse Resp B/P (MAP) Pulse Ox O2 Delivery O2 Flow Rate FiO2 06/02/20 10:32 27 117/51 Mechanical Ventilator 15.0 100 06/02/20 10:00 100.0 89 27 117/57 (77) 92 06/02/20 09:32 26 119/58 Mechanical Ventilator 15.0 100 06/02/20 09:32 27 123/64 Mechanical Ventilator 15.0 90 06/02/20 09:12 100.0 06/02/20 09:00 100 29 143/69 (93) 90 06/02/20 08:32 27 143/63 Mechanical Ventilator 15.0 90 06/02/20 08:08 Mechanical Ventilator 06/02/20 08:08 90 06/02/20 08:00 107 06/02/20 08:00 100.5 92 22 131/63 (85) 90 06/02/20 07:49 134 31 100 06/02/20 07:32 20 133/63 Mechanical Ventilator 60 06/02/20 07:00 92 22 131/64 (86) 93 06/02/20 06:32 22 130/65 Mechanical Ventilator 60 06/02/20 06:00 99.8 83 27 138/67 (90) 83 06/02/20 05:32 50 120/68 Mechanical Ventilator 60 06/02/20 05:00 79 20 120/62 (81) 87 06/02/20 04:32 18 127/58 Mechanical Ventilator 60 06/02/20 04:00 80 06/02/20 04:00 Mechanical Ventilator 06/02/20 04:00 60 06/02/20 04:00 80 27 123/53 (76) 86 06/02/20 03:32 19 131/69 Mechanical Ventilator 60 06/02/20 03:27 20 120/68 Mechanical Ventilator 60 06/02/20 03:00 81 22 154/64 (94) 91 06/02/20 02:32 14 131/72 Mechanical Ventilator 60 06/02/20 02:00 76 25 130/62 (84) 89 06/02/20 01:51 81 22 60 06/02/20 01:32 20 129/58 Mechanical Ventilator 60 06/02/20 01:00 72 22 118/68 (85) 92 06/02/20 00:32 20 125/61 Mechanical Ventilator 60 06/02/20 00:32 20 136/59 Mechanical Ventilator 60 06/02/20 00:00 Mechanical Ventilator 06/02/20 00:00 60 06/02/20 00:00 99.9 72 20 127/61 (83) 96 06/02/20 00:00 87 06/01/20 23:32 19 136/66 Mechanical Ventilator 06/01/20 23:00 68 19 122/59 (80) 96 06/01/20 22:32 19 124/59 Mechanical Ventilator 60 06/01/20 22:00 70 17 125/69 (87) 95 06/01/20 21:32 20 136/66 Mechanical Ventilator 60 06/01/20 21:15 69 19 93 06/01/20 21:00 70 22 140/68 (92) 93 06/01/20 20:45 70 23 134/50 (78) 92 06/01/20 20:32 22 132/67 Mechanical Ventilator 60 06/01/20 20:32 22 132/67 Mechanical Ventilator 60 06/01/20 20:30 68 23 131/67 (88) 93 06/01/20 20:15 71 21 136/60 (85) 92 06/01/20 20:15 20 125/69 Mechanical Ventilator 60 06/01/20 20:00 20 137/61 Mechanical Ventilator 06/01/20 20:00 Mechanical Ventilator 06/01/20 20:00 99.0 71 20 132/66 (88) 91 06/01/20 20:00 60 06/01/20 20:00 80 06/01/20 19:45 72 22 128/64 (85) 92 06/01/20 19:45 22 115/61 Mechanical Ventilator 60 06/01/20 19:42 76 24 60 06/01/20 19:30 84 22 136/59 (84) 94 06/01/20 19:30 23 133/63 Mechanical Ventilator 60 06/01/20 19:15 88 22 125/60 (81) 91 06/01/20 19:15 22 145/59 Mechanical Ventilator 60 06/01/20 19:00 64 19 118/55 (76) 96 06/01/20 19:00 20 150/61 Mechanical Ventilator 60 06/01/20 18:33 22 116/58 Mechanical Ventilator 15.0 06/01/20 18:00 67 20 127/58 (81) 97 06/01/20 18:00 66 19 130/56 (80) 98 06/01/20 17:33 22 113/58 Mechanical Ventilator 15.0 60 06/01/20 17:00 72 20 118/56 (76) 97 06/01/20 17:00 98.9 74 19 133/63 (86) 94 06/01/20 16:33 20 120/64 Mechanical Ventilator 15.0 50 06/01/20 16:00 73 06/01/20 16:00 60 06/01/20 16:00 98.9 69 20 128/64 (85) 95 06/01/20 16:00 Mechanical Ventilator 06/01/20 15:33 19 140/70 06/01/20 15:00 72 20 135/68 (90) 96 06/01/20 14:33 21 130/64 Mechanical Ventilator 06/01/20 14:00 70 20 130/64 (86) 92 06/01/20 13:37 72 23 60 06/01/20 13:33 22 130/70 Mechanical Ventilator 15.0 50 06/01/20 13:02 25 129/63 15.0 50 06/01/20 13:00 70 20 137/70 (92) 92 06/01/20 12:33 19 131/61 Mechanical Ventilator 15.0 50 06/01/20 12:33 100.0 06/01/20 12:30 100.0 06/01/20 12:00 70 06/01/20 12:00 100.5 76 22 142/68 (92) 89 06/01/20 12:00 60 06/01/20 12:00 Mechanical Ventilator 06/01/20 11:33 20 132/62 Mechanical Ventilator 15.0 50 Objective: General: intubated, sedated on vent AC 450- 100-20 PEEP 5 now HEENT: atraumatic, normocephalic, ET in place intact Neck: OP with ET in place , intact; feeding tube in place Lungs: clear but diminished Heart: HR/BP stable Abdomen: soft, non-tender, active bowel sounds Extremities: no C/C/E Micro: Microbiology Date/Time Source Procedure Growth Status 05/30/20 12:00 Nasopharynx SARS-CoV-2 RdRp Gene Assay - Final Complete Critical Care - Subjective ROS Limited/Unobtainable: Yes Interval Events: leuk with trend up, low grade fevers not tolerating weaning ABG this am noted Condition: critical IV Access: peripheral EKG Rhythm: Sinus Rhythm FI02: 100 Vent Support Breath Rate: 20 Vent Support Mode: AC Vent Tidal Volume: 450 Sputum Amount: Scant PEEP: 5.0 PIP: 48 Drips: 150 mcg/hr Tube Feeding Amount: 50 I&O: Intake and Output 06/01/20 06/02/20 19:00 07:00 Intake Total 983.5 ml 1032.25 ml Output Total 875 ml 1300 ml Balance 108.5 ml -267.75 ml Free Water 200 ml 90 ml IV Total 213.5 ml 292.25 ml Tube Feeding 450 ml 650 ml Other 120 ml Output Urine Total 875 ml 1300 ml CXR: CXR 1/6 - Bilateral right greater than left infiltrates are unchanged. ET-Tube: 7.5 ET Position: 22 Beka Mcdaniels MD 06/02/20 1803: Ivonne Andrade NP Jun 02, 2020 11:13 Beka Mcdaniels MD Jun 02, 2020 18:03
--- NOTE | 2020-06-02 11:59 | Diagnostic Imaging Report ---
Indication: Shortness of breath Technique: One view of the chest Comparison: 06/01/2020 Findings: Stable tube positions. Bilateral infiltrates are unchanged. Impression: Unchanged, over one day, findings as above.
--- NOTE | 2020-06-02 12:22 | Surgery Progress Note ---
Surgery Progress Note Subjective Additional Comments worsening leukocytosis cxr stable on support less awake Objective Last 24 Hour Vital Signs Date Time Temp Pulse Resp B/P (MAP) Pulse Ox O2 Delivery O2 Flow Rate FiO2 06/02/20 12:10 27 131/60 Mechanical Ventilator 15.0 100 06/02/20 11:00 92 26 120/56 (77) 93 06/02/20 10:32 27 117/51 Mechanical Ventilator 15.0 100 06/02/20 10:00 100.0 89 27 117/57 (77) 92 06/02/20 09:32 26 119/58 Mechanical Ventilator 15.0 100 06/02/20 09:32 27 123/64 Mechanical Ventilator 15.0 90 06/02/20 09:12 100.0 06/02/20 09:00 100 29 143/69 (93) 90 06/02/20 08:32 27 143/63 Mechanical Ventilator 15.0 90 06/02/20 08:08 Mechanical Ventilator 06/02/20 08:08 90 06/02/20 08:00 107 06/02/20 08:00 100.5 92 22 131/63 (85) 90 06/02/20 07:49 134 31 100 06/02/20 07:32 20 133/63 Mechanical Ventilator 60 06/02/20 07:00 92 22 131/64 (86) 93 06/02/20 06:32 22 130/65 Mechanical Ventilator 60 06/02/20 06:00 99.8 83 27 138/67 (90) 83 06/02/20 05:32 50 120/68 Mechanical Ventilator 60 06/02/20 05:00 79 20 120/62 (81) 87 06/02/20 04:32 18 127/58 Mechanical Ventilator 60 06/02/20 04:00 80 06/02/20 04:00 Mechanical Ventilator 06/02/20 04:00 60 06/02/20 04:00 80 27 123/53 (76) 86 06/02/20 03:32 19 131/69 Mechanical Ventilator 60 06/02/20 03:27 20 120/68 Mechanical Ventilator 60 06/02/20 03:00 81 22 154/64 (94) 91 06/02/20 02:32 14 131/72 Mechanical Ventilator 60 06/02/20 02:00 76 25 130/62 (84) 89 06/02/20 01:51 81 22 60 06/02/20 01:32 20 129/58 Mechanical Ventilator 60 06/02/20 01:00 72 22 118/68 (85) 92 06/02/20 00:32 20 125/61 Mechanical Ventilator 60 06/02/20 00:32 20 136/59 Mechanical Ventilator 60 06/02/20 00:00 Mechanical Ventilator 06/02/20 00:00 60 06/02/20 00:00 99.9 72 20 127/61 (83) 96 06/02/20 00:00 87 06/01/20 23:32 19 136/66 Mechanical Ventilator 06/01/20 23:00 68 19 122/59 (80) 96 06/01/20 22:32 19 124/59 Mechanical Ventilator 60 06/01/20 22:00 70 17 125/69 (87) 95 06/01/20 21:32 20 136/66 Mechanical Ventilator 60 06/01/20 21:15 69 19 93 06/01/20 21:00 70 22 140/68 (92) 93 06/01/20 20:45 70 23 134/50 (78) 92 06/01/20 20:32 22 132/67 Mechanical Ventilator 60 06/01/20 20:32 22 132/67 Mechanical Ventilator 60 06/01/20 20:30 68 23 131/67 (88) 93 06/01/20 20:15 71 21 136/60 (85) 92 06/01/20 20:15 20 125/69 Mechanical Ventilator 60 06/01/20 20:00 20 137/61 Mechanical Ventilator 06/01/20 20:00 Mechanical Ventilator 06/01/20 20:00 99.0 71 20 132/66 (88) 91 06/01/20 20:00 60 06/01/20 20:00 80 06/01/20 19:45 72 22 128/64 (85) 92 06/01/20 19:45 22 115/61 Mechanical Ventilator 60 06/01/20 19:42 76 24 60 06/01/20 19:30 84 22 136/59 (84) 94 06/01/20 19:30 23 133/63 Mechanical Ventilator 60 06/01/20 19:15 88 22 125/60 (81) 91 06/01/20 19:15 22 145/59 Mechanical Ventilator 60 06/01/20 19:00 64 19 118/55 (76) 96 06/01/20 19:00 20 150/61 Mechanical Ventilator 60 06/01/20 18:33 22 116/58 Mechanical Ventilator 15.0 06/01/20 18:00 67 20 127/58 (81) 97 06/01/20 18:00 66 19 130/56 (80) 98 06/01/20 17:33 22 113/58 Mechanical Ventilator 15.0 60 06/01/20 17:00 72 20 118/56 (76) 97 06/01/20 17:00 98.9 74 19 133/63 (86) 94 06/01/20 16:33 20 120/64 Mechanical Ventilator 15.0 50 06/01/20 16:00 73 06/01/20 16:00 60 06/01/20 16:00 98.9 69 20 128/64 (85) 95 06/01/20 16:00 Mechanical Ventilator 06/01/20 15:33 19 140/70 06/01/20 15:00 72 20 135/68 (90) 96 06/01/20 14:33 21 130/64 Mechanical Ventilator 06/01/20 14:00 70 20 130/64 (86) 92 06/01/20 13:37 72 23 60 06/01/20 13:33 22 130/70 Mechanical Ventilator 15.0 50 06/01/20 13:02 25 129/63 15.0 50 06/01/20 13:00 70 20 137/70 (92) 92 06/01/20 12:33 19 131/61 Mechanical Ventilator 15.0 50 06/01/20 12:33 100.0 06/01/20 12:30 100.0 I&O Intake and Output 06/01/20 06/02/20 19:00 07:00 Intake Total 983.5 ml 1032.25 ml Output Total 875 ml 1300 ml Balance 108.5 ml -267.75 ml Free Water 200 ml 90 ml IV Total 213.5 ml 292.25 ml Tube Feeding 450 ml 650 ml Other 120 ml Output Urine Total 875 ml 1300 ml Dressing: saturated Cardiovascular: RSR Respiratory: decreased breath sounds, other Abdomen: soft, non-tender, present bowel sounds Extremities: no tenderness, no cyanosis Laboratory Tests Test 06/02/20 04:10 06/02/20 08:02 White Blood Count 22.6 K/UL (4.8-10.8) *H Red Blood Count 3.54 M/UL (4.20-5.40) L Hemoglobin 11.8 G/DL (12.0-16.0) L Hematocrit 35.4 % (37.0-47.0) L Mean Corpuscular Volume 100 FL (80-99) H Mean Corpuscular Hemoglobin 33.4 PG (27.0-31.0) H Mean Corpuscular Hemoglobin Concent 33.4 G/DL (32.0-36.0) Red Cell Distribution Width 12.4 % (11.6-14.8) Platelet Count 95 K/UL (150-450) L Mean Platelet Volume 11.1 FL (6.5-10.1) H Neutrophils (%) (Auto) % (45.0-75.0) Lymphocytes (%) (Auto) % (20.0-45.0) Monocytes (%) (Auto) % (1.0-10.0) Eosinophils (%) (Auto) % (0.0-3.0) Basophils (%) (Auto) % (0.0-2.0) Neutrophils % (Manual) Pending Lymphocytes % (Manual) Pending Platelet Estimate Pending Platelet Morphology Pending Sodium Level 144 MMOL/L (136-145) Potassium Level 3.7 MMOL/L (3.5-5.1) Chloride Level 107 MMOL/L (98-107) Carbon Dioxide Level 31 MMOL/L (21-32) Anion Gap 6 mmol/L (5-15) Blood Urea Nitrogen 23 mg/dL (7-18) H Creatinine 0.6 MG/DL (0.55-1.30) Estimat Glomerular Filtration Rate > 60 mL/min (>60) Glucose Level 159 MG/DL (74-106) H Calcium Level 8.4 MG/DL (8.5-10.1) L Total Bilirubin 0.8 MG/DL (0.2-1.0) Aspartate Amino Transf (AST/SGOT) 43 U/L (15-37) H Alanine Aminotransferase (ALT/SGPT) 23 U/L (12-78) Alkaline Phosphatase 88 U/L (46-116) C-Reactive Protein, Quantitative Pending Total Protein 5.6 G/DL (6.4-8.2) L Albumin 2.0 G/DL (3.4-5.0) L Globulin 3.6 g/dL Albumin/Globulin Ratio 0.6 (1.0-2.7) L Arterial Blood pH 7.320 (7.350-7.450) Arterial Blood Partial Pressure CO2 63.9 mmHg (35.0-45.0) *H Arterial Blood Partial Pressure O2 78.3 mmHg (75.0-100.0) Arterial Blood HCO3 32.2 mmol/L (22.0-26.0) H Arterial Blood Oxygen Saturation 94.5 % (95-100) L Arterial Blood Base Excess 4.2 (-2-2) H Darinel Test Positive Plan Problems: (1) Thrombocytopenia (2) Pneumonia (3) Hypoxia Assessment & Plan: 75F covid + hypoxic intubated on vent support acute hypotensive episode placed on pressors on peripheral line eval for central line done. patient weaning off pressors and only on 1mcg of levo currently bp improved sedation noted awake and alert now responsive on vent support but improving hold on central catheter placement cont for now low dose and wean off levo fluids noted trend labs if worsening will plan to place central catheter meilee thank you will follow with recs . DAILY ESTIMATED NEEDS: Needs based on Critical care, 56kg 22-28 kcals/kg 8139-4565 total kcals 1.2-2 g protein/kg 67-112 g total protein 25-30 mL/kg 2758-7422 total fluid mLs NUTRITION DIAGNOSIS: Swallowing difficulty R/T respiratory failure as evidenced by pt orally intubated on 05/27, OGT feeds ordered. CURRENT TF:Vital AF 1.2 @ 50ml/hr x 24 hrs ordered PO DIET RECOMMENDATIONS: EHS ENGINEER eval post extubation ENTERAL NUTRITION RECOMMENDATIONS: Vital AF 1.2 @ 50ml/hr x 24 hrs to provide 1200ml, 1440kcal, 90g prot, 973ml free water * Initiate Vital AF 1.2 @ 20ml/hr x 6hrs * Advance 10ml q 4-6 hrs as tolerated to goal * HOB over 30 degrees/ H2o flush 180ml q 8 hrs ADDITIONAL RECOMMENDATIONS: * Calibrated bedscale wt * Monitor hemodyanmic stability: now off NE * Rec NISS w/ TF while on Decadron: elev FBGs * Monitor lytes, replete as needed (low phos 05/22, rec updated level) (4) Abnormal EKG (5) COVID-19 Assessment & Plan: ++ pulm and ID input appreciated Favio Corona Jun 02, 2020 12:22
--- NOTE | 2020-06-02 14:02 | NUR ---
NURSE NOTES: Pt restless again,temp elevated 100.8,Tylenol 650 mg per OGT given,will continue to monitor pt.
--- NOTE | 2020-06-02 14:16 | NUR ---
Plasma Table OperatorMail Weigher SI: Respiratory Failure, COVID PNA, ETT/Vent support T-100.8 (Ax), HR 85, RR 26, BP 128/62 AC 20, TV 450, PEEP 5.0, FiO2 100% O2 sat 93% WBC 22.6 06-02-20 xray unchanged over 1 day, bilateral infiltrates IS: Lovenox SQ BID Zosyn IV TID ICU Status
--- NOTE | 2020-06-02 15:48 | Infectious Diseases Prog Note ---
Assessment/Plan Assessment/Plan ASSESSMENT AND PLAN: 1. covid-19 infection with pna, hypoxia, ? CAP, fevers, sepsis, leukocytosis respiratory failure, on vent ? worsening leukocytosis secondary to steroids, still febrile, ? fungemia, no diarrhea to suggest c.diff. - s/p dexamethasone and remdesivir - zosyn - day # 5/, add diflucan for fungemia risk - monitor labs and chest x-ray - surveillance cultures ordered 2. No other significant past medical history. 3. Rule out OH per Cardiology. 4. No known allergies. 5. Social history is negative. 6. Family history is noncontributory. 7. MAR is noted. 8. Case was discussed with RN. 9. Continue treatment per primary consultants. 10. Orders were noted and entered. Subjective Constitutional: Reports: fever, other - on vent HEENT: Reports: congestion Respiratory: Reports: shortness of breath Cardiovascular: Reports: other - no pressors ; Denies: chest pain Gastrointestinal/Abdominal: Denies: nausea, vomiting, diarrhea Genitourinary: Reports: other - + salas Neurologic: Reports: weakness, other - lethargic Psychiatric: Reports: other - NA Skin: Denies: rash Hematologic: Denies: bleeding Musculoskeletal: Reports: other - NA Allergies: Coded Allergies: No Known Allergies (Unverified , 04/02/12) Objective Last 24 Hour Vital Signs Date Time Temp Pulse Resp B/P (MAP) Pulse Ox O2 Delivery O2 Flow Rate FiO2 06/02/20 14:00 95 27 130/61 (84) 93 06/02/20 13:32 28 131/72 Mechanical Ventilator 15.0 100 06/02/20 13:00 98 23 138/73 (94) 93 06/02/20 12:32 26 128/62 Mechanical Ventilator 15.0 100 06/02/20 12:10 27 131/60 Mechanical Ventilator 15.0 100 06/02/20 12:00 100.8 92 26 128/62 (84) 94 06/02/20 12:00 85 06/02/20 12:00 Mechanical Ventilator 06/02/20 12:00 15.0 100 06/02/20 11:00 92 26 120/56 (77) 93 06/02/20 10:32 27 117/51 Mechanical Ventilator 15.0 100 06/02/20 10:00 100.0 89 27 117/57 (77) 92 06/02/20 09:32 26 119/58 Mechanical Ventilator 15.0 100 06/02/20 09:32 27 123/64 Mechanical Ventilator 15.0 90 06/02/20 09:12 100.0 06/02/20 09:00 100 29 143/69 (93) 90 06/02/20 08:32 27 143/63 Mechanical Ventilator 15.0 90 06/02/20 08:08 Mechanical Ventilator 06/02/20 08:08 90 06/02/20 08:00 107 06/02/20 08:00 100.5 92 22 131/63 (85) 90 06/02/20 07:49 134 31 100 06/02/20 07:32 20 133/63 Mechanical Ventilator 60 06/02/20 07:00 92 22 131/64 (86) 93 06/02/20 06:32 22 130/65 Mechanical Ventilator 60 06/02/20 06:00 99.8 83 27 138/67 (90) 83 06/02/20 05:32 50 120/68 Mechanical Ventilator 60 06/02/20 05:00 79 20 120/62 (81) 87 06/02/20 04:32 18 127/58 Mechanical Ventilator 60 06/02/20 04:00 80 06/02/20 04:00 Mechanical Ventilator 06/02/20 04:00 60 06/02/20 04:00 80 27 123/53 (76) 86 06/02/20 03:32 19 131/69 Mechanical Ventilator 60 06/02/20 03:27 20 120/68 Mechanical Ventilator 60 06/02/20 03:00 81 22 154/64 (94) 91 06/02/20 02:32 14 131/72 Mechanical Ventilator 60 06/02/20 02:00 76 25 130/62 (84) 89 06/02/20 01:51 81 22 60 06/02/20 01:32 20 129/58 Mechanical Ventilator 60 06/02/20 01:00 72 22 118/68 (85) 92 06/02/20 00:32 20 125/61 Mechanical Ventilator 60 06/02/20 00:32 20 136/59 Mechanical Ventilator 60 06/02/20 00:00 Mechanical Ventilator 06/02/20 00:00 60 06/02/20 00:00 99.9 72 20 127/61 (83) 96 06/02/20 00:00 87 06/01/20 23:32 19 136/66 Mechanical Ventilator 06/01/20 23:00 68 19 122/59 (80) 96 06/01/20 22:32 19 124/59 Mechanical Ventilator 60 06/01/20 22:00 70 17 125/69 (87) 95 06/01/20 21:32 20 136/66 Mechanical Ventilator 60 06/01/20 21:15 69 19 93 06/01/20 21:00 70 22 140/68 (92) 93 06/01/20 20:45 70 23 134/50 (78) 92 06/01/20 20:32 22 132/67 Mechanical Ventilator 60 06/01/20 20:32 22 132/67 Mechanical Ventilator 60 06/01/20 20:30 68 23 131/67 (88) 93 06/01/20 20:15 71 21 136/60 (85) 92 06/01/20 20:15 20 125/69 Mechanical Ventilator 60 06/01/20 20:00 20 137/61 Mechanical Ventilator 06/01/20 20:00 Mechanical Ventilator 06/01/20 20:00 99.0 71 20 132/66 (88) 91 06/01/20 20:00 60 06/01/20 20:00 80 06/01/20 19:45 72 22 128/64 (85) 92 06/01/20 19:45 22 115/61 Mechanical Ventilator 60 06/01/20 19:42 76 24 60 06/01/20 19:30 84 22 136/59 (84) 94 06/01/20 19:30 23 133/63 Mechanical Ventilator 60 06/01/20 19:15 88 22 125/60 (81) 91 06/01/20 19:15 22 145/59 Mechanical Ventilator 60 06/01/20 19:00 64 19 118/55 (76) 96 06/01/20 19:00 20 150/61 Mechanical Ventilator 60 06/01/20 18:33 22 116/58 Mechanical Ventilator 15.0 06/01/20 18:00 67 20 127/58 (81) 97 06/01/20 18:00 66 19 130/56 (80) 98 06/01/20 17:33 22 113/58 Mechanical Ventilator 15.0 60 06/01/20 17:00 72 20 118/56 (76) 97 06/01/20 17:00 98.9 74 19 133/63 (86) 94 06/01/20 16:33 20 120/64 Mechanical Ventilator 15.0 50 06/01/20 16:00 73 06/01/20 16:00 60 06/01/20 16:00 98.9 69 20 128/64 (85) 95 06/01/20 16:00 Mechanical Ventilator Height (Feet): 5 Height (Inches): 1.00 Weight (Pounds): 130 General Appearance: other - on vent HEENT: normocephalic, atraumatic, anicteric, no JVD, other - oral - intubated Respiratory/Chest: crackles/rales, rhonchi - bilaterally Cardiovascular: normal rate, regular rhythm, no gallop/murmur Abdomen: normal bowel sounds, soft, non tender, no organomegaly, non distended Genitourinary: other - no salas Extremities: no cyanosis Skin: no rash 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 The heart is borderline enlarged. There is suggestion of small bilateral pleural effusions, not evident previously. Impression: Worsening bilateral infiltrates, right greater than left. Chest x-ray - 05/27/20: FINDINGS/IMPRESSION: Bilateral airspace consolidations, consistent with multifocal infiltrate. These are worsening when compared to just [place] May 22, 2020. Follow-up chest radiograph recommended. Small bilateral pleural effusions, slightly worsening. No pneumothorax. Cardiomegaly. Calcified aorta. chest x-ray - 05/29/20 - FINDINGS/IMPRESSION: Enteric feeding tube terminates in the stomach. Endotracheal tube terminates 6.2 cm above the sho. EKG leads overlie the patient. Small pleural effusions, unchanged mild vascular condition, mildly improving. Superimposed patchy opacities, consistent with infiltrate. These are slightly improved when compared to previous study from May 27, 2020. Continue just ready to follow up recommended. Cardiomegaly. Calcified aorta. Chest x-ray - 05/31/20 - Procedure: XRAY Chest 1v Indication: Shortness of breath Technique: One view of the chest Comparison: none Findings: Stable satisfactory positions of endotracheal and orogastric tubes. Bilateral infiltrates appear slightly increased on the right, stable on the left. The heart size is normal. Impression: Slightly increased infiltrates on the right. Stable infiltrates on the left. Chest x-ray - 06/02/20 - Procedure: XRAY Chest 1v Indication: Shortness of breath Technique: One view of the chest Comparison: 06/01/2020 Findings: Stable tube positions. Bilateral infiltrates are unchanged. Impression: Unchanged, over one day, findings as above. Microbiology Date/Time Source Procedure Growth Status 05/30/20 12:00 Nasopharynx SARS-CoV-2 RdRp Gene Assay - Final Complete 05/29/20 22:30 Blood Blood Culture - Preliminary NO GROWTH AFTER 24 HOURS Resulted 05/22/20 19:00 Straight Cath Urine Culture - Final NO GROWTH AFTER 48 HOURS Complete Laboratory Tests Test 06/02/20 04:10 06/02/20 08:02 White Blood Count 22.6 K/UL (4.8-10.8) *H Red Blood Count 3.54 M/UL (4.20-5.40) L Hemoglobin 11.8 G/DL (12.0-16.0) L Hematocrit 35.4 % (37.0-47.0) L Mean Corpuscular Volume 100 FL (80-99) H Mean Corpuscular Hemoglobin 33.4 PG (27.0-31.0) H Mean Corpuscular Hemoglobin Concent 33.4 G/DL (32.0-36.0) Red Cell Distribution Width 12.4 % (11.6-14.8) Platelet Count 95 K/UL (150-450) L Mean Platelet Volume 11.1 FL (6.5-10.1) H Neutrophils (%) (Auto) % (45.0-75.0) Lymphocytes (%) (Auto) % (20.0-45.0) Monocytes (%) (Auto) % (1.0-10.0) Eosinophils (%) (Auto) % (0.0-3.0) Basophils (%) (Auto) % (0.0-2.0) Differential Total Cells Counted 100 Neutrophils % (Manual) 92 % (45-75) H Lymphocytes % (Manual) 6 % (20-45) L Monocytes % (Manual) 1 % (1-10) Eosinophils % (Manual) 1 % (0-3) Basophils % (Manual) 0 % (0-2) Band Neutrophils 0 % (0-8) Platelet Estimate Decreased L Platelet Morphology Normal Macrocytosis 1+ Sodium Level 144 MMOL/L (136-145) Potassium Level 3.7 MMOL/L (3.5-5.1) Chloride Level 107 MMOL/L (98-107) Carbon Dioxide Level 31 MMOL/L (21-32) Anion Gap 6 mmol/L (5-15) Blood Urea Nitrogen 23 mg/dL (7-18) H Creatinine 0.6 MG/DL (0.55-1.30) Estimat Glomerular Filtration Rate > 60 mL/min (>60) Glucose Level 159 MG/DL (74-106) H Calcium Level 8.4 MG/DL (8.5-10.1) L Total Bilirubin 0.8 MG/DL (0.2-1.0) Aspartate Amino Transf (AST/SGOT) 43 U/L (15-37) H Alanine Aminotransferase (ALT/SGPT) 23 U/L (12-78) Alkaline Phosphatase 88 U/L (46-116) C-Reactive Protein, Quantitative Pending Total Protein 5.6 G/DL (6.4-8.2) L Albumin 2.0 G/DL (3.4-5.0) L Globulin 3.6 g/dL Albumin/Globulin Ratio 0.6 (1.0-2.7) L Arterial Blood pH 7.320 (7.350-7.450) Arterial Blood Partial Pressure CO2 63.9 mmHg (35.0-45.0) *H Arterial Blood Partial Pressure O2 78.3 mmHg (75.0-100.0) Arterial Blood HCO3 32.2 mmol/L (22.0-26.0) H Arterial Blood Oxygen Saturation 94.5 % (95-100) L Arterial Blood Base Excess 4.2 (-2-2) H Darinel Test Positive Current Medications Medications (Trade) Dose Ordered Sig/Elieser Route PRN Reason Start Time Stop Time Status Last Admin Dose Admin Acetaminophen (Tylenol) 650 mg Q4H PRN ORAL Temp >100.5 05/23/20 10:30 06/22/20 10:29 06/02/20 14:14 Acetaminophen (Tylenol) 650 mg Q4H PRN ORAL pain 05/24/20 11:30 06/23/20 11:29 05/27/20 04:35 Albuterol Sulfate (Proventil MDI) 2 puff Q4H PRN INH Shortness of Breath 05/23/20 10:30 08/21/20 10:29 05/27/20 01:09 Chlorhexidine Gluconate (Emma-Hex 2%) 1 applic QHS TOPIC 05/27/20 21:00 08/25/20 20:59 06/01/20 21:32 Dextrose (Dextrose 50%) 25 ml Q30M PRN IV Hypoglycemia 05/23/20 10:30 08/21/20 10:29 Dextrose (Dextrose 50%) 50 ml Q30M PRN IV Hypoglycemia 05/23/20 10:30 08/21/20 10:29 Docusate Sodium (Colace) 100 mg EVERY 12 HOURS GT 05/30/20 09:00 06/22/20 20:59 06/02/20 08:41 Enoxaparin Sodium (Lovenox) 40 mg Q12HR SUBQ 05/30/20 21:00 08/28/20 20:59 06/01/20 21:32 Famotidine (Pepcid) 40 mg DAILY ORAL 05/24/20 09:00 08/22/20 08:59 06/02/20 08:41 Fentanyl Citrate 250 ml @ 1 mls/hr Q24H IV 06/02/20 02:00 06/04/20 01:59 06/02/20 03:27 Guaifenesin/ Dextromethorphan (Robitussin DM Syrup) 10 ml Q4H PRN ORAL For Cough 05/24/20 08:00 08/22/20 07:59 05/27/20 04:35 Midazolam HCl (Versed 2mg/2ml vial) 1 mg EVERY 2 HOURS PRN IVP Agitation 05/27/20 19:15 06/03/20 19:14 05/29/20 20:09 Piperacillin Sod/ Tazobactam Sod 3.375 gm/Sodium Chloride 110 ml @ 27.5 mls/hr Q8H IVPB 1/2/21 00:00 06/04/20 00:00 06/02/20 08:41 Afshan Muñoz MD Jun 02, 2020 15:48
--- NOTE | 2020-06-02 16:00 | NUR ---
NURSE NOTES: Pt's temp down to T100.3,cold compress continuous to forehead and armpits.
--- NOTE | 2020-06-02 17:01 | Cardiac Electrophysiology PN ---
Assessment/Plan Assessment/Plan 1. COVID pneumonia. Ruled out for RI EKG in view of inferolateral ST depression Echo EF 65% Her BNP was only 342. Intubated on 100% Fio2 and PEEP 5 despite dexamethasone, ceftriaxone, and azithromycin. 2. Sinus nnamdi off any TAVARES affecting agent. Likely due to Covid 3. S/P septic shock. 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 Off pressors in Covid isolation. On Abx and Fentanyl drip. In SR still febrile Objective Last 24 Hour Vital Signs Date Time Temp Pulse Resp B/P (MAP) Pulse Ox O2 Delivery O2 Flow Rate FiO2 06/02/20 16:00 95 06/02/20 16:00 15.0 100 06/02/20 16:00 Mechanical Ventilator 06/02/20 16:00 99 25 134/47 (76) 93 06/02/20 15:32 27 126/63 Mechanical Ventilator 100 06/02/20 15:00 90 24 136/64 (88) 93 06/02/20 14:32 27 126/63 Mechanical Ventilator 15.0 100 06/02/20 14:00 95 27 130/61 (84) 93 06/02/20 13:32 28 131/72 Mechanical Ventilator 15.0 100 06/02/20 13:00 98 23 138/73 (94) 93 06/02/20 12:32 26 128/62 Mechanical Ventilator 15.0 100 06/02/20 12:10 27 131/60 Mechanical Ventilator 15.0 100 06/02/20 12:00 100.8 92 26 128/62 (84) 94 06/02/20 12:00 85 06/02/20 12:00 Mechanical Ventilator 06/02/20 12:00 15.0 100 06/02/20 11:00 92 26 120/56 (77) 93 06/02/20 10:32 27 117/51 Mechanical Ventilator 15.0 100 06/02/20 10:00 100.0 89 27 117/57 (77) 92 06/02/20 09:32 26 119/58 Mechanical Ventilator 15.0 100 06/02/20 09:32 27 123/64 Mechanical Ventilator 15.0 90 06/02/20 09:12 100.0 06/02/20 09:00 100 29 143/69 (93) 90 06/02/20 08:32 27 143/63 Mechanical Ventilator 15.0 90 06/02/20 08:08 Mechanical Ventilator 06/02/20 08:08 90 06/02/20 08:00 107 06/02/20 08:00 100.5 92 22 131/63 (85) 90 06/02/20 07:49 134 31 100 06/02/20 07:32 20 133/63 Mechanical Ventilator 60 06/02/20 07:00 92 22 131/64 (86) 93 06/02/20 06:32 22 130/65 Mechanical Ventilator 60 06/02/20 06:00 99.8 83 27 138/67 (90) 83 06/02/20 05:32 50 120/68 Mechanical Ventilator 60 06/02/20 05:00 79 20 120/62 (81) 87 06/02/20 04:32 18 127/58 Mechanical Ventilator 60 06/02/20 04:00 80 06/02/20 04:00 Mechanical Ventilator 06/02/20 04:00 60 06/02/20 04:00 80 27 123/53 (76) 86 06/02/20 03:32 19 131/69 Mechanical Ventilator 60 06/02/20 03:27 20 120/68 Mechanical Ventilator 60 06/02/20 03:00 81 22 154/64 (94) 91 06/02/20 02:32 14 131/72 Mechanical Ventilator 60 06/02/20 02:00 76 25 130/62 (84) 89 06/02/20 01:51 81 22 60 06/02/20 01:32 20 129/58 Mechanical Ventilator 60 06/02/20 01:00 72 22 118/68 (85) 92 06/02/20 00:32 20 125/61 Mechanical Ventilator 60 06/02/20 00:32 20 136/59 Mechanical Ventilator 60 06/02/20 00:00 Mechanical Ventilator 06/02/20 00:00 60 06/02/20 00:00 99.9 72 20 127/61 (83) 96 06/02/20 00:00 87 06/01/20 23:32 19 136/66 Mechanical Ventilator 06/01/20 23:00 68 19 122/59 (80) 96 06/01/20 22:32 19 124/59 Mechanical Ventilator 60 06/01/20 22:00 70 17 125/69 (87) 95 06/01/20 21:32 20 136/66 Mechanical Ventilator 60 06/01/20 21:15 69 19 93 06/01/20 21:00 70 22 140/68 (92) 93 06/01/20 20:45 70 23 134/50 (78) 92 06/01/20 20:32 22 132/67 Mechanical Ventilator 60 06/01/20 20:32 22 132/67 Mechanical Ventilator 60 06/01/20 20:30 68 23 131/67 (88) 93 06/01/20 20:15 71 21 136/60 (85) 92 06/01/20 20:15 20 125/69 Mechanical Ventilator 60 06/01/20 20:00 20 137/61 Mechanical Ventilator 06/01/20 20:00 Mechanical Ventilator 06/01/20 20:00 99.0 71 20 132/66 (88) 91 06/01/20 20:00 60 06/01/20 20:00 80 06/01/20 19:45 72 22 128/64 (85) 92 06/01/20 19:45 22 115/61 Mechanical Ventilator 60 06/01/20 19:42 76 24 60 06/01/20 19:30 84 22 136/59 (84) 94 06/01/20 19:30 23 133/63 Mechanical Ventilator 60 06/01/20 19:15 88 22 125/60 (81) 91 06/01/20 19:15 22 145/59 Mechanical Ventilator 60 06/01/20 19:00 64 19 118/55 (76) 96 06/01/20 19:00 20 150/61 Mechanical Ventilator 60 06/01/20 18:33 22 116/58 Mechanical Ventilator 15.0 06/01/20 18:00 67 20 127/58 (81) 97 06/01/20 18:00 66 19 130/56 (80) 98 06/01/20 17:33 22 113/58 Mechanical Ventilator 15.0 60 Intake and Output 06/01/20 06/02/20 19:00 07:00 Intake Total 983.5 ml 1032.25 ml Output Total 875 ml 1300 ml Balance 108.5 ml -267.75 ml Free Water 200 ml 90 ml IV Total 213.5 ml 292.25 ml Tube Feeding 450 ml 650 ml Other 120 ml Output Urine Total 875 ml 1300 ml Laboratory Tests Test 06/02/20 04:10 06/02/20 08:02 White Blood Count 22.6 K/UL (4.8-10.8) *H Red Blood Count 3.54 M/UL (4.20-5.40) L Hemoglobin 11.8 G/DL (12.0-16.0) L Hematocrit 35.4 % (37.0-47.0) L Mean Corpuscular Volume 100 FL (80-99) H Mean Corpuscular Hemoglobin 33.4 PG (27.0-31.0) H Mean Corpuscular Hemoglobin Concent 33.4 G/DL (32.0-36.0) Red Cell Distribution Width 12.4 % (11.6-14.8) Platelet Count 95 K/UL (150-450) L Mean Platelet Volume 11.1 FL (6.5-10.1) H Neutrophils (%) (Auto) % (45.0-75.0) Lymphocytes (%) (Auto) % (20.0-45.0) Monocytes (%) (Auto) % (1.0-10.0) Eosinophils (%) (Auto) % (0.0-3.0) Basophils (%) (Auto) % (0.0-2.0) Differential Total Cells Counted 100 Neutrophils % (Manual) 92 % (45-75) H Lymphocytes % (Manual) 6 % (20-45) L Monocytes % (Manual) 1 % (1-10) Eosinophils % (Manual) 1 % (0-3) Basophils % (Manual) 0 % (0-2) Band Neutrophils 0 % (0-8) Platelet Estimate Decreased L Platelet Morphology Normal Macrocytosis 1+ Sodium Level 144 MMOL/L (136-145) Potassium Level 3.7 MMOL/L (3.5-5.1) Chloride Level 107 MMOL/L (98-107) Carbon Dioxide Level 31 MMOL/L (21-32) Anion Gap 6 mmol/L (5-15) Blood Urea Nitrogen 23 mg/dL (7-18) H Creatinine 0.6 MG/DL (0.55-1.30) Estimat Glomerular Filtration Rate > 60 mL/min (>60) Glucose Level 159 MG/DL (74-106) H Calcium Level 8.4 MG/DL (8.5-10.1) L Total Bilirubin 0.8 MG/DL (0.2-1.0) Aspartate Amino Transf (AST/SGOT) 43 U/L (15-37) H Alanine Aminotransferase (ALT/SGPT) 23 U/L (12-78) Alkaline Phosphatase 88 U/L (46-116) C-Reactive Protein, Quantitative Pending Total Protein 5.6 G/DL (6.4-8.2) L Albumin 2.0 G/DL (3.4-5.0) L Globulin 3.6 g/dL Albumin/Globulin Ratio 0.6 (1.0-2.7) L Arterial Blood pH 7.320 (7.350-7.450) Arterial Blood Partial Pressure CO2 63.9 mmHg (35.0-45.0) *H Arterial Blood Partial Pressure O2 78.3 mmHg (75.0-100.0) Arterial Blood HCO3 32.2 mmol/L (22.0-26.0) H Arterial Blood Oxygen Saturation 94.5 % (95-100) L Arterial Blood Base Excess 4.2 (-2-2) H Darinel Test Positive Objective HEAD AND NECK: No JVD. Orally intubated LUNGS: Coarse rhonchi. CARDIOVASCULAR: Regular S1 and S2 with no gallop. Bradycardic. ABDOMEN: Soft. EXTREMITIES: No pitting edema. Jordi Albarado MD Jun 02, 2020 17:01
--- NOTE | 2020-06-02 19:09 | NUR ---
NURSE HAND-OFF REPORT: Latest Vital Signs: Temperature 100.3 , Pulse 91 , B/P 135 /58 , Respiratory Rate 27 , O2 SAT 94 , Mechanical Ventilator, O2 Flow Rate 15.0 . Vital Sign Comment: unstable,pt febrile on and off EKG Rhythm: Sinus Rhythm Rhythm change?: N MD Notified?: N - MD Response: Latest Bustamante Fall Score: 50 Fall Risk: High Risk Safety Measures: Call light Within Reach, Bed Alarm Zone 1, Side Rails Side Rails x2, Bed position Low and Locked. Fall Precautions: Yellow Socks Yellow Gown Door Sign Patient Fall Education Report given to Maryjane Mann RN.
--- NOTE | 2020-06-02 19:30 | NUR ---
NURSE NOTES: Received report from Lizbeth HERNANDEZ.
--- NOTE | 2020-06-02 20:00 | NUR ---
NURSE NOTES: Patient in bed sedated -2 RASS score. Orally intubated ETT 7.5/22cm AC 20, TV 450 Fi02 100% peep of 5 satting 95. Temp 100 cooling measure provided. OGT intact patient biting tubing placed bite blocked. On Vital AF 1.2 at 50cc/hr. Santiago draining. IV line intact Infusing Fentanyl drip at 150mcg/hr. HOB elevated. Covid +. Airborne precaution maintained and observed. Bilateral wrist restraint checked, patient with episodes of pulling out tubing. will continue plan of care.
[2020-06-02] MEDS: Dyna-Hex 2% Top Sol 2oz TOPIC SCH (20:30)
[2020-06-02 21:16] LABS: APPEARANCE,URINE SLIGHTLY CLOUDY; BILIRUBIN, URINE NEGATIVE (NEGATIVE); GLUCOSE, URINE (UA) 4+ (NEGATIVE); KETONES,URINE NEGATIVE (NEGATIVE); LEUKOCYTE ESTERASE ,URINE NEGATIVE (NEGATIVE); NITRITE,URINE NEGATIVE (NEGATIVE); PH,URINE 6 (4.5-8.0); PROTEIN,URINE 3+ (NEGATIVE); UROBILINOGEN,URINE 8 MG/DL (0.0-1.0)
[2020-06-02 21:23] LABS: COLOR,URINE YELLOW
--- NOTE | 2020-06-02 22:59 | NUR ---
NURSE NOTES: Patient continue on Fentanyl drip at 250mcg/hr Rass score -2. comfort measure provided.
--- NOTE | 2020-06-02 23:32 | NUR ---
NURSE NOTES: Fentanyl titrated to 150mcg/hr patent
--- NOTE | 2020-06-02 23:55 | NUR ---
NURSE NOTES: Called Dr. Mcdaniels regarding patient BP 85/51 saturatio much better 93-94%. with new order Levophed drip noted nad carried.
[2020-06-03] VITALS (54 sets, daily range): BP systolic 89–146; BP diastolic 50–72
[2020-06-03] MEDS: Norepinephrine 4mg/NS Premix 250 ML IV SCH
--- NOTE | 2020-06-03 00:30 | NUR ---
NURSE NOTES: BP 93/56 satting 96%
[2020-06-03] MEDS: Piperacillin/Tazobactam 3.375 GM in NS 110 ML IVPB SCH ×3 (01:01→16:55)
--- NOTE | 2020-06-03 02:00 | NUR ---
NURSE NOTES: Bed bath given tolerated well.
--- NOTE | 2020-06-03 04:00 | NUR ---
NURSE NOTES: repositioned patient in bed BP 110/61 HR 88 saturation 98%
--- NOTE | 2020-06-03 06:00 | NUR ---
NURSE NOTES: patient in bed no s/s of acute distress noted. continue on Fentanyl drip at 150mcg/hr BP 105/54 satting 98%.
[2020-06-03 07:04] LABS: HEMATOCRIT 34.6 % (37.0-47.0); HEMOGLOBIN 11.4 G/DL (12.0-16.0); MEAN CORPUSCULAR VOLUME 100 FL (80-99); PLATELET COUNT 94 K/UL (150-450); RED BLOOD COUNT 3.45 M/UL (4.20-5.40); RED CELL DISTRIBUTION WIDTH 13.1 % (11.6-14.8); WHITE BLOOD COUNT 19.8 K/UL (4.8-10.8)
--- NOTE | 2020-06-03 07:30 | NUR ---
HAND-OFF: Report given to Carla HERNANDEZ.
--- NOTE | 2020-06-03 07:31 | NUR ---
NURSE NOTES: Received patient in bed. Lightly sedated RASS -2. Mechanical ventilator dependent, FiO2 100%. With OGT feeding of Vital AF running at 50ml/hour. Bilateral soft wrist restraints noted. Fentanyl drip infusing for RASS -2. Bed in lowest position. Bed alarm on. No apparent distress at this time. Airborne isolation observed. Will continue plan of care.
[2020-06-03 07:54] LABS: ANION GAP 2 mmol/L (5-15); BLOOD UREA NITROGEN 26 mg/dL (7-18); CALCIUM 8.6 MG/DL (8.5-10.1); CARBON DIOXIDE 33 MMOL/L (21-32); CHLORIDE 110 MMOL/L (98-107); CREATININE 0.7 MG/DL (0.55-1.30); POTASSIUM 4.4 MMOL/L (3.5-5.1); SODIUM 145 MMOL/L (136-145)
[2020-06-03] MEDS: Enoxaparin 40mg Inj SUBQ SCH ×2 (09:00→21:00)
[2020-06-03] MEDS: Docusate 100mg/10ml Liq GT SCH ×2 (09:22→20:18)
--- NOTE | 2020-06-03 09:30 | NUR ---
NURSE NOTES: Ivonne Andrade NP at bedside. Aware of current vent settings. And ABG results today.
--- NOTE | 2020-06-03 10:02 | Cardiology Report ---
APPROVED REPORT EXAM: Two-dimensional and M-mode echocardiogram with Doppler and color Doppler. INDICATION Shortness of breath M-Mode DIMENSIONS IVSd0.9 (0.7-1.1cm)Left Atrium (MM)2.7 (1.6-4.0cm) LVDd4.3 (3.5-5.6cm)Aortic Root3.6 (2.0-3.7cm) PWd0.9 (0.7-1.1cm)Aortic Cusp Exc.1.8 (1.5-2.0cm) IVSs1.8 cmEPSS0.3 (>1.0cm) LVDs2.6 (2.5-4.0cm) PWs1.4 cm <Conclusion> Normal left ventricular chamber size, systolic function and wall motion. Left ventricular ejection fraction estimated to be 65 %. No evidence of left ventricular hypertrophy. Anterior Echo-free space, may be due to pericardial fat or effusion. All other cardiac chamber sizes are within normal limits. Focal aortic valve sclerosis with adequate cusp excursion. Thickened mitral valve leaflets with normal excursion. Mitral annulus and aortic root calcification. Pulmonic valve not well visualized. Normal tricuspid valve structure. IVC at normal size with physiologic collapse. A color flow and spectral Doppler study was performed and revealed: Mild aortic regurgitation. Mild to moderate mitral regurgitation. Mitral diastolic velocities suggest reduced left ventricular relaxation c/w mild diastolic dysfunction (Grade I). Mild to moderate tricuspid regurgitation. Tricuspid systolic velocities suggests peak right ventricular systolic pressure of 47 mmHg, consistent with moderate pulmonary hypertension. Pulmonic regurgitation present.
[2020-06-03] MEDS: fentaNYL 2500mcg/NS 250ml 250 ML IV SCH (10:09)
--- NOTE | 2020-06-03 10:24 | Pulmonolgy Critical Care Note ---
Critical Care - Asmt/Plan Assessment/Plan: ASSESSMENT Acute hypoxemic resp failure due to COVID PNA, requiring intubation 05/27 COVID 19 PNA Thrombocytopenia-resolved Abnormal ECG Headache Pulmonary HTN PLAN OF CARE ICU isolation Date of sx onset: few days prior to presentation to ED on 05/23 Positive test: OSF 05/22 - 1 days prior to admission , SARS COV-2 by PCR 05/30 NGT O2 -> intubated 05/27 , failed weaning 06/01 , vent support ABG this am noted, imprved with new settings; titrate FiO2 to keep sat > 92 HFA if unable to do HHN via line s/p REM x 5 days ( 05/23-05/27 ) s/p DEX x 10 days D dimer initial 0.48 - > 19.61-> 7.23 DVT PPX: Lovenox Venous Duplex BLE NGT Trend CRP 3.6 -> 19.7-> 76.4 - 38.3 -45.1 Abx per ID recs BCX 1/3 NGTD, UCX 1/2 NGT prone position as tolerated monitor volumes and renal function fup with consultants recs FC Discuss GOC monitor PLT counts-now trendgin down again, consider decrease Lovenox to daily dose cardio eval -appreciated ECHO with pEF 65%, no WMA, mild to moderate MR, moderate pulmonary hypertension case discussed and evaluated by supervising physician Critical Care - Objective Last 24 Hour Vital Signs Date Time Temp Pulse Resp B/P (MAP) Pulse Ox O2 Delivery O2 Flow Rate FiO2 06/03/20 10:09 26 103/56 Mechanical Ventilator 85 06/03/20 09:30 76 25 112/57 (75) 94 06/03/20 09:00 79 24 118/60 (79) 95 06/03/20 08:45 85 06/03/20 08:30 78 26 121/58 (79) 100 06/03/20 08:00 100 06/03/20 08:00 100.0 85 26 93/52 (66) 100 06/03/20 07:30 86 26 94/51 (65) 100 06/03/20 07:26 84 27 100 06/03/20 07:00 88 25 99/50 (66) 100 06/03/20 06:32 26 103/58 Mechanical Ventilator 100 06/03/20 06:00 100.3 88 26 103/58 (73) 99 06/03/20 05:32 26 134/52 Mechanical Ventilator 100 06/03/20 05:31 100.4 06/03/20 05:00 102.0 87 24 133/60 (84) 96 06/03/20 04:32 25 103/66 Mechanical Ventilator 100 06/03/20 04:30 87 26 100/60 (73) 97 06/03/20 04:00 88 06/03/20 04:00 99.0 91 26 104/59 (74) 97 06/03/20 04:00 Mechanical Ventilator 06/03/20 04:00 15.0 100 06/03/20 03:32 26 118/65 Mechanical Ventilator 100 06/03/20 03:30 92 26 97/59 (72) 96 06/03/20 03:00 92 26 95/59 (71) 96 06/03/20 02:55 90 26 100 06/03/20 02:32 26 97/58 Mechanical Ventilator 100 06/03/20 02:30 96 26 98/59 (72) 96 06/03/20 02:20 97 26 100/59 (73) 96 06/03/20 02:10 98 26 97/57 (70) 95 06/03/20 02:00 100 25 93/55 (68) 94 06/03/20 01:40 143 26 105/60 (75) 86 06/03/20 01:32 26 100/59 Mechanical Ventilator 100 06/03/20 01:30 168 26 93/55 (68) 91 06/03/20 01:10 83 26 104/60 (75) 89 06/03/20 01:00 87 26 110/58 (75) 89 06/03/20 00:32 26 93/55 Mechanical Ventilator 100 06/03/20 00:30 93 26 93/55 (68) 94 06/03/20 00:00 Mechanical Ventilator 06/03/20 00:00 15.0 100 06/03/20 00:00 93 06/03/20 00:00 134/52 06/03/20 00:00 95 26 89/54 (66) 93 06/02/20 23:32 26 92/56 Mechanical Ventilator 100 06/02/20 23:30 103 26 89/54 (66) 93 06/02/20 23:05 113 26 100 06/02/20 23:00 115 19 107/61 (76) 90 06/02/20 22:00 95 24 139/61 (87) 78 06/02/20 21:30 100 25 130/64 (86) 84 06/02/20 21:01 99.0 06/02/20 21:00 98 27 142/70 (94) 79 06/02/20 21:00 27 150/67 Mechanical Ventilator 100 06/02/20 20:30 96 26 146/62 (90) 81 06/02/20 20:00 Mechanical Ventilator 06/02/20 20:00 101.0 99 27 141/66 (91) 90 06/02/20 20:00 15.0 100 06/02/20 20:00 94 06/02/20 19:59 29 135/58 Mechanical Ventilator 15.0 100 06/02/20 19:58 26 144/67 Mechanical Ventilator 100 06/02/20 19:40 92 28 146/70 (95) 87 06/02/20 19:32 26 146/70 Mechanical Ventilator 100 06/02/20 19:30 101 26 144/65 (91) 89 06/02/20 19:00 92 27 138/57 (84) 87 06/02/20 18:50 99 29 100 06/02/20 18:32 27 135/58 Mechanical Ventilator 15.0 100 06/02/20 18:00 91 30 121/67 (85) 94 06/02/20 17:32 30 121/67 Mechanical Ventilator 15.0 100 06/02/20 17:00 100.3 95 26 142/72 (95) 91 06/02/20 16:32 27 141/65 Mechanical Ventilator 15.0 100 06/02/20 16:00 95 06/02/20 16:00 15.0 100 06/02/20 16:00 Mechanical Ventilator 06/02/20 16:00 99 25 134/47 (76) 93 06/02/20 15:46 89 29 100 06/02/20 15:32 27 126/63 Mechanical Ventilator 100 06/02/20 15:00 90 24 136/64 (88) 93 06/02/20 14:44 100.3 06/02/20 14:32 27 126/63 Mechanical Ventilator 15.0 100 06/02/20 14:00 95 27 130/61 (84) 93 06/02/20 13:32 28 131/72 Mechanical Ventilator 15.0 100 06/02/20 13:00 98 23 138/73 (94) 93 06/02/20 12:32 26 128/62 Mechanical Ventilator 15.0 100 06/02/20 12:10 27 131/60 Mechanical Ventilator 15.0 100 06/02/20 12:00 100.8 92 26 128/62 (84) 94 06/02/20 12:00 85 06/02/20 12:00 Mechanical Ventilator 06/02/20 12:00 15.0 100 06/02/20 11:08 90 29 100 06/02/20 11:00 92 26 120/56 (77) 93 06/02/20 10:32 27 117/51 Mechanical Ventilator 15.0 100 Objective: General: intubated, sedated on vent AC 450- 100-26 PEEP 10 now HEENT: atraumatic, normocephalic, ET in place intact Neck: OP with ET in place , intact; feeding tube in place Lungs: clear but diminished Heart: HR/BP stable Abdomen: soft, non-tender, active bowel sounds Extremities: no C/C/E Micro: Microbiology Date/Time Source Procedure Growth Status 06/01/20 11:15 Nasopharynx Coronavirus COVID-19 PCR ([facility]) - Final Complete Critical Care - Subjective ROS Limited/Unobtainable: Yes Interval Events: ABG last night with severe hypoxia and hypercapnia vent settings changed this am ABG with resolved hypoxia, mild hypercapnia still persists sedated remains with low grade fever, leucocytosis with small trend down Condition: critical IV Access: peripheral EKG Rhythm: Sinus Rhythm FI02: 85 Vent Support Breath Rate: 26 Vent Support Mode: AC Vent Tidal Volume: 450 Sputum Amount: Scant PEEP: 10.0 PIP: 39 Drips: Fentanyl gtt at 150 mcg/hr Tube Feeding Amount: 50 I&O: Intake and Output 06/02/20 06/03/20 19:00 07:00 Intake Total 1085 ml 986.0 ml Output Total 845 ml 715 ml Balance 240 ml 271.0 ml Free Water 100 ml IV Total 165 ml 266.0 ml Tube Feeding 600 ml 600 ml Other 220 ml 120 ml Output Urine Total 845 ml 715 ml CXR: CXR 06/02 Stable tube positions. Bilateral infiltrates are unchanged. ET-Tube: 7.5 ET Position: 22 Ivonne Andrade NP Jun 03, 2020 10:24
--- NOTE | 2020-06-03 11:30 | NUR ---
NURSE NOTES: Oral care provided. Patient remains mechanical ventilator dependent.
--- NOTE | 2020-06-03 11:55 | Surgery Progress Note ---
Surgery Progress Note Subjective Additional Comments ill appearing no n/v labs noted exam stable Objective Last 24 Hour Vital Signs Date Time Temp Pulse Resp B/P (MAP) Pulse Ox O2 Delivery O2 Flow Rate FiO2 06/03/20 10:09 26 103/56 Mechanical Ventilator 85 06/03/20 09:30 76 25 112/57 (75) 94 06/03/20 09:00 79 24 118/60 (79) 95 06/03/20 08:45 85 06/03/20 08:30 78 26 121/58 (79) 100 06/03/20 08:00 100 06/03/20 08:00 Mechanical Ventilator 06/03/20 08:00 100.0 85 26 93/52 (66) 100 06/03/20 07:45 82 06/03/20 07:30 86 26 94/51 (65) 100 06/03/20 07:26 84 27 100 06/03/20 07:00 88 25 99/50 (66) 100 06/03/20 06:32 26 103/58 Mechanical Ventilator 100 06/03/20 06:00 100.3 88 26 103/58 (73) 99 06/03/20 05:32 26 134/52 Mechanical Ventilator 100 06/03/20 05:31 100.4 06/03/20 05:00 102.0 87 24 133/60 (84) 96 06/03/20 04:32 25 103/66 Mechanical Ventilator 100 06/03/20 04:30 87 26 100/60 (73) 97 06/03/20 04:00 88 06/03/20 04:00 99.0 91 26 104/59 (74) 97 06/03/20 04:00 Mechanical Ventilator 06/03/20 04:00 15.0 100 06/03/20 03:32 26 118/65 Mechanical Ventilator 100 06/03/20 03:30 92 26 97/59 (72) 96 06/03/20 03:00 92 26 95/59 (71) 96 06/03/20 02:55 90 26 100 06/03/20 02:32 26 97/58 Mechanical Ventilator 100 06/03/20 02:30 96 26 98/59 (72) 96 06/03/20 02:20 97 26 100/59 (73) 96 06/03/20 02:10 98 26 97/57 (70) 95 06/03/20 02:00 100 25 93/55 (68) 94 06/03/20 01:40 143 26 105/60 (75) 86 06/03/20 01:32 26 100/59 Mechanical Ventilator 100 06/03/20 01:30 168 26 93/55 (68) 91 06/03/20 01:10 83 26 104/60 (75) 89 06/03/20 01:00 87 26 110/58 (75) 89 06/03/20 00:32 26 93/55 Mechanical Ventilator 100 06/03/20 00:30 93 26 93/55 (68) 94 06/03/20 00:00 Mechanical Ventilator 06/03/20 00:00 15.0 100 06/03/20 00:00 93 06/03/20 00:00 134/52 06/03/20 00:00 95 26 89/54 (66) 93 06/02/20 23:32 26 92/56 Mechanical Ventilator 100 06/02/20 23:30 103 26 89/54 (66) 93 06/02/20 23:05 113 26 100 06/02/20 23:00 115 19 107/61 (76) 90 06/02/20 22:00 95 24 139/61 (87) 78 06/02/20 21:30 100 25 130/64 (86) 84 06/02/20 21:01 99.0 06/02/20 21:00 98 27 142/70 (94) 79 06/02/20 21:00 27 150/67 Mechanical Ventilator 100 06/02/20 20:30 96 26 146/62 (90) 81 06/02/20 20:00 Mechanical Ventilator 06/02/20 20:00 101.0 99 27 141/66 (91) 90 06/02/20 20:00 15.0 100 06/02/20 20:00 94 06/02/20 19:59 29 135/58 Mechanical Ventilator 15.0 100 06/02/20 19:58 26 144/67 Mechanical Ventilator 100 06/02/20 19:40 92 28 146/70 (95) 87 06/02/20 19:32 26 146/70 Mechanical Ventilator 100 06/02/20 19:30 101 26 144/65 (91) 89 06/02/20 19:00 92 27 138/57 (84) 87 06/02/20 18:50 99 29 100 06/02/20 18:32 27 135/58 Mechanical Ventilator 15.0 100 06/02/20 18:00 91 30 121/67 (85) 94 06/02/20 17:32 30 121/67 Mechanical Ventilator 15.0 100 06/02/20 17:00 100.3 95 26 142/72 (95) 91 06/02/20 16:32 27 141/65 Mechanical Ventilator 15.0 100 06/02/20 16:00 95 06/02/20 16:00 15.0 100 06/02/20 16:00 Mechanical Ventilator 06/02/20 16:00 99 25 134/47 (76) 93 06/02/20 15:46 89 29 100 06/02/20 15:32 27 126/63 Mechanical Ventilator 100 06/02/20 15:00 90 24 136/64 (88) 93 06/02/20 14:44 100.3 06/02/20 14:32 27 126/63 Mechanical Ventilator 15.0 100 06/02/20 14:00 95 27 130/61 (84) 93 06/02/20 13:32 28 131/72 Mechanical Ventilator 15.0 100 06/02/20 13:00 98 23 138/73 (94) 93 06/02/20 12:32 26 128/62 Mechanical Ventilator 15.0 100 06/02/20 12:10 27 131/60 Mechanical Ventilator 15.0 100 06/02/20 12:00 100.8 92 26 128/62 (84) 94 06/02/20 12:00 85 06/02/20 12:00 Mechanical Ventilator 06/02/20 12:00 15.0 100 I&O Intake and Output 06/02/20 06/03/20 19:00 07:00 Intake Total 1085 ml 986.0 ml Output Total 845 ml 715 ml Balance 240 ml 271.0 ml Free Water 100 ml IV Total 165 ml 266.0 ml Tube Feeding 600 ml 600 ml Other 220 ml 120 ml Output Urine Total 845 ml 715 ml Dressing: saturated Cardiovascular: RSR Respiratory: decreased breath sounds Abdomen: soft, non-tender, present bowel sounds, non-distended Extremities: no tenderness, no cyanosis Laboratory Tests Test 06/02/20 18:55 06/02/20 22:35 06/03/20 05:55 06/03/20 08:04 Urine Color Yellow Urine Appearance Slightly cloudy Urine pH 6 (4.5-8.0) Urine Specific [place] 1.015 (1.005-1.035) Urine Protein 3+ (NEGATIVE) H Urine Glucose (UA) 4+ (NEGATIVE) H Urine Ketones Negative (NEGATIVE) Urine Blood 5+ (NEGATIVE) H Urine Nitrite Negative (NEGATIVE) Urine Bilirubin Negative (NEGATIVE) Urine Urobilinogen 8 MG/DL (0.0-1.0) H Urine Leukocyte Esterase Negative (NEGATIVE) Urine RBC Tntc /HPF (0 - 2) H Urine WBC 0-2 /HPF (0 - 2) Urine Squamous Epithelial Cells None /LPF (NONE/OCC) Urine Bacteria Few /HPF (NONE) Arterial Blood pH 7.347 (7.350-7.450) 7.393 (7.350-7.450) Arterial Blood Partial Pressure CO2 61.6 mmHg (35.0-45.0) *H 53.9 mmHg (35.0-45.0) H Arterial Blood Partial Pressure O2 33.4 mmHg (75.0-100.0) 90.6 mmHg (75.0-100.0) Arterial Blood HCO3 33.0 mmol/L (22.0-26.0) H 32.1 mmol/L (22.0-26.0) H Arterial Blood Oxygen Saturation 61.9 % (95-100) *L 96.3 % (95-100) Arterial Blood Base Excess 5.6 (-2-2) H 6.0 (-2-2) H Darinel Test Positive Positive White Blood Count 19.8 K/UL (4.8-10.8) H Red Blood Count 3.45 M/UL (4.20-5.40) L Hemoglobin 11.4 G/DL (12.0-16.0) L Hematocrit 34.6 % (37.0-47.0) L Mean Corpuscular Volume 100 FL (80-99) H Mean Corpuscular Hemoglobin 32.9 PG (27.0-31.0) H Mean Corpuscular Hemoglobin Concent 32.8 G/DL (32.0-36.0) Red Cell Distribution Width 13.1 % (11.6-14.8) Platelet Count 94 K/UL (150-450) L Mean Platelet Volume 8.6 FL (6.5-10.1) Neutrophils (%) (Auto) % (45.0-75.0) Lymphocytes (%) (Auto) % (20.0-45.0) Monocytes (%) (Auto) % (1.0-10.0) Eosinophils (%) (Auto) % (0.0-3.0) Basophils (%) (Auto) % (0.0-2.0) Differential Total Cells Counted 100 Neutrophils % (Manual) 97 % (45-75) H Lymphocytes % (Manual) 2 % (20-45) L Monocytes % (Manual) 1 % (1-10) Eosinophils % (Manual) 0 % (0-3) Basophils % (Manual) 0 % (0-2) Band Neutrophils 0 % (0-8) Platelet Estimate Decreased L Platelet Morphology Clumped Platelets 1+ Macrocytosis 1+ Sodium Level 145 MMOL/L (136-145) Potassium Level 4.4 MMOL/L (3.5-5.1) Chloride Level 110 MMOL/L (98-107) H Carbon Dioxide Level 33 MMOL/L (21-32) H Anion Gap 2 mmol/L (5-15) L Blood Urea Nitrogen 26 mg/dL (7-18) H Creatinine 0.7 MG/DL (0.55-1.30) Estimat Glomerular Filtration Rate > 60 mL/min (>60) Glucose Level 228 MG/DL (74-106) H Calcium Level 8.6 MG/DL (8.5-10.1) Plan Problems: (1) Thrombocytopenia (2) Pneumonia (3) Hypoxia Assessment & Plan: 75F covid + hypoxic intubated on vent support acute hypotensive episode placed on pressors on peripheral line eval for central line done. patient weaning off pressors and only on 1mcg of levo currently bp improved sedation noted awake and alert now responsive on vent support but improving hold on central catheter placement cont for now low dose and wean off levo fluids noted trend labs if worsening will plan to place central catheter emilee thank you will follow with recs . DAILY ESTIMATED NEEDS: Needs based on Critical care, 56kg 22-28 kcals/kg 9204-3504 total kcals 1.2-2 g protein/kg 67-112 g total protein 25-30 mL/kg 8898-2800 total fluid mLs NUTRITION DIAGNOSIS: Swallowing difficulty R/T respiratory failure as evidenced by pt orally intubated on 05/27, OGT feeds ordered. CURRENT TF:Vital AF 1.2 @ 50ml/hr x 24 hrs ordered PO DIET RECOMMENDATIONS: [employer] eval post extubation ENTERAL NUTRITION RECOMMENDATIONS: Vital AF 1.2 @ 50ml/hr x 24 hrs to provide 1200ml, 1440kcal, 90g prot, 973ml free water * Initiate Vital AF 1.2 @ 20ml/hr x 6hrs * Advance 10ml q 4-6 hrs as tolerated to goal * HOB over 30 degrees/ H2o flush 180ml q 8 hrs ADDITIONAL RECOMMENDATIONS: * Calibrated bedscale wt * Monitor hemodyanmic stability: now off NE * Rec NISS w/ TF while on Decadron: elev FBGs * Monitor lytes, replete as needed (low phos 05/22, rec updated level) (4) Abnormal EKG (5) COVID-19 Assessment & Plan: ++ pulm and ID input appreciated Favio Corona Jun 03, 2020 11:55
--- NOTE | 2020-06-03 13:30 | NUR ---
NURSE NOTES: No bowel movement noted at this time.
--- NOTE | 2020-06-03 13:55 | NUR ---
NURSE NOTES: Dr. Mcdaniels at bedside. Made aware of latest ABG results. MD said that he will check patient's chart.
--- NOTE | 2020-06-03 14:00 | Diagnostic Imaging Report ---
Indication: Shortness of breath Technique: XRAY Chest 1v Comparison: 06/02/2020 Findings: Worsening aeration with increasing bilateral infiltrates, particularly worsened in the right lung. Endotracheal tube and enteric tube stable and satisfactory position. No pneumothorax. Heart size and osseous structures are stable. Impression: Worsening aeration with increasing bilateral infiltrates.
--- NOTE | 2020-06-03 15:49 | Cardiac Electrophysiology PN ---
Assessment/Plan Assessment/Plan 1. COVID pneumonia. Ruled out for [place] EKG in view of inferolateral ST depression EF 65% Her BNP was only 342. Intubated on 100% Fio2 and PEEP 12 despite dexamethasone, ceftriaxone, and azithromycin. 2. Sinus nnamdi off any TAVARES affecting agent. Likely due to Covid 3. S/P septic shock. Now off Levophed DW RN Subjective Subjective In ICU intubated on 100% Fio2 and Peep of 12. Off pressors in Covid isolation. On Abx and Fentanyl drip. In SR Failed weaning Objective Last 24 Hour Vital Signs Date Time Temp Pulse Resp B/P (MAP) Pulse Ox O2 Delivery O2 Flow Rate FiO2 06/03/20 14:15 14 131/68 Mechanical Ventilator 100 06/03/20 14:00 81 23 141/67 (91) 94 06/03/20 13:57 100 06/03/20 13:45 80 26 129/65 (86) 94 06/03/20 13:35 100 06/03/20 13:30 81 23 135/60 (85) 90 06/03/20 13:15 78 26 103/58 (73) 94 06/03/20 13:15 26 103/58 Mechanical Ventilator 75 06/03/20 13:00 26 101/53 Mechanical Ventilator 75 06/03/20 13:00 76 26 101/53 (69) 93 06/03/20 12:32 26 97/52 Mechanical Ventilator 75 06/03/20 12:30 76 26 97/52 (67) 92 06/03/20 12:11 74 06/03/20 12:00 99.6 77 26 101/52 (68) 95 06/03/20 12:00 Mechanical Ventilator 06/03/20 12:00 75 06/03/20 11:32 26 96/54 Mechanical Ventilator 85 06/03/20 11:30 77 26 96/54 (68) 96 06/03/20 11:00 79 26 97/54 (68) 97 06/03/20 10:32 26 103/56 Mechanical Ventilator 85 06/03/20 10:30 81 26 103/56 (72) 97 06/03/20 10:09 26 103/56 Mechanical Ventilator 85 06/03/20 10:08 26 103/56 Mechanical Ventilator 100 06/03/20 10:00 79 26 103/56 (72) 97 06/03/20 09:32 25 112/57 Mechanical Ventilator 100 06/03/20 09:30 76 25 112/57 (75) 94 06/03/20 09:00 79 24 118/60 (79) 95 06/03/20 08:45 85 06/03/20 08:32 26 121/58 Mechanical Ventilator 100 06/03/20 08:30 78 26 121/58 (79) 100 06/03/20 08:00 100 06/03/20 08:00 Mechanical Ventilator 06/03/20 08:00 100.0 85 26 93/52 (66) 100 06/03/20 07:45 82 06/03/20 07:32 26 94/51 Mechanical Ventilator 100 06/03/20 07:30 86 26 94/51 (65) 100 06/03/20 07:26 84 27 100 06/03/20 07:00 88 25 99/50 (66) 100 06/03/20 06:32 26 103/58 Mechanical Ventilator 100 06/03/20 06:00 100.3 88 26 103/58 (73) 99 06/03/20 05:32 26 134/52 Mechanical Ventilator 100 06/03/20 05:31 100.4 06/03/20 05:00 102.0 87 24 133/60 (84) 96 06/03/20 04:32 25 103/66 Mechanical Ventilator 100 06/03/20 04:30 87 26 100/60 (73) 97 06/03/20 04:00 88 06/03/20 04:00 99.0 91 26 104/59 (74) 97 06/03/20 04:00 Mechanical Ventilator 06/03/20 04:00 15.0 100 06/03/20 03:32 26 118/65 Mechanical Ventilator 100 06/03/20 03:30 92 26 97/59 (72) 96 06/03/20 03:00 92 26 95/59 (71) 96 06/03/20 02:55 90 26 100 06/03/20 02:32 26 97/58 Mechanical Ventilator 100 06/03/20 02:30 96 26 98/59 (72) 96 06/03/20 02:20 97 26 100/59 (73) 96 06/03/20 02:10 98 26 97/57 (70) 95 06/03/20 02:00 100 25 93/55 (68) 94 06/03/20 01:40 143 26 105/60 (75) 86 06/03/20 01:32 26 100/59 Mechanical Ventilator 100 06/03/20 01:30 168 26 93/55 (68) 91 06/03/20 01:10 83 26 104/60 (75) 89 06/03/20 01:00 87 26 110/58 (75) 89 06/03/20 00:32 26 93/55 Mechanical Ventilator 100 06/03/20 00:30 93 26 93/55 (68) 94 06/03/20 00:00 Mechanical Ventilator 06/03/20 00:00 15.0 100 06/03/20 00:00 93 06/03/20 00:00 134/52 06/03/20 00:00 95 26 89/54 (66) 93 06/02/20 23:32 26 92/56 Mechanical Ventilator 100 06/02/20 23:30 103 26 89/54 (66) 93 06/02/20 23:05 113 26 100 06/02/20 23:00 115 19 107/61 (76) 90 06/02/20 22:00 95 24 139/61 (87) 78 06/02/20 21:30 100 25 130/64 (86) 84 06/02/20 21:01 99.0 06/02/20 21:00 98 27 142/70 (94) 79 06/02/20 21:00 27 150/67 Mechanical Ventilator 100 06/02/20 20:30 96 26 146/62 (90) 81 06/02/20 20:00 Mechanical Ventilator 06/02/20 20:00 101.0 99 27 141/66 (91) 90 06/02/20 20:00 15.0 100 06/02/20 20:00 94 06/02/20 19:59 29 135/58 Mechanical Ventilator 15.0 100 06/02/20 19:58 26 144/67 Mechanical Ventilator 100 06/02/20 19:40 92 28 146/70 (95) 87 06/02/20 19:32 26 146/70 Mechanical Ventilator 100 06/02/20 19:30 101 26 144/65 (91) 89 06/02/20 19:00 92 27 138/57 (84) 87 06/02/20 18:50 99 29 100 06/02/20 18:32 27 135/58 Mechanical Ventilator 15.0 100 06/02/20 18:00 91 30 121/67 (85) 94 06/02/20 17:32 30 121/67 Mechanical Ventilator 15.0 100 06/02/20 17:00 100.3 95 26 142/72 (95) 91 06/02/20 16:32 27 141/65 Mechanical Ventilator 15.0 100 06/02/20 16:00 95 06/02/20 16:00 15.0 100 06/02/20 16:00 Mechanical Ventilator 06/02/20 16:00 99 25 134/47 (76) 93 Intake and Output 06/02/20 06/03/20 19:00 07:00 Intake Total 1085 ml 986.0 ml Output Total 845 ml 715 ml Balance 240 ml 271.0 ml Free Water 100 ml IV Total 165 ml 266.0 ml Tube Feeding 600 ml 600 ml Other 220 ml 120 ml Output Urine Total 845 ml 715 ml Laboratory Tests Test 06/02/20 18:55 06/02/20 22:35 06/03/20 05:55 06/03/20 08:04 Urine Color Yellow Urine Appearance Slightly cloudy Urine pH 6 (4.5-8.0) Urine Specific [place] 1.015 (1.005-1.035) Urine Protein 3+ (NEGATIVE) H Urine Glucose (UA) 4+ (NEGATIVE) H Urine Ketones Negative (NEGATIVE) Urine Blood 5+ (NEGATIVE) H Urine Nitrite Negative (NEGATIVE) Urine Bilirubin Negative (NEGATIVE) Urine Urobilinogen 8 MG/DL (0.0-1.0) H Urine Leukocyte Esterase Negative (NEGATIVE) Urine RBC Tntc /HPF (0 - 2) H Urine WBC 0-2 /HPF (0 - 2) Urine Squamous Epithelial Cells None /LPF (NONE/OCC) Urine Bacteria Few /HPF (NONE) Arterial Blood pH 7.347 (7.350-7.450) 7.393 (7.350-7.450) Arterial Blood Partial Pressure CO2 61.6 mmHg (35.0-45.0) *H 53.9 mmHg (35.0-45.0) H Arterial Blood Partial Pressure O2 33.4 mmHg (75.0-100.0) 90.6 mmHg (75.0-100.0) Arterial Blood HCO3 33.0 mmol/L (22.0-26.0) H 32.1 mmol/L (22.0-26.0) H Arterial Blood Oxygen Saturation 61.9 % (95-100) *L 96.3 % (95-100) Arterial Blood Base Excess 5.6 (-2-2) H 6.0 (-2-2) H Darinel Test Positive Positive White Blood Count 19.8 K/UL (4.8-10.8) H Red Blood Count 3.45 M/UL (4.20-5.40) L Hemoglobin 11.4 G/DL (12.0-16.0) L Hematocrit 34.6 % (37.0-47.0) L Mean Corpuscular Volume 100 FL (80-99) H Mean Corpuscular Hemoglobin 32.9 PG (27.0-31.0) H Mean Corpuscular Hemoglobin Concent 32.8 G/DL (32.0-36.0) Red Cell Distribution Width 13.1 % (11.6-14.8) Platelet Count 94 K/UL (150-450) L Mean Platelet Volume 8.6 FL (6.5-10.1) Neutrophils (%) (Auto) % (45.0-75.0) Lymphocytes (%) (Auto) % (20.0-45.0) Monocytes (%) (Auto) % (1.0-10.0) Eosinophils (%) (Auto) % (0.0-3.0) Basophils (%) (Auto) % (0.0-2.0) Differential Total Cells Counted 100 Neutrophils % (Manual) 97 % (45-75) H Lymphocytes % (Manual) 2 % (20-45) L Monocytes % (Manual) 1 % (1-10) Eosinophils % (Manual) 0 % (0-3) Basophils % (Manual) 0 % (0-2) Band Neutrophils 0 % (0-8) Platelet Estimate Decreased L Platelet Morphology Clumped Platelets 1+ Macrocytosis 1+ Sodium Level 145 MMOL/L (136-145) Potassium Level 4.4 MMOL/L (3.5-5.1) Chloride Level 110 MMOL/L (98-107) H Carbon Dioxide Level 33 MMOL/L (21-32) H Anion Gap 2 mmol/L (5-15) L Blood Urea Nitrogen 26 mg/dL (7-18) H Creatinine 0.7 MG/DL (0.55-1.30) Estimat Glomerular Filtration Rate > 60 mL/min (>60) Glucose Level 228 MG/DL (74-106) H Calcium Level 8.6 MG/DL (8.5-10.1) Test 06/03/20 13:27 Arterial Blood pH 7.382 (7.350-7.450) Arterial Blood Partial Pressure CO2 53.5 mmHg (35.0-45.0) H Arterial Blood Partial Pressure O2 55.4 mmHg (75.0-100.0) L Arterial Blood HCO3 31.1 mmol/L (22.0-26.0) H Arterial Blood Oxygen Saturation 88.5 % (95-100) *L Arterial Blood Base Excess 4.9 (-2-2) H Darinel Test Positive Microbiology Date/Time Source Procedure Growth Status 06/01/20 11:15 Nasopharynx Coronavirus COVID-19 PCR ([facility]) - Final Complete Objective HEAD AND NECK: No JVD. Orally intubated LUNGS: Coarse rhonchi. CARDIOVASCULAR: Regular S1 and S2 with no gallop. Bradycardic. ABDOMEN: Soft. EXTREMITIES: No pitting edema. Jordi Albarado MD Jun 03, 2020 15:49
--- NOTE | 2020-06-03 15:56 | NUR ---
CASE MANAGEMENT:REVIEW SI;COVID PNEUMONIA. RESPIRATORY FAILURE ETT/VENT SUPPORT. T:102.0 P:168 R:26 BP:89/54 O2:78% ETT/VENT WBC 19.8 PLT 94 BUN 26 GLU 228 IS;FLUCONAZOLE IV Q24 FENTANYL GTT LOVENOX SQ Q12 ZOSYN IV Q8 PEPCID NG QD TYLENOL NG VERSED IV Q2 ICU STATUS DCP;FROM HOME
--- NOTE | 2020-06-03 16:00 | NUR ---
NURSE NOTES: Tolerating OGT feeding, no residuals noted.
--- NOTE | 2020-06-03 18:00 | NUR ---
NURSE NOTES: Remains clean and dry. and lightly sedated RASS -2.
--- NOTE | 2020-06-03 19:10 | NUR ---
NURSE HAND-OFF REPORT: Latest Vital Signs: Temperature 99.8 , Pulse 75 , B/P 129 /61 , Respiratory Rate 23 , O2 SAT 93 , Mechanical Ventilator, O2 Flow Rate . Vital Sign Comment: Lightly sedated RASS -2 EKG Rhythm: Sinus Rhythm Rhythm change?: N Latest [place] Fall Score: 50 Fall Risk: High Risk Safety Measures: Call light Within Reach, Bed Alarm Zone 1, Side Rails Side Rails x2, Bed position Low and Locked. Fall Precautions: Yellow Socks Yellow Gown Door Sign Patient Fall Education Report given to Maryjane Pate RN.
--- NOTE | 2020-06-03 19:30 | NUR ---
NURSE NOTES: Received report from DAVID Aguirre. Patient in bed restless biting tubing despite of bite block, kicking talk therapy provided, repositioned in bed not effective. Titrated Fentanyl drip to 180mcg/hr +restless.Orally intubated FiO2 100%satting 93%. With OGT feeding of Vital AF running at 50ml/hour. Bilateral soft wrist restraints noted. Bed in lowest position. Bed alarm on. No apparent distress at this time. Airborne isolation observed maintained and observed. Covid 19+. . Will continue plan of care.
[2020-06-03] MEDS: Dyna-Hex 2% Top Sol 2oz TOPIC SCH (20:18)
[2020-06-03] MEDS: Acetaminophen 650mg/20.3ml GT PRN (20:19)
--- NOTE | 2020-06-03 20:19 | NUR ---
NURSE NOTES: Patient temp 101 axillary cooling measure provided not effective. Tylenol 650mg given via OGT will rechecked.
--- NOTE | 2020-06-03 22:00 | NUR ---
NURSE NOTES: Patient on Fentanyl drip 200mcg/hr RASS score -2.Orally intubated FiO2 100%satting 93%. With OGT feeding of Vital AF running at 50ml/hour. Bilateral soft wrist restraints noted. Bed in lowest position. Bed alarm on. No apparent distress at this time. Airborne isolation observed maintained and observed. Covid 19+. . Will continue plan of care.
[2020-06-04] VITALS (31 sets, daily range): BP systolic 95–154; BP diastolic 50–87
[2020-06-04] MEDS: Norepinephrine 4mg/NS Premix 250 ML IV SCH
--- NOTE | 2020-06-04 | NUR ---
NURSE NOTES: patient sleeping comfortably in bed. no s/s of acute distress. no n/v. no diarrhea. Temp 99.8 axillary. turned nad repositioned in bed. oral care provided. call light within easy reach.
[2020-06-04] MEDS: fentaNYL 2500mcg/NS 250ml 250 ML IV SCH ×3 (00:57→16:09)
[2020-06-04] MEDS: Piperacillin/Tazobactam 3.375 GM in NS 110 ML IVPB SCH ×3 (00:58→18:20)
--- NOTE | 2020-06-04 02:00 | NUR ---
NURSE NOTES: Patient on Fentanyl drip 200mcg/hr RASS score -2.Orally intubated FiO2 100%satting 93%. With OGT feeding of Vital AF running at 50ml/hour no residual.no s/s of acute distress noted. Bilateral soft wrist restraints noted. Bed in lowest position. Bed alarm on. No apparent distress at this time. Airborne isolation observed maintained and observed. Covid 19+. . Will continue plan of care.
--- NOTE | 2020-06-04 04:00 | NUR ---
NURSE NOTES: Bed bath given tolerated well.
[2020-06-04] MEDS: Acetaminophen 650mg/20.3ml GT PRN ×3 (04:07→20:30)
--- NOTE | 2020-06-04 06:00 | NUR ---
NURSE NOTES: Patient on Fentanyl drip 200mcg/hr RASS score -2.Orally intubated FiO2 100%satting 96%. With OGT feeding of Vital AF running at 50ml/hour no residual.no s/s of acute distress noted. Bilateral soft wrist restraints noted. Bed in lowest position. Bed alarm on, continue cooling measure. Airborne isolation observed maintained and observed. Covid 19+. . Will continue plan of care.
[2020-06-04 06:36] LABS: HEMATOCRIT 31.8 % (37.0-47.0); HEMOGLOBIN 10.6 G/DL (12.0-16.0); MEAN CORPUSCULAR VOLUME 100 FL (80-99); PLATELET COUNT 75 K/UL (150-450); RED BLOOD COUNT 3.19 M/UL (4.20-5.40); RED CELL DISTRIBUTION WIDTH 13.8 % (11.6-14.8); WHITE BLOOD COUNT 19.7 K/UL (4.8-10.8)
--- NOTE | 2020-06-04 07:16 | NUR ---
HAND-OFF: Report given to Pauline HERNANDEZ.
--- NOTE | 2020-06-04 07:27 | NUR ---
NURSE NOTES: Received report from Maryjane HERNANDEZ.
[2020-06-04 07:42] LABS: ALANINE AMINOTRANSFERASE 21 U/L (12-78); ALBUMIN 1.6 G/DL (3.4-5.0); ALBUMIN/GLOBULIN RATIO 0.4 (1.0-2.7); ALKALINE PHOSPHATASE 124 U/L (46-116); ANION GAP 2 mmol/L (5-15); ASPARTATE AMINO TRANSFERASE 35 U/L (15-37); BILIRUBIN,TOTAL 0.8 MG/DL (0.2-1.0); BLOOD UREA NITROGEN 30 mg/dL (7-18); CALCIUM 8.2 MG/DL (8.5-10.1); CARBON DIOXIDE 33 MMOL/L (21-32); CHLORIDE 111 MMOL/L (98-107); CREATININE 0.6 MG/DL (0.55-1.30); PHOSPHORUS 2.4 MG/DL (2.5-4.9); SODIUM 146 MMOL/L (136-145)
[2020-06-04] MEDS: Docusate 100mg/10ml Liq GT SCH ×2 (08:18→20:30)
--- NOTE | 2020-06-04 08:40 | NUR ---
NURSE NOTES: Pt. in bed, eyes open. No sign of distress. ETT in placed with vent setting AC26/VT450/Fi O2 of 100%/P12. No grimacing noted. HOB elevated at all times. On OGT feeding Vital AF 1.2 at 50cc/hr. F/C in placed patent/intact draining yellow colored urine. Bilateral soft wrist restrains in placed. +CMS. IV site at left FA #20g. and right FA #20g. in placed patent/intact. Cont. on Fentanyl drip with 10mcg/ml. Cooling measure applied. Temp. 100F. Bed in low position, locked. Call light within reach. Will cont. to monitor.
--- NOTE | 2020-06-04 08:46 | Pulmonolgy Critical Care Note ---
Critical Care - Asmt/Plan Assessment/Plan: ASSESSMENT Acute hypoxemic resp failure due to COVID PNA, requiring intubation 05/27 COVID 19 PNA Thrombocytopenia- Abnormal ECG Headache Pulmonary HTN Hypotension PLAN OF CARE ICU isolation Date of sx onset: few days prior to presentation to ED on 05/23 Positive test: OSF 05/22 - 1 days prior to admission , SARS COV-2 by PCR 05/30 NGT O2 -> intubated 05/27 , failed weaning 06/01 , vent support ABG this am pending HFA if unable to do HHN via line s/p REM x 5 days ( 05/23-05/27 ) s/p DEX x 10 days D dimer initial 0.48 - > 19.61-> 7.23 DVT PPX: Lovenox stopped earlier due to low PLT Venous Duplex BLE NGT Trend CRP 3.6 -> 19.7-> 76.4 - 38.3 -45.1 Abx per ID recs BCX / NGTD, UCX 1/2 NGT , SCX 06/03 NGT prone position as tolerated monitor volumes and renal function hypotensive, febrile, will start IVF clsoely monitor HDs fup with consultants recs FC Discuss GOC monitor PLT counts- trending down - , Lovenox stopped earlier cardio eval -appreciated ECHO with pEF 65%, no WMA, mild to moderate MR, moderate pulmonary hypertension case discussed and evaluated by supervising physician Critical Care - Objective Last 24 Hour Vital Signs Date Time Temp Pulse Resp B/P (MAP) Pulse Ox O2 Delivery O2 Flow Rate FiO2 06/04/20 08:00 100 06/04/20 07:41 75 29 100 06/04/20 07:00 26 98/60 Mechanical Ventilator 100 06/04/20 07:00 95 26 98/60 (73) 97 06/04/20 07:00 101.0 95 26 98/60 (73) 97 06/04/20 06:00 23 95/61 Mechanical Ventilator 100 06/04/20 06:00 97 26 95/61 (72) 95 06/04/20 05:30 99 26 100/61 (74) 96 06/04/20 05:00 94 26 117/67 (84) 96 06/04/20 05:00 26 117/67 Mechanical Ventilator 100 06/04/20 04:37 100.7 06/04/20 04:30 92 25 113/64 (80) 96 06/04/20 04:17 106 24 118/59 (78) 96 06/04/20 04:00 Mechanical Ventilator 06/04/20 04:00 100 06/04/20 04:00 102.0 82 15 134/64 (87) 94 06/04/20 04:00 26 134/64 Mechanical Ventilator 100 06/04/20 04:00 84 06/04/20 03:55 88 26 100 06/04/20 03:30 82 17 127/62 (83) 95 06/04/20 03:30 23 133/61 Mechanical Ventilator 15.0 100 06/04/20 03:00 26 130/60 Mechanical Ventilator 100 06/04/20 03:00 92 19 130/66 (87) 96 06/04/20 02:30 93 22 116/62 (80) 95 06/04/20 02:00 85 22 121/63 (82) 93 06/04/20 02:00 26 121/63 Mechanical Ventilator 100 06/04/20 01:00 83 23 133/61 (85) 95 06/04/20 01:00 26 120/59 Mechanical Ventilator 100 06/04/20 00:58 26 120/59 Mechanical Ventilator 100 06/04/20 00:57 26 111/60 Mechanical Ventilator 15.0 100 06/04/20 00:56 26 111/60 Mechanical Ventilator 100 06/04/20 00:00 Mechanical Ventilator 06/04/20 00:00 99.8 100 23 111/60 (77) 95 06/04/20 00:00 93 06/04/20 00:00 111/60 06/04/20 00:00 26 111/60 Mechanical Ventilator 100 06/04/20 00:00 100 06/03/20 23:00 88 17 132/64 (86) 94 06/03/20 22:40 82 26 100 06/03/20 22:15 99 23 117/55 (75) 96 06/03/20 22:00 88 16 134/61 (85) 94 06/03/20 22:00 25 117/55 Mechanical Ventilator 100 06/03/20 21:00 22 135/67 Mechanical Ventilator 100 06/03/20 21:00 87 23 141/72 (95) 93 06/03/20 20:49 99.9 06/03/20 20:00 101.0 81 23 146/68 (94) 94 06/03/20 20:00 87 06/03/20 20:00 23 152/71 Mechanical Ventilator 100 06/03/20 20:00 Mechanical Ventilator 06/03/20 20:00 100 06/03/20 19:45 25 140/67 Mechanical Ventilator 100 06/03/20 19:44 85 27 100 06/03/20 19:30 81 26 123/56 (78) 93 06/03/20 19:30 26 123/56 Mechanical Ventilator 100 06/03/20 19:15 21 130/61 Mechanical Ventilator 100 06/03/20 19:00 79 21 130/61 (84) 94 06/03/20 18:30 82 26 122/58 (79) 94 06/03/20 18:15 23 129/61 Mechanical Ventilator 100 06/03/20 18:00 75 23 129/61 (83) 93 06/03/20 17:30 77 22 130/64 (86) 95 06/03/20 17:15 23 115/72 Mechanical Ventilator 100 06/03/20 17:00 81 23 115/72 (86) 95 06/03/20 16:45 82 24 100/58 (72) 95 06/03/20 16:30 81 23 103/60 (74) 95 06/03/20 16:15 82 16 101/58 (72) 95 06/03/20 16:15 16 101/58 Mechanical Ventilator 100 06/03/20 16:00 99.8 84 14 98/57 (71) 95 06/03/20 16:00 100 06/03/20 16:00 Mechanical Ventilator 06/03/20 15:48 89 26 100 06/03/20 15:45 85 15 97/59 (72) 94 06/03/20 15:30 87 06/03/20 15:30 87 21 103/59 (74) 93 06/03/20 15:15 25 107/58 Mechanical Ventilator 100 06/03/20 15:15 88 25 107/58 (74) 93 06/03/20 15:00 86 25 114/62 (79) 93 06/03/20 14:45 84 25 116/61 (79) 93 06/03/20 14:30 80 24 133/67 (89) 93 06/03/20 14:15 14 131/68 Mechanical Ventilator 100 06/03/20 14:00 81 23 141/67 (91) 94 06/03/20 13:57 100 06/03/20 13:57 100 06/03/20 13:45 80 26 129/65 (86) 94 06/03/20 13:35 100 06/03/20 13:30 81 23 135/60 (85) 90 06/03/20 13:15 78 26 103/58 (73) 94 06/03/20 13:15 26 103/58 Mechanical Ventilator 75 06/03/20 13:00 26 101/53 Mechanical Ventilator 75 06/03/20 13:00 76 26 101/53 (69) 93 06/03/20 12:32 26 97/52 Mechanical Ventilator 75 06/03/20 12:30 76 26 97/52 (67) 92 06/03/20 12:11 74 06/03/20 12:00 75 06/03/20 12:00 99.6 77 26 101/52 (68) 95 06/03/20 12:00 Mechanical Ventilator 06/03/20 12:00 75 06/03/20 11:32 26 96/54 Mechanical Ventilator 85 06/03/20 11:30 77 26 96/54 (68) 96 06/03/20 11:28 79 26 100 06/03/20 11:00 79 26 97/54 (68) 97 06/03/20 10:32 26 103/56 Mechanical Ventilator 85 06/03/20 10:30 81 26 103/56 (72) 97 06/03/20 10:09 26 103/56 Mechanical Ventilator 85 06/03/20 10:08 26 103/56 Mechanical Ventilator 100 06/03/20 10:00 79 26 103/56 (72) 97 06/03/20 09:32 25 112/57 Mechanical Ventilator 100 06/03/20 09:30 76 25 112/57 (75) 94 06/03/20 09:00 79 24 118/60 (79) 95 06/03/20 08:45 85 Objective: General: intubated, sedated on vent AC 450- 100-26 PEEP 12 HEENT: atraumatic, normocephalic, ET in place intact Neck: OP with ET in place , intact; feeding tube in place Lungs: clear , tachypneic Heart: HR/BP stable Abdomen: soft, non-tender, active bowel sounds Extremities: no C/C/E Micro: Microbiology Date/Time Source Procedure Growth Status 06/03/20 13:35 Sputum Gram Stain - Final Resulted 06/03/20 13:35 Sputum Sputum Culture - Preliminary NO GROWTH Resulted 06/01/20 11:15 Nasopharynx Coronavirus COVID-19 PCR ([facility]) - Final Complete Critical Care - Subjective ROS Limited/Unobtainable: Yes Interval Events: ABG 06/03 with hypoxia, but later was able to weaned down to 85, then desaturated again, now PEEP up to 12 ABG pending CXR 06/03 worsening infiltrates sedated hypotensive, tachypneic febrile, leukocytosis with small trend down Condition: critical IV Access: peripheral EKG Rhythm: Sinus Rhythm FI02: 100 Vent Support Breath Rate: 26 Vent Support Mode: AC Vent Tidal Volume: 450 Sputum Amount: Scant PEEP: 12.0 PIP: 32 Fluids: Fentanyl gtt 200 mcg/hr Drips: D51/2 NS at 75 Tube Feeding Amount: 50 I&O: Intake and Output 06/03/20 06/04/20 19:00 07:00 Intake Total 1145.75 ml 1224.0 ml Output Total 590 ml 632 ml Balance 555.75 ml 592.0 ml Free Water 100 ml IV Total 545.75 ml 404.0 ml Tube Feeding 600 ml 600 ml Other 120 ml Output Urine Total 590 ml 632 ml CXR: CXR 06/03 Worsening aeration with increasing bilateral infiltrates. ET-Tube: 7.5 ET Position: 22 Ivonne Andrade NP Jun 04, 2020 08:46
[2020-06-04] MEDS: Enoxaparin 40mg Inj SUBQ SCH ×2 (09:00→21:00)
[2020-06-04] MEDS: D5 1/2NS 1,000 ML IV SCH ×2 (09:01→22:00)
--- NOTE | 2020-06-04 09:38 | NUR ---
NURSE NOTES: Seen by Raymond OPERATION AGENT with new orders. Orders noted and carried out.
--- NOTE | 2020-06-04 09:44 | Diagnostic Imaging Report ---
EXAM: XR Chest, 1 View CLINICAL HISTORY: SOB TECHNIQUE: Frontal view of the chest. COMPARISON: Chest x-ray 06/03/20, 8:14 AM FINDINGS: Lungs: Bilateral interstitial and airspace opacities are mildly improved. Pleural space: Probable tiny right pleural effusion. No pneumothorax. Heart: Unremarkable. No cardiomegaly. Mediastinum: Unremarkable. Bones/joints: Unremarkable. Tubes, lines and devices: Endotracheal tube and NG tube are stable. IMPRESSION: 1. Bilateral interstitial and airspace opacities are mildly improved. 2. Probable tiny right pleural effusion.
--- NOTE | 2020-06-04 11:01 | Surgery Progress Note ---
Surgery Progress Note Subjective Additional Comments ill appearing on support no n/v vent weaning cxr noted labs noted effusions hold on tap Objective Last 24 Hour Vital Signs Date Time Temp Pulse Resp B/P (MAP) Pulse Ox O2 Delivery O2 Flow Rate FiO2 06/04/20 10:00 94 22 139/68 (91) 96 06/04/20 09:00 96 26 108/63 (78) 98 06/04/20 08:11 81 06/04/20 08:00 Mechanical Ventilator 06/04/20 08:00 100.0 86 22 120/87 (98) 96 06/04/20 08:00 100 06/04/20 07:41 75 29 100 06/04/20 07:00 26 98/60 Mechanical Ventilator 100 06/04/20 07:00 95 26 98/60 (73) 97 06/04/20 07:00 101.0 95 26 98/60 (73) 97 06/04/20 06:00 23 95/61 Mechanical Ventilator 100 06/04/20 06:00 97 26 95/61 (72) 95 06/04/20 05:30 99 26 100/61 (74) 96 06/04/20 05:00 94 26 117/67 (84) 96 06/04/20 05:00 26 117/67 Mechanical Ventilator 100 06/04/20 04:37 100.7 06/04/20 04:30 92 25 113/64 (80) 96 06/04/20 04:17 106 24 118/59 (78) 96 06/04/20 04:00 Mechanical Ventilator 06/04/20 04:00 100 06/04/20 04:00 102.0 82 15 134/64 (87) 94 06/04/20 04:00 26 134/64 Mechanical Ventilator 100 06/04/20 04:00 84 06/04/20 03:55 88 26 100 06/04/20 03:30 82 17 127/62 (83) 95 06/04/20 03:30 23 133/61 Mechanical Ventilator 15.0 100 06/04/20 03:00 26 130/60 Mechanical Ventilator 100 06/04/20 03:00 92 19 130/66 (87) 96 06/04/20 02:30 93 22 116/62 (80) 95 06/04/20 02:00 85 22 121/63 (82) 93 06/04/20 02:00 26 121/63 Mechanical Ventilator 100 06/04/20 01:00 83 23 133/61 (85) 95 06/04/20 01:00 26 120/59 Mechanical Ventilator 100 06/04/20 00:58 26 120/59 Mechanical Ventilator 100 06/04/20 00:57 26 111/60 Mechanical Ventilator 15.0 100 06/04/20 00:56 26 111/60 Mechanical Ventilator 100 06/04/20 00:00 Mechanical Ventilator 06/04/20 00:00 99.8 100 23 111/60 (77) 95 06/04/20 00:00 93 06/04/20 00:00 111/60 06/04/20 00:00 26 111/60 Mechanical Ventilator 100 06/04/20 00:00 100 06/03/20 23:00 88 17 132/64 (86) 94 06/03/20 22:40 82 26 100 06/03/20 22:15 99 23 117/55 (75) 96 06/03/20 22:00 88 16 134/61 (85) 94 06/03/20 22:00 25 117/55 Mechanical Ventilator 100 06/03/20 21:00 22 135/67 Mechanical Ventilator 100 06/03/20 21:00 87 23 141/72 (95) 93 06/03/20 20:49 99.9 06/03/20 20:00 101.0 81 23 146/68 (94) 94 06/03/20 20:00 87 06/03/20 20:00 23 152/71 Mechanical Ventilator 100 06/03/20 20:00 Mechanical Ventilator 06/03/20 20:00 100 06/03/20 19:45 25 140/67 Mechanical Ventilator 100 06/03/20 19:44 85 27 100 06/03/20 19:30 81 26 123/56 (78) 93 06/03/20 19:30 26 123/56 Mechanical Ventilator 100 06/03/20 19:15 21 130/61 Mechanical Ventilator 100 06/03/20 19:00 79 21 130/61 (84) 94 06/03/20 18:30 82 26 122/58 (79) 94 06/03/20 18:15 23 129/61 Mechanical Ventilator 100 06/03/20 18:00 75 23 129/61 (83) 93 06/03/20 17:30 77 22 130/64 (86) 95 06/03/20 17:15 23 115/72 Mechanical Ventilator 100 06/03/20 17:00 81 23 115/72 (86) 95 06/03/20 16:45 82 24 100/58 (72) 95 06/03/20 16:30 81 23 103/60 (74) 95 06/03/20 16:15 82 16 101/58 (72) 95 06/03/20 16:15 16 101/58 Mechanical Ventilator 100 06/03/20 16:00 99.8 84 14 98/57 (71) 95 06/03/20 16:00 100 06/03/20 16:00 Mechanical Ventilator 06/03/20 15:48 89 26 100 06/03/20 15:45 85 15 97/59 (72) 94 06/03/20 15:30 87 06/03/20 15:30 87 21 103/59 (74) 93 06/03/20 15:15 25 107/58 Mechanical Ventilator 100 06/03/20 15:15 88 25 107/58 (74) 93 06/03/20 15:00 86 25 114/62 (79) 93 06/03/20 14:45 84 25 116/61 (79) 93 06/03/20 14:30 80 24 133/67 (89) 93 06/03/20 14:15 14 131/68 Mechanical Ventilator 100 06/03/20 14:00 81 23 141/67 (91) 94 06/03/20 13:57 100 06/03/20 13:57 100 06/03/20 13:45 80 26 129/65 (86) 94 06/03/20 13:35 100 06/03/20 13:30 81 23 135/60 (85) 90 06/03/20 13:15 78 26 103/58 (73) 94 06/03/20 13:15 26 103/58 Mechanical Ventilator 75 06/03/20 13:00 26 101/53 Mechanical Ventilator 75 06/03/20 13:00 76 26 101/53 (69) 93 06/03/20 12:32 26 97/52 Mechanical Ventilator 75 06/03/20 12:30 76 26 97/52 (67) 92 06/03/20 12:11 74 06/03/20 12:00 75 06/03/20 12:00 99.6 77 26 101/52 (68) 95 06/03/20 12:00 Mechanical Ventilator 06/03/20 12:00 75 06/03/20 11:32 26 96/54 Mechanical Ventilator 85 06/03/20 11:30 77 26 96/54 (68) 96 06/03/20 11:28 79 26 100 I&O Intake and Output 06/03/20 06/04/20 19:00 07:00 Intake Total 1145.75 ml 1224.0 ml Output Total 590 ml 632 ml Balance 555.75 ml 592.0 ml Free Water 100 ml IV Total 545.75 ml 404.0 ml Tube Feeding 600 ml 600 ml Other 120 ml Output Urine Total 590 ml 632 ml Dressing: saturated Cardiovascular: RSR Respiratory: decreased breath sounds, other Abdomen: soft, non-tender, present bowel sounds, non-distended Extremities: no tenderness, no cyanosis Laboratory Tests Test 06/03/20 13:27 06/04/20 04:50 06/04/20 09:46 Arterial Blood pH 7.382 (7.350-7.450) 7.370 (7.350-7.450) Arterial Blood Partial Pressure CO2 53.5 mmHg (35.0-45.0) H 58.3 mmHg (35.0-45.0) *H Arterial Blood Partial Pressure O2 55.4 mmHg (75.0-100.0) L 66.5 mmHg (75.0-100.0) L Arterial Blood HCO3 31.1 mmol/L (22.0-26.0) H 32.9 mmol/L (22.0-26.0) H Arterial Blood Oxygen Saturation 88.5 % (95-100) *L 92.2 % (95-100) L Arterial Blood Base Excess 4.9 (-2-2) H 6.2 (-2-2) H Darinel Test Positive Positive White Blood Count 19.7 K/UL (4.8-10.8) H Red Blood Count 3.19 M/UL (4.20-5.40) L Hemoglobin 10.6 G/DL (12.0-16.0) L Hematocrit 31.8 % (37.0-47.0) L Mean Corpuscular Volume 100 FL (80-99) H Mean Corpuscular Hemoglobin 33.3 PG (27.0-31.0) H Mean Corpuscular Hemoglobin Concent 33.4 G/DL (32.0-36.0) Red Cell Distribution Width 13.8 % (11.6-14.8) Platelet Count 75 K/UL (150-450) L Mean Platelet Volume 11.4 FL (6.5-10.1) H Neutrophils (%) (Auto) % (45.0-75.0) Lymphocytes (%) (Auto) % (20.0-45.0) Monocytes (%) (Auto) % (1.0-10.0) Eosinophils (%) (Auto) % (0.0-3.0) Basophils (%) (Auto) % (0.0-2.0) Differential Total Cells Counted 100 Neutrophils % (Manual) 97 % (45-75) H Lymphocytes % (Manual) 1 % (20-45) L Monocytes % (Manual) 2 % (1-10) Eosinophils % (Manual) 0 % (0-3) Basophils % (Manual) 0 % (0-2) Band Neutrophils 0 % (0-8) Platelet Estimate Decreased L Platelet Morphology Clumped Platelets Occasional Anisocytosis 1+ Sodium Level 146 MMOL/L (136-145) H Potassium Level 4.0 MMOL/L (3.5-5.1) Chloride Level 111 MMOL/L (98-107) H Carbon Dioxide Level 33 MMOL/L (21-32) H Anion Gap 2 mmol/L (5-15) L Blood Urea Nitrogen 30 mg/dL (7-18) H Creatinine 0.6 MG/DL (0.55-1.30) Estimat Glomerular Filtration Rate > 60 mL/min (>60) Glucose Level 166 MG/DL (74-106) H Calcium Level 8.2 MG/DL (8.5-10.1) L Phosphorus Level 2.4 MG/DL (2.5-4.9) L Magnesium Level 2.5 MG/DL (1.8-2.4) H Total Bilirubin 0.8 MG/DL (0.2-1.0) Aspartate Amino Transf (AST/SGOT) 35 U/L (15-37) Alanine Aminotransferase (ALT/SGPT) 21 U/L (12-78) Alkaline Phosphatase 124 U/L (46-116) H Total Protein 5.2 G/DL (6.4-8.2) L Albumin 1.6 G/DL (3.4-5.0) L Globulin 3.6 g/dL Albumin/Globulin Ratio 0.4 (1.0-2.7) L Heparin-PF4 Antibody Screen Pending Plan Problems: (1) Thrombocytopenia (2) Pneumonia (3) Hypoxia Assessment & Plan: 75F covid + hypoxic intubated on vent support acute hypotensive episode placed on pressors on peripheral line eval for central line done. patient weaning off pressors and only on 1mcg of levo currently bp improved sedation noted awake and alert now responsive on vent support but improving hold on central catheter placement cont for now low dose and wean off levo fluids noted trend labs if worsening will plan to place central catheter emilee thank you will follow with recs . DAILY ESTIMATED NEEDS: Needs based on Critical care, 56kg 22-28 kcals/kg 5590-8403 total kcals 1.2-2 g protein/kg 67-112 g total protein 25-30 mL/kg 2326-8506 total fluid mLs NUTRITION DIAGNOSIS: Swallowing difficulty R/T respiratory failure as evidenced by pt orally intubated on 05/27, OGT feeds ordered. CURRENT TF:Vital AF 1.2 @ 50ml/hr x 24 hrs ordered PO DIET RECOMMENDATIONS: CLINIC PHYSICIAN DIRECTOR eval post extubation ENTERAL NUTRITION RECOMMENDATIONS: Vital AF 1.2 @ 50ml/hr x 24 hrs to provide 1200ml, 1440kcal, 90g prot, 973ml free water * Initiate Vital AF 1.2 @ 20ml/hr x 6hrs * Advance 10ml q 4-6 hrs as tolerated to goal * HOB over 30 degrees/ H2o flush 180ml q 8 hrs ADDITIONAL RECOMMENDATIONS: * Calibrated bedscale wt * Monitor hemodyanmic stability: now off NE * Rec NISS w/ TF while on Decadron: elev FBGs * Monitor lytes, replete as needed (low phos 05/22, rec updated level) Lungs: Bilateral interstitial and airspace opacities are mildly improved. Pleural space: Probable tiny right pleural effusion. No pneumothorax. Heart: Unremarkable. No cardiomegaly. Mediastinum: Unremarkable. Bones/joints: Unremarkable. Tubes, lines and devices: Endotracheal tube and NG tube are stable. IMPRESSION: 1. Bilateral interstitial and airspace opacities are mildly improved. 2. Probable tiny right pleural effusion. (4) Abnormal EKG (5) COVID-19 Assessment & Plan: ++ pulm and ID input appreciated Favio Corona Jun 04, 2020 11:01
--- NOTE | 2020-06-04 11:14 | NUR ---
NURSE NOTES: Oral care rendered. Pt. able to nod her head when asked by nurse. Alert, awake. No s/sx of distress.
--- NOTE | 2020-06-04 13:49 | NUR ---
NURSE NOTES: Pt. sleeping but response to tactile stimuli. Afebrile 97.7 now.
--- NOTE | 2020-06-04 15:24 | NUR ---
NURSE NOTES: Remain stable. Turned and repositioned. No SOB. No grimacing noted. Cont. on Fentanyl drip 200mcg/ml.
--- NOTE | 2020-06-04 16:44 | NUR ---
NURSE NOTES: Sponge bath given. No bowel movement. Kept clean and dry. Pt. eyes open but no tracking. No s/sx of distress. No grimacing noted.
--- NOTE | 2020-06-04 17:10 | NUR ---
NURSE NOTES: Romansh speaking RN went to help me to clean the pt. RN able to have pt. responded and pt. tried to speak back to RN. Pt. nod if asked. Remain stable.
--- NOTE | 2020-06-04 19:13 | NUR ---
NURSE HAND-OFF REPORT: Latest Vital Signs: Temperature 98.6 , Pulse 94 , B/P 149 /70 , Respiratory Rate 25 , O2 SAT 94 , Endotracheal Tube, O2 Flow Rate . Vital Sign Comment: wnl EKG Rhythm: Sinus Rhythm Rhythm change?: N MD Notified?: N - MD Response: Latest Bustamante Fall Score: 50 Fall Risk: High Risk Safety Measures: Call light Within Reach, Bed Alarm Zone 1, Side Rails Side Rails x2, Bed position Low and Locked. Fall Precautions: Yellow Socks Yellow Gown Door Sign Patient Fall Education Report given to Maryjane HERNANDEZ.
--- NOTE | 2020-06-04 19:15 | NUR ---
NURSE NOTES: Received report from Paulnie HERNANDEZ.
--- NOTE | 2020-06-04 19:45 | NUR ---
NURSE NOTES: Patient in bed +1 restless biting tubing despite of bite block, kicking talk therapy provided, repositioned in bed not effective. Titrated Fentanyl drip to 220mcg/hr +restless.Orally intubated FiO2 100%satting 94%. With OGT feeding of Vital AF running at 50ml/hour. Bilateral soft wrist restraints noted. Bed in lowest position. Bed alarm on. No apparent distress at this time. Airborne isolation observed maintained and observed. Covid 19+. Will continue plan of care.
--- NOTE | 2020-06-04 21:15 | NUR ---
NURSE NOTES: Patient Temp 101.3 axillary, cooling measure provided not effective, Tylenol 650mg via OGT given recheck Temp 100.0 axillary. patient no s/s of acute distress.
--- NOTE | 2020-06-04 21:58 | Infectious Diseases Prog Note ---
Assessment/Plan Assessment/Plan ASSESSMENT AND PLAN: 1. covid-19 infection with pna, hypoxia, ? CAP, fevers, sepsis, leukocytosis respiratory failure, on vent ? worsening leukocytosis secondary to steroids, still febrile, ? fungemia, no diarrhea to suggest c.diff. - s/p dexamethasone and remdesivir - zosyn - day # 7, diflucan for fungemia risk, add vancomycin - monitor labs and chest x-ray - surveillance cultures ordered 2. No other significant past medical history. 3. Rule out MN per Cardiology. 4. No known allergies. 5. Social history is negative. 6. Family history is noncontributory. 7. MAR is noted. 8. Case was discussed with RN. 9. Continue treatment per primary consultants. 10. Orders were noted and entered. Subjective Constitutional: Reports: fever, fatigue, other - on vent, no pressors, fio2 - 100 percent Respiratory: Reports: shortness of breath Cardiovascular: Reports: other - no pressors Gastrointestinal/Abdominal: Denies: nausea, vomiting, diarrhea Genitourinary: Reports: other - + salas Neurologic: Reports: weakness, other - lethargic, weak Psychiatric: Reports: other - NA Skin: Denies: rash Hematologic: Denies: bleeding Musculoskeletal: Reports: other - NA Allergies: Coded Allergies: No Known Allergies (Unverified , 04/02/12) Objective Last 24 Hour Vital Signs Date Time Temp Pulse Resp B/P (MAP) Pulse Ox O2 Delivery O2 Flow Rate FiO2 06/04/20 21:00 101 26 124/55 (78) 93 06/04/20 21:00 100.0 06/04/20 20:21 99 20 139/63 (88) 92 06/04/20 20:00 100 06/04/20 20:00 101.3 104 25 150/72 (98) 94 06/04/20 20:00 Mechanical Ventilator 06/04/20 19:38 100 28 100 06/04/20 19:30 108 25 153/70 (97) 95 06/04/20 19:00 94 25 149/70 (96) 94 06/04/20 18:00 105 25 126/58 (80) 94 06/04/20 18:00 25 126/58 Endotracheal Tube 100 06/04/20 17:00 84 21 154/50 (84) 92 06/04/20 17:00 21 154/50 Endotracheal Tube 100 06/04/20 16:09 26 115/55 Endotracheal Tube 100 06/04/20 16:00 Mechanical Ventilator 06/04/20 16:00 26 115/55 Endotracheal Tube 100 06/04/20 16:00 98.6 100 26 111/55 (73) 95 06/04/20 16:00 100 06/04/20 16:00 90 06/04/20 15:45 87 26 100 06/04/20 15:00 24 141/55 Endotracheal Tube 100 06/04/20 15:00 83 24 141/55 (83) 94 06/04/20 14:00 97 25 120/59 (79) 96 06/04/20 14:00 25 120/59 Endotracheal Tube 100 06/04/20 13:01 97.7 06/04/20 13:00 89 21 132/59 (83) 94 06/04/20 13:00 21 132/59 Endotracheal Tube 100 06/04/20 12:00 Mechanical Ventilator 06/04/20 12:00 100 06/04/20 12:00 25 119/56 Endotracheal Tube 100 06/04/20 12:00 101.1 105 25 119/56 (77) 96 06/04/20 12:00 89 06/04/20 11:00 26 105/63 Endotracheal Tube 100 06/04/20 11:00 104 26 105/63 (77) 97 06/04/20 10:30 104 26 100 06/04/20 10:00 94 22 139/68 (91) 96 06/04/20 10:00 22 139/68 Endotracheal Tube 100 06/04/20 09:00 26 108/63 Endotracheal Tube 100 06/04/20 09:00 96 26 108/63 (78) 98 06/04/20 08:11 81 06/04/20 08:00 22 120/87 Endotracheal Tube 100 06/04/20 08:00 Mechanical Ventilator 06/04/20 08:00 100.0 86 22 120/87 (98) 96 06/04/20 08:00 100 06/04/20 07:41 75 29 100 06/04/20 07:00 26 98/60 Mechanical Ventilator 100 06/04/20 07:00 95 26 98/60 (73) 97 06/04/20 07:00 101.0 95 26 98/60 (73) 97 06/04/20 06:00 23 95/61 Mechanical Ventilator 100 06/04/20 06:00 97 26 95/61 (72) 95 06/04/20 05:30 99 26 100/61 (74) 96 06/04/20 05:00 94 26 117/67 (84) 96 06/04/20 05:00 26 117/67 Mechanical Ventilator 100 06/04/20 04:37 100.7 06/04/20 04:30 92 25 113/64 (80) 96 06/04/20 04:17 106 24 118/59 (78) 96 06/04/20 04:00 Mechanical Ventilator 06/04/20 04:00 100 06/04/20 04:00 102.0 82 15 134/64 (87) 94 06/04/20 04:00 26 134/64 Mechanical Ventilator 100 06/04/20 04:00 84 06/04/20 03:55 88 26 100 06/04/20 03:30 82 17 127/62 (83) 95 06/04/20 03:30 23 133/61 Mechanical Ventilator 15.0 100 06/04/20 03:00 26 130/60 Mechanical Ventilator 100 06/04/20 03:00 92 19 130/66 (87) 96 06/04/20 02:30 93 22 116/62 (80) 95 06/04/20 02:00 85 22 121/63 (82) 93 06/04/20 02:00 26 121/63 Mechanical Ventilator 100 06/04/20 01:00 83 23 133/61 (85) 95 06/04/20 01:00 26 120/59 Mechanical Ventilator 100 06/04/20 00:58 26 120/59 Mechanical Ventilator 100 06/04/20 00:57 26 111/60 Mechanical Ventilator 15.0 100 06/04/20 00:56 26 111/60 Mechanical Ventilator 100 06/04/20 00:00 Mechanical Ventilator 06/04/20 00:00 99.8 100 23 111/60 (77) 95 06/04/20 00:00 93 06/04/20 00:00 111/60 06/04/20 00:00 26 111/60 Mechanical Ventilator 100 06/04/20 00:00 100 06/03/20 23:00 88 17 132/64 (86) 94 06/03/20 22:40 82 26 100 06/03/20 22:15 99 23 117/55 (75) 96 06/03/20 22:00 88 16 134/61 (85) 94 06/03/20 22:00 25 117/55 Mechanical Ventilator 100 Height (Feet): 5 Height (Inches): 1.00 Weight (Pounds): 130 General Appearance: other - on vent, no pressors HEENT: normocephalic, atraumatic, anicteric, no JVD, other - oral - intubated Respiratory/Chest: crackles/rales, rhonchi - bilaterally Cardiovascular: normal rate, no gallop/murmur, no JVD, tachycardia Abdomen: normal bowel sounds, soft, non tender, no organomegaly, non distended Genitourinary: other - + salas - urine clear Extremities: no cyanosis Skin: no rash Neurologic/Psychiatric: other - lethargic, weak and on vent Lymphatic: no neck adenopathy Musculoskeletal: no effusion Chest x-ray - 05/25/20 - Procedure: XRAY Chest 1v Indication: Shortness of breath Technique: One view of the chest Comparison: 05/22/2020 Findings: Interim worsening of bilateral infiltrates, with consolidation now seen throughout the right lung, and increasing consolidation on the left primarily in the perihilar region. The heart is borderline enlarged. There is suggestion of small bilateral pleural effusions, not evident previously. Impression: Worsening bilateral infiltrates, right greater than left. Chest x-ray - 05/27/20: FINDINGS/IMPRESSION: Bilateral airspace consolidations, consistent with multifocal infiltrate. These are worsening when compared to just [employer] May 22, 2020. Follow-up chest radiograph recommended. Small bilateral pleural effusions, slightly worsening. No pneumothorax. Cardiomegaly. Calcified aorta. chest x-ray - 05/29/20 - FINDINGS/IMPRESSION: Enteric feeding tube terminates in the stomach. Endotracheal tube terminates 6.2 cm above the sho. EKG leads overlie the patient. Small pleural effusions, unchanged mild vascular condition, mildly improving. Superimposed patchy opacities, consistent with infiltrate. These are slightly improved when compared to previous study from May 27, 2020. Continue just ready to follow up recommended. Cardiomegaly. Calcified aorta. Chest x-ray - 05/31/20 - Procedure: XRAY Chest 1v Indication: Shortness of breath Technique: One view of the chest Comparison: none Findings: Stable satisfactory positions of endotracheal and orogastric tubes. Bilateral infiltrates appear slightly increased on the right, stable on the left . The heart size is normal. Impression: Slightly increased infiltrates on the right. Stable infiltrates on the left. Chest x-ray - 06/02/20 - Procedure: XRAY Chest 1v Indication: Shortness of breath Technique: One view of the chest Comparison: 06/01/2020 Findings: Stable tube positions. Bilateral infiltrates are unchanged. Impression: Unchanged, over one day, findings as above. Chest x-ray - 06/04/20 - FINDINGS: Lungs: Bilateral interstitial and airspace opacities are mildly improved. Pleural space: Probable tiny right pleural effusion. No pneumothorax. Heart: Unremarkable. No cardiomegaly. Mediastinum: Unremarkable. Bones/joints: Unremarkable. Tubes, lines and devices: Endotracheal tube and NG tube are stable. IMPRESSION: 1. Bilateral interstitial and airspace opacities are mildly improved. 2. Probable tiny right pleural effusion. Microbiology Date/Time Source Procedure Growth Status 06/03/20 13:35 Sputum Gram Stain - Final Resulted 06/03/20 13:35 Sputum Sputum Culture - Preliminary NO GROWTH Resulted 05/29/20 22:30 Blood Blood Culture - Preliminary NO GROWTH AFTER 4 DAYS Resulted 05/22/20 19:00 Straight Cath Urine Culture - Final NO GROWTH AFTER 48 HOURS Complete Microbiology Date/Time Source Procedure Growth Status 06/03/20 13:35 Sputum Gram Stain - Final Resulted 06/03/20 13:35 Sputum Sputum Culture - Preliminary NO GROWTH Resulted Laboratory Tests Test 06/04/20 04:50 06/04/20 09:46 White Blood Count 19.7 K/UL (4.8-10.8) H Red Blood Count 3.19 M/UL (4.20-5.40) L Hemoglobin 10.6 G/DL (12.0-16.0) L Hematocrit 31.8 % (37.0-47.0) L Mean Corpuscular Volume 100 FL (80-99) H Mean Corpuscular Hemoglobin 33.3 PG (27.0-31.0) H Mean Corpuscular Hemoglobin Concent 33.4 G/DL (32.0-36.0) Red Cell Distribution Width 13.8 % (11.6-14.8) Platelet Count 75 K/UL (150-450) L Mean Platelet Volume 11.4 FL (6.5-10.1) H Neutrophils (%) (Auto) % (45.0-75.0) Lymphocytes (%) (Auto) % (20.0-45.0) Monocytes (%) (Auto) % (1.0-10.0) Eosinophils (%) (Auto) % (0.0-3.0) Basophils (%) (Auto) % (0.0-2.0) Differential Total Cells Counted 100 Neutrophils % (Manual) 97 % (45-75) H Lymphocytes % (Manual) 1 % (20-45) L Monocytes % (Manual) 2 % (1-10) Eosinophils % (Manual) 0 % (0-3) Basophils % (Manual) 0 % (0-2) Band Neutrophils 0 % (0-8) Platelet Estimate Decreased L Platelet Morphology Clumped Platelets Occasional Anisocytosis 1+ Sodium Level 146 MMOL/L (136-145) H Potassium Level 4.0 MMOL/L (3.5-5.1) Chloride Level 111 MMOL/L (98-107) H Carbon Dioxide Level 33 MMOL/L (21-32) H Anion Gap 2 mmol/L (5-15) L Blood Urea Nitrogen 30 mg/dL (7-18) H Creatinine 0.6 MG/DL (0.55-1.30) Estimat Glomerular Filtration Rate > 60 mL/min (>60) Glucose Level 166 MG/DL (74-106) H Calcium Level 8.2 MG/DL (8.5-10.1) L Phosphorus Level 2.4 MG/DL (2.5-4.9) L Magnesium Level 2.5 MG/DL (1.8-2.4) H Total Bilirubin 0.8 MG/DL (0.2-1.0) Aspartate Amino Transf (AST/SGOT) 35 U/L (15-37) Alanine Aminotransferase (ALT/SGPT) 21 U/L (12-78) Alkaline Phosphatase 124 U/L (46-116) H Total Protein 5.2 G/DL (6.4-8.2) L Albumin 1.6 G/DL (3.4-5.0) L Globulin 3.6 g/dL Albumin/Globulin Ratio 0.4 (1.0-2.7) L Heparin-PF4 Antibody Screen Pending Arterial Blood pH 7.370 (7.350-7.450) Arterial Blood Partial Pressure CO2 58.3 mmHg (35.0-45.0) *H Arterial Blood Partial Pressure O2 66.5 mmHg (75.0-100.0) L Arterial Blood HCO3 32.9 mmol/L (22.0-26.0) H Arterial Blood Oxygen Saturation 92.2 % (95-100) L Arterial Blood Base Excess 6.2 (-2-2) H Darinel Test Positive Current Medications Medications (Trade) Dose Ordered Sig/Elieser Route PRN Reason Start Time Stop Time Status Last Admin Dose Admin Acetaminophen (Tylenol) 650 mg Q4H PRN GT Temp >100.5 06/03/20 19:00 07/03/20 18:59 06/04/20 20:30 Acetaminophen (Tylenol) 650 mg Q4H PRN GT Mild Pain (Pain Scale 1-3) 06/03/20 19:00 07/03/20 18:59 Albuterol Sulfate (Proventil MDI) 2 puff Q4H PRN INH Shortness of Breath 05/23/20 10:30 08/21/20 10:29 05/27/20 01:09 Dextrose (Dextrose 50%) 25 ml Q30M PRN IV Hypoglycemia 05/23/20 10:30 08/21/20 10:29 Dextrose (Dextrose 50%) 50 ml Q30M PRN IV Hypoglycemia 05/23/20 10:30 08/21/20 10:29 Dextrose/Sodium Chloride 1,000 ml @ 75 mls/hr [id number] IV 06/04/20 08:45 07/04/20 08:44 06/04/20 09:01 Docusate Sodium (Colace) 100 mg EVERY 12 HOURS GT 05/30/20 09:00 06/22/20 20:59 06/04/20 20:30 Enoxaparin Sodium (Lovenox) 40 mg Q12HR SUBQ 05/30/20 21:00 08/28/20 20:59 06/02/20 20:31 Famotidine (Pepcid) 40 mg DAILY ORAL 05/24/20 09:00 08/22/20 08:59 06/04/20 08:17 Fentanyl Citrate 250 ml @ 1 mls/hr Q24H IV 06/04/20 03:00 06/06/20 02:59 06/04/20 16:09 Fluconazole/ Sodium Chloride 200 ml @ 100 mls/hr Q24H IV 06/02/20 17:00 06/09/20 16:59 06/04/20 17:30 Guaifenesin/ Dextromethorphan (Robitussin DM Syrup) 10 ml Q4H PRN ORAL For Cough 05/24/20 08:00 08/22/20 07:59 05/27/20 04:35 Norepinephrine Bitartrate 250 ml @ 0 mls/hr Q24H IV 06/03/20 00:00 06/05/20 23:54 Piperacillin Sod/ Tazobactam Sod 3.375 gm/Sodium Chloride 110 ml @ 27.5 mls/hr Q8H IVPB 05/28/20 00:00 06/04/20 23:59 06/04/20 18:20 Afshan Muñoz MD Jun 04, 2020 21:58
--- NOTE | 2020-06-04 22:01 | Cardiac Electrophysiology PN ---
Assessment/Plan Assessment/Plan 1. COVID pneumonia. Ruled out for OK EKG in view of inferolateral ST depression EF 65% Her BNP was only 342. Intubated on 100% Fio2 and PEEP 12 despite dexamethasone, ceftriaxone, and azithromycin. 2. Sinus nnamdi off any TAVARES affecting agent. Likely due to Covid 3. S/P septic shock. Now off Levophed DW RN Subjective Subjective In ICU intubated on 100% Fio2 and Peep of 12. Off pressors in Covid isolation on Abx and Fentanyl drip. In SR Objective Last 24 Hour Vital Signs Date Time Temp Pulse Resp B/P (MAP) Pulse Ox O2 Delivery O2 Flow Rate FiO2 06/04/20 21:00 101 26 124/55 (78) 93 06/04/20 21:00 26 124/55 Mechanical Ventilator 100 06/04/20 21:00 100.0 06/04/20 20:21 99 20 139/63 (88) 92 06/04/20 20:00 104 06/04/20 20:00 100 06/04/20 20:00 101.3 104 25 150/72 (98) 94 06/04/20 20:00 25 150/72 Mechanical Ventilator 100 06/04/20 20:00 Mechanical Ventilator 06/04/20 19:45 24 149/70 Mechanical Ventilator 100 06/04/20 19:38 100 28 100 06/04/20 19:30 108 25 153/70 (97) 95 06/04/20 19:00 25 149/70 Mechanical Ventilator 100 06/04/20 19:00 94 25 149/70 (96) 94 06/04/20 18:00 105 25 126/58 (80) 94 06/04/20 18:00 25 126/58 Endotracheal Tube 100 06/04/20 17:00 84 21 154/50 (84) 92 06/04/20 17:00 21 154/50 Endotracheal Tube 100 06/04/20 16:09 26 115/55 Endotracheal Tube 100 06/04/20 16:00 Mechanical Ventilator 06/04/20 16:00 26 115/55 Endotracheal Tube 100 06/04/20 16:00 98.6 100 26 111/55 (73) 95 06/04/20 16:00 100 06/04/20 16:00 90 06/04/20 15:45 87 26 100 06/04/20 15:00 24 141/55 Endotracheal Tube 100 06/04/20 15:00 83 24 141/55 (83) 94 06/04/20 14:00 97 25 120/59 (79) 96 06/04/20 14:00 25 120/59 Endotracheal Tube 100 06/04/20 13:01 97.7 06/04/20 13:00 89 21 132/59 (83) 94 06/04/20 13:00 21 132/59 Endotracheal Tube 100 06/04/20 12:00 Mechanical Ventilator 06/04/20 12:00 100 06/04/20 12:00 25 119/56 Endotracheal Tube 100 06/04/20 12:00 101.1 105 25 119/56 (77) 96 06/04/20 12:00 89 06/04/20 11:00 26 105/63 Endotracheal Tube 100 06/04/20 11:00 104 26 105/63 (77) 97 06/04/20 10:30 104 26 100 06/04/20 10:00 94 22 139/68 (91) 96 06/04/20 10:00 22 139/68 Endotracheal Tube 100 06/04/20 09:00 26 108/63 Endotracheal Tube 100 06/04/20 09:00 96 26 108/63 (78) 98 06/04/20 08:11 81 06/04/20 08:00 22 120/87 Endotracheal Tube 100 06/04/20 08:00 Mechanical Ventilator 06/04/20 08:00 100.0 86 22 120/87 (98) 96 06/04/20 08:00 100 06/04/20 07:41 75 29 100 06/04/20 07:00 26 98/60 Mechanical Ventilator 100 06/04/20 07:00 95 26 98/60 (73) 97 06/04/20 07:00 101.0 95 26 98/60 (73) 97 06/04/20 06:00 23 95/61 Mechanical Ventilator 100 06/04/20 06:00 97 26 95/61 (72) 95 06/04/20 05:30 99 26 100/61 (74) 96 06/04/20 05:00 94 26 117/67 (84) 96 06/04/20 05:00 26 117/67 Mechanical Ventilator 100 06/04/20 04:37 100.7 06/04/20 04:30 92 25 113/64 (80) 96 06/04/20 04:17 106 24 118/59 (78) 96 06/04/20 04:00 Mechanical Ventilator 06/04/20 04:00 100 06/04/20 04:00 102.0 82 15 134/64 (87) 94 06/04/20 04:00 26 134/64 Mechanical Ventilator 100 06/04/20 04:00 84 06/04/20 03:55 88 26 100 06/04/20 03:30 82 17 127/62 (83) 95 06/04/20 03:30 23 133/61 Mechanical Ventilator 15.0 100 06/04/20 03:00 26 130/60 Mechanical Ventilator 100 06/04/20 03:00 92 19 130/66 (87) 96 06/04/20 02:30 93 22 116/62 (80) 95 06/04/20 02:00 85 22 121/63 (82) 93 06/04/20 02:00 26 121/63 Mechanical Ventilator 100 06/04/20 01:00 83 23 133/61 (85) 95 06/04/20 01:00 26 120/59 Mechanical Ventilator 100 06/04/20 00:58 26 120/59 Mechanical Ventilator 100 06/04/20 00:57 26 111/60 Mechanical Ventilator 15.0 100 06/04/20 00:56 26 111/60 Mechanical Ventilator 100 06/04/20 00:00 Mechanical Ventilator 06/04/20 00:00 99.8 100 23 111/60 (77) 95 06/04/20 00:00 93 06/04/20 00:00 111/60 06/04/20 00:00 26 111/60 Mechanical Ventilator 100 06/04/20 00:00 100 06/03/20 23:00 88 17 132/64 (86) 94 06/03/20 22:40 82 26 100 06/03/20 22:15 99 23 117/55 (75) 96 Intake and Output 06/03/20 06/04/20 19:00 07:00 Intake Total 1145.75 ml 1224.0 ml Output Total 590 ml 632 ml Balance 555.75 ml 592.0 ml Free Water 100 ml IV Total 545.75 ml 404.0 ml Tube Feeding 600 ml 600 ml Other 120 ml Output Urine Total 590 ml 632 ml Laboratory Tests Test 06/04/20 04:50 06/04/20 09:46 White Blood Count 19.7 K/UL (4.8-10.8) H Red Blood Count 3.19 M/UL (4.20-5.40) L Hemoglobin 10.6 G/DL (12.0-16.0) L Hematocrit 31.8 % (37.0-47.0) L Mean Corpuscular Volume 100 FL (80-99) H Mean Corpuscular Hemoglobin 33.3 PG (27.0-31.0) H Mean Corpuscular Hemoglobin Concent 33.4 G/DL (32.0-36.0) Red Cell Distribution Width 13.8 % (11.6-14.8) Platelet Count 75 K/UL (150-450) L Mean Platelet Volume 11.4 FL (6.5-10.1) H Neutrophils (%) (Auto) % (45.0-75.0) Lymphocytes (%) (Auto) % (20.0-45.0) Monocytes (%) (Auto) % (1.0-10.0) Eosinophils (%) (Auto) % (0.0-3.0) Basophils (%) (Auto) % (0.0-2.0) Differential Total Cells Counted 100 Neutrophils % (Manual) 97 % (45-75) H Lymphocytes % (Manual) 1 % (20-45) L Monocytes % (Manual) 2 % (1-10) Eosinophils % (Manual) 0 % (0-3) Basophils % (Manual) 0 % (0-2) Band Neutrophils 0 % (0-8) Platelet Estimate Decreased L Platelet Morphology Clumped Platelets Occasional Anisocytosis 1+ Sodium Level 146 MMOL/L (136-145) H Potassium Level 4.0 MMOL/L (3.5-5.1) Chloride Level 111 MMOL/L (98-107) H Carbon Dioxide Level 33 MMOL/L (21-32) H Anion Gap 2 mmol/L (5-15) L Blood Urea Nitrogen 30 mg/dL (7-18) H Creatinine 0.6 MG/DL (0.55-1.30) Estimat Glomerular Filtration Rate > 60 mL/min (>60) Glucose Level 166 MG/DL (74-106) H Calcium Level 8.2 MG/DL (8.5-10.1) L Phosphorus Level 2.4 MG/DL (2.5-4.9) L Magnesium Level 2.5 MG/DL (1.8-2.4) H Total Bilirubin 0.8 MG/DL (0.2-1.0) Aspartate Amino Transf (AST/SGOT) 35 U/L (15-37) Alanine Aminotransferase (ALT/SGPT) 21 U/L (12-78) Alkaline Phosphatase 124 U/L (46-116) H Total Protein 5.2 G/DL (6.4-8.2) L Albumin 1.6 G/DL (3.4-5.0) L Globulin 3.6 g/dL Albumin/Globulin Ratio 0.4 (1.0-2.7) L Heparin-PF4 Antibody Screen Pending Arterial Blood pH 7.370 (7.350-7.450) Arterial Blood Partial Pressure CO2 58.3 mmHg (35.0-45.0) *H Arterial Blood Partial Pressure O2 66.5 mmHg (75.0-100.0) L Arterial Blood HCO3 32.9 mmol/L (22.0-26.0) H Arterial Blood Oxygen Saturation 92.2 % (95-100) L Arterial Blood Base Excess 6.2 (-2-2) H Darinel Test Positive Microbiology Date/Time Source Procedure Growth Status 06/03/20 13:35 Sputum Gram Stain - Final Resulted 06/03/20 13:35 Sputum Sputum Culture - Preliminary NO GROWTH Resulted Objective HEAD AND NECK: No JVD. Orally intubated LUNGS: Coarse rhonchi. CARDIOVASCULAR: Regular S1 and S2 with no gallop. Bradycardic. ABDOMEN: Soft. EXTREMITIES: No pitting edema. Jordi Albarado MD Jun 04, 2020 22:01
--- NOTE | 2020-06-04 23:00 | NUR ---
NURSE NOTES: Patient in bed sleeping comfortably. no s/s of acute distress. no n/v. temp 99.6 axillary. Turned and repositioned in bed. call light within easy reach. will continue plan of care.
[2020-06-05] VITALS (29 sets, daily range): BP systolic 73–153; BP diastolic 49–103
[2020-06-05] MEDS: Norepinephrine 4mg/NS Premix 250 ML IV SCH
--- NOTE | 2020-06-05 01:00 | NUR ---
NURSE NOTES: Patient on Fentanyl drip to 220mcg/hr _RASS score. Orally intubated FiO2 100%satting 94%. With OGT feeding of Vital AF1.2 running at 50ml/hour. Bed in lowest position. Bed alarm on. No apparent distress at this time. Airborne isolation observed maintained and observed. Covid 19+. Will continue plan of care.
[2020-06-05] MEDS: fentaNYL 2500mcg/NS 250ml 250 ML IV SCH ×3 (02:37→22:30)
--- NOTE | 2020-06-05 03:00 | NUR ---
NURSE NOTES: Bed bath given tolerated well.
[2020-06-05] MEDS: Acetaminophen 650mg/20.3ml GT PRN ×5 (04:09→20:18)
--- NOTE | 2020-06-05 04:25 | NUR ---
NURSE NOTES: patient in afib rvr. ekg completed. hr 200's. hypotensive. left message for md galen; awaitic call back. received orders from md sade: bolus 500ml NS. amiodarone drip per protocol. central line insertion if hypotension isnt resolved. noted and carried out. Addendum: 06/06/20 at 0431 by Randolph Atkins RN wrong time
[2020-06-05] MEDS: Vancomycin 750mg/D5W 275ml IVPB SCH ×4 (04:39→15:11)
--- NOTE | 2020-06-05 04:39 | NUR ---
NURSE NOTES: Patient Temp 101.0 axillary, cooling measure provided not effective, Tylenol 650mg via OGT given recheck Temp 99.9 axillary. patient no s/s of acute distress. will continue plan of care.
[2020-06-05 06:45] LABS: HEMATOCRIT 31.8 % (37.0-47.0); HEMOGLOBIN 10.5 G/DL (12.0-16.0); MEAN CORPUSCULAR VOLUME 100 FL (80-99); PLATELET COUNT 42 K/UL (150-450); RED BLOOD COUNT 3.18 M/UL (4.20-5.40); WHITE BLOOD COUNT 19.8 K/UL (4.8-10.8)
[2020-06-05 06:50] LABS: ALANINE AMINOTRANSFERASE 19 U/L (12-78); ALBUMIN 1.6 G/DL (3.4-5.0); ALBUMIN/GLOBULIN RATIO 0.5 (1.0-2.7); ALKALINE PHOSPHATASE 136 U/L (46-116); ANION GAP 3 mmol/L (5-15); ASPARTATE AMINO TRANSFERASE 31 U/L (15-37); BILIRUBIN,TOTAL 0.9 MG/DL (0.2-1.0); BLOOD UREA NITROGEN 25 mg/dL (7-18); CALCIUM 7.9 MG/DL (8.5-10.1); CARBON DIOXIDE 33 MMOL/L (21-32); CHLORIDE 110 MMOL/L (98-107); CREATININE 0.7 MG/DL (0.55-1.30); SODIUM 146 MMOL/L (136-145)
--- NOTE | 2020-06-05 07:10 | NUR ---
HAND-OFF: Report given to Devika HERNANDEZ.
--- NOTE | 2020-06-05 07:30 | NUR ---
NURSE NOTES: Received report from DAVID Wesley. The patient is on the bed but has mild agitation and anxiousness. Communication made by facial expression and body movement. RASS +1 noted and increased dose of Fentayl to 240mcg/hr to reach RASS goal. ST w/ HR of 110s on the bus monitor. The patient is orally intubated on following setting and oxygen saturation fluctuates from high 80-low 90%: ETT 7.5, 22cm @ Lip line, AC 26, TV 450, FiO2 100%, and PEEP 12 w/ bite block. The patient has OGT that is intact and placement confirmed and running Vital AF 1.2 @ 50mL/hr but residual of 300mL noted. 100mL given again, 200mL discarded, and resumed rate @ 25mL/hr. The patient has Santiago that is intact and draining by gravity. L FA, R wrist, R FA PIV that is intact and patent and running Fentanyl as sedation, D5 1/2NS @ 75mL/hr per order. BL soft wrist restraints on per order and skin and circulation intact. The patient's bed in the lowest position, call light in reach, and fall and aspiration precaution reinforced. IV site intact and patent. Will follow up the lab and order. Will closely monitor the patient. Will continue plan of care.
--- NOTE | 2020-06-05 08:00 | NUR ---
NURSE NOTES: Initial nursing assessment done. Will closely monitor the patient. Will continue plan of care.
--- NOTE | 2020-06-05 08:23 | Pulmonolgy Critical Care Note ---
Critical Care - Asmt/Plan Assessment/Plan: ASSESSMENT Acute hypoxemic resp failure due to COVID PNA, requiring intubation 05/27 COVID 19 PNA Thrombocytopenia- Abnormal ECG Headache Pulmonary HTN Hypotension PLAN OF CARE ICU isolation Date of sx onset: few days prior to presentation to ED on 05/23 Positive test: [facility] 05/22 - 1 days prior to admission , SARS COV-2 by PCR 05/30 NGT O2 -> intubated 05/27 , failed weaning 06/01 , vent support , remains on high settings ABG this am pending HFA if unable to do HHN via line s/p REM x 5 days ( 05/23-05/27 ) s/p DEX x 10 days D dimer initial 0.48 - > 19.61-> 7.23 DVT PPX: Lovenox - stopped earlier due to low PLT Venous Duplex BLE NGT Trend CRP 3.6 -> 19.7-> 76.4 - 38.3 -45.1 Abx per ID recs BCX 1/3 NGTD, UCX 1/2 NGT , SCX /8 NGT prone position as tolerated monitor volumes and renal function hypotensive, febrile, started on IVF closely monitor HDs fup with consultants recs FC Discuss GOC monitor PLT counts- trending down - , Lovenox stopped earlier , down to 42 ; check Heparin induced Ab cardio eval -appreciated ECHO with pEF 65%, no WMA, mild to moderate MR, moderate pulmonary hypertension case discussed and evaluated by supervising physician Critical Care - Objective Last 24 Hour Vital Signs Date Time Temp Pulse Resp B/P (MAP) Pulse Ox O2 Delivery O2 Flow Rate FiO2 06/05/20 07:00 20 108/60 Mechanical Ventilator 100 06/05/20 07:00 109 23 108/60 (76) 90 06/05/20 06:00 91 25 133/62 (85) 88 06/05/20 06:00 26 133/62 Mechanical Ventilator 100 06/05/20 05:00 26 133/62 Mechanical Ventilator 100 06/05/20 05:00 99.9 116 22 133/62 (85) 92 06/05/20 04:39 99.9 06/05/20 04:39 99.9 06/05/20 04:00 100 06/05/20 04:00 100 06/05/20 04:00 26 124/62 Mechanical Ventilator 100 06/05/20 04:00 101.0 116 26 124/62 (82) 92 06/05/20 04:00 Mechanical Ventilator 06/05/20 03:54 83 27 100 06/05/20 03:00 90 22 129/62 (84) 92 06/05/20 02:37 26 105/56 Mechanical Ventilator 15.0 100 06/05/20 02:00 92 26 117/66 (83) 94 06/05/20 01:00 94 26 105/56 (72) 94 06/05/20 01:00 26 105/56 Mechanical Ventilator 100 06/05/20 00:00 Mechanical Ventilator 06/05/20 00:00 100 06/05/20 00:00 99.7 92 26 107/58 (74) 94 06/05/20 00:00 26 107/58 Mechanical Ventilator 100 06/05/20 00:00 107/58 06/05/20 00:00 89 06/04/20 23:24 97 26 100 06/04/20 23:00 30 115/62 Mechanical Ventilator 100 06/04/20 23:00 95 26 113/63 (80) 95 06/04/20 22:00 100 30 115/62 (79) 95 06/04/20 22:00 26 124/55 Mechanical Ventilator 100 06/04/20 21:59 26 124/55 Mechanical Ventilator 100 06/04/20 21:00 101 26 124/55 (78) 93 06/04/20 21:00 26 124/55 Mechanical Ventilator 100 06/04/20 21:00 100.0 06/04/20 20:21 99 20 139/63 (88) 92 06/04/20 20:00 104 06/04/20 20:00 100 06/04/20 20:00 101.3 104 25 150/72 (98) 94 06/04/20 20:00 25 150/72 Mechanical Ventilator 100 06/04/20 20:00 Mechanical Ventilator 06/04/20 19:45 24 149/70 Mechanical Ventilator 100 06/04/20 19:38 100 28 100 06/04/20 19:30 108 25 153/70 (97) 95 06/04/20 19:00 25 149/70 Mechanical Ventilator 100 06/04/20 19:00 94 25 149/70 (96) 94 06/04/20 18:00 105 25 126/58 (80) 94 06/04/20 18:00 25 126/58 Endotracheal Tube 100 06/04/20 17:00 84 21 154/50 (84) 92 06/04/20 17:00 21 154/50 Endotracheal Tube 100 06/04/20 16:09 26 115/55 Endotracheal Tube 100 06/04/20 16:00 Mechanical Ventilator 06/04/20 16:00 26 115/55 Endotracheal Tube 100 06/04/20 16:00 98.6 100 26 111/55 (73) 95 06/04/20 16:00 100 06/04/20 16:00 90 06/04/20 15:45 87 26 100 06/04/20 15:00 24 141/55 Endotracheal Tube 100 06/04/20 15:00 83 24 141/55 (83) 94 06/04/20 14:00 97 25 120/59 (79) 96 06/04/20 14:00 25 120/59 Endotracheal Tube 100 06/04/20 13:01 97.7 06/04/20 13:00 89 21 132/59 (83) 94 06/04/20 13:00 21 132/59 Endotracheal Tube 100 06/04/20 12:00 Mechanical Ventilator 06/04/20 12:00 100 06/04/20 12:00 25 119/56 Endotracheal Tube 100 06/04/20 12:00 101.1 105 25 119/56 (77) 96 06/04/20 12:00 89 06/04/20 11:00 26 105/63 Endotracheal Tube 100 06/04/20 11:00 104 26 105/63 (77) 97 06/04/20 10:30 104 26 100 06/04/20 10:00 94 22 139/68 (91) 96 06/04/20 10:00 22 139/68 Endotracheal Tube 100 06/04/20 09:00 26 108/63 Endotracheal Tube 100 06/04/20 09:00 96 26 108/63 (78) 98 Objective: General: intubated, sedated on vent AC 450- 100-26 PEEP 12 HEENT: atraumatic, normocephalic, ET in place intact Neck: OP with ET in place , intact; feeding tube in place Lungs: clear , tachypneic Heart: HR/BP stable, low tachy Abdomen: soft, non-tender, active bowel sounds Extremities: no C/C/E Micro: Microbiology Date/Time Source Procedure Growth Status 06/03/20 13:35 Sputum Gram Stain - Final Complete 06/03/20 13:35 Sputum Sputum Culture - Final NORMAL UPPER RESPIRATORY ISELA AT 48 ... Complete 06/02/20 16:30 Blood Blood Culture - Preliminary NO GROWTH AFTER 48 HOURS Resulted 06/02/20 16:15 Blood Blood Culture - Preliminary NO GROWTH AFTER 48 HOURS Resulted Critical Care - Subjective ROS Limited/Unobtainable: Yes Interval Events: remains on 100% FiO2, PEEP12 sedated CXR 06/04 with mild improvement low grade fevers, leukocytosis ABG and CXR pending for this am PLT only 42 Condition: critical IV Access: peripheral EKG Rhythm: Sinus Rhythm FI02: 100 Vent Support Breath Rate: 26 Vent Support Mode: AC Vent Tidal Volume: 450 Sputum Amount: Scant PEEP: 12.0 PIP: 57 Fluids: IVF at 75 Drips: Fentanyl 220 mcg/hr Tube Feeding Amount: 50 I&O: Intake and Output 06/04/20 06/05/20 19:00 07:00 Intake Total 1908.00 ml 2516.5 ml Output Total 390 ml 605 ml Balance 1518.00 ml 1911.5 ml Free Water 300 ml 200 ml IV Total 1008.00 ml 1536.5 ml Tube Feeding 600 ml 600 ml Other 180 ml Output Urine Total 390 ml 605 ml CXR: CXR 06/04 Bilateral interstitial and airspace opacities are mildly improved. Probable tiny right pleural effusion. ET-Tube: 7.5 ET Position: 22 Ivonne Andrade NP Jun 05, 2020 08:23
[2020-06-05] MEDS: Docusate 100mg/10ml Liq GT SCH ×2 (08:53→20:04)
[2020-06-05] MEDS: Enoxaparin 40mg Inj SUBQ SCH ×2 (08:53→21:00)
[2020-06-05] MEDS: D5 1/2NS 1,000 ML IV SCH (08:54)
[2020-06-05] MEDS: Piperacillin/Tazobactam 3.375 GM in NS 110 ML IVPB SCH ×5 (09:14→23:39)
--- NOTE | 2020-06-05 09:27 | Diagnostic Imaging Report ---
EXAM: XR Chest, 1 View CLINICAL HISTORY: SOB TECHNIQUE: Frontal view of the chest. COMPARISON: Chest radiograph June 04, 2020. FINDINGS/IMPRESSION: Endotracheal tube terminates approximately 6.4 cm above the sho. Stable feeding tube which terminates below the diaphragm, in the stomach. Extensive airspace consolidations within the bilateral lungs which are worsening when compared to June 04, 2020. Follow-up chest radiograph recommended. Small effusions. No pneumothorax. Cardiomegaly. Calcified aorta.
--- NOTE | 2020-06-05 09:30 | NUR ---
NURSE NOTES: The patient is being agitated again. Increased Fentanyl to 250mcg/hr based on the protocol. Morning medications administered per order. Lovenox was not administered due to oral bleeding and plt of 42. Will closely monitor the patient. Will continue plan of care.
--- NOTE | 2020-06-05 10:00 | NUR ---
NURSE NOTES: Critical ABG and CXR reported to IJEOMA Coronado. Per IJEOMA Coronado advance ETT 2cm and repeat ABG 2 hours later. Will follow the order. Will continue plan of care.
--- NOTE | 2020-06-05 10:23 | NUR ---
RESPIRATORY NOTES Per CXR, ETT to be advanced 2cm. ETT advanced from 22cm to 24cm at the lip. ABG to follow in 2 hours. RN Devika villalobos. Will continue to monitor.
--- NOTE | 2020-06-05 11:07 | NUR ---
RD ASSESSMENT & RECOMMENDATIONS SEE CARE ACTIVITY FOR COMPLETE ASSESSMENT DAILY ESTIMATED NEEDS: Needs based on Critical care, 56kg 22-28 kcals/kg 1094-3836 total kcals 1.2-2 g protein/kg 67-112 g total protein 25-30 mL/kg 1707-3434 total fluid mLs NUTRITION DIAGNOSIS: Swallowing difficulty R/T respiratory failure as evidenced by pt orally intubated on 05/27, on OGT feeds. 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 ADDITIONAL RECOMMENDATIONS: * Calibrated bedscale wt * Monitor hemodynamic stability: now off NE * Monitor BGs, rec NISS- elev BGs -> check A1C * Monitor lytes, replete as needed (low phos 05/22, rec updated level)
--- NOTE | 2020-06-05 12:00 | NUR ---
NURSE NOTES: Fentanyl running @ 250mcg/hr. The patient's RASS score is -2. Fever noted. Cooling measure applied and Tylenol administered. Will closely monitor the patient. Will continue plan of care.
--- NOTE | 2020-06-05 13:15 | NUR ---
NURSE NOTES: Critical ABG reported to Dr. Sousa. Dr. Sousa ordered stat CXR to be repeated. Will closely monitor the patient. Will continue plan of care.
--- NOTE | 2020-06-05 14:00 | NUR ---
NURSE NOTES: 1.33mL of Fentanyl wasted w/ DAVID Yeh. Paper cosigned with DAVID Yeh and submitted on the appropriate box. Will continue plan of care.
--- NOTE | 2020-06-05 14:09 | Surgery Progress Note ---
Surgery Progress Note Subjective Additional Comments worsening no n/v labs noted on vent support requiring more support Objective Last 24 Hour Vital Signs Date Time Temp Pulse Resp B/P (MAP) Pulse Ox O2 Delivery O2 Flow Rate FiO2 06/05/20 13:37 26 131/67 Mechanical Ventilator 100 06/05/20 13:00 105 26 129/60 (83) 91 06/05/20 13:00 26 141/62 Mechanical Ventilator 100 06/05/20 12:13 100.3 06/05/20 12:00 103 06/05/20 12:00 101.0 119 26 130/61 (84) 97 06/05/20 12:00 26 130/61 Mechanical Ventilator 100 06/05/20 12:00 Mechanical Ventilator 06/05/20 11:00 26 111/63 Mechanical Ventilator 100 06/05/20 11:00 115 26 109/64 (79) 99 06/05/20 10:15 100 06/05/20 10:00 117 26 126/65 (85) 94 06/05/20 10:00 26 126/65 Mechanical Ventilator 100 06/05/20 09:30 26 118/63 Mechanical Ventilator 100 06/05/20 09:15 24 122/62 Mechanical Ventilator 100 06/05/20 09:00 105 20 152/73 (99) 95 06/05/20 09:00 22 152/73 Mechanical Ventilator 100 06/05/20 08:00 100.0 113 28 153/71 (98) 90 06/05/20 08:00 100 06/05/20 08:00 117 06/05/20 08:00 26 123/61 Mechanical Ventilator 100 06/05/20 08:00 Mechanical Ventilator 06/05/20 07:45 25 153/71 Mechanical Ventilator 100 06/05/20 07:40 114 26 100 06/05/20 07:30 25 127/65 Mechanical Ventilator 100 06/05/20 07:00 20 108/60 Mechanical Ventilator 100 06/05/20 07:00 109 23 108/60 (76) 90 06/05/20 06:00 91 25 133/62 (85) 88 06/05/20 06:00 26 133/62 Mechanical Ventilator 100 06/05/20 05:00 26 133/62 Mechanical Ventilator 100 06/05/20 05:00 99.9 116 22 133/62 (85) 92 06/05/20 04:39 99.9 06/05/20 04:39 99.9 06/05/20 04:00 100 06/05/20 04:00 100 06/05/20 04:00 26 124/62 Mechanical Ventilator 100 06/05/20 04:00 101.0 116 26 124/62 (82) 92 06/05/20 04:00 Mechanical Ventilator 06/05/20 03:54 83 27 100 06/05/20 03:00 90 22 129/62 (84) 92 06/05/20 02:37 26 105/56 Mechanical Ventilator 15.0 100 06/05/20 02:00 92 26 117/66 (83) 94 06/05/20 01:00 94 26 105/56 (72) 94 06/05/20 01:00 26 105/56 Mechanical Ventilator 100 06/05/20 00:00 Mechanical Ventilator 06/05/20 00:00 100 06/05/20 00:00 99.7 92 26 107/58 (74) 94 06/05/20 00:00 26 107/58 Mechanical Ventilator 100 06/05/20 00:00 107/58 06/05/20 00:00 89 06/04/20 23:24 97 26 100 06/04/20 23:00 30 115/62 Mechanical Ventilator 100 06/04/20 23:00 95 26 113/63 (80) 95 06/04/20 22:00 100 30 115/62 (79) 95 06/04/20 22:00 26 124/55 Mechanical Ventilator 100 06/04/20 21:59 26 124/55 Mechanical Ventilator 100 06/04/20 21:00 101 26 124/55 (78) 93 06/04/20 21:00 26 124/55 Mechanical Ventilator 100 06/04/20 21:00 100.0 06/04/20 20:21 99 20 139/63 (88) 92 06/04/20 20:00 104 06/04/20 20:00 100 06/04/20 20:00 101.3 104 25 150/72 (98) 94 06/04/20 20:00 25 150/72 Mechanical Ventilator 100 06/04/20 20:00 Mechanical Ventilator 06/04/20 19:45 24 149/70 Mechanical Ventilator 100 06/04/20 19:38 100 28 100 06/04/20 19:30 108 25 153/70 (97) 95 06/04/20 19:00 25 149/70 Mechanical Ventilator 100 06/04/20 19:00 94 25 149/70 (96) 94 06/04/20 18:00 105 25 126/58 (80) 94 06/04/20 18:00 25 126/58 Endotracheal Tube 100 06/04/20 17:00 84 21 154/50 (84) 92 06/04/20 17:00 21 154/50 Endotracheal Tube 100 06/04/20 16:09 26 115/55 Endotracheal Tube 100 06/04/20 16:00 Mechanical Ventilator 06/04/20 16:00 26 115/55 Endotracheal Tube 100 06/04/20 16:00 98.6 100 26 111/55 (73) 95 06/04/20 16:00 100 06/04/20 16:00 90 06/04/20 15:45 87 26 100 06/04/20 15:00 24 141/55 Endotracheal Tube 100 06/04/20 15:00 83 24 141/55 (83) 94 I&O Intake and Output 06/04/20 06/05/20 19:00 07:00 Intake Total 1908.00 ml 2516.5 ml Output Total 390 ml 605 ml Balance 1518.00 ml 1911.5 ml Free Water 300 ml 200 ml IV Total 1008.00 ml 1536.5 ml Tube Feeding 600 ml 600 ml Other 180 ml Output Urine Total 390 ml 605 ml Dressing: saturated Cardiovascular: RSR Respiratory: decreased breath sounds Abdomen: soft, non-tender, present bowel sounds Extremities: no tenderness, no cyanosis Laboratory Tests Test 06/05/20 05:55 06/05/20 08:42 06/05/20 13:14 White Blood Count 19.8 K/UL (4.8-10.8) H Red Blood Count 3.18 M/UL (4.20-5.40) L Hemoglobin 10.5 G/DL (12.0-16.0) L Hematocrit 31.8 % (37.0-47.0) L Mean Corpuscular Volume 100 FL (80-99) H Mean Corpuscular Hemoglobin 32.9 PG (27.0-31.0) H Mean Corpuscular Hemoglobin Concent 32.9 G/DL (32.0-36.0) Red Cell Distribution Width 15.0 % (11.6-14.8) H Platelet Count 42 K/UL (150-450) L Mean Platelet Volume 10.4 FL (6.5-10.1) H Neutrophils (%) (Auto) % (45.0-75.0) Lymphocytes (%) (Auto) % (20.0-45.0) Monocytes (%) (Auto) % (1.0-10.0) Eosinophils (%) (Auto) % (0.0-3.0) Basophils (%) (Auto) % (0.0-2.0) Differential Total Cells Counted 100 Neutrophils % (Manual) 92 % (45-75) H Lymphocytes % (Manual) 5 % (20-45) L Monocytes % (Manual) 2 % (1-10) Eosinophils % (Manual) 1 % (0-3) Basophils % (Manual) 0 % (0-2) Band Neutrophils 0 % (0-8) Platelet Estimate Decreased L Platelet Morphology Normal Anisocytosis 1+ Sodium Level 146 MMOL/L (136-145) H Potassium Level 4.0 MMOL/L (3.5-5.1) Chloride Level 110 MMOL/L (98-107) H Carbon Dioxide Level 33 MMOL/L (21-32) H Anion Gap 3 mmol/L (5-15) L Blood Urea Nitrogen 25 mg/dL (7-18) H Creatinine 0.7 MG/DL (0.55-1.30) Estimat Glomerular Filtration Rate > 60 mL/min (>60) Glucose Level 292 MG/DL (74-106) #H Calcium Level 7.9 MG/DL (8.5-10.1) L Total Bilirubin 0.9 MG/DL (0.2-1.0) Aspartate Amino Transf (AST/SGOT) 31 U/L (15-37) Alanine Aminotransferase (ALT/SGPT) 19 U/L (12-78) Alkaline Phosphatase 136 U/L (46-116) H Total Protein 5.1 G/DL (6.4-8.2) L Albumin 1.6 G/DL (3.4-5.0) L Globulin 3.5 g/dL Albumin/Globulin Ratio 0.5 (1.0-2.7) L Carcinoembryonic Antigen Pending Arterial Blood pH 7.316 (7.350-7.450) 7.295 (7.350-7.450) Arterial Blood Partial Pressure CO2 59.5 mmHg (35.0-45.0) *H 61.8 mmHg (35.0-45.0) *H Arterial Blood Partial Pressure O2 57.9 mmHg (75.0-100.0) L 44.4 mmHg (75.0-100.0) Arterial Blood HCO3 29.7 mmol/L (22.0-26.0) H 29.4 mmol/L (22.0-26.0) H Arterial Blood Oxygen Saturation 88.1 % (95-100) *L 79.2 % (95-100) *L Arterial Blood Base Excess 2.5 (-2-2) H 1.8 (-2-2) Darinel Test Pending Positive Plan Problems: (1) Thrombocytopenia (2) Pneumonia (3) Hypoxia Assessment & Plan: 75F covid + hypoxic intubated on vent support acute hypotensive episode placed on pressors on peripheral line eval for central line done. patient weaning off pressors and only on 1mcg of levo currently bp improved sedation noted awake and alert now responsive on vent support but improving hold on central catheter placement cont for now low dose and wean off levo fluids noted trend labs if worsening will plan to place central catheter emilee thank you will follow with recs . DAILY ESTIMATED NEEDS: Needs based on Critical care, 56kg 22-28 kcals/kg 7703-3491 total kcals 1.2-2 g protein/kg 67-112 g total protein 25-30 mL/kg 6636-9737 total fluid mLs NUTRITION DIAGNOSIS: Swallowing difficulty R/T respiratory failure as evidenced by pt orally intubated on 05/27, OGT feeds ordered. 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 Pleural space: Probable tiny right pleural effusion. No pneumothorax. Heart: Unremarkable. No cardiomegaly. Mediastinum: Unremarkable. Bones/joints: Unremarkable. Tubes, lines and devices: Endotracheal tube and NG tube are stable. IMPRESSION: 1. Bilateral interstitial and airspace opacities are mildly improved. 2. Probable tiny right pleural effusion. (4) Abnormal EKG (5) COVID-19 Assessment & Plan: ++ pulm and ID input appreciated Favio Corona Jun 05, 2020 14:09
--- NOTE | 2020-06-05 14:15 | NUR ---
NURSE NOTES: Stat CXR taken again. Will report result to Dr. Sousa as soon as it comes out. Will continue plan of care.
--- NOTE | 2020-06-05 14:25 | Diagnostic Imaging Report ---
EXAM: XR Chest, 1 View CLINICAL HISTORY: ABN CHST TECHNIQUE: Frontal view of the chest. COMPARISON: 06/05/2020912 FINDINGS: Lungs: Diffuse bilateral alveolar opacities. Pleural space: Probable small to moderate bilateral pleural effusions. No pneumothorax. Heart: Stable cardiomediastinal silhouette. Mediastinum: See above. Bones/joints: No acute osseous abnormality. Tubes, lines and devices: Stable support devices. IMPRESSION: No significant interval change since prior exam.
--- NOTE | 2020-06-05 14:41 | NUR ---
NURSE NOTES: CXR result reported to . Awaiting for further order. Will continue plan of care.
--- NOTE | 2020-06-05 14:53 | NUR ---
NURSE NOTES: Dr. Sousa ordered Lasix 40mg IVP x1 and asked to lower PEEP to 13. Will carry out the order as soon as possible. Will continue plan of care.
--- NOTE | 2020-06-05 15:30 | NUR ---
NURSE NOTES: The patient is still on Fentanyl 250mcg/hr, Tube feeding @ 25mL/hr. Will closely monitor the patient. Will continue plan of care.
--- NOTE | 2020-06-05 16:20 | NUR ---
NURSE NOTES: Bed bath given to the patient. The patient tolerated well. Will closely monitor the patient. Will continue plan of care.
--- NOTE | 2020-06-05 17:00 | NUR ---
NURSE NOTES: Dr. Sousa at the bedside assessed the patient. Notified critical ABG and CXR result. Also notified abnormal lab. Dr. Sousa ordered the PEEP to be 12. Will closely monitor the patient. Will continue plan of care.
--- NOTE | 2020-06-05 18:00 | NUR ---
NURSE NOTES: The patient is sedated with Fentanyl 250mcg/hr, on tube feeding Vital AF 1.2 @ 25mL/hr, mild fever noted, on vent at ordered setting. Will closely monitor the patient. Will continue plan of care.
--- NOTE | 2020-06-05 19:10 | NUR ---
NURSE HAND-OFF REPORT: Important Events on Shift: Critical ABG and CXR_ reported to Dr. Sousa, Advanced ETT 2cm_ Now 24cm @ Lip line, Fentanyl 250mcg/hr, Fever, High residual TF_ lower tube feeding rate to 25mL/hr, Bilateral soft wrist restraints per order. Patient Status: Full code Diet: OGT Vital AF 1.2 @ 25mL/hr. Pending Orders: N Pending Results/Labs: N Pending MD notification: N Latest Vital Signs: Temperature 100.5 , Pulse 103 , B/P 122 /63 , Respiratory Rate 28 , O2 SAT 95 , Mechanical Ventilator, O2 Flow Rate . Vital Sign Comment: EKG Rhythm: Sinus Tachycardia Rhythm change?: N MD Notified?: N - MD Response: Latest Bustamante Fall Score: 50 Fall Risk: High Risk Safety Measures: Call light Within Reach, Bed Alarm Zone 2, Side Rails Side Rails x2, Bed position Low and Locked. Fall Precautions: Yellow Socks Yellow Gown Door Sign Patient Fall Education Report given to Randolph Tuttle RN. The patient is stable at this time. Endorsed plan of care.
--- NOTE | 2020-06-05 20:00 | NUR ---
NURSE NOTES: received patient from israel cabrales. patient restless; opens eyes spontaneously; unable to track with eyes. sinus tach 110's. vented; ett 7.5 24 at the lipline. ac 26; tv 450; fio2 100%; peep 12. GT intact and patent; feeding running at 25cc/hr with a goal of 50 cc/hr; hob raised >30 degrees; aspiration precautions observed. salas intact and patent; draining well to gravity. left ac 20g, right wrist 20 g and right fa 20 intact and patent. fentanyl running at 300 mcg/ hr. restraints in place; skin intact and free of injury. all safety precautions observed; side rails raised; bed locked at lowest position; bed alarm on zone 2; call light within reach. Addendum: 06/06/20 at 0455 by Randolph Atkins RN NURSE NOTES: received patient from israel cabrales. patient restless; opens eyes spontaneously; unable to track with eyes. sinus tach 110's. vented; ett 7.5 24 at the lipline. ac 26; tv 450; fio2 100%; peep 12. OGT intact and patent; feeding running at 25cc/hr with a goal of 50 cc/hr; hob raised >30 degrees; aspiration precautions observed. salas intact and patent; draining well to gravity. left ac 20g, right wrist 20 g and right fa 20 intact and patent. fentanyl running at 300 mcg/ hr. restraints in place; skin intact and free of injury. all safety precautions observed; side rails raised; bed locked at lowest position; bed alarm on zone 2; call light within reach.
--- NOTE | 2020-06-05 22:30 | NUR ---
NURSE NOTES: patient in afib rvr. ekg completed. hr 200's. hypotensive. left message for md galen; awaitic call back. received orders from md sade: bolus 500ml NS. amiodarone drip per protocol. central line insertion if hypotension isnt resolved. noted and carried out.
[2020-06-05] MEDS ORDERED: Amiodarone 900 MG in D5W 500ml 482 ML IV ONE (23:00)
--- NOTE | 2020-06-05 23:00 | NUR ---
NURSE NOTES: andressa gaxiola at bedside for central line insertion. per andressa, cardiovert pt before insertion. AFIB RVR resolved. patient sinus tach bp stabilized. per reidd, bp is stabilizing post cardioversion; central line not needed at this time.
--- NOTE | 2020-06-05 23:15 | Emergency Room Report ---
Physical Exam Vital Signs Date Time Temp Pulse Resp B/P (MAP) Pulse Ox O2 Delivery O2 Flow Rate FiO2 06/01/20 07:00 67 20 117/63 (81) 94 06/01/20 07:33 Mechanical Ventilator 15.0 50 06/01/20 08:00 99.1 Medical Decision Making Diagnostic Impression: Primary Impression: COVID-19 Additional Impressions: Abnormal EKG Thrombocytopenia Hypoxia Pneumonia ER Course Called to patient bedside in ICU to evaluate unstable patient. Patient found to be in atrial fibrillation with rapid ventricular response heart rate fluctuate between 170 and 200 bpm. Unstable pressure. Patient sedated on fentanyl and intubated for COVID-19 pneumonia. Synchronous cardioversion at 200 J x 2 with conversion to sinus rhythm and normalization of blood pressure. Patient be started on amiodarone as ordered by admitting physician. Last Vital Signs Date Time Temp Pulse Resp B/P (MAP) Pulse Ox O2 Delivery O2 Flow Rate FiO2 06/05/20 22:00 99 27 135/103 (114) 70 06/05/20 20:48 102.1 06/05/20 20:00 Mechanical Ventilator 06/05/20 20:00 100 06/05/20 02:37 15.0 Disposition: ADMITTED INPATIENT Condition: Stable Referrals: NON PHYSICIAN (PCP) Procedures Cardioversion Cardioversion: Consent: Emergent Indication: AFIB Type: Synchonis Response: Sinus Attempts: Other - two Patient Tolerated: Well Complications: None Rishi Goff MD Jun 05, 2020 23:15
[2020-06-05] MEDS ORDERED: Amiodarone 150mg/3ml Amp ONE (23:23)
[2020-06-06] VITALS (47 sets, daily range): BP systolic 79–161; BP diastolic 44–80
[2020-06-06] MEDS: D5 1/2NS 1,000 ML IV SCH ×2 (00:45→09:00)
[2020-06-06] MEDS: Vancomycin 750mg/D5W 275ml IVPB SCH ×2 (03:35)
[2020-06-06] MEDS ORDERED: fentaNYL 2500mcg/NS 250ml 250 ML IV SCH (04:00)
--- NOTE | 2020-06-06 04:00 | NUR ---
NURSE NOTES: complete bed bath completed. cooling measures in place. vitals stable to baseline.
--- NOTE | 2020-06-06 05:00 | NUR ---
NURSE NOTES: decreased amiodarone drip to 0.5 mg/min per protocol
[2020-06-06] MEDS: fentaNYL 2500mcg/NS 250ml 250 ML IV SCH ×2 (06:00→14:15)
[2020-06-06] MEDS: Acetaminophen 650mg/20.3ml GT PRN ×2 (06:16→21:12)
[2020-06-06 06:33] LABS: HEMATOCRIT 30.2 % (37.0-47.0); HEMOGLOBIN 9.8 G/DL (12.0-16.0); MEAN CORPUSCULAR VOLUME 103 FL (80-99); PLATELET COUNT 47 K/UL (150-450); RED BLOOD COUNT 2.95 M/UL (4.20-5.40)
[2020-06-06 06:45] LABS: WHITE BLOOD COUNT 22.5 K/UL (4.8-10.8)
--- NOTE | 2020-06-06 07:09 | NUR ---
HAND-OFF: Report given to DAVID Haddad. Endorsed continuity of care.
[2020-06-06 07:29] LABS: ANION GAP 4 mmol/L (5-15); BLOOD UREA NITROGEN 25 mg/dL (7-18); CALCIUM 7.7 MG/DL (8.5-10.1); CARBON DIOXIDE 33 MMOL/L (21-32); CHLORIDE 108 MMOL/L (98-107); CREATININE 0.7 MG/DL (0.55-1.30); POTASSIUM 4.1 MMOL/L (3.5-5.1); SODIUM 144 MMOL/L (136-145)
--- NOTE | 2020-06-06 08:00 | NUR ---
NURSE NOTES: Pt was assessed after receiving change of shift report from Randolph Tuttle RN. Sedated -2 light sedation while on Fentanyl drip at 300mcg/min. Orally intubated ETT 7.5 at 24cm/lipline with vent settings AC26, VT450, Peep 12, FIo2 100%, with O2Sat fluctuating from 80-88%. ST on clinical training coordinator, HR 100-110, while pt is maintained on Amiodarone drip at 0.5mg/min, with bounding peripheral pulses and extremities warm to touch. Temp 99F axillary. OGT with feeding Vital AF 1.2 infusing at 25ml/hour. Residuals 30ml. Abdomen is round, soft, nontender to touch with hypoactive bowel sounds. Santiago catheter 16F is present, draining dark christo/cloudy urine. Peripheral IV access is present on left FA #20G, right wrist #20G and right FA #20G. IV fluid D5 0.45% NS is infusing at 75ml/hour. Skin in intact. Bilateral soft wrist restraints are in place to prevent self-extubation. HOB at 30 degrees, bed locked, in lowest position, three side rails up. Will continue to monitor pt and follow plan of care per MD orders and protocol.
--- NOTE | 2020-06-06 09:30 | NUR ---
RADIOLOGY: PCXR COMPLETED 0900HRS. NF
[2020-06-06] MEDS: Enoxaparin 40mg Inj SUBQ SCH (09:33)
[2020-06-06] MEDS: Piperacillin/Tazobactam 3.375 GM in NS 110 ML IVPB SCH ×3 (09:34→23:27)
[2020-06-06] MEDS: Docusate 100mg/10ml Liq GT SCH ×2 (09:34→21:09)
--- NOTE | 2020-06-06 10:00 | NUR ---
NURSE NOTES: ABGs and chest xray was done. Pt was seen by Ivonne Andrdae THERMAL TECHNICIAN, and updated on pt's current status including ABG results and desaturation. No new orders were received at this time. Oral care was done. Pt has minimal secretions. Repositioned for comfort.
--- NOTE | 2020-06-06 10:08 | Pulmonolgy Critical Care Note ---
Critical Care - Asmt/Plan Assessment/Plan: ASSESSMENT Acute hypoxemic resp failure due to COVID PNA, requiring intubation 05/27 COVID 19 PNA Thrombocytopenia- Pulmonary HTN Hypotension A fib with RVR, s/p cardioversion Abnormal ECG Headache PLAN OF CARE ICU isolation Date of sx onset: few days prior to presentation to ED on 05/23 Positive test: [facility] 05/22 - 1 days prior to admission , SARS COV-2 by PCR 05/30 NGT O2 -> intubated 05/27 , failed weaning 06/01 , vent support , remains on high settings ABG this am noted, HFA if unable to do HHN via line s/p REM x 5 days ( 05/23-05/27 ) s/p DEX x 10 days D dimer initial 0.48 - > 19.61-> 7.23 DVT PPX: Lovenox - stopped earlier due to low PLT Venous Duplex BLE NGT Trend CRP 3.6 -> 19.7-> 76.4 - 38.3 -45.1 Abx per ID recs prone position as tolerated monitor volumes and renal function fup with consultants recs FC will discuss further GOC with family given poor prognosis on IVF closely monitor HDs monitor PLT counts- trending down - , Lovenox stopped earlier , down to 42 ; check Heparin induced Ab cardio eval -appreciated ECHO with pEF 65%, no WMA, mild to moderate MR, moderate pulmonary hypertension case discussed and evaluated by supervising physician Critical Care - Objective Last 24 Hour Vital Signs Date Time Temp Pulse Resp B/P (MAP) Pulse Ox O2 Delivery O2 Flow Rate FiO2 06/06/20 07:20 85 33 100 06/06/20 07:00 96 22 125/57 (79) 92 06/06/20 07:00 26 125/57 Mechanical Ventilator 100 06/06/20 06:46 101.1 06/06/20 06:30 90 25 140/61 (87) 91 06/06/20 06:00 26 115/51 Non-Rebreather 100 06/06/20 06:00 26 115/51 Non-Rebreather 100 06/06/20 06:00 101 26 109/48 (68) 95 06/06/20 05:30 103 26 122/55 (77) 93 06/06/20 05:00 99 25 95/44 (61) 94 06/06/20 05:00 26 95/44 Mechanical Ventilator 100 06/06/20 04:30 102 25 96/53 (67) 96 06/06/20 04:00 100 06/06/20 04:00 Mechanical Ventilator 06/06/20 04:00 102 06/06/20 04:00 26 111/59 Non-Rebreather 100 06/06/20 04:00 100.2 105 13 115/66 (82) 93 06/06/20 03:30 0 91/50 (64) 90 06/06/20 03:00 26 86/49 Mechanical Ventilator 100 06/06/20 03:00 96 6 92/50 (64) 91 06/06/20 02:41 118 26 100 06/06/20 02:30 103 26 87/50 (62) 93 06/06/20 02:00 20 130/61 Mechanical Ventilator 100 06/06/20 02:00 97 26 97/56 (70) 92 06/06/20 01:30 102 26 79/51 (60) 91 06/06/20 01:00 26 81/46 Mechanical Ventilator 100 06/06/20 01:00 101 25 102/53 (69) 91 06/06/20 00:30 107 26 86/53 (64) 94 06/06/20 00:00 108 06/06/20 00:00 101.2 112 25 89/53 (65) 88 06/06/20 00:00 26 87/51 Mechanical Ventilator 100 06/06/20 00:00 100 06/06/20 00:00 Mechanical Ventilator 06/05/20 23:46 107 26 100 06/05/20 23:30 111 26 89/51 (64) 84 06/05/20 23:00 178 26 73/49 (57) 73 06/05/20 23:00 26 106/64 Mechanical Ventilator 100 06/05/20 22:30 185 27 83/59 (67) 75 06/05/20 22:30 26 100/59 Mechanical Ventilator 100 06/05/20 22:30 200 06/05/20 22:00 99 27 135/103 (114) 70 06/05/20 22:00 26 100/59 Mechanical Ventilator 100 06/05/20 21:30 117 26 114/60 (78) 85 06/05/20 21:00 26 146/68 Mechanical Ventilator 100 06/05/20 21:00 113 26 119/55 (76) 88 06/05/20 20:48 102.1 06/05/20 20:30 106 26 150/80 (103) 64 06/05/20 20:00 100.1 111 26 113/61 (78) 91 06/05/20 20:00 Mechanical Ventilator 06/05/20 20:00 108 06/05/20 20:00 26 146/67 Mechanical Ventilator 100 06/05/20 20:00 100 06/05/20 19:56 116 26 100 06/05/20 19:30 106 26 115/59 (77) 91 06/05/20 19:00 25 114/62 Mechanical Ventilator 100 06/05/20 19:00 110 25 114/62 (79) 90 06/05/20 18:00 103 28 122/63 (82) 95 06/05/20 18:00 28 122/63 Mechanical Ventilator 100 06/05/20 17:00 110 26 102/61 (75) 96 06/05/20 17:00 26 102/61 Mechanical Ventilator 100 06/05/20 16:00 100.5 101 26 126/65 (85) 92 06/05/20 16:00 26 126/65 Mechanical Ventilator 100 06/05/20 16:00 109 06/05/20 16:00 Mechanical Ventilator 06/05/20 16:00 100 06/05/20 15:15 110 26 100 06/05/20 15:00 110 25 119/62 (81) 98 06/05/20 15:00 25 119/62 Mechanical Ventilator 100 06/05/20 14:00 27 107/61 Mechanical Ventilator 100 06/05/20 14:00 93 27 107/61 (76) 91 06/05/20 13:37 26 131/67 Mechanical Ventilator 100 06/05/20 13:00 105 26 129/60 (83) 91 06/05/20 13:00 26 141/62 Mechanical Ventilator 100 06/05/20 12:13 100.3 06/05/20 12:00 103 06/05/20 12:00 101.0 119 26 130/61 (84) 97 06/05/20 12:00 26 130/61 Mechanical Ventilator 100 06/05/20 12:00 Mechanical Ventilator 06/05/20 12:00 100 06/05/20 11:15 90 29 100 06/05/20 11:00 26 111/63 Mechanical Ventilator 100 06/05/20 11:00 115 26 109/64 (79) 99 06/05/20 10:15 100 Objective: General: intubated, sedated on vent AC 450- 100-26 PEEP 12 HEENT: atraumatic, normocephalic, ET in place intact Neck: OP with ET in place , intact; feeding tube in place Lungs: clear , tachypneic Heart: HR/BP stable, low tachy Abdomen: soft, non-tender, active bowel sounds Extremities: no C/C/E Micro: Microbiology Date/Time Source Procedure Growth Status 06/03/20 13:35 Sputum Gram Stain - Final Complete 06/03/20 13:35 Sputum Sputum Culture - Final NORMAL UPPER RESPIRATORY ISELA AT 48 ... Complete Critical Care - Subjective ROS Limited/Unobtainable: Yes Interval Events: remains on high settings, sedated last night developed AFib with RVR, started on Amiodarone gtt cardioverted by ED physician, currently in low ST febrile, leukocytosis with trend up tachypneic CXR without change ABG this am noted Condition: critical IV Access: peripheral EKG Rhythm: Sinus Tachycardia FI02: 100 Vent Support Breath Rate: 26 Vent Support Mode: AC Vent Tidal Volume: 450 Sputum Amount: Scant PEEP: 12.0 PIP: 30 Fluids: IVF at 30 cc/hr Drips: Fentanyl gtt 300 mcg/hr, AMiodarone gtt 0.5 mg/min Tube Feeding Amount: 25 I&O: Intake and Output 06/05/20 06/06/20 19:00 07:00 Intake Total 2262.75 ml 2656.5 ml Output Total 580 ml 600 ml Balance 1682.75 ml 2056.5 ml Free Water 100 ml 180 ml IV Total 1862.75 ml 2176.5 ml Tube Feeding 300 ml 300 ml Output Urine Total 580 ml 600 ml CXR: CXR 06/05 - No significant interval change since prior exam. ET-Tube: 7.5 ET Position: 24 Ivonne Andrade NP Jun 06, 2020 10:08
--- NOTE | 2020-06-06 11:08 | Cardiac Electrophysiology PN ---
Assessment/Plan Assessment/Plan 1. COVID pneumonia. Ruled out for CO EKG in view of inferolateral ST depression EF 65% Her BNP was only 342. Intubated on 100% Fio2 and PEEP 12 despite dexamethasone, ceftriaxone, and azithromycin. 2. Atrial fib with RVR, S/P DCCV on 06/05/20. Change iv amiodarone to Amiodarone 400 po bid. Watch for worsening of bradycardia Increase Lovenox to full dose for atrial fib 1mg/kg sq bid 3. Sinus nnamdi off any TAVARES affecting agent. Likely due to Covid Now on Amiodarone 4. S/P septic shock. Now off Levophed DW RN Subjective Subjective In ICU intubated on 100% Fio2 and Peep of 12. Had atrial fib with RVR last night and had DCCV to SR by ER . Now on iv Amiodarone drip Off pressors in Covid isolation on Abx and Fentanyl drip. Objective Last 24 Hour Vital Signs Date Time Temp Pulse Resp B/P (MAP) Pulse Ox O2 Delivery O2 Flow Rate FiO2 06/06/20 07:20 85 33 100 06/06/20 07:00 96 22 125/57 (79) 92 06/06/20 07:00 26 125/57 Mechanical Ventilator 100 06/06/20 06:46 101.1 06/06/20 06:30 90 25 140/61 (87) 91 06/06/20 06:00 26 115/51 Non-Rebreather 100 06/06/20 06:00 26 115/51 Non-Rebreather 100 06/06/20 06:00 101 26 109/48 (68) 95 06/06/20 05:30 103 26 122/55 (77) 93 06/06/20 05:00 99 25 95/44 (61) 94 06/06/20 05:00 26 95/44 Mechanical Ventilator 100 06/06/20 04:30 102 25 96/53 (67) 96 06/06/20 04:00 100 06/06/20 04:00 Mechanical Ventilator 06/06/20 04:00 102 06/06/20 04:00 26 111/59 Non-Rebreather 100 06/06/20 04:00 100.2 105 13 115/66 (82) 93 06/06/20 03:30 0 91/50 (64) 90 06/06/20 03:00 26 86/49 Mechanical Ventilator 100 06/06/20 03:00 96 6 92/50 (64) 91 06/06/20 02:41 118 26 100 06/06/20 02:30 103 26 87/50 (62) 93 06/06/20 02:00 20 130/61 Mechanical Ventilator 100 06/06/20 02:00 97 26 97/56 (70) 92 06/06/20 01:30 102 26 79/51 (60) 91 06/06/20 01:00 26 81/46 Mechanical Ventilator 100 06/06/20 01:00 101 25 102/53 (69) 91 06/06/20 00:30 107 26 86/53 (64) 94 06/06/20 00:00 108 06/06/20 00:00 101.2 112 25 89/53 (65) 88 06/06/20 00:00 26 87/51 Mechanical Ventilator 100 06/06/20 00:00 100 06/06/20 00:00 Mechanical Ventilator 06/05/20 23:46 107 26 100 06/05/20 23:30 111 26 89/51 (64) 84 06/05/20 23:00 178 26 73/49 (57) 73 06/05/20 23:00 26 106/64 Mechanical Ventilator 100 06/05/20 22:30 185 27 83/59 (67) 75 06/05/20 22:30 26 100/59 Mechanical Ventilator 100 06/05/20 22:30 200 06/05/20 22:00 99 27 135/103 (114) 70 06/05/20 22:00 26 100/59 Mechanical Ventilator 100 06/05/20 21:30 117 26 114/60 (78) 85 06/05/20 21:00 26 146/68 Mechanical Ventilator 100 06/05/20 21:00 113 26 119/55 (76) 88 06/05/20 20:48 102.1 06/05/20 20:30 106 26 150/80 (103) 64 06/05/20 20:00 100.1 111 26 113/61 (78) 91 06/05/20 20:00 Mechanical Ventilator 06/05/20 20:00 108 06/05/20 20:00 26 146/67 Mechanical Ventilator 100 06/05/20 20:00 100 06/05/20 19:56 116 26 100 06/05/20 19:30 106 26 115/59 (77) 91 06/05/20 19:00 25 114/62 Mechanical Ventilator 100 06/05/20 19:00 110 25 114/62 (79) 90 06/05/20 18:00 103 28 122/63 (82) 95 06/05/20 18:00 28 122/63 Mechanical Ventilator 100 06/05/20 17:00 110 26 102/61 (75) 96 06/05/20 17:00 26 102/61 Mechanical Ventilator 100 06/05/20 16:00 100.5 101 26 126/65 (85) 92 06/05/20 16:00 26 126/65 Mechanical Ventilator 100 06/05/20 16:00 109 06/05/20 16:00 Mechanical Ventilator 06/05/20 16:00 100 06/05/20 15:15 110 26 100 06/05/20 15:00 110 25 119/62 (81) 98 06/05/20 15:00 25 119/62 Mechanical Ventilator 100 06/05/20 14:00 27 107/61 Mechanical Ventilator 100 06/05/20 14:00 93 27 107/61 (76) 91 06/05/20 13:37 26 131/67 Mechanical Ventilator 100 06/05/20 13:00 105 26 129/60 (83) 91 06/05/20 13:00 26 141/62 Mechanical Ventilator 100 06/05/20 12:13 100.3 06/05/20 12:00 103 06/05/20 12:00 101.0 119 26 130/61 (84) 97 06/05/20 12:00 26 130/61 Mechanical Ventilator 100 06/05/20 12:00 Mechanical Ventilator 06/05/20 12:00 100 06/05/20 11:15 90 29 100 Intake and Output 06/05/20 06/06/20 19:00 07:00 Intake Total 2262.75 ml 2656.5 ml Output Total 580 ml 600 ml Balance 1682.75 ml 2056.5 ml Free Water 100 ml 180 ml IV Total 1862.75 ml 2176.5 ml Tube Feeding 300 ml 300 ml Output Urine Total 580 ml 600 ml Laboratory Tests Test 06/05/20 13:14 06/06/20 05:27 06/06/20 08:17 Arterial Blood pH 7.295 (7.350-7.450) 7.276 (7.350-7.450) Arterial Blood Partial Pressure CO2 61.8 mmHg (35.0-45.0) *H 71.6 mmHg (35.0-45.0) *H Arterial Blood Partial Pressure O2 44.4 mmHg (75.0-100.0) 45.0 mmHg (75.0-100.0) Arterial Blood HCO3 29.4 mmol/L (22.0-26.0) H 32.6 mmol/L (22.0-26.0) H Arterial Blood Oxygen Saturation 79.2 % (95-100) *L 79.9 % (95-100) *L Arterial Blood Base Excess 1.8 (-2-2) 4.1 (-2-2) H Darinel Test Positive Positive White Blood Count 22.5 K/UL (4.8-10.8) *H Red Blood Count 2.95 M/UL (4.20-5.40) L Hemoglobin 9.8 G/DL (12.0-16.0) L Hematocrit 30.2 % (37.0-47.0) L Mean Corpuscular Volume 103 FL (80-99) H Mean Corpuscular Hemoglobin 33.1 PG (27.0-31.0) H Mean Corpuscular Hemoglobin Concent 32.3 G/DL (32.0-36.0) Red Cell Distribution Width 14.0 % (11.6-14.8) Platelet Count 47 K/UL (150-450) L Mean Platelet Volume 14.4 FL (6.5-10.1) H Neutrophils (%) (Auto) % (45.0-75.0) Lymphocytes (%) (Auto) % (20.0-45.0) Monocytes (%) (Auto) % (1.0-10.0) Eosinophils (%) (Auto) % (0.0-3.0) Basophils (%) (Auto) % (0.0-2.0) Differential Total Cells Counted 100 Neutrophils % (Manual) 89 % (45-75) H Lymphocytes % (Manual) 8 % (20-45) L Monocytes % (Manual) 2 % (1-10) Eosinophils % (Manual) 0 % (0-3) Basophils % (Manual) 1 % (0-2) Band Neutrophils 0 % (0-8) Platelet Estimate Decreased L Platelet Morphology Normal Hypochromasia 1+ Anisocytosis 1+ Sodium Level 144 MMOL/L (136-145) Potassium Level 4.1 MMOL/L (3.5-5.1) Chloride Level 108 MMOL/L (98-107) H Carbon Dioxide Level 33 MMOL/L (21-32) H Anion Gap 4 mmol/L (5-15) L Blood Urea Nitrogen 25 mg/dL (7-18) H Creatinine 0.7 MG/DL (0.55-1.30) Estimat Glomerular Filtration Rate > 60 mL/min (>60) Glucose Level 277 MG/DL (74-106) H Calcium Level 7.7 MG/DL (8.5-10.1) L C-Reactive Protein, Quantitative 26.5 mg/dL (0.00-0.90) H Pro-B-Type Natriuretic Peptide 4126 pg/mL (0-125) H Heparin-PF4 Antibody Screen Pending Microbiology Date/Time Source Procedure Growth Status 06/03/20 13:35 Sputum Gram Stain - Final Complete 06/03/20 13:35 Sputum Sputum Culture - Final NORMAL UPPER RESPIRATORY ISELA AT 48 ... Complete Objective HEAD AND NECK: No JVD. Orally intubated LUNGS: Coarse rhonchi. CARDIOVASCULAR: Regular S1 and S2 with no gallop. Bradycardic. ABDOMEN: Soft. EXTREMITIES: No pitting edema. Jordi Albarado MD Jun 06, 2020 11:08
--- NOTE | 2020-06-06 12:15 | NUR ---
NURSE NOTES: Dr. Albarado is at the nurse's station and informed regarding episode of AFib with RVR and cardioversion by ER MD during retail shift manager. MD notified regarding Amiodarone drip currently infusing at 0.5mg/min. Order was received to increase Lovenox dose to 60mg Q12. Order was also received to add Amiodarone 400mg BID after current Amiodarone IV bag is completed.
--- NOTE | 2020-06-06 13:00 | NUR ---
[employer] AssemblerPunch Hand SI: Respiratory Failure, COVID PNA, ETT/Vent support T-99.8 (Ax), HR 102, RR 24, BP 114/50 AC 20, TV 450, PEEP 5.0, FiO2 100% O2 sat 86% WBC 22.5 IS: Lovenox SQ BID Zosyn IV TID Vancomycin IV ICU Status
--- NOTE | 2020-06-06 13:33 | Diagnostic Imaging Report ---
Indication: Shortness of breath Technique: One view of the chest Comparison: 06/05/2020 Findings: Stable satisfactory position of endotracheal and orogastric tube. Bilateral infiltrates are unchanged. Impression: Unchanged, over one day, findings as above.
--- NOTE | 2020-06-06 14:00 | NUR ---
NURSE NOTES: Dr Sousa is at the nurse's station and was updated on pt's current status. Aware of pt's desaturating down to low 80's. No new orders were received at this time. VS remain stable while is maintained sedated - 2 light sedation while on Fentanyl drip at max rate of 300mcg/hr.
--- NOTE | 2020-06-06 14:15 | NUR ---
NURSE NOTES: New Fentanyl bag is started to replace previous empty bag. Will continue same rate of 300mcg/hr to maintain RASS score of -2 light sedation.
--- NOTE | 2020-06-06 16:00 | NUR ---
NURSE NOTES: Pt has episodes of severe desaturation down to 60%, then fluctuates back up to 88%.
--- NOTE | 2020-06-06 17:20 | NUR ---
NURSE NOTES: Pt's daughter contacted nurse's station to receive update on pt's current condition to relay to the rest of the family, who called back 20 minutes later stating family has decided to switch code status to DNR. Code status was changed to DNR per family request and Dr Sousa's order.
--- NOTE | 2020-06-06 18:00 | NUR ---
NURSE NOTES: Pt was cleaned, gown/bed linens were changed. Pt was repositioned for comfort.
--- NOTE | 2020-06-06 18:31 | Infectious Diseases Prog Note ---
Assessment/Plan Assessment/Plan ASSESSMENT AND PLAN: 1. covid-19 infection with pna, hypoxia, fevers, sepsis, leukocytosis respiratory failure, on vent ? worsening leukocytosis secondary to steroids, still febrile, ? fungemia, no diarrhea to suggest c.diff. - s/p dexamethasone and remdesivir - zosyn and micafungin, discontinue vancomycin and diflucan - monitor labs and chest x-ray - surveillance cultures negative 2. No other significant past medical history. 3. Rule out IA per Cardiology. 4. No known allergies. 5. Social history is negative. 6. Family history is noncontributory. 7. MAR is noted. 8. Case was discussed with RN. 9. Continue treatment per primary consultants. 10. Orders were noted and entered. Subjective Constitutional: Reports: fever HEENT: Reports: congestion Respiratory: Reports: shortness of breath Cardiovascular: Reports: chest pain Gastrointestinal/Abdominal: Denies: nausea, vomiting, diarrhea Genitourinary: Reports: other - + salas - urine slt cloudy Psychiatric: Denies: depression Skin: Denies: rash Hematologic: Denies: bleeding Musculoskeletal: Denies: pain Allergies: Coded Allergies: No Known Allergies (Unverified , 04/02/12) Objective Last 24 Hour Vital Signs Date Time Temp Pulse Resp B/P (MAP) Pulse Ox O2 Delivery O2 Flow Rate FiO2 06/06/20 17:00 26 111/59 Mechanical Ventilator 100 06/06/20 16:00 24 155/69 Mechanical Ventilator 90 06/06/20 15:15 98 28 100 06/06/20 15:00 26 114/58 Mechanical Ventilator 100 06/06/20 14:15 31 104/51 Mechanical Ventilator 15.0 100 06/06/20 14:00 25 122/63 Mechanical Ventilator 100 06/06/20 13:00 20 108/55 Mechanical Ventilator 86 06/06/20 12:00 24 105/49 Mechanical Ventilator 89 06/06/20 11:15 96 31 100 06/06/20 11:00 99 24 104/51 (68) 86 06/06/20 11:00 20 104/51 Mechanical Ventilator 100 06/06/20 10:30 104 17 108/54 (72) 87 06/06/20 10:00 106 24 101/59 (73) 89 06/06/20 10:00 21 101/59 Mechanical Ventilator 100 06/06/20 09:30 98 23 123/62 (82) 83 06/06/20 09:00 24 101/53 Mechanical Ventilator 100 06/06/20 09:00 102 23 128/57 (80) 82 06/06/20 08:30 106 26 114/50 (71) 89 06/06/20 08:00 Mechanical Ventilator 06/06/20 08:00 99.8 102 24 104/48 (66) 90 06/06/20 08:00 102 06/06/20 08:00 24 104/48 Mechanical Ventilator 100 06/06/20 08:00 100 06/06/20 07:20 85 33 100 06/06/20 07:00 96 22 125/57 (79) 92 06/06/20 07:00 26 125/57 Mechanical Ventilator 100 06/06/20 06:46 101.1 06/06/20 06:30 90 25 140/61 (87) 91 06/06/20 06:00 26 115/51 Non-Rebreather 100 06/06/20 06:00 26 115/51 Non-Rebreather 100 06/06/20 06:00 101 26 109/48 (68) 95 06/06/20 05:30 103 26 122/55 (77) 93 06/06/20 05:00 99 25 95/44 (61) 94 06/06/20 05:00 26 95/44 Mechanical Ventilator 100 06/06/20 04:30 102 25 96/53 (67) 96 06/06/20 04:00 100 06/06/20 04:00 Mechanical Ventilator 06/06/20 04:00 102 06/06/20 04:00 26 111/59 Non-Rebreather 100 06/06/20 04:00 100.2 105 13 115/66 (82) 93 06/06/20 03:30 0 91/50 (64) 90 06/06/20 03:00 26 86/49 Mechanical Ventilator 100 06/06/20 03:00 96 6 92/50 (64) 91 06/06/20 02:41 118 26 100 06/06/20 02:30 103 26 87/50 (62) 93 06/06/20 02:00 20 130/61 Mechanical Ventilator 100 06/06/20 02:00 97 26 97/56 (70) 92 06/06/20 01:30 102 26 79/51 (60) 91 06/06/20 01:00 26 81/46 Mechanical Ventilator 100 06/06/20 01:00 101 25 102/53 (69) 91 06/06/20 00:30 107 26 86/53 (64) 94 06/06/20 00:00 108 06/06/20 00:00 101.2 112 25 89/53 (65) 88 06/06/20 00:00 26 87/51 Mechanical Ventilator 100 06/06/20 00:00 100 06/06/20 00:00 Mechanical Ventilator 06/05/20 23:46 107 26 100 06/05/20 23:30 111 26 89/51 (64) 84 06/05/20 23:00 178 26 73/49 (57) 73 06/05/20 23:00 26 106/64 Mechanical Ventilator 100 06/05/20 22:30 185 27 83/59 (67) 75 06/05/20 22:30 26 100/59 Mechanical Ventilator 100 06/05/20 22:30 200 06/05/20 22:00 99 27 135/103 (114) 70 06/05/20 22:00 26 100/59 Mechanical Ventilator 100 06/05/20 21:30 117 26 114/60 (78) 85 06/05/20 21:00 26 146/68 Mechanical Ventilator 100 06/05/20 21:00 113 26 119/55 (76) 88 06/05/20 20:48 102.1 06/05/20 20:30 106 26 150/80 (103) 64 06/05/20 20:00 100.1 111 26 113/61 (78) 91 06/05/20 20:00 Mechanical Ventilator 06/05/20 20:00 108 06/05/20 20:00 26 146/67 Mechanical Ventilator 100 06/05/20 20:00 100 06/05/20 19:56 116 26 100 06/05/20 19:30 106 26 115/59 (77) 91 06/05/20 19:00 25 114/62 Mechanical Ventilator 100 06/05/20 19:00 110 25 114/62 (79) 90 Height (Feet): 5 Height (Inches): 1.00 Weight (Pounds): 130 General Appearance: other - on vent, + feves, no pressors HEENT: normocephalic, atraumatic, status post trach Respiratory/Chest: crackles/rales, rhonchi - bilaterally Cardiovascular: normal rate, regular rhythm, no gallop/murmur Abdomen: normal bowel sounds, soft, non tender, no organomegaly Genitourinary: other - + salas Extremities: no cyanosis Skin: no rash Neurologic/Psychiatric: motor weakness, other - weak, on vent Lymphatic: no neck adenopathy Musculoskeletal: no effusion Chest x-ray - 05/25/20 - Procedure: XRAY Chest 1v Indication: Shortness of breath Technique: One view of the chest Comparison: 05/22/2020 Findings: Interim worsening of bilateral infiltrates, with consolidation now seen throughout the right lung, and increasing consolidation on the left primarily in the perihilar region. The heart is borderline enlarged. There is suggestion of small bilateral pleural effusions, not evident previously. Impression: Worsening bilateral infiltrates, right greater than left. Chest x-ray - 05/27/20: FINDINGS/IMPRESSION: Bilateral airspace consolidations, consistent with multifocal infiltrate. These are worsening when compared to just [employer] May 22, 2020. Follow-up chest radiograph recommended. Small bilateral pleural effusions, slightly worsening. No pneumothorax. Cardiomegaly. Calcified aorta. chest x-ray - 05/29/20 - FINDINGS/IMPRESSION: Enteric feeding tube terminates in the stomach. Endotracheal tube terminates 6.2 cm above the sho. EKG leads overlie the patient. Small pleural effusions, unchanged mild vascular condition, mildly improving. Superimposed patchy opacities, consistent with infiltrate. These are slightly improved when compared to previous study from May 27, 2020. Continue just ready to follow up recommended. Cardiomegaly. Calcified aorta. Chest x-ray - 05/31/20 - Procedure: XRAY Chest 1v Indication: Shortness of breath Technique: One view of the chest Comparison: none Findings: Stable satisfactory positions of endotracheal and orogastric tubes. Bilateral infiltrates appear slightly increased on the right, stable on the left. The heart size is normal. Impression: Slightly increased infiltrates on the right. Stable infiltrates on the left. Chest x-ray - 06/02/20 - Procedure: XRAY Chest 1v Indication: Shortness of breath Technique: One view of the chest Comparison: 06/01/2020 Findings: Stable tube positions. Bilateral infiltrates are unchanged. Impression: Unchanged, over one day, findings as above. Chest x-ray - 06/04/20 - FINDINGS: Lungs: Bilateral interstitial and airspace opacities are mildly improved. Pleural space: Probable tiny right pleural effusion. No pneumothorax. Heart: Unremarkable. No cardiomegaly. Mediastinum: Unremarkable. Bones/joints: Unremarkable. Tubes, lines and devices: Endotracheal tube and NG tube are stable. IMPRESSION: 1. Bilateral interstitial and airspace opacities are mildly improved. 2. Probable tiny right pleural effusion. Microbiology Date/Time Source Procedure Growth Status 06/03/20 13:35 Sputum Gram Stain - Final Complete 06/03/20 13:35 Sputum Sputum Culture - Final NORMAL UPPER RESPIRATORY ISELA AT 48 ... Complete 06/02/20 16:30 Blood Blood Culture - Preliminary NO GROWTH AFTER 72 HOURS Resulted 05/22/20 19:00 Straight Cath Urine Culture - Final NO GROWTH AFTER 48 HOURS Complete Laboratory Tests Test 06/06/20 05:27 06/06/20 08:17 06/06/20 15:15 White Blood Count 22.5 K/UL (4.8-10.8) *H Red Blood Count 2.95 M/UL (4.20-5.40) L Hemoglobin 9.8 G/DL (12.0-16.0) L Hematocrit 30.2 % (37.0-47.0) L Mean Corpuscular Volume 103 FL (80-99) H Mean Corpuscular Hemoglobin 33.1 PG (27.0-31.0) H Mean Corpuscular Hemoglobin Concent 32.3 G/DL (32.0-36.0) Red Cell Distribution Width 14.0 % (11.6-14.8) Platelet Count 47 K/UL (150-450) L Mean Platelet Volume 14.4 FL (6.5-10.1) H Neutrophils (%) (Auto) % (45.0-75.0) Lymphocytes (%) (Auto) % (20.0-45.0) Monocytes (%) (Auto) % (1.0-10.0) Eosinophils (%) (Auto) % (0.0-3.0) Basophils (%) (Auto) % (0.0-2.0) Differential Total Cells Counted 100 Neutrophils % (Manual) 89 % (45-75) H Lymphocytes % (Manual) 8 % (20-45) L Monocytes % (Manual) 2 % (1-10) Eosinophils % (Manual) 0 % (0-3) Basophils % (Manual) 1 % (0-2) Band Neutrophils 0 % (0-8) Platelet Estimate Decreased L Platelet Morphology Normal Hypochromasia 1+ Anisocytosis 1+ Sodium Level 144 MMOL/L (136-145) Potassium Level 4.1 MMOL/L (3.5-5.1) Chloride Level 108 MMOL/L (98-107) H Carbon Dioxide Level 33 MMOL/L (21-32) H Anion Gap 4 mmol/L (5-15) L Blood Urea Nitrogen 25 mg/dL (7-18) H Creatinine 0.7 MG/DL (0.55-1.30) Estimat Glomerular Filtration Rate > 60 mL/min (>60) Glucose Level 277 MG/DL (74-106) H Calcium Level 7.7 MG/DL (8.5-10.1) L C-Reactive Protein, Quantitative 26.5 mg/dL (0.00-0.90) H Pro-B-Type Natriuretic Peptide 4126 pg/mL (0-125) H Heparin-PF4 Antibody Screen Pending Arterial Blood pH 7.276 (7.350-7.450) Arterial Blood Partial Pressure CO2 71.6 mmHg (35.0-45.0) *H Arterial Blood Partial Pressure O2 45.0 mmHg (75.0-100.0) Arterial Blood HCO3 32.6 mmol/L (22.0-26.0) H Arterial Blood Oxygen Saturation 79.9 % (95-100) *L Arterial Blood Base Excess 4.1 (-2-2) H Darinel Test Positive Vancomycin Level Trough 9.1 ug/mL (5.0-12.0) Current Medications Medications (Trade) Dose Ordered Sig/Elieser Route PRN Reason Start Time Stop Time Status Last Admin Dose Admin Acetaminophen (Tylenol) 650 mg Q4H PRN GT Temp >100.5 06/03/20 19:00 07/03/20 18:59 06/06/20 06:16 Acetaminophen (Tylenol) 650 mg Q4H PRN GT Mild Pain (Pain Scale 1-3) 06/03/20 19:00 07/03/20 18:59 Albuterol Sulfate (Proventil MDI) 2 puff Q4H PRN INH Shortness of Breath 12/28/20 10:30 08/21/20 10:29 05/27/20 01:09 Amiodarone HCl (Cordarone) 400 mg Q12HR NG 06/06/20 21:00 09/04/20 20:59 Dextrose (Dextrose 50%) 25 ml Q30M PRN IV Hypoglycemia 05/23/20 10:30 08/21/20 10:29 Dextrose (Dextrose 50%) 50 ml Q30M PRN IV Hypoglycemia 05/23/20 10:30 08/21/20 10:29 Dextrose/Sodium Chloride 1,000 ml @ 30 mls/hr Q24H IV 06/04/20 08:45 07/04/20 08:44 06/06/20 09:00 Docusate Sodium (Colace) 100 mg EVERY 12 HOURS GT 05/30/20 09:00 06/22/20 20:59 06/06/20 09:34 Enoxaparin Sodium (Lovenox) 60 mg Q12HR SUBQ 06/06/20 21:00 08/28/20 20:59 Famotidine (Pepcid) 40 mg DAILY ORAL 05/24/20 09:00 08/22/20 08:59 06/06/20 09:34 Fentanyl Citrate 250 ml @ 0 mls/hr Q24H IV 06/06/20 06:00 06/08/20 05:59 06/06/20 14:15 Fluconazole/ Sodium Chloride 200 ml @ 100 mls/hr Q24H IV 06/02/20 17:00 06/09/20 16:59 06/06/20 17:30 Guaifenesin/ Dextromethorphan (Robitussin DM Syrup) 10 ml Q4H PRN ORAL For Cough 05/24/20 08:00 08/22/20 07:59 05/27/20 04:35 Piperacillin Sod/ Tazobactam Sod 3.375 gm/Sodium Chloride 110 ml @ 27.5 mls/hr Q8H IVPB 06/05/20 00:00 06/12/20 23:59 06/06/20 17:30 Afshan Muñoz MD Jun 06, 2020 18:31
--- NOTE | 2020-06-06 19:25 | Surgery Progress Note ---
Surgery Progress Note Subjective Additional Comments worsening on support requiring more oxygen peep high Objective Last 24 Hour Vital Signs Date Time Temp Pulse Resp B/P (MAP) Pulse Ox O2 Delivery O2 Flow Rate FiO2 06/06/20 17:00 26 111/59 Mechanical Ventilator 100 06/06/20 16:30 106 25 111/59 (76) 89 06/06/20 16:00 100 06/06/20 16:00 Mechanical Ventilator 06/06/20 16:00 99.8 99 21 155/69 (97) 75 06/06/20 16:00 80 06/06/20 16:00 24 155/69 Mechanical Ventilator 90 06/06/20 15:30 84 25 150/72 (98) 94 06/06/20 15:15 98 28 100 06/06/20 15:00 107 26 114/58 (76) 96 06/06/20 15:00 26 114/58 Mechanical Ventilator 100 06/06/20 14:30 97 26 128/61 (83) 96 06/06/20 14:15 31 104/51 Mechanical Ventilator 15.0 100 06/06/20 14:00 25 122/63 Mechanical Ventilator 100 06/06/20 14:00 107 26 122/63 (82) 95 06/06/20 13:30 93 19 128/67 (87) 85 06/06/20 13:00 99 26 108/55 (72) 89 06/06/20 13:00 20 108/55 Mechanical Ventilator 86 06/06/20 12:30 98 24 105/49 (67) 90 06/06/20 12:00 86 06/06/20 12:00 101.0 102 24 107/50 (69) 91 06/06/20 12:00 Mechanical Ventilator 06/06/20 12:00 24 105/49 Mechanical Ventilator 89 06/06/20 12:00 100 06/06/20 11:15 96 31 100 06/06/20 11:00 99 24 104/51 (68) 86 06/06/20 11:00 20 104/51 Mechanical Ventilator 100 06/06/20 10:30 104 17 108/54 (72) 87 06/06/20 10:00 106 24 101/59 (73) 89 06/06/20 10:00 21 101/59 Mechanical Ventilator 100 06/06/20 09:30 98 23 123/62 (82) 83 06/06/20 09:00 24 101/53 Mechanical Ventilator 100 06/06/20 09:00 102 23 128/57 (80) 82 06/06/20 08:30 106 26 114/50 (71) 89 06/06/20 08:00 Mechanical Ventilator 06/06/20 08:00 99.8 102 24 104/48 (66) 90 06/06/20 08:00 102 06/06/20 08:00 24 104/48 Mechanical Ventilator 100 06/06/20 08:00 100 06/06/20 07:20 85 33 100 06/06/20 07:00 96 22 125/57 (79) 92 06/06/20 07:00 26 125/57 Mechanical Ventilator 100 06/06/20 06:46 101.1 06/06/20 06:30 90 25 140/61 (87) 91 06/06/20 06:00 26 115/51 Non-Rebreather 100 06/06/20 06:00 26 115/51 Non-Rebreather 100 06/06/20 06:00 101 26 109/48 (68) 95 06/06/20 05:30 103 26 122/55 (77) 93 06/06/20 05:00 99 25 95/44 (61) 94 06/06/20 05:00 26 95/44 Mechanical Ventilator 100 06/06/20 04:30 102 25 96/53 (67) 96 06/06/20 04:00 100 06/06/20 04:00 Mechanical Ventilator 06/06/20 04:00 102 06/06/20 04:00 26 111/59 Non-Rebreather 100 06/06/20 04:00 100.2 105 13 115/66 (82) 93 06/06/20 03:30 0 91/50 (64) 90 06/06/20 03:00 26 86/49 Mechanical Ventilator 100 06/06/20 03:00 96 6 92/50 (64) 91 06/06/20 02:41 118 26 100 06/06/20 02:30 103 26 87/50 (62) 93 06/06/20 02:00 20 130/61 Mechanical Ventilator 100 06/06/20 02:00 97 26 97/56 (70) 92 06/06/20 01:30 102 26 79/51 (60) 91 06/06/20 01:00 26 81/46 Mechanical Ventilator 100 06/06/20 01:00 101 25 102/53 (69) 91 06/06/20 00:30 107 26 86/53 (64) 94 06/06/20 00:00 108 06/06/20 00:00 101.2 112 25 89/53 (65) 88 06/06/20 00:00 26 87/51 Mechanical Ventilator 100 06/06/20 00:00 100 06/06/20 00:00 Mechanical Ventilator 06/05/20 23:46 107 26 100 06/05/20 23:30 111 26 89/51 (64) 84 06/05/20 23:00 178 26 73/49 (57) 73 06/05/20 23:00 26 106/64 Mechanical Ventilator 100 06/05/20 22:30 185 27 83/59 (67) 75 06/05/20 22:30 26 100/59 Mechanical Ventilator 100 06/05/20 22:30 200 06/05/20 22:00 99 27 135/103 (114) 70 06/05/20 22:00 26 100/59 Mechanical Ventilator 100 06/05/20 21:30 117 26 114/60 (78) 85 06/05/20 21:00 26 146/68 Mechanical Ventilator 100 06/05/20 21:00 113 26 119/55 (76) 88 06/05/20 20:48 102.1 06/05/20 20:30 106 26 150/80 (103) 64 06/05/20 20:00 100.1 111 26 113/61 (78) 91 06/05/20 20:00 Mechanical Ventilator 06/05/20 20:00 108 06/05/20 20:00 26 146/67 Mechanical Ventilator 100 06/05/20 20:00 100 06/05/20 19:56 116 26 100 06/05/20 19:30 106 26 115/59 (77) 91 I&O Intake and Output 06/05/20 06/06/20 19:00 07:00 Intake Total 2262.75 ml 2656.5 ml Output Total 580 ml 600 ml Balance 1682.75 ml 2056.5 ml Free Water 100 ml 180 ml IV Total 1862.75 ml 2176.5 ml Tube Feeding 300 ml 300 ml Output Urine Total 580 ml 600 ml Cardiovascular: RSR Respiratory: decreased breath sounds Abdomen: non-tender, present bowel sounds, non-distended Extremities: no tenderness, no cyanosis Laboratory Tests Test 06/06/20 05:27 06/06/20 08:17 06/06/20 15:15 White Blood Count 22.5 K/UL (4.8-10.8) *H Red Blood Count 2.95 M/UL (4.20-5.40) L Hemoglobin 9.8 G/DL (12.0-16.0) L Hematocrit 30.2 % (37.0-47.0) L Mean Corpuscular Volume 103 FL (80-99) H Mean Corpuscular Hemoglobin 33.1 PG (27.0-31.0) H Mean Corpuscular Hemoglobin Concent 32.3 G/DL (32.0-36.0) Red Cell Distribution Width 14.0 % (11.6-14.8) Platelet Count 47 K/UL (150-450) L Mean Platelet Volume 14.4 FL (6.5-10.1) H Neutrophils (%) (Auto) % (45.0-75.0) Lymphocytes (%) (Auto) % (20.0-45.0) Monocytes (%) (Auto) % (1.0-10.0) Eosinophils (%) (Auto) % (0.0-3.0) Basophils (%) (Auto) % (0.0-2.0) Differential Total Cells Counted 100 Neutrophils % (Manual) 89 % (45-75) H Lymphocytes % (Manual) 8 % (20-45) L Monocytes % (Manual) 2 % (1-10) Eosinophils % (Manual) 0 % (0-3) Basophils % (Manual) 1 % (0-2) Band Neutrophils 0 % (0-8) Platelet Estimate Decreased L Platelet Morphology Normal Hypochromasia 1+ Anisocytosis 1+ Sodium Level 144 MMOL/L (136-145) Potassium Level 4.1 MMOL/L (3.5-5.1) Chloride Level 108 MMOL/L (98-107) H Carbon Dioxide Level 33 MMOL/L (21-32) H Anion Gap 4 mmol/L (5-15) L Blood Urea Nitrogen 25 mg/dL (7-18) H Creatinine 0.7 MG/DL (0.55-1.30) Estimat Glomerular Filtration Rate > 60 mL/min (>60) Glucose Level 277 MG/DL (74-106) H Calcium Level 7.7 MG/DL (8.5-10.1) L C-Reactive Protein, Quantitative 26.5 mg/dL (0.00-0.90) H Pro-B-Type Natriuretic Peptide 4126 pg/mL (0-125) H Heparin-PF4 Antibody Screen Pending Arterial Blood pH 7.276 (7.350-7.450) Arterial Blood Partial Pressure CO2 71.6 mmHg (35.0-45.0) *H Arterial Blood Partial Pressure O2 45.0 mmHg (75.0-100.0) Arterial Blood HCO3 32.6 mmol/L (22.0-26.0) H Arterial Blood Oxygen Saturation 79.9 % (95-100) *L Arterial Blood Base Excess 4.1 (-2-2) H Darinel Test Positive Vancomycin Level Trough 9.1 ug/mL (5.0-12.0) Plan Problems: (1) Thrombocytopenia (2) Pneumonia (3) Hypoxia Assessment & Plan: 75F covid + hypoxic intubated on vent support acute hypotensive episode placed on pressors on peripheral line eval for central line done. patient weaning off pressors and only on 1mcg of levo currently bp improved sedation noted awake and alert now responsive on vent support but improving hold on central catheter placement cont for now low dose and wean off levo fluids noted trend labs if worsening will plan to place central catheter emilee thank you will follow with recs . DAILY ESTIMATED NEEDS: Needs based on Critical care, 56kg 22-28 kcals/kg 1471-4074 total kcals 1.2-2 g protein/kg 67-112 g total protein 25-30 mL/kg 9262-0948 total fluid mLs NUTRITION DIAGNOSIS: Swallowing difficulty R/T respiratory failure as evidenced by pt orally intubated on 05/27, OGT feeds ordered. CURRENT TF:Vital AF 1.2 @ 50ml/hr x 24 hrs ordered PO DIET RECOMMENDATIONS: BURNING SUPERVISOR eval post extubation ENTERAL NUTRITION RECOMMENDATIONS: Vital AF 1.2 @ 50ml/hr x 24 hrs to provide 1200ml, 1440kcal, 90g prot, 973ml free water * Initiate Vital AF 1.2 @ 20ml/hr x 6hrs * Advance 10ml q 4-6 hrs as tolerated to goal * HOB over 30 degrees/ H2o flush 180ml q 8 hrs ADDITIONAL RECOMMENDATIONS: * Calibrated bedscale wt * Monitor hemodyanmic stability: now off NE * Rec NISS w/ TF while on Decadron: elev FBGs * Monitor lytes, replete as needed (low phos 05/22, rec updated level) Lungs: Bilateral interstitial and airspace opacities are mildly improved. Pleural space: Probable tiny right pleural effusion. No pneumothorax. Heart: Unremarkable. No cardiomegaly. Mediastinum: Unremarkable. Bones/joints: Unremarkable. Tubes, lines and devices: Endotracheal tube and NG tube are stable. IMPRESSION: 1. Bilateral interstitial and airspace opacities are mildly improved. 2. Probable tiny right pleural effusion. (4) Abnormal EKG (5) COVID-19 Assessment & Plan: ++ pulm and ID input appreciated Favio Corona Jun 06, 2020 19:25
--- NOTE | 2020-06-06 19:30 | NUR ---
NURSE HAND-OFF REPORT: Latest Vital Signs: Temperature 99.8F axillary, Pulse 91 , B/P 142 /80 , Respiratory Rate 21 , O2 SAT 93 , Mechanical Ventilator ETT 7.5 at 24cm/lipline with vent settings AC26, VT450, Peep 12, FIO2 100%. Vital Sign Comment: Remains sedated RASS score of -2 light sedation. Remains on Amiodarone drip at 5mg/min until IV bag is complete to be replaced with PO Amiodarone via OGT. EKG Rhythm: Sinus Rhythm Rhythm change?: [place] [facility] Notified?: Linda drummond md, MD Response: Order Received& Read Back Latest [place] Fall Score: 50 Fall Risk: High Risk Safety Measures: Call light Within Reach, Bed Alarm Zone 2, Side Rails Side Rails x2, Bed position Low and Locked. Fall Precautions: Yellow Socks Yellow Gown Door Sign Patient Fall Education Report given to Arturo HERNANDEZ. Endorsed plan of care.
[2020-06-06] MEDS: Micafungin 100 MG in NS 110 ML IVPB SCH (20:00)
--- NOTE | 2020-06-06 20:00 | NUR ---
NURSE NOTES: Pt was assessed after receiving change of shift report from Catie HERNANDEZ. Sedated -2 light sedation while on Fentanyl drip at 300mcg/min. Orally intubated ETT 7.5 at 24cm/lipline with vent settings AC26, VT450, Peep 12, FIo2 100%, with O2Sat fluctuating from 65-75%. ST on nuclear monitoring technician, HR 100-110, while pt is maintained on Amiodarone drip at 0.5mg/min, with bounding peripheral pulses and extremities warm to touch. Temp 102.2F axillary. OGT with feeding Vital AF 1.2 infusing at 25ml/hour. Residuals 75ml. Abdomen is round, soft, nontender to touch with hypoactive bowel sounds. Santiago catheter 16F is present, draining dark christo/cloudy urine. Peripheral IV access is present on left FA #20G, right wrist #20G and right FA #20G. IV fluid D5 0.45% NS is infusing at 75ml/hour. Skin in intact. Bilateral soft wrist restraints are in place to prevent self-extubation. HOB at 30 degrees, bed locked, in lowest position, three side rails up. Will continue to monitor pt and follow plan of care per MD orders and protocol.
--- NOTE | 2020-06-06 20:30 | NUR ---
NURSE NOTES: Patients temperature is 102.2F (ax). Cooling bath and cooling measures initiated. Patient repositioned and oral care performed. Will continue to monitor.
[2020-06-06] MEDS: Amiodarone 200mg tab NG SCH (21:00)
[2020-06-06] MEDS: Enoxaparin 60mg Inj SUBQ SCH (21:10)
--- NOTE | 2020-06-06 22:00 | NUR ---
NURSE NOTES: Patient repositioned and given oral care, all due meds given, Patient remains on fentanyl gtt at 300mcg/min with RASS -2. Patient saturating in the 50-60s.
[2020-06-07] VITALS (48 sets, daily range): BP systolic 78–180; BP diastolic 44–72
--- NOTE | 2020-06-07 | NUR ---
NURSE NOTES: Patient saturating in the 30s and 40s. Patient is sinus tach, current HR is 109 ST. Patients temperature has now decreased to 97.1 (rectal). Patients currently on cooling blanket on monitor mode. Blood pressures have been normotensive. RASS -2. 100% FiO2 at this time.
[2020-06-07] MEDS: fentaNYL 2500mcg/NS 250ml 250 ML IV SCH ×3 (01:10→21:57)
--- NOTE | 2020-06-07 02:00 | NUR ---
NURSE NOTES: Held gtt as patient is having multiple BP cycles of hypotensive moments. 78/39 HR is 78NSR
[2020-06-07] MEDS ORDERED: Vancomycin 1gm in D5W 275ml IVPB SCH (03:00)
--- NOTE | 2020-06-07 04:00 | NUR ---
NURSE NOTES: Bed bath given, suctioned, labs drawn and repositioned. Sedation remains on HOLD for now as patient is calm and sleeping at this time, FLACC 0/10. BP have returned to normotensive ranges currently at 147/63 and HR is 73. Afebrile.
--- NOTE | 2020-06-07 05:00 | NUR ---
NURSE NOTES: Fentanyl restarted at same rate 300mcg/min
--- NOTE | 2020-06-07 06:00 | NUR ---
NURSE NOTES: Patient saturations in the 80s, BP pressures remain stable 123/62. Patient remains at RASS -2
[2020-06-07 06:14] LABS: HEMATOCRIT 26.7 % (37.0-47.0); HEMOGLOBIN 8.5 G/DL (12.0-16.0); MEAN CORPUSCULAR VOLUME 105 FL (80-99); PLATELET COUNT 40 K/UL (150-450); RED BLOOD COUNT 2.54 M/UL (4.20-5.40); RED CELL DISTRIBUTION WIDTH 13.8 % (11.6-14.8); WHITE BLOOD COUNT 21.7 K/UL (4.8-10.8)
[2020-06-07 06:55] LABS: ANION GAP 5 mmol/L (5-15); BLOOD UREA NITROGEN 33 mg/dL (7-18); CALCIUM 7.2 MG/DL (8.5-10.1); CARBON DIOXIDE 29 MMOL/L (21-32); CHLORIDE 109 MMOL/L (98-107); CREATININE 0.8 MG/DL (0.55-1.30); POTASSIUM 4.1 MMOL/L (3.5-5.1); SODIUM 142 MMOL/L (136-145)
--- NOTE | 2020-06-07 08:00 | NUR ---
NURSE NOTES: Pt was assessed after receiving change of shift report from Arturo HERNANDEZ. Sedated -2 light sedation while on Fentanyl drip at 300mcg/min. Orally intubated ETT 7.5 at 24cm/lipline with vent settings AC26, VT450, Peep 12, FIo2 100%, with O2Sat 90%. NSR to ST on loader engineer, HR 90-106. Temp 99F axillary. OGT with feeding Vital AF 1.2 infusing at 25ml/hour. Residuals 30ml. Abdomen is round, soft, nontender to touch with hypoactive bowel sounds. Santiago catheter 16F is present, draining dark christo/cloudy urine. Peripheral IV access is present on left FA #20G, right wrist #20G and right FA #20G. IV fluid D5 0.45% NS is infusing at 30ml/hour. Skin in intact. Bilateral soft wrist restraints are in place to prevent self-extubation. HOB at 30 degrees, bed locked, in lowest position, three side rails up. Will continue to monitor pt and follow plan of care per MD orders and protocol.
[2020-06-07] MEDS: Piperacillin/Tazobactam 3.375 GM in NS 110 ML IVPB SCH ×2 (08:31→15:43)
[2020-06-07] MEDS: Amiodarone 200mg tab NG SCH ×2 (08:32→20:32)
[2020-06-07] MEDS: Enoxaparin 60mg Inj SUBQ SCH ×2 (08:32→20:33)
[2020-06-07] MEDS: Docusate 100mg/10ml Liq GT SCH ×2 (08:32→20:32)
--- NOTE | 2020-06-07 08:55 | Diagnostic Imaging Report ---
Indication: Shortness of breath Technique: One view of the chest Comparison: 06/06/2020 Findings: Stable satisfactory positions of endotracheal tube, orogastric tube. Bilateral infiltrates are unchanged. Impression: Unchanged, over one day, findings as above.
--- NOTE | 2020-06-07 10:15 | NUR ---
NURSE NOTES: Pt was seen by Dr. Albarado. Order was received to add parameters for Lovenox "hold if platelet is below 100". AM meds were administered. Lovenox was held. Oral care was done, pt suctioned, output is minimal. Pt was repositioned for comfort.
--- NOTE | 2020-06-07 10:51 | Pulmonolgy Critical Care Note ---
Critical Care - Asmt/Plan Assessment/Plan: ASSESSMENT Acute hypoxemic resp failure due to COVID PNA, requiring intubation 05/27 COVID 19 PNA Thrombocytopenia- Pulmonary HTN Hypotension A fib with RVR, s/p cardioversion Abnormal ECG Headache DNR/DNO status now PLAN OF CARE ICU isolation Date of sx onset: few days prior to presentation to ED on 05/23 Positive test: OSF 05/22 - 1 days prior to admission , SARS COV-2 by PCR 05/30 NGT O2 -> intubated 05/27 , failed weaning 06/01 , vent support , remains on high settings ABG this am with improvement in hypercapnia and hypoxia, keep settings as is fup ABG and CXR in am HFA if unable to do HHN via line s/p REM x 5 days ( 05/23-05/27 ) s/p DEX x 10 days D dimer initial 0.48 - > 19.61-> 7.23 DVT PPX: Lovenox - stopped earlier due to low PLT Venous Duplex BLE NGT Trend CRP 3.6 -> 19.7-> 76.4 - 38.3 -45.1-26.5-15.6 Abx per ID recs prone position as tolerated monitor volumes and renal function fup with consultants recs now DNR/DNi status from 06/06 , after discussion GOC and poor prognosis with family on gentle IVF closely monitor HDs monitor PLT counts- trending down - , Lovenox stopped earlier , down to 40 ; check Heparin induced Ab pending cardio eval -appreciated ECHO with pEF 65%, no WMA, mild to moderate MR, moderate pulmonary hypertension case discussed and evaluated by supervising physician Critical Care - Objective Last 24 Hour Vital Signs Date Time Temp Pulse Resp B/P (MAP) Pulse Ox O2 Delivery O2 Flow Rate FiO2 06/07/20 10:30 87 25 124/66 (85) 94 06/07/20 10:00 24 129/84 Mechanical Ventilator 100 06/07/20 10:00 78 22 137/65 (89) 90 06/07/20 09:30 86 21 117/67 (84) 97 06/07/20 09:00 22 119/65 Mechanical Ventilator 100 06/07/20 09:00 80 25 119/67 (84) 97 06/07/20 08:30 83 26 145/72 (96) 87 06/07/20 08:00 100 06/07/20 08:00 24 120/61 Mechanical Ventilator 100 06/07/20 08:00 Mechanical Ventilator 06/07/20 08:00 97.9 85 23 120/61 (80) 92 06/07/20 08:00 86 06/07/20 07:44 89 26 100 06/07/20 07:00 26 130/62 Mechanical Ventilator 100 06/07/20 07:00 84 26 130/62 (84) 83 06/07/20 06:00 96.0 80 25 117/62 (80) 84 06/07/20 06:00 26 123/62 Mechanical Ventilator 100 06/07/20 05:30 85 26 112/62 (79) 95 06/07/20 05:00 26 113/87 Mechanical Ventilator 100 06/07/20 05:00 87 26 128/64 (85) 73 06/07/20 04:30 79 25 147/63 (91) 62 06/07/20 04:00 76 06/07/20 04:00 100 06/07/20 04:00 97.8 74 26 180/68 (105) 61 06/07/20 04:00 Mechanical Ventilator 06/07/20 03:30 74 26 124/58 (80) 75 06/07/20 03:19 79 26 100 06/07/20 03:00 74 26 120/59 (79) 57 06/07/20 02:32 87 20 93/49 (64) 85 06/07/20 02:30 90 18 78/46 (57) 84 06/07/20 02:21 89 24 78/44 (55) 84 06/07/20 02:15 89 21 78/48 (58) 84 06/07/20 02:00 92 25 78/47 (57) 83 06/07/20 01:57 91 23 82/45 (57) 83 06/07/20 01:45 95 24 81/46 (58) 83 06/07/20 01:30 98 28 83/47 (59) 84 06/07/20 01:10 26 127/64 Mechanical Ventilator 100 06/07/20 01:00 86 24 127/64 (85) 48 06/07/20 01:00 26 89/55 Mechanical Ventilator 100 06/07/20 00:30 83 25 94/46 (62) 39 06/07/20 00:00 26 91/45 Mechanical Ventilator 100 06/07/20 00:00 102 06/07/20 00:00 Mechanical Ventilator 06/07/20 00:00 97.1 91 28 86/47 (60) 45 06/07/20 00:00 100 06/06/20 23:30 105 23 104/53 (70) 84 06/06/20 23:01 114 26 100 06/06/20 23:00 85 22 140/64 (89) 87 06/06/20 23:00 26 140/64 Mechanical Ventilator 100 06/06/20 22:30 91 21 130/60 (83) 83 06/06/20 22:00 26 131/60 Mechanical Ventilator 100 06/06/20 22:00 102.4 99 23 131/60 (83) 84 06/06/20 21:42 102.4 06/06/20 21:30 98 22 106/65 (79) 77 06/06/20 21:15 113 18 109/51 (70) 89 06/06/20 21:00 115 24 146/65 (92) 77 06/06/20 21:00 26 146/65 Mechanical Ventilator 100 06/06/20 20:30 112 26 150/61 (90) 87 06/06/20 20:00 Mechanical Ventilator 06/06/20 20:00 100 06/06/20 20:00 106 06/06/20 20:00 102.2 107 19 150/69 (96) 81 06/06/20 20:00 26 150/69 Mechanical Ventilator 100 06/06/20 19:30 101 21 161/67 (98) 65 06/06/20 19:00 91 25 142/80 (100) 93 06/06/20 19:00 21 142/80 Mechanical Ventilator 100 06/06/20 18:30 98 22 115/60 (78) 93 06/06/20 18:30 90 32 100 06/06/20 18:00 98 23 128/60 (82) 92 06/06/20 18:00 24 128/60 Mechanical Ventilator 100 06/06/20 17:30 103 23 113/64 (80) 91 06/06/20 17:00 103 25 112/63 (79) 91 06/06/20 17:00 26 111/59 Mechanical Ventilator 100 06/06/20 16:30 106 25 111/59 (76) 89 06/06/20 16:00 100 06/06/20 16:00 Mechanical Ventilator 06/06/20 16:00 99.8 99 21 155/69 (97) 75 06/06/20 16:00 80 06/06/20 16:00 24 155/69 Mechanical Ventilator 90 06/06/20 15:30 84 25 150/72 (98) 94 06/06/20 15:15 98 28 100 06/06/20 15:00 107 26 114/58 (76) 96 06/06/20 15:00 26 114/58 Mechanical Ventilator 100 06/06/20 14:30 97 26 128/61 (83) 96 06/06/20 14:15 31 104/51 Mechanical Ventilator 15.0 100 06/06/20 14:00 25 122/63 Mechanical Ventilator 100 06/06/20 14:00 107 26 122/63 (82) 95 06/06/20 13:30 93 19 128/67 (87) 85 06/06/20 13:00 99 26 108/55 (72) 89 06/06/20 13:00 20 108/55 Mechanical Ventilator 86 06/06/20 12:30 98 24 105/49 (67) 90 06/06/20 12:00 86 06/06/20 12:00 101.0 102 24 107/50 (69) 91 06/06/20 12:00 Mechanical Ventilator 06/06/20 12:00 24 105/49 Mechanical Ventilator 89 06/06/20 12:00 100 06/06/20 11:15 96 31 100 06/06/20 11:00 99 24 104/51 (68) 86 06/06/20 11:00 20 104/51 Mechanical Ventilator 100 Objective: General: intubated, sedated on vent AC 450- 100-26 PEEP 12 HEENT: atraumatic, normocephalic, ET in place intact Neck: OP with ET in place , intact; feeding tube in place Lungs: clear , tachypneic at times Heart: HR/BP stable, low tachy occasionally Abdomen: soft, non-tender, active bowel sounds Extremities: no C/C/E Critical Care - Subjective ROS Limited/Unobtainable: Yes Interval Events: remains on high vent settings persistent leukocytosis , no fevers this morning DNR/DNI status since 06/06 sedated CXR 06/06 no change ABG this am with small improvement from 06/06 : less hypercapnia, no hypoxia Condition: critical IV Access: peripheral EKG Rhythm: Sinus Rhythm FI02: 100 Vent Support Breath Rate: 26 Vent Support Mode: AC Vent Tidal Volume: 450 Sputum Amount: Scant PEEP: 12.0 PIP: 71 Fluids: IVF at 30 Drips: Fentanyl gtt 300 mcg/hr Tube Feeding Amount: 25 I&O: Intake and Output 06/06/20 06/07/20 19:00 07:00 Intake Total 1755.004 ml 1295.0 ml Output Total 440 ml 675 ml Balance 1315.004 ml 620.0 ml Free Water 180 ml 90 ml IV Total 1275.004 ml 905.0 ml Tube Feeding 300 ml 300 ml Output Urine Total 440 ml 675 ml CXR: CXR 06/06 Stable satisfactory positions of endotracheal tube, orogastric tube. Bilateral infiltrates are unchanged. ET-Tube: 7.5 ET Position: 24 Ivonne Andrade NP Jun 07, 2020 10:51
--- NOTE | 2020-06-07 11:40 | Cardiac Electrophysiology PN ---
Assessment/Plan Assessment/Plan 1. COVID pneumonia. Ruled out for DC EKG in view of inferolateral ST depression EF 65% Her BNP was only 342. Intubated on 100% Fio2 and PEEP 12 despite dexamethasone, ceftriaxone, and azithromycin. 2. Atrial fib with RVR, S/P DCCV on 06/05/20. On Amiodarone 400 po bid. Watch for worsening of bradycardia DC Lovenox as Platelet is now only 40 3. Sinus nnamdi off any TAVARES affecting agent. Likely due to Covid Now on Amiodarone 4. S/P septic shock. Now off Levophed 5. DNR DW RN Subjective Subjective In ICU intubated on 100% Fio2 and Peep of 12. Had atrial fib with RVR 06/05/20and had DCCV to SR by [facility]. Now on po Amiodarone 400 bid Off pressors in Covid isolation on Abx and Fentanyl drip. Family just made him DNR Objective Last 24 Hour Vital Signs Date Time Temp Pulse Resp B/P (MAP) Pulse Ox O2 Delivery O2 Flow Rate FiO2 06/07/20 10:30 87 25 124/66 (85) 94 06/07/20 10:00 24 129/84 Mechanical Ventilator 100 06/07/20 10:00 78 22 137/65 (89) 90 06/07/20 09:30 86 21 117/67 (84) 97 06/07/20 09:00 22 119/65 Mechanical Ventilator 100 06/07/20 09:00 80 25 119/67 (84) 97 06/07/20 08:30 83 26 145/72 (96) 87 06/07/20 08:00 100 06/07/20 08:00 24 120/61 Mechanical Ventilator 100 06/07/20 08:00 Mechanical Ventilator 06/07/20 08:00 97.9 85 23 120/61 (80) 92 06/07/20 08:00 86 06/07/20 07:44 89 26 100 06/07/20 07:00 26 130/62 Mechanical Ventilator 100 06/07/20 07:00 84 26 130/62 (84) 83 06/07/20 06:00 96.0 80 25 117/62 (80) 84 06/07/20 06:00 26 123/62 Mechanical Ventilator 100 06/07/20 05:30 85 26 112/62 (79) 95 06/07/20 05:00 26 113/87 Mechanical Ventilator 100 06/07/20 05:00 87 26 128/64 (85) 73 06/07/20 04:30 79 25 147/63 (91) 62 06/07/20 04:00 76 06/07/20 04:00 100 06/07/20 04:00 97.8 74 26 180/68 (105) 61 06/07/20 04:00 Mechanical Ventilator 06/07/20 03:30 74 26 124/58 (80) 75 06/07/20 03:19 79 26 100 06/07/20 03:00 74 26 120/59 (79) 57 06/07/20 02:32 87 20 93/49 (64) 85 06/07/20 02:30 90 18 78/46 (57) 84 06/07/20 02:21 89 24 78/44 (55) 84 06/07/20 02:15 89 21 78/48 (58) 84 06/07/20 02:00 92 25 78/47 (57) 83 06/07/20 01:57 91 23 82/45 (57) 83 06/07/20 01:45 95 24 81/46 (58) 83 06/07/20 01:30 98 28 83/47 (59) 84 06/07/20 01:10 26 127/64 Mechanical Ventilator 100 06/07/20 01:00 86 24 127/64 (85) 48 06/07/20 01:00 26 89/55 Mechanical Ventilator 100 06/07/20 00:30 83 25 94/46 (62) 39 06/07/20 00:00 26 91/45 Mechanical Ventilator 100 06/07/20 00:00 102 06/07/20 00:00 Mechanical Ventilator 06/07/20 00:00 97.1 91 28 86/47 (60) 45 06/07/20 00:00 100 06/06/20 23:30 105 23 104/53 (70) 84 06/06/20 23:01 114 26 100 06/06/20 23:00 85 22 140/64 (89) 87 06/06/20 23:00 26 140/64 Mechanical Ventilator 100 06/06/20 22:30 91 21 130/60 (83) 83 06/06/20 22:00 26 131/60 Mechanical Ventilator 100 06/06/20 22:00 102.4 99 23 131/60 (83) 84 06/06/20 21:42 102.4 06/06/20 21:30 98 22 106/65 (79) 77 06/06/20 21:15 113 18 109/51 (70) 89 06/06/20 21:00 115 24 146/65 (92) 77 06/06/20 21:00 26 146/65 Mechanical Ventilator 100 06/06/20 20:30 112 26 150/61 (90) 87 06/06/20 20:00 Mechanical Ventilator 06/06/20 20:00 100 06/06/20 20:00 106 06/06/20 20:00 102.2 107 19 150/69 (96) 81 06/06/20 20:00 26 150/69 Mechanical Ventilator 100 06/06/20 19:30 101 21 161/67 (98) 65 06/06/20 19:00 91 25 142/80 (100) 93 06/06/20 19:00 21 142/80 Mechanical Ventilator 100 06/06/20 18:30 98 22 115/60 (78) 93 06/06/20 18:30 90 32 100 06/06/20 18:00 98 23 128/60 (82) 92 06/06/20 18:00 24 128/60 Mechanical Ventilator 100 06/06/20 17:30 103 23 113/64 (80) 91 06/06/20 17:00 103 25 112/63 (79) 91 06/06/20 17:00 26 111/59 Mechanical Ventilator 100 06/06/20 16:30 106 25 111/59 (76) 89 06/06/20 16:00 100 06/06/20 16:00 Mechanical Ventilator 06/06/20 16:00 99.8 99 21 155/69 (97) 75 06/06/20 16:00 80 06/06/20 16:00 24 155/69 Mechanical Ventilator 90 06/06/20 15:30 84 25 150/72 (98) 94 06/06/20 15:15 98 28 100 06/06/20 15:00 107 26 114/58 (76) 96 06/06/20 15:00 26 114/58 Mechanical Ventilator 100 06/06/20 14:30 97 26 128/61 (83) 96 06/06/20 14:15 31 104/51 Mechanical Ventilator 15.0 100 1/11/21 14:00 25 122/63 Mechanical Ventilator 100 06/06/20 14:00 107 26 122/63 (82) 95 06/06/20 13:30 93 19 128/67 (87) 85 06/06/20 13:00 99 26 108/55 (72) 89 06/06/20 13:00 20 108/55 Mechanical Ventilator 86 06/06/20 12:30 98 24 105/49 (67) 90 06/06/20 12:00 86 06/06/20 12:00 101.0 102 24 107/50 (69) 91 06/06/20 12:00 Mechanical Ventilator 06/06/20 12:00 24 105/49 Mechanical Ventilator 89 06/06/20 12:00 100 Intake and Output 06/06/20 06/07/20 19:00 07:00 Intake Total 1755.004 ml 1295.0 ml Output Total 440 ml 675 ml Balance 1315.004 ml 620.0 ml Free Water 180 ml 90 ml IV Total 1275.004 ml 905.0 ml Tube Feeding 300 ml 300 ml Output Urine Total 440 ml 675 ml Laboratory Tests Test 06/06/20 15:15 06/07/20 03:25 06/07/20 08:36 Vancomycin Level Trough 9.1 ug/mL (5.0-12.0) White Blood Count 21.7 K/UL (4.8-10.8) H Red Blood Count 2.54 M/UL (4.20-5.40) L Hemoglobin 8.5 G/DL (12.0-16.0) L Hematocrit 26.7 % (37.0-47.0) L Mean Corpuscular Volume 105 FL (80-99) H Mean Corpuscular Hemoglobin 33.4 PG (27.0-31.0) H Mean Corpuscular Hemoglobin Concent 31.8 G/DL (32.0-36.0) L Red Cell Distribution Width 13.8 % (11.6-14.8) Platelet Count 40 K/UL (150-450) L Mean Platelet Volume 14.0 FL (6.5-10.1) H Neutrophils (%) (Auto) % (45.0-75.0) Lymphocytes (%) (Auto) % (20.0-45.0) Monocytes (%) (Auto) % (1.0-10.0) Eosinophils (%) (Auto) % (0.0-3.0) Basophils (%) (Auto) % (0.0-2.0) Differential Total Cells Counted 100 Neutrophils % (Manual) 92 % (45-75) H Lymphocytes % (Manual) 5 % (20-45) L Monocytes % (Manual) 3 % (1-10) Eosinophils % (Manual) 0 % (0-3) Basophils % (Manual) 0 % (0-2) Band Neutrophils 0 % (0-8) Platelet Estimate Decreased L Platelet Morphology Giant Platelets Occasional Hypochromasia 1+ Anisocytosis 1+ Sodium Level 142 MMOL/L (136-145) Potassium Level 4.1 MMOL/L (3.5-5.1) Chloride Level 109 MMOL/L (98-107) H Carbon Dioxide Level 29 MMOL/L (21-32) Anion Gap 5 mmol/L (5-15) Blood Urea Nitrogen 33 mg/dL (7-18) H Creatinine 0.8 MG/DL (0.55-1.30) Estimat Glomerular Filtration Rate > 60 mL/min (>60) Glucose Level 278 MG/DL (74-106) H Calcium Level 7.2 MG/DL (8.5-10.1) L C-Reactive Protein, Quantitative 15.6 mg/dL (0.00-0.90) H Arterial Blood pH 7.293 (7.350-7.450) Arterial Blood Partial Pressure CO2 65.1 mmHg (35.0-45.0) *H Arterial Blood Partial Pressure O2 67.4 mmHg (75.0-100.0) L Arterial Blood HCO3 30.8 mmol/L (22.0-26.0) H Arterial Blood Oxygen Saturation 90.9 % (95-100) L Arterial Blood Base Excess 3.1 (-2-2) H Darinel Test Positive Objective HEAD AND NECK: No JVD. Orally intubated LUNGS: Coarse rhonchi. CARDIOVASCULAR: Regular S1 and S2 with no gallop. Bradycardic. ABDOMEN: Soft. EXTREMITIES: No pitting edema. Jordi Albarado MD Jun 07, 2020 11:40
--- NOTE | 2020-06-07 12:45 | NUR ---
NURSE NOTES: New Fentanyl bag was started to replace previous empty bag. Continuing same rate of 300mcg/min to maintain -2 light sedation.
--- NOTE | 2020-06-07 14:00 | NUR ---
NURSE NOTES: Dr Corona is at bedside inserting central line; Right Femoral TLC was inserted successfully, patent/intact, dressing applied with biopatch. Telephone consent from family was received previously and filed in pt's chart.
--- NOTE | 2020-06-07 15:56 | NUR ---
[employer] Hel[employer] SI: Respiratory Failure, COVID PNA, ETT/Vent support T-98.0 (rectal), HR 103, RR 23, BP 109/53 AC 20, TV 450, PEEP 5.0, FiO2 100% O2 sat 89% WBC 22.5 IS: Lovenox SQ BID Zosyn IV TID Vancomycin IV Micafungin IV q d ICU Status
[2020-06-07] MEDS ORDERED: Tubing IV Secondary IV ONE (17:36)
[2020-06-07] MEDS ORDERED: D5 1/2NS 1000ml IV ONE (17:36)
[2020-06-07] MEDS ORDERED: NS 275ml ONE (17:36)
[2020-06-07] MEDS: D5 1/2NS 1,000 ML IV SCH ×2 (18:00→22:40)
--- NOTE | 2020-06-07 18:00 | NUR ---
NURSE NOTES: VS remain stable while maintained on Fentanyl drip at 300mcg/hr -2 light sedation/RASS score. AFebrile while on cooling blanket.
--- NOTE | 2020-06-07 19:00 | NUR ---
NURSE NOTES: Pt was seen by Dr. Sousa. MD reviewed ABG results. Order was received to change current vent settings to AC28, VT425, then repeat ABGs post 2 hours and note minute-ventilation. Per MD "if pt does not tolerate new settings and minute-ventilation does not remain 11, then switch back to previous settings". Order was processed, RT and oncoming shift RN were notified.
--- NOTE | 2020-06-07 19:15 | NUR ---
NURSE HAND-OFF REPORT: Latest Vital Signs: Temperature 98.0 , Pulse 100 , B/P 112 /51 , Respiratory Rate 28 , O2 SAT 86 , Mechanical Ventilator ETT 7.5 at 24cm/lipline with vent settings AC26, VT450, Peep 12, FIO2 100%. Vital Sign Comment: Maintained on Fentanyl drip at 300mcg/hr for -2 light sedation. EKG Rhythm: Sinus Rhythm Rhythm change?: N MD Notified?: Linda drummond md, MD Response: Order Received& Read Back Latest [place] Fall Score: 50 Fall Risk: High Risk Safety Measures: Call light Within Reach, Bed Alarm Zone 2, Side Rails Side Rails x2, Bed position Low and Locked. Fall Precautions: Yellow Socks Yellow Gown Door Sign Patient Fall Education Report given to Veronica HERNANDEZ. Endorsed plan of care.
--- NOTE | 2020-06-07 20:00 | NUR ---
NURSE NOTES: received report from meredith cabrales pt DNR OBTUNDED ORALLY INTUBATED -VENT 88% SUCTION AND REPOSITION DR SYKES WITH ORDER MADE ON FENT DRIP AT 3OO MCG /HR ON TUBE FEEDING AND TOLERATING WELL
[2020-06-07] MEDS: Micafungin 100 MG in NS 110 ML IVPB SCH (20:31)
--- NOTE | 2020-06-07 21:10 | Surgery Progress Note ---
Surgery Progress Note Subjective Additional Comments worse central line placed Objective Last 24 Hour Vital Signs Date Time Temp Pulse Resp B/P (MAP) Pulse Ox O2 Delivery O2 Flow Rate FiO2 06/07/20 19:44 100 28 100 06/07/20 19:30 94 22 112/51 (71) 86 06/07/20 19:00 99 23 110/58 (75) 89 06/07/20 19:00 22 109/54 Mechanical Ventilator 100 06/07/20 18:30 88 24 138/70 (92) 86 06/07/20 18:00 23 140/74 Mechanical Ventilator 100 06/07/20 18:00 98.0 97 25 101/62 (75) 89 06/07/20 17:00 82 23 118/53 (74) 83 06/07/20 17:00 23 103/60 Mechanical Ventilator 100 06/07/20 16:00 Mechanical Ventilator 06/07/20 16:00 86 26 103/60 (74) 83 06/07/20 16:00 23 99/60 Mechanical Ventilator 100 06/07/20 16:00 79 06/07/20 16:00 100 06/07/20 15:00 22 122/70 Mechanical Ventilator 100 06/07/20 15:00 103 23 111/56 (74) 82 06/07/20 14:00 86 26 110/56 (74) 83 06/07/20 14:00 30 103/60 Mechanical Ventilator 100 06/07/20 13:34 94 34 100 06/07/20 13:30 107 18 99/55 (70) 88 06/07/20 13:00 28 99/55 Mechanical Ventilator 100 06/07/20 13:00 105 27 114/63 (80) 83 06/07/20 12:45 25 124/66 Mechanical Ventilator 100 06/07/20 12:30 97 23 109/53 (71) 89 06/07/20 12:00 98.0 97 24 134/72 (92) 79 06/07/20 12:00 Mechanical Ventilator 06/07/20 12:00 25 134/72 Mechanical Ventilator 100 06/07/20 12:00 100 06/07/20 12:00 108 06/07/20 11:30 88 24 120/70 (87) 92 06/07/20 11:00 85 22 126/69 (88) 94 06/07/20 11:00 23 128/62 Mechanical Ventilator 100 06/07/20 10:30 87 25 124/66 (85) 94 06/07/20 10:00 24 129/84 Mechanical Ventilator 100 06/07/20 10:00 78 22 137/65 (89) 90 06/07/20 09:30 86 21 117/67 (84) 97 06/07/20 09:00 22 119/65 Mechanical Ventilator 100 06/07/20 09:00 80 25 119/67 (84) 97 06/07/20 08:30 83 26 145/72 (96) 87 06/07/20 08:00 100 06/07/20 08:00 24 120/61 Mechanical Ventilator 100 06/07/20 08:00 Mechanical Ventilator 06/07/20 08:00 97.9 85 23 120/61 (80) 92 06/07/20 08:00 86 06/07/20 07:44 89 26 100 06/07/20 07:00 26 130/62 Mechanical Ventilator 100 06/07/20 07:00 84 26 130/62 (84) 83 06/07/20 06:00 96.0 80 25 117/62 (80) 84 06/07/20 06:00 26 123/62 Mechanical Ventilator 100 06/07/20 05:30 85 26 112/62 (79) 95 06/07/20 05:00 26 113/87 Mechanical Ventilator 100 06/07/20 05:00 87 26 128/64 (85) 73 06/07/20 04:30 79 25 147/63 (91) 62 06/07/20 04:00 76 06/07/20 04:00 100 06/07/20 04:00 97.8 74 26 180/68 (105) 61 06/07/20 04:00 Mechanical Ventilator 06/07/20 03:30 74 26 124/58 (80) 75 06/07/20 03:19 79 26 100 06/07/20 03:00 74 26 120/59 (79) 57 06/07/20 02:32 87 20 93/49 (64) 85 06/07/20 02:30 90 18 78/46 (57) 84 06/07/20 02:21 89 24 78/44 (55) 84 06/07/20 02:15 89 21 78/48 (58) 84 06/07/20 02:00 92 25 78/47 (57) 83 06/07/20 01:57 91 23 82/45 (57) 83 06/07/20 01:45 95 24 81/46 (58) 83 06/07/20 01:30 98 28 83/47 (59) 84 06/07/20 01:10 26 127/64 Mechanical Ventilator 100 06/07/20 01:00 86 24 127/64 (85) 48 06/07/20 01:00 26 89/55 Mechanical Ventilator 100 06/07/20 00:30 83 25 94/46 (62) 39 06/07/20 00:00 26 91/45 Mechanical Ventilator 100 06/07/20 00:00 102 06/07/20 00:00 Mechanical Ventilator 06/07/20 00:00 97.1 91 28 86/47 (60) 45 06/07/20 00:00 100 06/06/20 23:30 105 23 104/53 (70) 84 06/06/20 23:01 114 26 100 06/06/20 23:00 85 22 140/64 (89) 87 06/06/20 23:00 26 140/64 Mechanical Ventilator 100 06/06/20 22:30 91 21 130/60 (83) 83 06/06/20 22:00 26 131/60 Mechanical Ventilator 100 06/06/20 22:00 102.4 99 23 131/60 (83) 84 06/06/20 21:42 102.4 06/06/20 21:30 98 22 106/65 (79) 77 06/06/20 21:15 113 18 109/51 (70) 89 I&O Intake and Output 06/06/20 06/07/20 19:00 07:00 Intake Total 1755.004 ml 1295.0 ml Output Total 440 ml 675 ml Balance 1315.004 ml 620.0 ml Free Water 180 ml 90 ml IV Total 1275.004 ml 905.0 ml Tube Feeding 300 ml 300 ml Output Urine Total 440 ml 675 ml Dressing: saturated Cardiovascular: RSR Respiratory: decreased breath sounds Abdomen: soft, non-tender, present bowel sounds Extremities: no tenderness, no cyanosis Laboratory Tests Test 06/07/20 03:25 06/07/20 08:36 White Blood Count 21.7 K/UL (4.8-10.8) H Red Blood Count 2.54 M/UL (4.20-5.40) L Hemoglobin 8.5 G/DL (12.0-16.0) L Hematocrit 26.7 % (37.0-47.0) L Mean Corpuscular Volume 105 FL (80-99) H Mean Corpuscular Hemoglobin 33.4 PG (27.0-31.0) H Mean Corpuscular Hemoglobin Concent 31.8 G/DL (32.0-36.0) L Red Cell Distribution Width 13.8 % (11.6-14.8) Platelet Count 40 K/UL (150-450) L Mean Platelet Volume 14.0 FL (6.5-10.1) H Neutrophils (%) (Auto) % (45.0-75.0) Lymphocytes (%) (Auto) % (20.0-45.0) Monocytes (%) (Auto) % (1.0-10.0) Eosinophils (%) (Auto) % (0.0-3.0) Basophils (%) (Auto) % (0.0-2.0) Differential Total Cells Counted 100 Neutrophils % (Manual) 92 % (45-75) H Lymphocytes % (Manual) 5 % (20-45) L Monocytes % (Manual) 3 % (1-10) Eosinophils % (Manual) 0 % (0-3) Basophils % (Manual) 0 % (0-2) Band Neutrophils 0 % (0-8) Platelet Estimate Decreased L Platelet Morphology Giant Platelets Occasional Hypochromasia 1+ Anisocytosis 1+ Sodium Level 142 MMOL/L (136-145) Potassium Level 4.1 MMOL/L (3.5-5.1) Chloride Level 109 MMOL/L (98-107) H Carbon Dioxide Level 29 MMOL/L (21-32) Anion Gap 5 mmol/L (5-15) Blood Urea Nitrogen 33 mg/dL (7-18) H Creatinine 0.8 MG/DL (0.55-1.30) Estimat Glomerular Filtration Rate > 60 mL/min (>60) Glucose Level 278 MG/DL (74-106) H Calcium Level 7.2 MG/DL (8.5-10.1) L C-Reactive Protein, Quantitative 15.6 mg/dL (0.00-0.90) H Arterial Blood pH 7.293 (7.350-7.450) Arterial Blood Partial Pressure CO2 65.1 mmHg (35.0-45.0) *H Arterial Blood Partial Pressure O2 67.4 mmHg (75.0-100.0) L Arterial Blood HCO3 30.8 mmol/L (22.0-26.0) H Arterial Blood Oxygen Saturation 90.9 % (95-100) L Arterial Blood Base Excess 3.1 (-2-2) H Darinel Test Positive Plan Problems: (1) Thrombocytopenia (2) Pneumonia (3) Hypoxia Assessment & Plan: 75F covid + hypoxic intubated on vent support acute hypotensive episode placed on pressors on peripheral line eval for central line done. patient weaning off pressors and only on 1mcg of levo currently bp improved sedation noted awake and alert now responsive on vent support but improving hold on central catheter placement cont for now low dose and wean off levo fluids noted trend labs if worsening will plan to place central catheter emilee thank you will follow with recs . DAILY ESTIMATED NEEDS: Needs based on Critical care, 56kg 22-28 kcals/kg 4605-1598 total kcals 1.2-2 g protein/kg 67-112 g total protein 25-30 mL/kg 0642-5008 total fluid mLs NUTRITION DIAGNOSIS: Swallowing difficulty R/T respiratory failure as evidenced by pt orally intubated on 05/27, OGT feeds ordered. CURRENT TF:Vital AF 1.2 @ 50ml/hr x 24 hrs ordered PO DIET RECOMMENDATIONS: ACID ETCH OPERATOR eval post extubation ENTERAL NUTRITION RECOMMENDATIONS: Vital AF 1.2 @ 50ml/hr x 24 hrs to provide 1200ml, 1440kcal, 90g prot, 973ml free water * Initiate Vital AF 1.2 @ 20ml/hr x 6hrs * Advance 10ml q 4-6 hrs as tolerated to goal * HOB over 30 degrees/ H2o flush 180ml q 8 hrs ADDITIONAL RECOMMENDATIONS: * Calibrated bedscale wt * Monitor hemodyanmic stability: now off NE * Rec NISS w/ TF while on Decadron: elev FBGs * Monitor lytes, replete as needed (low phos 05/22, rec updated level) Lungs: Bilateral interstitial and airspace opacities are mildly improved. Pleural space: Probable tiny right pleural effusion. No pneumothorax. Heart: Unremarkable. No cardiomegaly. Mediastinum: Unremarkable. Bones/joints: Unremarkable. Tubes, lines and devices: Endotracheal tube and NG tube are stable. IMPRESSION: 1. Bilateral interstitial and airspace opacities are mildly improved. 2. Probable tiny right pleural effusion. (4) Abnormal EKG (5) COVID-19 Assessment & Plan: ++ pulm and ID input appreciated Favio Corona Jun 07, 2020 21:10
--- NOTE | 2020-06-07 21:12 | Operative Note - PDOC ---
Operative Note Operative Note Date of Operation/Procedure: Jun 07, 2020 Pre-op Diagnosis: covid hypoxia sepsis hypotension Procedure: right femoral central venous catheter insertion Post-op Diagnosis: same as pre-op Surgeon: favio corona md Anesthesia: local Specimen: none Complications: none Condition: unstable Estimated Blood Loss: minimal Implant(s) used?: No Indications for Procedure worsening in ICU needs access emilee line placed at bedside Description of Procedure patient made comfortable at bedside. right groin prepped and draped in standard surgical fashion. right femoral vein cannulated on first stick. guidewire placed and needle removed. small skin incision made and dilator used. line placed over guidewire and wire removed and discarded safely. all ports flushed and aspirated venous blood. line sutured in place. dressings applied patient tolerated well. like okay to use Favio Corona Jun 07, 2020 21:12
[2020-06-08] VITALS (47 sets, daily range): BP systolic 0–117; BP diastolic 0–60
[2020-06-08] MEDS: Piperacillin/Tazobactam 3.375 GM in NS 110 ML IVPB SCH ×2 (00:25→08:36)
[2020-06-08] MEDS: Acetaminophen 650mg/20.3ml GT PRN (00:52)
[2020-06-08 05:42] LABS: HEMATOCRIT 29.3 % (37.0-47.0); HEMOGLOBIN 9.3 G/DL (12.0-16.0); MEAN CORPUSCULAR VOLUME 101 FL (80-99); PLATELET COUNT 43 K/UL (150-450); RED CELL DISTRIBUTION WIDTH 13.9 % (11.6-14.8)
[2020-06-08 06:03] LABS: WHITE BLOOD COUNT 23.7 K/UL (4.8-10.8)
--- NOTE | 2020-06-08 07:30 | NUR ---
NURSE HAND-OFF REPORT: Latest Vital Signs: Temperature 98.6 , Pulse 91 , B/P 68 /43 , Respiratory Rate 29 , O2 SAT 31 , Mechanical Ventilator, O2 Flow Rate . Vital Sign Comment: EKG Rhythm: Sinus Rhythm Rhythm change?: N Notified?: Linda drummond md, MD Response: Order Received& Read Back Latest [place]ante Fall Score: 50 Fall Risk: High Risk Safety Measures: Call light Within Reach, Bed Alarm Zone 2, Side Rails Side Rails x2, Bed position Low and Locked. Fall Precautions: Yellow Socks Yellow Gown Door Sign Patient Fall Education Report given to gilberto cabrales using sbar.
--- NOTE | 2020-06-08 07:31 | NUR ---
NURSE NOTES: Received report from Daysi Montoya RN. The patient is orally intubated and mechanical ventilator dependent, ETT 7.5, 24cm @ Lip line, AC 26, TV 450, FiO2 100%, and PEEP 12 w/ bite block. The patient has OGT that is inplace, tube feeing held, patient need to be in flat position due to low blood pressure. The patient has Santiago that is intact and draining by gravity. Right femoral TLC inplace with D5 1/2NS @ 30mL/hr. Bilateral soft wrist restraints on per order and skin and circulation intact. The patient's bed in the lowest position. Will follow up the lab and order. Will closely monitor the patient. [place] isolation precautions observed. Will continue plan of care.
[2020-06-08] MEDS: fentaNYL 2500mcg/NS 250ml 250 ML IV SCH (07:40)
[2020-06-08 07:49] LABS: CALCIUM 8.1 MG/DL (8.5-10.1); CREATININE 1.2 MG/DL (0.55-1.30); POTASSIUM 4.9 MMOL/L (3.5-5.1)
[2020-06-08 07:56] LABS: ALBUMIN 1.5 G/DL (3.4-5.0); ALBUMIN/GLOBULIN RATIO 0.4 (1.0-2.7); BILIRUBIN,TOTAL 0.7 MG/DL (0.2-1.0)
[2020-06-08] MEDS: Docusate 100mg/10ml Liq GT SCH (08:32)
[2020-06-08] MEDS: Amiodarone 200mg tab NG SCH (08:36)
--- NOTE | 2020-06-08 08:55 | NUR ---
NURSE NOTES: Bilateral soft wrist restraints discontinued. Patient remains obtunded.
[2020-06-08] MEDS: Enoxaparin 60mg Inj SUBQ SCH (09:32)
--- NOTE | 2020-06-08 09:50 | NUR ---
NURSE NOTES: Ivonne Andrade NP at bedside. Aware of today's ABG results. No new order at this time.
--- NOTE | 2020-06-08 09:59 | NUR ---
NURSE NOTES: Levophed order obtained from Dr. Albarado, patient's blood pressure is low.
[2020-06-08] MEDS ORDERED: fentaNYL 2500mcg/NS 250ml 250 ML IV SCH (10:00)
[2020-06-08] MEDS ORDERED: Norepinephrine 4mg/NS Premix 250 ML IV SCH (10:00)
--- NOTE | 2020-06-08 10:37 | Cardiac Electrophysiology PN ---
Assessment/Plan Assessment/Plan 1. COVID pneumonia. Ruled out for DE EKG in view of inferolateral ST depression EF 65% Her BNP was only 342. Intubated on 100% Fio2 and PEEP 12 despite dexamethasone, ceftriaxone, and azithromycin. 2. Atrial fib with RVR, S/P DCCV on 06/05/20. Change Amiodarone to 400 po daily. Watch for worsening of bradycardia Off Lovenox as Platelet is only 40 3. Sinus nnamdi off any TAVARES affecting agent. Likely due to Covid Now on Amiodarone 4. S/P septic shock. Now off Levophed 5. DNR DW RN Subjective Subjective In ICU intubated on 100% Fio2 and Peep of 12. Had atrial fib with RVR 06/05/20 and had DCCV to SR by ER . In SR on po Amiodarone 400 bid Off pressors in Covid isolation on Abx and off Fentanyl drip as BP low. Family made him DNR Objective Last 24 Hour Vital Signs Date Time Temp Pulse Resp B/P (MAP) Pulse Ox O2 Delivery O2 Flow Rate FiO2 06/08/20 10:19 73/42 06/08/20 10:00 93 28 73/42 (52) 62 06/08/20 09:45 93 28 72/44 (53) 63 06/08/20 09:30 93 28 78/50 (59) 62 06/08/20 09:00 93 27 74/47 (56) 64 06/08/20 08:45 93 28 78/48 (58) 68 06/08/20 08:30 93 29 78/46 (57) 68 06/08/20 08:15 92 28 74/47 (56) 74 06/08/20 08:00 Mechanical Ventilator 06/08/20 08:00 100 06/08/20 08:00 99.0 96 27 73/45 (54) 06/08/20 07:51 89 06/08/20 07:45 90 29 66/41 (49) 31 06/08/20 07:43 91 29 100 06/08/20 07:30 92 28 68/43 (51) 31 06/08/20 07:15 92 28 65/44 (51) 41 06/08/20 07:00 96 28 72/47 (55) 37 06/08/20 06:00 50 80/40 Mechanical Ventilator 100 06/08/20 06:00 94 28 71/46 (54) 25 06/08/20 05:45 95 28 80/51 (61) 06/08/20 05:30 96 28 73/51 (58) 52 06/08/20 05:00 96 9 80/48 (59) 53 06/08/20 05:00 20 71/40 Mechanical Ventilator 100 06/08/20 05:00 20 84/50 Mechanical Ventilator 100 06/08/20 05:00 20 82/46 Mechanical Ventilator 100 06/08/20 04:30 95 20 80/48 (59) 52 06/08/20 04:00 84 06/08/20 04:00 98.6 100 27 79/48 (58) 06/08/20 04:00 20 72/40 Mechanical Ventilator 100 06/08/20 04:00 20 80/40 Mechanical Ventilator 100 06/08/20 04:00 Mechanical Ventilator 06/08/20 04:00 100 06/08/20 03:30 101 26 80/45 (57) 06/08/20 03:00 102 27 85/48 (60) 63 06/08/20 03:00 45 82/50 100.0 06/08/20 03:00 20 86/54 Mechanical Ventilator 100 06/08/20 02:30 105 26 81/50 (60) 06/08/20 02:29 106 28 100 06/08/20 02:00 25 90/40 Mechanical Ventilator 100 06/08/20 02:00 18 84/50 Mechanical Ventilator 100 06/08/20 02:00 108 27 98/48 (65) 63 06/08/20 01:30 111 26 106/57 (73) 66 06/08/20 01:22 100.0 06/08/20 01:00 20 85/50 Mechanical Ventilator 100 06/08/20 01:00 106 26 117/60 (79) 54 06/08/20 00:30 102.5 113 26 100/55 (70) 56 06/08/20 00:00 Mechanical Ventilator 06/08/20 00:00 26 100/102 Mechanical Ventilator 100 06/08/20 00:00 20 85/40 Mechanical Ventilator 100 06/08/20 00:00 79 06/08/20 00:00 116 27 112/51 (71) 54 06/08/20 00:00 100 06/07/20 23:30 114 25 112/62 (79) 53 06/07/20 23:00 30 80/40 Mechanical Ventilator 100 06/07/20 23:00 20 82/50 Mechanical Ventilator 100 06/07/20 23:00 113 23 118/60 (79) 60 06/07/20 22:40 25 100/40 Mechanical Ventilator 100 06/07/20 22:35 95 28 100 06/07/20 22:30 109 25 128/62 (84) 66 06/07/20 22:00 99 29 148/66 (93) 48 06/07/20 22:00 25 124/59 Mechanical Ventilator 100 06/07/20 21:57 24 131/63 Mechanical Ventilator 100 06/07/20 21:30 97 30 146/64 (91) 44 06/07/20 21:00 104 25 107/64 (78) 89 06/07/20 21:00 24 109/61 Mechanical Ventilator 100 06/07/20 20:30 100 26 109/61 (77) 91 06/07/20 20:15 101 22 114/59 (77) 89 06/07/20 20:00 Mechanical Ventilator 06/07/20 20:00 23 109/23 Mechanical Ventilator 100 06/07/20 20:00 79 06/07/20 20:00 98.6 102 25 106/56 (73) 94 06/07/20 20:00 100 06/07/20 19:44 100 28 100 06/07/20 19:30 94 22 112/51 (71) 86 06/07/20 19:00 99 23 110/58 (75) 89 06/07/20 19:00 22 109/54 Mechanical Ventilator 100 06/07/20 18:30 88 24 138/70 (92) 86 06/07/20 18:00 23 140/74 Mechanical Ventilator 100 06/07/20 18:00 98.0 97 25 101/62 (75) 89 06/07/20 17:00 82 23 118/53 (74) 83 06/07/20 17:00 23 103/60 Mechanical Ventilator 100 06/07/20 16:00 Mechanical Ventilator 06/07/20 16:00 86 26 103/60 (74) 83 06/07/20 16:00 23 99/60 Mechanical Ventilator 100 06/07/20 16:00 79 06/07/20 16:00 100 06/07/20 15:00 22 122/70 Mechanical Ventilator 100 06/07/20 15:00 103 23 111/56 (74) 82 06/07/20 14:00 86 26 110/56 (74) 83 06/07/20 14:00 30 103/60 Mechanical Ventilator 100 06/07/20 13:34 94 34 100 06/07/20 13:30 107 18 99/55 (70) 88 06/07/20 13:00 28 99/55 Mechanical Ventilator 100 06/07/20 13:00 105 27 114/63 (80) 83 06/07/20 12:45 25 124/66 Mechanical Ventilator 100 06/07/20 12:30 97 23 109/53 (71) 89 06/07/20 12:00 98.0 97 24 134/72 (92) 79 06/07/20 12:00 Mechanical Ventilator 06/07/20 12:00 25 134/72 Mechanical Ventilator 100 06/07/20 12:00 100 06/07/20 12:00 108 06/07/20 11:30 88 24 120/70 (87) 92 06/07/20 11:00 85 22 126/69 (88) 94 06/07/20 11:00 23 128/62 Mechanical Ventilator 100 Intake and Output 06/07/20 06/08/20 19:00 07:00 Intake Total 1287.5 ml 1015.0 ml Output Total 380 ml 480 ml Balance 907.5 ml 535.0 ml Free Water 150 ml IV Total 837.5 ml 840.0 ml Tube Feeding 300 ml 175 ml Output Urine Total 380 ml 480 ml Laboratory Tests Test 06/07/20 22:40 06/08/20 04:00 06/08/20 08:12 Arterial Blood pH 7.214 (7.350-7.450) 7.262 (7.350-7.450) Arterial Blood Partial Pressure CO2 71.6 mmHg (35.0-45.0) *H 50.4 mmHg (35.0-45.0) H Arterial Blood Partial Pressure O2 37.2 mmHg (75.0-100.0) 55.5 mmHg (75.0-100.0) L Arterial Blood HCO3 28.3 mmol/L (22.0-26.0) H 22.2 mmol/L (22.0-26.0) Arterial Blood Oxygen Saturation 62.8 % (95-100) *L 84.5 % (95-100) *L Arterial Blood Base Excess -0.7 (-2-2) -4.8 (-2-2) L Darinel Test Positive Positive White Blood Count 23.7 K/UL (4.8-10.8) *H Red Blood Count 2.90 M/UL (4.20-5.40) L Hemoglobin 9.3 G/DL (12.0-16.0) L Hematocrit 29.3 % (37.0-47.0) L Mean Corpuscular Volume 101 FL (80-99) H Mean Corpuscular Hemoglobin 32.0 PG (27.0-31.0) H Mean Corpuscular Hemoglobin Concent 31.7 G/DL (32.0-36.0) L Red Cell Distribution Width 13.9 % (11.6-14.8) Platelet Count 43 K/UL (150-450) L Mean Platelet Volume 13.7 FL (6.5-10.1) H Neutrophils (%) (Auto) % (45.0-75.0) Lymphocytes (%) (Auto) % (20.0-45.0) Monocytes (%) (Auto) % (1.0-10.0) Eosinophils (%) (Auto) % (0.0-3.0) Basophils (%) (Auto) % (0.0-2.0) Differential Total Cells Counted 100 Neutrophils % (Manual) 95 % (45-75) H Lymphocytes % (Manual) 4 % (20-45) L Monocytes % (Manual) 1 % (1-10) Eosinophils % (Manual) 0 % (0-3) Basophils % (Manual) 0 % (0-2) Band Neutrophils 0 % (0-8) Nucleated Red Blood Cells 2 /100 WBC Platelet Estimate Decreased L Platelet Morphology Normal Polychromasia 1+ Hypochromasia 1+ Macrocytosis 1+ Sodium Level 143 MMOL/L (136-145) Potassium Level 4.9 MMOL/L (3.5-5.1) Chloride Level 110 MMOL/L (98-107) H Carbon Dioxide Level 27 MMOL/L (21-32) Anion Gap 6 mmol/L (5-15) Blood Urea Nitrogen 39 mg/dL (7-18) H Creatinine 1.2 MG/DL (0.55-1.30) Estimat Glomerular Filtration Rate 43.8 mL/min (>60) Glucose Level 301 MG/DL (74-106) H Calcium Level 8.1 MG/DL (8.5-10.1) L Total Bilirubin 0.7 MG/DL (0.2-1.0) Aspartate Amino Transf (AST/SGOT) 137 U/L (15-37) H Alanine Aminotransferase (ALT/SGPT) 84 U/L (12-78) H Alkaline Phosphatase 232 U/L (46-116) H Total Protein 5.0 G/DL (6.4-8.2) L Albumin 1.5 G/DL (3.4-5.0) L Globulin 3.5 g/dL Albumin/Globulin Ratio 0.4 (1.0-2.7) L Objective HEAD AND NECK: No JVD. Orally intubated LUNGS: Coarse rhonchi. CARDIOVASCULAR: Regular S1 and S2 with no gallop. Bradycardic. ABDOMEN: Soft. EXTREMITIES: No pitting edema. Jordi Albarado MD Jun 08, 2020 10:37
--- NOTE | 2020-06-08 11:05 | NUR ---
RADIOLOGY DEPT., CHEST X-RAY DONE.-P.DYE
--- NOTE | 2020-06-08 11:10 | Pulmonolgy Critical Care Note ---
Critical Care - Asmt/Plan Assessment/Plan: ASSESSMENT Acute hypoxemic resp failure due to COVID PNA, requiring intubation 05/27 COVID 19 PNA Shock Thrombocytopenia- Pulmonary HTN Hypotension A fib with RVR, s/p cardioversion Abnormal ECG Headache DNR/DNI status now PLAN OF CARE ICU isolation Date of sx onset: few days prior to presentation to ED on 05/23 Positive test: [facility] 05/22 - 1 days prior to admission , SARS COV-2 by PCR 05/30 NGT O2 -> intubated 05/27 , failed weaning 06/01 , vent support , remains on high settings ABG this am noted, keep settings as CXR no change fup ABG and CXR in am HFA if unable to do HHN via line s/p REM x 5 days ( 05/23-05/27 ) s/p DEX x 10 days D dimer initial 0.48 - > 19.61-> 7.23 DVT PPX: Lovenox - stopped earlier due to low PLT Venous Duplex BLE NGT Trend CRP 3.6 -> 19.7-> 76.4 - 38.3 -45.1-26.5-15.6 Abx per ID recs prone position as tolerated monitor volumes and renal function fup with consultants recs now DNR/DNi status from 06/06 , after discussion GOC and poor prognosis with family started on pressor 06/08 low dose Levophed on gentle IVF closely monitor HDs monitor PLT counts- trending down - , Lovenox stopped earlier , down to 43 ; check Heparin induced Ab pending cardio eval -appreciated ECHO with pEF 65%, no WMA, mild to moderate MR, moderate pulmonary hypertension case discussed and evaluated by supervising physician Critical Care - Objective Last 24 Hour Vital Signs Date Time Temp Pulse Resp B/P (MAP) Pulse Ox O2 Delivery O2 Flow Rate FiO2 06/08/20 10:19 73/42 06/08/20 10:00 93 28 73/42 (52) 62 06/08/20 09:45 93 28 72/44 (53) 63 06/08/20 09:30 93 28 78/50 (59) 62 06/08/20 09:00 93 27 74/47 (56) 64 06/08/20 08:45 93 28 78/48 (58) 68 06/08/20 08:30 93 29 78/46 (57) 68 06/08/20 08:15 92 28 74/47 (56) 74 06/08/20 08:00 Mechanical Ventilator 06/08/20 08:00 100 06/08/20 08:00 99.0 96 27 73/45 (54) 06/08/20 07:51 89 06/08/20 07:45 90 29 66/41 (49) 31 06/08/20 07:43 91 29 100 06/08/20 07:30 92 28 68/43 (51) 31 06/08/20 07:15 92 28 65/44 (51) 41 06/08/20 07:00 96 28 72/47 (55) 37 06/08/20 06:00 50 80/40 Mechanical Ventilator 100 06/08/20 06:00 94 28 71/46 (54) 25 06/08/20 05:45 95 28 80/51 (61) 06/08/20 05:30 96 28 73/51 (58) 52 06/08/20 05:00 96 9 80/48 (59) 53 06/08/20 05:00 20 71/40 Mechanical Ventilator 100 06/08/20 05:00 20 84/50 Mechanical Ventilator 100 06/08/20 05:00 20 82/46 Mechanical Ventilator 100 06/08/20 04:30 95 20 80/48 (59) 52 06/08/20 04:00 84 06/08/20 04:00 98.6 100 27 79/48 (58) 06/08/20 04:00 20 72/40 Mechanical Ventilator 100 06/08/20 04:00 20 80/40 Mechanical Ventilator 100 06/08/20 04:00 Mechanical Ventilator 06/08/20 04:00 100 06/08/20 03:30 101 26 80/45 (57) 06/08/20 03:00 102 27 85/48 (60) 63 06/08/20 03:00 45 82/50 100.0 06/08/20 03:00 20 86/54 Mechanical Ventilator 100 06/08/20 02:30 105 26 81/50 (60) 06/08/20 02:29 106 28 100 06/08/20 02:00 25 90/40 Mechanical Ventilator 100 06/08/20 02:00 18 84/50 Mechanical Ventilator 100 06/08/20 02:00 108 27 98/48 (65) 63 06/08/20 01:30 111 26 106/57 (73) 66 06/08/20 01:22 100.0 06/08/20 01:00 20 85/50 Mechanical Ventilator 100 06/08/20 01:00 106 26 117/60 (79) 54 06/08/20 00:30 102.5 113 26 100/55 (70) 56 06/08/20 00:00 Mechanical Ventilator 06/08/20 00:00 26 100/102 Mechanical Ventilator 100 06/08/20 00:00 20 85/40 Mechanical Ventilator 100 06/08/20 00:00 79 06/08/20 00:00 116 27 112/51 (71) 54 06/08/20 00:00 100 06/07/20 23:30 114 25 112/62 (79) 53 06/07/20 23:00 30 80/40 Mechanical Ventilator 100 06/07/20 23:00 20 82/50 Mechanical Ventilator 100 06/07/20 23:00 113 23 118/60 (79) 60 06/07/20 22:40 25 100/40 Mechanical Ventilator 100 06/07/20 22:35 95 28 100 06/07/20 22:30 109 25 128/62 (84) 66 06/07/20 22:00 99 29 148/66 (93) 48 06/07/20 22:00 25 124/59 Mechanical Ventilator 100 06/07/20 21:57 24 131/63 Mechanical Ventilator 100 06/07/20 21:30 97 30 146/64 (91) 44 06/07/20 21:00 104 25 107/64 (78) 89 06/07/20 21:00 24 109/61 Mechanical Ventilator 100 06/07/20 20:30 100 26 109/61 (77) 91 06/07/20 20:15 101 22 114/59 (77) 89 06/07/20 20:00 Mechanical Ventilator 06/07/20 20:00 23 109/23 Mechanical Ventilator 100 06/07/20 20:00 79 06/07/20 20:00 98.6 102 25 106/56 (73) 94 06/07/20 20:00 100 06/07/20 19:44 100 28 100 06/07/20 19:30 94 22 112/51 (71) 86 06/07/20 19:00 99 23 110/58 (75) 89 06/07/20 19:00 22 109/54 Mechanical Ventilator 100 06/07/20 18:30 88 24 138/70 (92) 86 06/07/20 18:00 23 140/74 Mechanical Ventilator 100 06/07/20 18:00 98.0 97 25 101/62 (75) 89 06/07/20 17:00 82 23 118/53 (74) 83 06/07/20 17:00 23 103/60 Mechanical Ventilator 100 06/07/20 16:00 Mechanical Ventilator 06/07/20 16:00 86 26 103/60 (74) 83 06/07/20 16:00 23 99/60 Mechanical Ventilator 100 06/07/20 16:00 79 06/07/20 16:00 100 06/07/20 15:00 22 122/70 Mechanical Ventilator 100 06/07/20 15:00 103 23 111/56 (74) 82 06/07/20 14:00 86 26 110/56 (74) 83 06/07/20 14:00 30 103/60 Mechanical Ventilator 100 06/07/20 13:34 94 34 100 06/07/20 13:30 107 18 99/55 (70) 88 06/07/20 13:00 28 99/55 Mechanical Ventilator 100 06/07/20 13:00 105 27 114/63 (80) 83 06/07/20 12:45 25 124/66 Mechanical Ventilator 100 06/07/20 12:30 97 23 109/53 (71) 89 06/07/20 12:00 98.0 97 24 134/72 (92) 79 06/07/20 12:00 Mechanical Ventilator 06/07/20 12:00 25 134/72 Mechanical Ventilator 100 06/07/20 12:00 100 06/07/20 12:00 108 06/07/20 11:30 88 24 120/70 (87) 92 Objective: General: intubated, on vent AC 450- 100-26 PEEP 12 HEENT: atraumatic, normocephalic, ET in place intact Neck: OP with ET in place , intact; feeding tube in place Lungs: clear , tachypneic Heart: HR/BP unstable, on pressor Abdomen: soft, non-tender, active bowel sounds Extremities: no C/C/E Critical Care - Subjective ROS Limited/Unobtainable: Yes Interval Events: remains on high vent settings tachypneic ABG noted hypotensive, now off sedation and started on Levophed gtt leukocytosis, fevers Condition: critical IV Access: peripheral EKG Rhythm: Sinus Rhythm FI02: 100 Vent Support Breath Rate: 26 Vent Support Mode: AC Vent Tidal Volume: 450 Sputum Amount: Scant PEEP: 12.0 PIP: 45 Fluids: IVF at 30 Drips: Levophed 2 mcg/hr Tube Feeding Amount: 0 I&O: Intake and Output 06/07/20 06/08/20 19:00 07:00 Intake Total 1287.5 ml 1015.0 ml Output Total 380 ml 480 ml Balance 907.5 ml 535.0 ml Free Water 150 ml IV Total 837.5 ml 840.0 ml Tube Feeding 300 ml 175 ml Output Urine Total 380 ml 480 ml CXR: CXR 06/07 Unchanged, over one day, findings as above. ET-Tube: 7.5 ET Position: 24 Ivonne Andrade NP Jun 08, 2020 11:10
--- NOTE | 2020-06-08 12:00 | NUR ---
NURSE NOTES: On levophed drip to keep blood pressure/SBP above 90. Tube feeding remains on hold, patient positioned flat in bed.
--- NOTE | 2020-06-08 12:28 | Diagnostic Imaging Report ---
Indication: Shortness f breath Technique: One view of the chest Comparison: 06/07/2020 Findings: Stable tube and line positions. Bilateral infiltrates are unchanged. There are small bilateral pleural effusions again demonstrated, unchanged. Impression: Unchanged, over one day, findings as above.
--- NOTE | 2020-06-08 13:16 | NUR ---
Record Label [employer] G[employer]er SI: Respiratory Failure, COVID PNA, ETT/Vent support T-98.0 (rectal), HR 77, RR 28, BP 73/41 AC 20, TV 450, PEEP 5.0, FiO2 100% O2 sat 56% WBC 23.7 IS: Lovenox SQ BID Zosyn IV TID Vancomycin IV Micafungin IV q d Levophed GTT Fentanyl GTT ICU Status
--- NOTE | 2020-06-08 13:40 | NUR ---
NURSE NOTES: Charge nurse/Angelique Mayfield RN informed patient's daughter via telephone about patient's change of condition. Daughter is coming to see the patient.
[2020-06-08] MEDS ORDERED: Tubing IV Secondary IV ONE (13:49)
--- NOTE | 2020-06-08 13:50 | NUR ---
NURSE NOTES: Noted Asystole in site monitor. No pulse noted upon palpation. Patient is DNR. Will inform patient's family and primary MD.
--- NOTE | 2020-06-08 13:51 | NUR ---
NURSE NOTES: Dr. Sousa and Ivonne Andrade, [employer] made aware regarding patient's condition. Dr. Phan Hayward pronounced at 1350.
--- NOTE | 2020-06-08 14:12 | Emergency Room Report ---
History of Present Illness General Chief Complaint: Dyspnea/Respdistress Source: Medical Record, PMD Present Illness HPI 75-year-old female diagnosed with Covid, hypoxic was called to bedside to pronounce at 1350, patient DNR Allergies: Coded Allergies: No Known Allergies (Unverified , 04/02/12) COVID-19 Screening Contact w/high risk pt: Yes Experienced COVID-19 symptoms?: Yes COVID-19 Testing performed BAR PILOT: No COVID-19 Screening: Positive COVID-19 Patient History Past Medical History: see triage record Now: No Reviewed Nursing Documentation: PMH: Agreed; PSxH: Agreed Nursing Documentation-PMH Past Medical History: No History, Except For Hx Cardiac Problems: No Hx Cancer: No Hx Gastrointestinal Problems: No Hx Neurological Problems: No Review of Systems All Other Systems: limited Physical Exam Vital Signs Date Time Temp Pulse Resp B/P (MAP) Pulse Ox O2 Delivery O2 Flow Rate FiO2 06/04/20 07:00 101.0 95 26 98/60 (73) 97 06/04/20 07:00 Mechanical Ventilator 100 06/05/20 02:37 15.0 Cardiovascular #1: other - asystole Neuologic: Unresponsive Medical Decision Making Diagnostic Impression: Primary Impression: COVID-19 Additional Impressions: Abnormal EKG Thrombocytopenia Hypoxia Pneumonia ER Course 75-year-old female diagnosed with Covid, hypoxic was called to bedside to pronounce at 1350, patient DNR Time of 1350 Last Vital Signs Date Time Temp Pulse Resp B/P (MAP) Pulse Ox O2 Delivery O2 Flow Rate FiO2 06/08/20 13:44 48/24 06/08/20 13:05 77 28 56 06/08/20 12:00 99.2 06/08/20 12:00 Mechanical Ventilator 06/08/20 12:00 100 06/08/20 03:00 100.0 Disposition: ADMITTED INPATIENT Condition: Referrals: NON PHYSICIAN (PCP) Phan Hayward MD Jun 08, 2020 14:12
--- NOTE | 2020-06-08 15:30 | NUR ---
NURSE NOTES: Patient's daughter/Tanika Alis in the unit. And patient's belongings are given to patient's daughter. Little of $118, unable to find at this time in patient's belongings. Patient's daughter will arrange Mortuary.
--- NOTE | 2020-06-08 15:40 | NUR ---
NURSE NOTES: Patient's [facility] she said that she spoke to Karina ([phone]). And [facility] is coming to pick patient's body here in the unit. No belongings will be released to mortuary.
--- NOTE | 2020-06-08 17:22 | Surgery Progress Note ---
Surgery Progress Note Subjective Procedure Performed right femoral central venous catheter insertion Additional Comments late entry when seen this AM was desaturating on high vent support per report has since passed. Objective Last 24 Hour Vital Signs Date Time Temp Pulse Resp B/P (MAP) Pulse Ox O2 Delivery O2 Flow Rate FiO2 06/08/20 13:50 0 06/08/20 13:50 0 0 0/0 (0) 0 06/08/20 13:44 48/24 06/08/20 13:40 48/24 (32) 06/08/20 13:15 77 28 70/37 (48) 56 06/08/20 13:10 76 28 69/34 (46) 57 06/08/20 13:05 77 28 73/41 (52) 56 06/08/20 13:00 76 28 75/39 (51) 54 06/08/20 12:55 93 28 85/43 (57) 54 06/08/20 12:40 94 28 90/49 (63) 53 06/08/20 12:35 94 28 85/42 (56) 56 06/08/20 12:30 95 27 81/42 (55) 52 06/08/20 12:15 104 28 99/49 (66) 60 06/08/20 12:00 99.2 104 28 96/47 (63) 60 06/08/20 12:00 Mechanical Ventilator 06/08/20 12:00 Mechanical Ventilator 06/08/20 12:00 100 06/08/20 12:00 100 06/08/20 12:00 100 06/08/20 11:46 103 28 100 06/08/20 11:45 104 28 104/54 (71) 61 06/08/20 11:30 100 28 104/50 (68) 60 06/08/20 11:20 99 28 87/55 (66) 56 06/08/20 11:15 99 28 65/37 (46) 60 06/08/20 11:00 96 28 81/43 (56) 62 06/08/20 10:45 97 28 81/46 (58) 63 06/08/20 10:30 99 28 83/48 (60) 63 06/08/20 10:19 89 28 77/41 (53) 64 06/08/20 10:19 73/42 06/08/20 10:15 90 28 116/53 (74) 62 06/08/20 10:00 93 28 73/42 (52) 62 06/08/20 09:45 93 28 72/44 (53) 63 06/08/20 09:30 93 28 78/50 (59) 62 06/08/20 09:00 93 27 74/47 (56) 64 06/08/20 08:45 93 28 78/48 (58) 68 06/08/20 08:30 93 29 78/46 (57) 68 06/08/20 08:15 92 28 74/47 (56) 74 06/08/20 08:00 Mechanical Ventilator 06/08/20 08:00 100 06/08/20 08:00 99.0 96 27 73/45 (54) 06/08/20 07:51 89 06/08/20 07:45 90 29 66/41 (49) 31 06/08/20 07:43 91 29 100 06/08/20 07:30 92 28 68/43 (51) 31 06/08/20 07:15 92 28 65/44 (51) 41 06/08/20 07:00 96 28 72/47 (55) 37 06/08/20 06:00 50 80/40 Mechanical Ventilator 100 06/08/20 06:00 94 28 71/46 (54) 25 06/08/20 05:45 95 28 80/51 (61) 06/08/20 05:30 96 28 73/51 (58) 52 06/08/20 05:00 96 9 80/48 (59) 53 06/08/20 05:00 20 71/40 Mechanical Ventilator 100 06/08/20 05:00 20 84/50 Mechanical Ventilator 100 06/08/20 05:00 20 82/46 Mechanical Ventilator 100 06/08/20 04:30 95 20 80/48 (59) 52 06/08/20 04:00 84 06/08/20 04:00 98.6 100 27 79/48 (58) 06/08/20 04:00 20 72/40 Mechanical Ventilator 100 06/08/20 04:00 20 80/40 Mechanical Ventilator 100 06/08/20 04:00 Mechanical Ventilator 06/08/20 04:00 100 06/08/20 03:30 101 26 80/45 (57) 06/08/20 03:00 102 27 85/48 (60) 63 06/08/20 03:00 45 82/50 100.0 06/08/20 03:00 20 86/54 Mechanical Ventilator 100 06/08/20 02:30 105 26 81/50 (60) 06/08/20 02:29 106 28 100 06/08/20 02:00 25 90/40 Mechanical Ventilator 100 06/08/20 02:00 18 84/50 Mechanical Ventilator 100 06/08/20 02:00 108 27 98/48 (65) 63 06/08/20 01:30 111 26 106/57 (73) 66 06/08/20 01:22 100.0 06/08/20 01:00 20 85/50 Mechanical Ventilator 100 06/08/20 01:00 106 26 117/60 (79) 54 06/08/20 00:30 102.5 113 26 100/55 (70) 56 06/08/20 00:00 Mechanical Ventilator 06/08/20 00:00 26 100/102 Mechanical Ventilator 100 06/08/20 00:00 20 85/40 Mechanical Ventilator 100 06/08/20 00:00 79 06/08/20 00:00 116 27 112/51 (71) 54 06/08/20 00:00 100 06/07/20 23:30 114 25 112/62 (79) 53 06/07/20 23:00 30 80/40 Mechanical Ventilator 100 06/07/20 23:00 20 82/50 Mechanical Ventilator 100 06/07/20 23:00 113 23 118/60 (79) 60 06/07/20 22:40 25 100/40 Mechanical Ventilator 100 06/07/20 22:35 95 28 100 06/07/20 22:30 109 25 128/62 (84) 66 06/07/20 22:00 99 29 148/66 (93) 48 06/07/20 22:00 25 124/59 Mechanical Ventilator 100 06/07/20 21:57 24 131/63 Mechanical Ventilator 100 06/07/20 21:30 97 30 146/64 (91) 44 06/07/20 21:00 104 25 107/64 (78) 89 06/07/20 21:00 24 109/61 Mechanical Ventilator 100 06/07/20 20:30 100 26 109/61 (77) 91 06/07/20 20:15 101 22 114/59 (77) 89 06/07/20 20:00 Mechanical Ventilator 06/07/20 20:00 23 109/23 Mechanical Ventilator 100 06/07/20 20:00 79 06/07/20 20:00 98.6 102 25 106/56 (73) 94 06/07/20 20:00 100 06/07/20 19:44 100 28 100 06/07/20 19:30 94 22 112/51 (71) 86 06/07/20 19:00 99 23 110/58 (75) 89 06/07/20 19:00 22 109/54 Mechanical Ventilator 100 06/07/20 18:30 88 24 138/70 (92) 86 06/07/20 18:00 23 140/74 Mechanical Ventilator 100 06/07/20 18:00 98.0 97 25 101/62 (75) 89 I&O Intake and Output 06/07/20 06/08/20 19:00 07:00 Intake Total 1287.5 ml 1015.0 ml Output Total 380 ml 480 ml Balance 907.5 ml 535.0 ml Free Water 150 ml IV Total 837.5 ml 840.0 ml Tube Feeding 300 ml 175 ml Output Urine Total 380 ml 480 ml Laboratory Tests Test 06/07/20 22:40 06/08/20 04:00 06/08/20 08:12 Arterial Blood pH 7.214 (7.350-7.450) 7.262 (7.350-7.450) Arterial Blood Partial Pressure CO2 71.6 mmHg (35.0-45.0) *H 50.4 mmHg (35.0-45.0) H Arterial Blood Partial Pressure O2 37.2 mmHg (75.0-100.0) 55.5 mmHg (75.0-100.0) L Arterial Blood HCO3 28.3 mmol/L (22.0-26.0) H 22.2 mmol/L (22.0-26.0) Arterial Blood Oxygen Saturation 62.8 % (95-100) *L 84.5 % (95-100) *L Arterial Blood Base Excess -0.7 (-2-2) -4.8 (-2-2) L Darinel Test Positive Positive White Blood Count 23.7 K/UL (4.8-10.8) *H Red Blood Count 2.90 M/UL (4.20-5.40) L Hemoglobin 9.3 G/DL (12.0-16.0) L Hematocrit 29.3 % (37.0-47.0) L Mean Corpuscular Volume 101 FL (80-99) H Mean Corpuscular Hemoglobin 32.0 PG (27.0-31.0) H Mean Corpuscular Hemoglobin Concent 31.7 G/DL (32.0-36.0) L Red Cell Distribution Width 13.9 % (11.6-14.8) Platelet Count 43 K/UL (150-450) L Mean Platelet Volume 13.7 FL (6.5-10.1) H Neutrophils (%) (Auto) % (45.0-75.0) Lymphocytes (%) (Auto) % (20.0-45.0) Monocytes (%) (Auto) % (1.0-10.0) Eosinophils (%) (Auto) % (0.0-3.0) Basophils (%) (Auto) % (0.0-2.0) Differential Total Cells Counted 100 Neutrophils % (Manual) 95 % (45-75) H Lymphocytes % (Manual) 4 % (20-45) L Monocytes % (Manual) 1 % (1-10) Eosinophils % (Manual) 0 % (0-3) Basophils % (Manual) 0 % (0-2) Band Neutrophils 0 % (0-8) Nucleated Red Blood Cells 2 /100 WBC Platelet Estimate Decreased L Platelet Morphology Normal Polychromasia 1+ Hypochromasia 1+ Macrocytosis 1+ Sodium Level 143 MMOL/L (136-145) Potassium Level 4.9 MMOL/L (3.5-5.1) Chloride Level 110 MMOL/L (98-107) H Carbon Dioxide Level 27 MMOL/L (21-32) Anion Gap 6 mmol/L (5-15) Blood Urea Nitrogen 39 mg/dL (7-18) H Creatinine 1.2 MG/DL (0.55-1.30) Estimat Glomerular Filtration Rate 43.8 mL/min (>60) Glucose Level 301 MG/DL (74-106) H Calcium Level 8.1 MG/DL (8.5-10.1) L Total Bilirubin 0.7 MG/DL (0.2-1.0) Aspartate Amino Transf (AST/SGOT) 137 U/L (15-37) H Alanine Aminotransferase (ALT/SGPT) 84 U/L (12-78) H Alkaline Phosphatase 232 U/L (46-116) H Total Protein 5.0 G/DL (6.4-8.2) L Albumin 1.5 G/DL (3.4-5.0) L Globulin 3.5 g/dL Albumin/Globulin Ratio 0.4 (1.0-2.7) L Plan Problems: (1) Thrombocytopenia (2) Pneumonia (3) Hypoxia Assessment & Plan: 75F covid + hypoxic intubated on vent support acute hypotensive episode placed on pressors on peripheral line eval for central line done. patient weaning off pressors and only on 1mcg of levo currently bp improved sedation noted awake and alert now responsive on vent support but improving hold on central catheter placement cont for now low dose and wean off levo fluids noted trend labs if worsening will plan to place central catheter emilee thank you will follow with recs . DAILY ESTIMATED NEEDS: Needs based on Critical care, 56kg 22-28 kcals/kg 4775-2699 total kcals 1.2-2 g protein/kg 67-112 g total protein 25-30 mL/kg 4588-4800 total fluid mLs NUTRITION DIAGNOSIS: Swallowing difficulty R/T respiratory failure as evidenced by pt orally intubated on 05/27, OGT feeds ordered. CURRENT TF:Vital AF 1.2 @ 50ml/hr x 24 hrs ordered PO DIET RECOMMENDATIONS: DIRECTOR DANCE eval post extubation ENTERAL NUTRITION RECOMMENDATIONS: Vital AF 1.2 @ 50ml/hr x 24 hrs to provide 1200ml, 1440kcal, 90g prot, 973ml free water * Initiate Vital AF 1.2 @ 20ml/hr x 6hrs * Advance 10ml q 4-6 hrs as tolerated to goal * HOB over 30 degrees/ H2o flush 180ml q 8 hrs ADDITIONAL RECOMMENDATIONS: * Calibrated bedscale wt * Monitor hemodyanmic stability: now off NE * Rec NISS w/ TF while on Decadron: elev FBGs * Monitor lytes, replete as needed (low phos 05/22, rec updated level) Lungs: Bilateral interstitial and airspace opacities are mildly improved. Pleural space: Probable tiny right pleural effusion. No pneumothorax. Heart: Unremarkable. No cardiomegaly. Mediastinum: Unremarkable. Bones/joints: Unremarkable. Tubes, lines and devices: Endotracheal tube and NG tube are stable. IMPRESSION: 1. Bilateral interstitial and airspace opacities are mildly improved. 2. Probable tiny right pleural effusion. (4) Abnormal EKG (5) COVID-19 Assessment & Plan: ++ pulm and ID input appreciated Favio Corona Jun 08, 2020 17:21
[2020-06-09] MEDS ORDERED: Amiodarone 200mg tab NG SCH (09:00)
--- NOTE | 2020-06-10 12:46 | Discharge Summary ---
Discharge Summary Discharge Summary _ Date of admission: 05/22/2020 Date of expiration: 06/08/2020 History of Present Illness and Brief Hospital Course Ms. Dickson was a 75-year-old female with unknown past medical history, who presented to the ER for evaluation of shortness of breath. Patient was reported to test positive for COVID-19 the day prior to presentation. She was found to be saturating at 80% on room air on arrival. Patient was immediately placed on nonrebreather mask and the follow-up ABG was stable. She was able to be weaned down to 4 L oxygen via nasal cannula. Influenza screen test was negative. Initial chest x-ray revealed diffuse bilateral airspace consolidation, likely multifocal pneumonia. In the ED, patient received antibiotics and steroid, and was admitted to the hospital for further management. The initial EKG in the ER revealed normal sinus rhythm. She showed to have ST depressions in the lateral leads versus artifact. Her left ventricular ejection fraction was estimated to be at 65% on echocardiogram. At her later stage of her admission, patient was found to have atrial fibrillation with RVR on 06/05/2020. Patient was given ceftriaxone and azithromycin for coverage of pneumonia secon denisha to COVID-19. Her antibiotics were switched to vancomycin and Zosyn at a later date. Per sputum culture, Diflucan was added for risk of fungemia. Given her hypoxia on arrival, and findings in her chest x-ray, she was started on remdesivir and dexamethasone. Her saturations dropped below 90% at times despite continued supplemental oxygen via 100% nonrebreather mask. A repeat ABG was suboptimal and thus high flow oxygen was added. She continued to saturate in the low 90s and even dropped below 90% intermittently. Her oxygen saturation was closely monitored. Chest x-ray on 05/25/2020 showed worsening bilateral infiltrates. Given her acute hypoxemic respiratory failure on nonrebreather mask and high flow oxygen, patient was intubated and was transferred to ICU on 05/27/2020. Patient failed weaning trial on 06/01/2020 and ventilator support was continued. Venous duplex ultrasound of the lower extremity revealed no evidence for DVT despite elevated D-dimer and CRP. She continued to receive Lovenox which was later discontinued due to low level of platelet count. Patient's prognosis remained poor throughout her admission. By 06/06/2020, patient CODE STATUS was transitioned to DNR/DNI per family request. On 06/08/2020, patient's blood pressure began to drop further. She was started on Levophed drip. Patient was found to be in asystole and laboratory monitor. No pulse was noted upon palpation. Patient was DNR at this time. Unfortunately, she was pronounced at 1350. Cause of : cardiopulmonary arrest. Consultants: Infectious disease Dr. Muñoz Cardiology Dr. Albarado Surgery Dr. Corona Final diagnoses COVID-19 pneumonia Atrial fibrillation with RVR Septic shock Acute hypoxemic respiratory failure due to COVID-19 pneumonia requiring intubation Thrombocytopenia Pulmonary hypertension Hypotension Headache I have been assigned to dictate discharge summary for this account. I was not involved in the patient's management Erik Styles Jun 10, 2020 12:46
== END 2020-06-08 13:50 | disposition expired | DRG 207 ==
LOC: EMR 17:41 → 2E 18:23 → EDBEDREQ 05-23 13:29 → 2E 05-24 10:00 → ICU 05-27 13:24
DX: U07.1 COVID-19 (principal); J96.01 Acute respiratory failure with hypoxia; R65.21 Severe sepsis with septic shock; J12.82 Pneumonia due to coronavirus disease 2019; A41.9 Sepsis, unspecified organism; D69.6 Thrombocytopenia, unspecified; I48.91 Unspecified atrial fibrillation; Z66 Do not resuscitate; R00.1 Bradycardia, unspecified; R51.9 Headache, unspecified; I27.20 Pulmonary hypertension, unspecified
CPT/HCPCS: 36415; 71045; 74018; 80048; 80053; 80061; 80202; 81003; 82248; 82378; 82550; 82728; 82803; 83520; 83605; 83615; 83690; 83735; 83880; 84100; 84439; 84443; 84484; 85007; 85025; 85379; 85610; 85651; 85730; 86140; 86710; 87040; 87070; 87086; 87205; 93005; 93306; 93970; 94002; 94003; 96361; 96365; 96367; 96375; 99285; J0282; J2250; J3490; J7030; U0002